=== PATIENT | female | born 1960 | race Caucasian/White ===

== ENCOUNTER 2022-01-15 13:04 | Emergency (ER) | payer MEDICARE, OTHER, SELFPAY ==
[2022-01-15 13:15] VITALS: BP 144/86; PULSE 102; RESP 16; TEMP 36.4; O2SAT 99
--- NOTE | 2022-01-15 16:19 | ED.URI ---
HPI - URI/Sore Throat General Chief Complaint: Upper Respiratory Infection Stated Complaint: poss pnuemonia Time Seen by Provider: 01/15/22 16:15 Source: patient, RN notes reviewed and old records reviewed Mode of arrival: ambulatory Limitations: no limitations History of Present Illness HPI Narrative: 61 year old female who presents to [facility] care with complaints of cough with yellow expectorated phlegm for 3 days, ribs hurt from so much coughing, fevers, body aches, chills and sweats.Patient reports that she has had flu shot. Patient reports that she has taken day and night cold and flu medication and has used Robitussin cough syrup. Patient rates her body aches at 6/10 pain level, Denies offer for chest x-ray. MD elicited complaint: fever, cough and other (bodyaches) Onset (ago): day(s) (3) Treatments prior to arrival: aspirin and other (day/night cold and flu medication and Robitussin cou) Related Data Home Medications Medication Instructions Recorded Confirmed alprazolam 0.5 mg tablet (Xanax) 0.5 mg PO TID PRN Anxiety 06/04/20 01/15/22 ranolazine 1,000 mg 1,000 mg PO Q12H 06/04/20 01/15/22 tablet,extended release,12 hr (Ranexa) arpqfdhhri-kizmdrp-hbjionsn 50 1 cap PO BID PRN Pain 01/15/22 01/15/22 mg-325 mg-40 mg capsule celecoxib 200 mg capsule 200 mg PO BID 01/15/22 01/15/22 ezetimibe 10 mg tablet 10 mg PO DAILY 01/15/22 01/15/22 famotidine 40 mg tablet 40 mg PO DAILY 01/15/22 01/15/22 hydrochlorothiazide 25 mg tablet 25 mg PO DAILY 01/15/22 01/15/22 icosapent ethyl 1 gram capsule 1 g PO DAILY 01/15/22 01/15/22 (Vascepa) metoprolol succinate 50 mg 50 mg PO DAILY 01/15/22 01/15/22 tablet,extended release 24 hr nitroglycerin 0.4 mg sublingual 0.4 mg sublingual DAILY PRN Chest 01/15/22 01/15/22 tablet Pain trazodone 150 mg tablet 300 mg PO QHS PRN Sleep 01/15/22 01/15/22 Allergies Allergy/AdvReac Type Severity Reaction Status Date / Time bee venom protein (honey bee) Allergy Severe Anaphylaxis Verified 01/15/22 15:09 erythromycin base Allergy Unknown Rash Verified 01/15/22 15:09 Review of Systems Review of Systems: CONSTITUTIONAL: Reports malaise, chills, sweats, or fever. EYES: Denies visual changes, redness, or discharge. ENT: Reports rhinorrhea, congestion, sinus pain,no otalgia or sore throat. CARDIOVASCULAR: Denies chest pain, palpitations, or edema. RESPIRATORY: Reports cough.? Denies dyspnea.states rib pain from coughing GASTROINTESTINAL: Denies abdominal pain, nausea, vomiting, diarrhea SKIN: Denies rash or itching. MUSCULOSKELETALReports myalgia. NEUROLOGIC: Denies headache. All systems reviewed & are unremarkable except as noted in HPI and below PMFSH Past Medical History Medical History (Updated 01/20/22 @ 16:28 by Esha Santamaria NP) Depression Diastolic dysfunction Hypertension Low back pain Syrinx of spinal cord Surgical History Surgical History (Updated 01/20/22 @ 16:25 by Esha Santamaria NP) H/O total knee replacement (~12/25/19) H/O: hysterectomy History of right knee joint replacement Hx of appendectomy S/P tonsillectomy Social History Social History Social History: never smoker Smoking status: Never smoker Alcohol intake: current Substance use: never Comments At time of signature, agree with nursing past medical, surgical, social and family history. There is no relevant family history pertinent to the presenting complaint Exam Narrative: GENERAL: Well-appearing, well-nourished, and in no acute distress. HEAD: Normocephalic EYES: PERRLA, conjunctivae clear ENT: Nares clear, turbinates edematous and erythematous, clear discharge. Mucous membranes moist. TM pearly ramos with dull light reflex bilaterally; no tragal tenderness. Oropharynx erythematous without lesions. Tonsils not present and without exudate note to throat,, no drooling, no hoarseness, no trismus, uvula midline.some po
== END 2022-01-15 16:35 | disposition home or self-care (01) ==
PROVIDERS: Emergency Provider Registered Nurse; PCP Family Medicine
DX: J06.9 Acute upper respiratory infection, unspecified (principal); I10 Essential (primary) hypertension
CPT/HCPCS: 87804; 99213; G0463

== ENCOUNTER 2022-06-07 08:52 | Emergency (ER) | payer MEDICARE, OTHER, SELFPAY ==
[2022-06-07 09:00] VITALS: BP 136/85; PULSE 125; RESP 20; TEMP 37.1; O2SAT 99
--- NOTE | 2022-06-07 09:45 | ED.URI ---
HPI - URI/Sore Throat General Chief Complaint: Upper Respiratory Infection Stated Complaint: terrible cough Time Seen by Provider: 06/07/22 09:45 Source: patient, RN notes reviewed and old records reviewed Mode of arrival: ambulatory Limitations: no limitations History of Present Illness HPI Narrative: 52-year-old female who presents to [facility] Care with complaints of 4 day duration severe cough and congestion, sore throat and also nasal congestion and drainage. Patient states she has been taking DayQuil and NyQuil med and also Robitussin cough syrup with no improvement in her symptoms. Patient reports that she is not able to sleep due to cough and has some rib discomfort from all the coughing. Patient denies any fevers, chills, states body aches, denies acute dyspnea. Patient denies any known ill contacts. MD elicited complaint: cough, sore throat, rhinorrhea and nasal congestion Onset (ago): day(s) (4) Pain scale (0-10): 5 Description of mucous: yellow Exacerbating factors: swallowing, exertion and supine positioning Treatments prior to arrival: other (Robittussin, DayQuil or NyQuil) Related Data Home Medications Medication Instructions Recorded Confirmed alprazolam 0.5 mg tablet (Xanax) 0.5 mg PO TID PRN Anxiety 06/04/20 01/15/22 ranolazine 1,000 mg 1,000 mg PO Q12H 06/04/20 01/15/22 tablet,extended release,12 hr (Ranexa) ujrsqniyjo-mktqkan-jyfzmtxe 50 1 cap PO BID PRN Pain 01/15/22 01/15/22 mg-325 mg-40 mg capsule celecoxib 200 mg capsule 200 mg PO BID 01/15/22 01/15/22 ezetimibe 10 mg tablet 10 mg PO DAILY 01/15/22 01/15/22 famotidine 40 mg tablet 40 mg PO DAILY 01/15/22 01/15/22 hydrochlorothiazide 25 mg tablet 25 mg PO DAILY 01/15/22 01/15/22 icosapent ethyl 1 gram capsule 1 g PO DAILY 01/15/22 01/15/22 (Vascepa) metoprolol succinate 50 mg 50 mg PO DAILY 01/15/22 01/15/22 tablet,extended release 24 hr nitroglycerin 0.4 mg sublingual 0.4 mg sublingual DAILY PRN Chest 01/15/22 01/15/22 tablet Pain trazodone 150 mg tablet 300 mg PO QHS PRN Sleep 01/15/22 01/15/22 Allergies Allergy/AdvReac Type Severity Reaction Status Date / Time bee venom protein (honey bee) Allergy Severe Anaphylaxis Verified 06/07/22 09:22 erythromycin base Allergy Unknown Rash Verified 06/07/22 09:22 Review of Systems Review of Systems: CONSTITUTIONAL: Reports malaise, chills, sweats, or fever. EYES: Denies visual changes, redness, or discharge. ENT: Reports rhinorrhea, congestion, sinus pain, bilateral otalgia and sore throat. CARDIOVASCULAR: Denies chest pain, palpitations, or edema. RESPIRATORY: Reports productive cough.? Denies any acute dyspnea. GASTROINTESTINAL: Denies abdominal pain, nausea, vomiting, diarrhea SKIN: Denies rash or itching. MUSCULOSKELETAL: Reports myalgia. NEUROLOGIC: Denies headache. All systems reviewed & are unremarkable except as noted in HPI and below PMFSH Past Medical History Medical History Depression Diastolic dysfunction Hypertension Low back pain Syrinx of spinal cord Surgical History Surgical History H/O total knee replacement (~12/25/19) H/O: hysterectomy History of right knee joint replacement Hx of appendectomy S/P tonsillectomy Social History Social History Social History: never smoker Smoking status: Never smoker Alcohol intake: current Substance use: never Living arrangements: with family Comments At time of signature, agree with nursing past medical, surgical, social and family history. There is no relevant family history pertinent to the presenting complaint Exam Narrative: GENERAL: Well-appearing, well-nourished, and in no acute distress. HEAD: Normocephalic EYES: PERRLA, conjunctivae clear ENT: Nares clear, turbinates edematous and erythematous, clear to light yellow di
== END 2022-06-07 10:09 | disposition home or self-care (01) ==
PROVIDERS: Emergency Provider Registered Nurse
DX: J06.9 Acute upper respiratory infection, unspecified (principal); J02.9 Acute pharyngitis, unspecified; I10 Essential (primary) hypertension; Z96.651 Presence of right artificial knee joint
CPT/HCPCS: 87081; 87880; 99213; G0463

== ENCOUNTER 2022-08-05 18:03 | Emergency (ER) | payer MEDICARE, OTHER, SELFPAY ==
--- NOTE | 2022-08-05 18:08 | ED.FEMALEGU ---
HPI - Female Genitourinary General Chief complaint: Urogenital-Female Stated complaint: poss uti Time Seen by Provider: 08/05/22 18:08 Source: patient Mode of arrival: ambulatory Limitations: no limitations History of Present Illness HPI Narrative: Roma is a 62-year-old female patient presenting to clinic today with complaints of possible urinary tract infection. She reports she developed difficulty urinating and urgency this morning. Denies any vaginal discharge. Does have chronic back pain. No fever or chills Related Data Home Medications Medication Instructions Recorded Confirmed alprazolam 0.5 mg tablet (Xanax) 0.5 mg PO TID PRN Anxiety 06/04/20 08/05/22 ranolazine 1,000 mg 1,000 mg PO Q12H 06/04/20 01/15/22 tablet,extended release,12 hr (Ranexa) qgumgukpul-tjqyadq-finbfspt 50 1 cap PO BID PRN Pain 01/15/22 08/05/22 mg-325 mg-40 mg capsule celecoxib 200 mg capsule 200 mg PO BID 01/15/22 08/05/22 ezetimibe 10 mg tablet 10 mg PO DAILY 01/15/22 08/05/22 famotidine 40 mg tablet 40 mg PO DAILY 01/15/22 01/15/22 hydrochlorothiazide 25 mg tablet 25 mg PO DAILY 01/15/22 08/05/22 icosapent ethyl 1 gram capsule 1 g PO DAILY 01/15/22 01/15/22 (Vascepa) metoprolol succinate 50 mg 50 mg PO DAILY 01/15/22 08/05/22 tablet,extended release 24 hr nitroglycerin 0.4 mg sublingual 0.4 mg sublingual DAILY PRN Chest 01/15/22 08/05/22 tablet Pain trazodone 150 mg tablet 300 mg PO QHS PRN Sleep 01/15/22 01/15/22 alendronate 70 mg tablet mg PO 08/05/22 amlodipine 5 mg tablet 5 mg PO DAILY 08/05/22 08/05/22 cyclobenzaprine 10 mg tablet 10 mg PO TID PRN Muscle Spasm 08/05/22 08/05/22 Allergies Allergy/AdvReac Type Severity Reaction Status Date / Time bee venom protein (honey bee) Allergy Severe Anaphylaxis Verified 08/05/22 18:16 erythromycin base Allergy Unknown Rash Verified 08/05/22 18:16 Review of Systems Review of Systems: Pertinent positives per HPI. Patient denies any fever, chills, rash, headache, visual changes, dizziness, cough, runny nose, sore throat, shortness of breath, chest pain, palpitations, nausea, vomiting, diarrhea, constipation, abdominal pain. PMF Past Medical History Medical History Depression Diastolic dysfunction Hypertension Low back pain Syrinx of spinal cord Surgical History Surgical History H/O total knee replacement (~12/25/19) H/O: hysterectomy History of right knee joint replacement Hx of appendectomy S/P tonsillectomy Social History Social History Social History: never smoker Smoking status: Never smoker Alcohol intake: current Substance use: never Living arrangements: with family Comments At the time of my signature, I reviewed and agree with the nursing past medical, surgical, social, and family history. There is no relevant family history pertinent to the patient complaint. Exam Narrative: General: Well-developed, obese, in no apparent distress. Head: Normocephalic, atraumatic. Cardio: Regular rate and rhythm, s1 and s2 normal, no murmur appreciated. Resp: Clear to auscultation bilaterally, no rhonchi, rales, wheezing or rubs. Abdomen: Soft, pliable, bowel sounds present in all quadrants, mild tender to palpation over the suprapubic area, no organomegly, no CVAT tenderness. Course Course Emergency Course: Portions of this record may have been created with voice recognition software. Level of Care: Express Care Visit Vital Signs Vital signs: Vital signs reviewed MDM - Female Genitourinary MDM Narrative Medical decision making narrative: At the time of visit patient is resting comfortably on exam table. UA was obtained and was skewed due to azo. Will send in prescription for Macrobid. We will send urine for culture. Supportive measures were discussed
[2022-08-05 18:15] VITALS: BP 159/101; PULSE 98; RESP 16; TEMP 36.5; O2SAT 100
[2022-08-05 18:25] VITALS: BP 159/101; PULSE 98; RESP 16; TEMP 36.5; O2SAT 100
== END 2022-08-05 18:29 | disposition home or self-care (01) ==
PROVIDERS: Emergency Provider Nurse Practitioner Family; PCP Family Medicine
DX: N30.01 Acute cystitis with hematuria (principal); I10 Essential (primary) hypertension
CPT/HCPCS: 81003; 87077; 87086; 87186; 99213; G0463

== ENCOUNTER 2023-04-22 08:19 | Emergency (ER) | payer MEDICARE, OTHER, SELFPAY ==
[2023-04-22 08:27] VITALS: BP 141/94; PULSE 107; RESP 16; TEMP 36.8; O2SAT 100
--- NOTE | 2023-04-22 09:04 | ED.GENADULT ---
HPI - General Adult General Chief complaint: Upper Respiratory Infection Stated complaint: Cough/Body Aches/Diarrhea Source: patient Mode of arrival: ambulatory Limitations: no limitations History of Present Illness HPI narrative: Patient presents for evaluation of sick symptoms for the last two days. Symptoms include fever, nonproductive cough, pleuritic chest discomfort, nausea, diarrhea, sore throat secondary to coughing and sinus congestion. No vomiting or shortness of breath. No recent sick contacts to her knowledge. She does not smoke. She tried taking Robitussin and Tylenol for symptoms. Related Data Home Medications Medication Instructions Recorded Confirmed alprazolam 0.5 mg tablet (Xanax) 0.5 mg PO TID PRN Anxiety 06/04/20 04/22/23 xicgnomzle-esrwfan-aqpnnnke 50 1 cap PO BID PRN Pain 01/15/22 04/22/23 mg-325 mg-40 mg capsule celecoxib 200 mg capsule 200 mg PO BID 01/15/22 04/22/23 ezetimibe 10 mg tablet 10 mg PO DAILY 01/15/22 04/22/23 famotidine 40 mg tablet 40 mg PO DAILY 01/15/22 04/22/23 hydrochlorothiazide 25 mg tablet 25 mg PO DAILY 01/15/22 04/22/23 icosapent ethyl 1 gram capsule 1 g PO DAILY 01/15/22 04/22/23 (Vascepa) metoprolol succinate 50 mg 50 mg PO DAILY 01/15/22 04/22/23 tablet,extended release 24 hr nitroglycerin 0.4 mg sublingual 0.4 mg sublingual DAILY PRN Chest 01/15/22 04/22/23 tablet Pain trazodone 150 mg tablet 300 mg PO QHS PRN Sleep 01/15/22 04/22/23 alendronate 70 mg tablet 70 mg PO DAILY 08/05/22 04/22/23 amlodipine 5 mg tablet 5 mg PO DAILY 08/05/22 04/22/23 cyclobenzaprine 10 mg tablet 10 mg PO TID PRN Muscle Spasm 08/05/22 04/22/23 Allergies Allergy/AdvReac Type Severity Reaction Status Date / Time bee venom protein (honey bee) Allergy Severe Anaphylaxis Verified 04/22/23 08:46 erythromycin base Allergy Unknown Rash Verified 04/22/23 08:46 Review of Systems Review of Systems: CONSTITUTIONAL: Reports fever. Denies chills, or sweats. EYES: Denies visual changes, redness, or discharge. ENT: Reports sinus congestion and sore throat. Denies otalgia. CARDIOVASCULAR:Reports pleuritic chest discomfort. Denies chest pain otherwise. Denies palpitations, or edema. RESPIRATORY: Reports cough. Denies SOB. GASTROINTESTINAL: Reports nausea and diarrhea. Denies abdominal pain and vomiting GENITOURINARY: Denies dysuria or hematuria. SKIN: Denies rash or itching. MUSCULOSKELETAL: Denies back pain, joint pain, or myalgia. NEUROLOGIC: Denies headache, numbness, dizziness, or weakness. PSYCHIATRIC: Denies anxiety or depression. [facility] Past Medical History Medical History Depression Diarrhea Diastolic dysfunction Hypertension Low back pain Syrinx of spinal cord Surgical History Surgical History H/O total knee replacement (~12/25/19) H/O: hysterectomy History of right knee joint replacement Hx of appendectomy S/P tonsillectomy Family History Family History Mother Family history non-contributory Social History Social History Social History: never smoker Smoking status: Never smoker Alcohol intake: current Substance use: never Living arrangements: with family Gender identity (if verbalized by the patient): Female Sexual Orientation (if Verbalized by the Patient): Straight or Heterosexual Spiritual care concerns: No Exam Narrative: GENERAL: Well-appearing, well-nourished, and in no acute distress. HEAD: Normocephalic, atraumatic. EYES: PERRLA and EOMI. ENT: Nares clear, no rhinorrhea or epistaxis. Mucous membranes moist. Mild posterior pharyngeal erythema. Oropharynx without tonsillar hypertrophy exudate or other lesions. Bilateral TMs pearly ramos nonbulging NECK: Supple. No adenopathy or masses. No carotid
== END 2023-04-22 09:03 | disposition home or self-care (01) ==
PROVIDERS: Emergency Provider Nurse Practitioner; PCP Family Medicine
DX: B34.9 Viral infection, unspecified (principal); Z20.822 Contact with and (suspected) exposure to COVID-19; I10 Essential (primary) hypertension; F32.A Depression, unspecified; Z96.651 Presence of right artificial knee joint
CPT/HCPCS: 87426; 87804; 99213; G0463

== ENCOUNTER 2023-06-27 08:36 | Emergency (ER) | payer MEDICARE, OTHER, SELFPAY ==
[2023-06-27 08:46] VITALS: BP 151/94; PULSE 85; RESP 16; TEMP 36.6; O2SAT 98
--- NOTE | 2023-06-27 09:25 | ED.GENADULT ---
HPI - General Adult General Chief complaint: Eye Problems Stated complaint: Left Eye Pain and Irritation Source: patient Mode of arrival: ambulatory Limitations: no limitations History of Present Illness HPI narrative: Patient presents for evaluation of left eyelid irritation. Symptom onset 3 days ago. She has associated redness, tearing, and blurred vision on left eye. She wears glasses but not contacts. Denies any thick mucopurulent discharge from the eye and any other visual disturbance. She has not tried any therapies to assist with her symptoms. No recent sick contacts to her knowledge. Denies any other infectious symptoms. Related Data Home Medications Medication Instructions Recorded Confirmed alprazolam 0.5 mg tablet (Xanax) 0.5 mg PO TID PRN Anxiety 06/04/20 06/27/23 bqzdhwrqmb-izaqtps-fgfakggu 50 1 cap PO BID PRN Pain 01/15/22 06/27/23 mg-325 mg-40 mg capsule celecoxib 200 mg capsule 200 mg PO BID 01/15/22 06/27/23 ezetimibe 10 mg tablet 10 mg PO DAILY 01/15/22 06/27/23 famotidine 40 mg tablet 40 mg PO DAILY 01/15/22 06/27/23 hydrochlorothiazide 25 mg tablet 25 mg PO DAILY 01/15/22 06/27/23 icosapent ethyl 1 gram capsule 1 g PO DAILY 01/15/22 06/27/23 (Vascepa) metoprolol succinate 50 mg 50 mg PO DAILY 01/15/22 06/27/23 tablet,extended release 24 hr nitroglycerin 0.4 mg sublingual 0.4 mg sublingual DAILY PRN Chest 01/15/22 06/27/23 tablet Pain trazodone 150 mg tablet 300 mg PO QHS PRN Sleep 01/15/22 06/27/23 alendronate 70 mg tablet 70 mg PO DAILY 08/05/22 06/27/23 amlodipine 5 mg tablet 5 mg PO DAILY 08/05/22 06/27/23 cyclobenzaprine 10 mg tablet 10 mg PO TID PRN Muscle Spasm 08/05/22 06/27/23 Allergies Allergy/AdvReac Type Severity Reaction Status Date / Time bee venom protein (honey bee) Allergy Severe Anaphylaxis Verified 06/27/23 08:55 erythromycin base Allergy Unknown Rash Verified 06/27/23 08:55 Review of Systems Review of Systems: CONSTITUTIONAL: Denies fever, chills, or sweats. EYES: Reports tearing and blurred vision both to left eye. Denies any other visual disturbance. Denies thick drainage from the eyes. Denies pruritis ENT: Denies rhinorrhea, congestion, sore throat, or otalgia. CARDIOVASCULAR: Denies chest pain, palpitations, or edema. RESPIRATORY: Denies cough or dyspnea. GASTROINTESTINAL: Denies abdominal pain, nausea, vomiting, or diarrhea. GENITOURINARY: Denies dysuria or hematuria. SKIN: Denies rash or itching. MUSCULOSKELETAL: Denies back pain, joint pain, or myalgia. NEUROLOGIC: Denies headache, numbness, dizziness, or weakness. PSYCHIATRIC: Denies anxiety or depression. [facility] Past Medical History Medical History Depression Diarrhea Diastolic dysfunction Hypertension Low back pain Syrinx of spinal cord Surgical History Surgical History H/O total knee replacement (~12/25/19) H/O: hysterectomy History of right knee joint replacement Hx of appendectomy S/P tonsillectomy Family History Family History Mother Family history non-contributory Social History Social History Social History: never smoker Smoking status: Never smoker Alcohol intake: current Substance use: never Living arrangements: with family Gender identity (if verbalized by the patient): Female Sexual Orientation (if Verbalized by the Patient): Straight or Heterosexual Spiritual care concerns: No Exam Narrative: GENERAL: Well-appearing, well-nourished, and in no acute distress. HEAD: Normocephalic, atraumatic. EYES: PERRLA and EOMI. Tearing to left eye noted. No conjunctival injection ENT: Nares clear, no rhinorrhea or epistaxis. Mucous membranes moist. Oropharynx without tonsillar hypertrophy exudate or other lesions. Bilateral TMs p
== END 2023-06-27 09:10 | disposition home or self-care (01) ==
PROVIDERS: Emergency Provider Nurse Practitioner; PCP Family Medicine
DX: H00.014 Hordeolum externum left upper eyelid (principal); F32.A Depression, unspecified; I11.9 Hypertensive heart disease without heart failure
CPT/HCPCS: 99213; G0463

== ENCOUNTER 2023-08-06 08:01 | Emergency (ER) | payer MEDICARE, OTHER, SELFPAY ==
[2023-08-06 08:04] VITALS: BP 141/87; PULSE 100; RESP 18; TEMP 36.7; O2SAT 98
--- NOTE | 2023-08-06 08:14 | ED.URI ---
HPI - URI/Sore Throat General Chief Complaint: Upper Respiratory Infection Stated Complaint: throat / cough Time Seen by Provider: 08/06/23 08:21 Source: patient, RN notes reviewed and old records reviewed Mode of arrival: ambulatory Limitations: no limitations History of Present Illness HPI Narrative: 63 year old female presents to [facility] care with complaints of 3 day history of head congestion, dry cough, sore throat with fevers up to 101F. Patient reports that she has painful swallowing and it hurts really bad to try to talk. Patient reports that she has dry cough and some dyspnea noted with cough, no tachypnea noted SAO2 98% on room air. Patient reports that she has been taking Tylenol and Ibuprofen for her symptoms and also Coricidin HBP. MD elicited complaint: fever, cough, sore throat, rhinorrhea and nasal congestion Onset (ago): day(s) (3) Pain scale (0-10): 8 Able to tolerate fluids by mouth: Yes Exacerbating factors: swallowing and other (talking) Treatments prior to arrival: acetaminophen, ibuprofen and other (coricidin HBP) Related Data Home Medications Medication Instructions Recorded Confirmed alprazolam 0.5 mg tablet (Xanax) 0.5 mg PO TID PRN Anxiety 06/04/20 08/06/23 xozosdkkga-fqfeqkn-honvhkes 50 1 cap PO BID PRN Pain 01/15/22 08/06/23 mg-325 mg-40 mg capsule celecoxib 200 mg capsule 200 mg PO BID 01/15/22 08/06/23 ezetimibe 10 mg tablet 10 mg PO DAILY 01/15/22 08/06/23 famotidine 40 mg tablet 40 mg PO DAILY 01/15/22 08/06/23 hydrochlorothiazide 25 mg tablet 25 mg PO DAILY 01/15/22 08/06/23 icosapent ethyl 1 gram capsule 1 g PO DAILY 01/15/22 08/06/23 (Vascepa) metoprolol succinate 50 mg 50 mg PO DAILY 01/15/22 08/06/23 tablet,extended release 24 hr nitroglycerin 0.4 mg sublingual 0.4 mg sublingual DAILY PRN Chest 01/15/22 08/06/23 tablet Pain trazodone 150 mg tablet 300 mg PO QHS PRN Sleep 01/15/22 08/06/23 alendronate 70 mg tablet 70 mg PO DAILY 08/05/22 08/06/23 amlodipine 5 mg tablet 5 mg PO DAILY 08/05/22 08/06/23 cyclobenzaprine 10 mg tablet 10 mg PO TID PRN Muscle Spasm 08/05/22 08/06/23 ergocalciferol (vitamin D2) 1,250 50,000 unit PO WEEKLY 08/06/23 08/06/23 mcg (50,000 unit) capsule gabapentin 600 mg tablet 600 mg PO TID 08/06/23 08/06/23 metformin 500 mg tablet,extended 500 mg PO TID 08/06/23 08/06/23 release 24 hr paroxetine HCl 20 mg tablet 20 mg PO DAILY 08/06/23 08/06/23 Allergies Allergy/AdvReac Type Severity Reaction Status Date / Time bee venom protein (honey bee) Allergy Severe Anaphylaxis Verified 06/27/23 08:55 erythromycin base Allergy Unknown Rash Verified 06/27/23 08:55 Review of Systems Review of Systems: CONSTITUTIONAL: Reports malaise, chills, sweats, or fever. EYES: Denies visual changes, redness, or discharge. ENT: Reports rhinorrhea, congestion, sinus pain,no otalgia and positive for sore throat. CARDIOVASCULAR: Denies chest pain, palpitations, or edema. RESPIRATORY: Reports cough.? Reports that she feel some dyspnea with cough. GASTROINTESTINAL: Denies abdominal pain, nausea, vomiting, diarrhea SKIN: Denies rash or itching. MUSCULOSKELETAL: Denies myalgia. NEUROLOGIC: Denies headache. All systems reviewed & are unremarkable except as noted in HPI and below PMFSH Past Medical History Medical History Depression Diarrhea Diastolic dysfunction Hypertension Low back pain Syrinx of spinal cord Surgical History Surgical History H/O total knee replacement (~12/25/19) H/O: hysterectomy History of right knee joint replacement Hx of appendectomy S/P tonsillectomy Family History Family History Mother Family history non-contributory Social History Social History Social History: never smoker Smoking status: Never smoker
== END 2023-08-06 08:40 | disposition home or self-care (01) ==
PROVIDERS: Emergency Provider Registered Nurse; PCP Family Medicine
DX: J02.0 Streptococcal pharyngitis (principal); F32.A Depression, unspecified; I10 Essential (primary) hypertension; Z96.651 Presence of right artificial knee joint
CPT/HCPCS: 87880; 99212; G0463

== ENCOUNTER 2023-10-01 08:30 | Emergency (ER) | payer MEDICARE, OTHER, SELFPAY ==
[2023-10-01 08:37] VITALS: BP 139/94; PULSE 83; RESP 20; TEMP 37.1; O2SAT 97
[2023-10-01 08:54] LABS: EDINFLUASCREEN Negative; EDINFLUBSCREEN Negative
[2023-10-01 08:58] VITALS: BP 139/94; PULSE 83; RESP 20; TEMP 37.1; O2SAT 97
--- NOTE | 2023-10-01 09:02 | ED.URI ---
HPI - URI/Sore Throat General Chief Complaint: Upper Respiratory Infection Stated Complaint: throat/flu like symptoms History of Present Illness HPI Narrative: 63-year-old female history of diabetes presented for complaint of sore throat,headache, body aches, sinus pressure/congestion, cough, fever/chills. onset 4 days. Took Tylenol, ibuprofen and Severe Cold/Flu med. Denies sob, wheezing, n/v/d. Related Data Home Medications Medication Instructions Recorded Confirmed alprazolam 0.5 mg tablet (Xanax) 0.5 mg PO TID PRN Anxiety 06/04/20 10/01/23 wyklypovte-yibwmly-dtwwcfmk 50 1 cap PO BID PRN Pain 01/15/22 10/01/23 mg-325 mg-40 mg capsule celecoxib 200 mg capsule 200 mg PO BID 01/15/22 10/01/23 ezetimibe 10 mg tablet 10 mg PO DAILY 01/15/22 10/01/23 famotidine 40 mg tablet 40 mg PO DAILY 01/15/22 10/01/23 hydrochlorothiazide 25 mg tablet 25 mg PO DAILY 01/15/22 10/01/23 icosapent ethyl 1 gram capsule 1 g PO DAILY 01/15/22 10/01/23 (Vascepa) metoprolol succinate 50 mg 50 mg PO DAILY 01/15/22 10/01/23 tablet,extended release 24 hr nitroglycerin 0.4 mg sublingual 0.4 mg sublingual DAILY PRN Chest 01/15/22 10/01/23 tablet Pain trazodone 150 mg tablet 300 mg PO QHS PRN Sleep 01/15/22 10/01/23 alendronate 70 mg tablet 70 mg PO DAILY 08/05/22 10/01/23 amlodipine 5 mg tablet 5 mg PO DAILY 08/05/22 10/01/23 cyclobenzaprine 10 mg tablet 10 mg PO TID PRN Muscle Spasm 08/05/22 10/01/23 ergocalciferol (vitamin D2) 1,250 50,000 unit PO WEEKLY 08/06/23 10/01/23 mcg (50,000 unit) capsule gabapentin 600 mg tablet 600 mg PO TID 08/06/23 10/01/23 metformin 500 mg tablet,extended 500 mg PO TID 08/06/23 10/01/23 release 24 hr paroxetine HCl 20 mg tablet 20 mg PO DAILY 08/06/23 10/01/23 Allergies Allergy/AdvReac Type Severity Reaction Status Date / Time bee venom protein (honey bee) Allergy Severe Anaphylaxis Verified 10/01/23 08:52 erythromycin base Allergy Unknown Rash Verified 10/01/23 08:52 Review of Systems Review of Systems: CONSTITUTIONAL: reports body aches, fever EYES: Denies visual changes, redness, or discharge. ENT: reports rhinorrhea, congestion, sore throat denies otalgia. CARDIOVASCULAR: Denies chest pain, palpitations, or edema. RESPIRATORY: reports cough Denies dyspnea. GASTROINTESTINAL: Denies abdominal pain, nausea, vomiting, or diarrhea. SKIN: Denies rash MUSCULOSKELETAL: Denies back pain, joint pain PMFSH Past Medical History Medical History Depression Diarrhea Diastolic dysfunction Hypertension Low back pain Syrinx of spinal cord Surgical History Surgical History H/O total knee replacement (~12/25/19) H/O: hysterectomy History of right knee joint replacement Hx of appendectomy S/P tonsillectomy Family History Family History Mother Family history non-contributory Social History Social History Social History: never smoker Smoking status: Never smoker Alcohol intake: current Substance use: never Living arrangements: with family Gender identity (if verbalized by the patient): Female Sexual Orientation (if Verbalized by the Patient): Straight or Heterosexual Spiritual care concerns: No Exam Narrative: GENERAL: mildly Ill-appearing, no acute distress. EYES: conjunctivae clear ENT: Mucous membranes moist. TMs pearly ramos with normal light reflex bilaterally; no tragal tenderness. Oropharynx erythematous without lesions and without exudate. No drooling, no hoarseness, no trismus, uvula midline. No tripod positioning, hot potato voice, or soft palate swelling. NECK: Supple. No lymphadenopathy CHEST: Clear to auscultation, breath sounds equal. No respiratory distress, speaks in full sentences. HEART: Regular rate and rhythm. No murmur heard. SKI
== END 2023-10-01 09:10 | disposition home or self-care (01) ==
PROVIDERS: Emergency Provider Nurse Practitioner Family; PCP Family Medicine
DX: U07.1 COVID-19 (principal); J02.0 Streptococcal pharyngitis; Z20.822 Contact with and (suspected) exposure to COVID-19; I10 Essential (primary) hypertension; F32.A Depression, unspecified; Z96.651 Presence of right artificial knee joint
CPT/HCPCS: 87426; 87804; 87880; 99213; G0463

== ENCOUNTER 2024-03-29 09:03 | Emergency (ER) | payer MEDICARE, OTHER, SELFPAY ==
[2024-03-29 09:13] VITALS: BP 147/95; PULSE 100; RESP 16; TEMP 36.2; O2SAT 99
--- OUTSIDE RECORDS SUMMARY | 2024-03-29 09:26 | XMS_ITS | Clinical Summary ---
Author Organization [facility] Address [address] [address] Phone Care Team Providers Care Guest Request Runner Name Role Phone Damir Rinaldi DO Primary Care Provider [phone] Micah Rand MD Unavailable [phone] Allergies Active Allergy Reactions Criticality Noted Date Comments Erythromycin Hives 08/19/2021 Medications losartan-hydroch lorothiazide (HYZAAR) 50-12.5 MG Tablet take 1 tablet by oral route every day 07/21/2014 Active acyclovir (ZOVIRAX) 400 MG Tablet Take 400 mg by mouth daily. Active pravastatin (PRAVACHOL) 80 MG Tablet Take 80 mg by mouth daily. Active pantoprazole (PROTONIX) 40 MG Tablet Delayed Response Take 40 mg by mouth daily. Active Aripiprazole 10 MG TABLET DISPERSIBLE Take 10 mg by mouth daily. Active butalbital-aspir ua-yurzsqsj-wnqv ine (FIORINAL WITH CODEINE) 14-085-62-30 MG Capsule Take 1 Capsule by mouth every 6 hours as needed. Active traMADol (ULTRAM) 50 MG Tablet Take 50 mg by mouth every 6 hours as needed. Active traZODone (DESYREL) 150 MG Tablet Take 150 mg by mouth nightly. 2 tablets at bedtime as needed Active Ranolazine (Ranexa) 1000 MG TABLET SR 12 HR Take 1,000 mg by mouth 2 times daily. Active ALPRAZolam (Xanax) 0.5 MG Tablet Take 0.5 mg by mouth 3 times daily as needed. Active PARoxetine (PAXIL) 20 MG Tablet Take 20 mg by mouth daily. Active HYDROcodone-acet aminophen (NORCO) 10-325 MG Tablet Take 1 Tablet by mouth every 6 hours as needed. Active celecoxib (CeleBREX) 200 MG Capsule Take 200 mg by mouth 2 times daily. Active gabapentin (NEURONTIN) 600 MG Tablet Take 1 Tablet by mouth 3 times daily. 270 Tablet 1 10/11/2021 Active Immunizations Immunization Administration Dates Next Due Influenza Vaccine, Quadrivalent, PF 12/07/2021 Family History Medical History Relation Name Comments Cancer Father Lung Cancer Mother Relation Name Status Comments Father Mother Social History Tobacco Use Types Packs/Day Years Used Date Smoking Tobacco: Never Smokeless Tobacco: Never Alcohol Use Standard Drinks/Week Comments Yes 0 (1 standard drink = 0.6 oz pur e alcohol) occasional Comments Unknown Sex and Gender Information Value Date Recorded Sex Assigned at Not on file Legal Sex Female 7:43 PM CDT Gender Identity Not on file Sexual Orientation Not on file Last Filed Vital Signs Vital Sign Reading Time Taken Comments Blood Pressure 120/80 10/11/2021 11:26 AM CDT Pulse 88 10/11/2021 11:26 AM CDT Temperature - - Respiratory Rate 18 10/11/2021 11:18 AM CDT Oxygen Saturation 97% 10/11/2021 11:18 AM CDT Inhaled Oxygen Concentration - - Weight 107 kg (236 lb) 10/11/2021 11:18 AM CDT Height 157.5 cm (5' 2 ) 10/11/2021 11:18 AM CDT Body Mass Index 43.16 10/11/2021 11:18 AM CDT Plan of Treatment Health Maintenance Due Date Last Done Comments Hepatitis C Virus (HCV) Screening 1960 TdaP Immunization 1960 Colonoscopy 04/19/2004 Colorectal Cancer Screening 04/19/2004 Cologuard 04/19/2009 Immunochemical Fecal Occult Blood 04/19/2009 Mammogram 04/19/2009 Pneumococcal Immunization (50+ years) (1 of 1 - PCV) 04/19/2009 Influenza Immunization (#1) 10/22/202311/20, 11/16/2020, 11/20/2019, Additional history exists SARS-COV-2 Immunization ( season) 2023 01/22/2021, 06/12/2020, 05/15/2020 Respiratory Syncytial Virus (RSV) Immunization (Adult) (1 - 1-dose 75+ series) 04/19/2034 DTaP/Tdap/Td Immunization Discontinued 02/20/2009 Zoster Immunization Completed 10/29/2020, Hepatitis B Immunization Aged Out No longer eligible based on patient's age to complete this topic Meningococcal Immunization (ACWY) Aged Out No longer eligible based on patient's age to complete this topic Pneumococcal Immunization Combined Aged Out No longer eligible based on patient's age to complete this topic Rotavirus Immunization Aged Out No lo nger eligible based on patient's age to complete this topic Insurance [employer] Care Teams Guest Request Runner Relationship Specialty Start Date End Date Damir Rinaldi DO PCP - General Family Medicine 02/10/15 Micah Rand MD [address] [place] [address] Consulting Physician Neurology 10/11/21
--- OUTSIDE RECORDS SUMMARY | 2024-03-29 09:26 | XMS_ITS | Encounter Summary ---
Author Organization [facility] Healthcare Address [facility] [place] [address] Care Team Providers Care Professional Architect Name Role Phone Damir Rinaldi DO Primary Care Provider [phone] Bryan Simeon MD Unavailable [phone] Jerry Leos NP Unavailable [phone] Beryl Mendoza PT Unavailable Unavailable Reason for Referral * Diagnostic Imaging (Routine) - Closed Specialty Diagnoses / Procedures Referred By Contac t Referred To Contact Diagnoses Age-related osteoporosis without current pathological fracture Procedures Dexa Axial Skeleton Bone Density 1 or 2 Site Damir Rinaldi DO Phone: tel: fax: [address] [address] Referral ID Status Reason Start Date Expiration Date Visits Re quested Visits Authorized [id number] Closed 02/16/2024 03/17/2025 1 1 RVISOR INSPECTING Reason for Visit * Diagnostic Imaging (Routine) - Closed Specialty Diagnoses / Procedures Referred By Contac t Referred To Contact Diagnoses Age-related osteoporosis without current pathological fracture Procedures Dexa Axial Skeleton Bone Density 1 or 2 Site Damir Rinaldi DO Phone: tel: fax: [address] [address] Referral ID Status Reason Start Date Expiration Date Visits Re quested Visits Authorized [id number] Closed 02/16/2024 03/17/2025 1 1 Encounter Details Date Type Department Care Team (Latest Contact Info) Description 03/27/2024 8:00 AM SUPERVISOR INSPECTING - 03/27/2024 11:59 PM SUPERVISOR INSPECTING Hospital Encounter [facility] [address] [place] [address] Age-related osteoporosis without current pathological fracture Discharge Disposition: Discharge to home or self care Social History Tobacco Use Types Packs/Day Years Used Date Smoking Tobacco: Never Smokeless Tobacco: Never Alcohol Use Standard Drinks/Week Comments Yes 0 (1 standard drink = 0.6 oz pur e alcohol) [facility] Utilities Answer Date Recorded In the past 12 months has Register My [employer] e electric, gas, oil, or water company threatened to shut off services in your home? No 10/09/2023 Social Connection and Isolation Panel [NHANES] A nswer Date Recorded In a typical week, how many times do you talk on the phone with family, friends, or neighbors? Three times a week 10/09/2023 How often do you get togethe r with friends or relatives? Once a week 10/09/2023 How often do you attend chur ch or baptism services? Never 10/09/2023 Do you belong to any clubs o r organizations such as rastafarian groups, unions, fraternal or athletic groups, or school groups? No 10/09/2023 How often do you attend meet ings of the clubs or organizations you belong to? Never 10/09/2023 Are you , , di vorced, , never , or living with a partner? Patient declined 10/09/2023 AUDIT-C Answer Date Recorded Q1: How often do you have a drink containing alcohol? Never 02/29/2024 Q2: How many drinks containi ng alcohol do you have on a typical day when you are drinking? Patient does not drink Q3: How often do you have si x or more drinks on one occasion? Never 02/29/2024 Overall Financial Resource Strain (CARDIA) Answe r Date Recorded How hard is it for you to pa y for the very basics like food, housing, medical care, and heating? Not very hard 10/09/2023 Hunger Vital Sign Answer Date Recorded Within the past 12 months, y ou worried that your food would run out before you got the money to buy more. Never true 10/09/19 24 Within the past 12 months, t he food you bought just didn't last and you didn't have money to get more. Never true 10/09/2023 PRAPARE - Transportation Answer Date Re corded In the past 12 months, has l ack of transportation kept you from medical appointments or from getting medications? No 09/20 In the past 12 months, has l ack of transportation kept you from meetings, work, or from getting things needed for daily living? No 10/09/2023 Housing Stability Vital Sign Answer Navneet e Recorded In the last 12 months, was t here a time when you were not able to pay the mortgage or rent on time? No 10/09/2023 In the past 12 months, how m any times have you moved where you were living? 0 10/09/2023 At any time in the past [address] [facility], were you homeless or living in a snf (including now)? No 10/09/2023 Personal Safety Answer Date Recorded Have you ever been in or are you currently in a harmful physical or emotional relationship or is someone making you feel afraid or unsafe? Denies 10/07/2023 Comments No Sex and Gender Information Value Date Recorded Sex Assigned at Not on file Legal Sex Female 1:44 AM SUPERVISOR INSPECTING Gender Identity Not on file Sexual Orientation Not on file documented as of this encounter Medications at Time of Discharge ALPRAZolam (XANAX) 0.5 mg tablet TAKE 1 TABLET BY MOUTH THREE TIMES A DAY NEEDED FOR ANXIETY 12/07/2022 benzocaine-menth oL (CHLORASEPTIC) 6-10 mg lozenge Take 1 lozenge by mouth every 4 (four) hours as needed for sore throat 36 tablet 10/10/2023 cyclobenzaprine (FLEXERIL) 10 mg tablet 1 TABLET 3 TIMES A DAY NEEDED 12/06/2022 ezetimibe (ZETIA) 10 mg tablet Take 1 tablet (10 mg total) by mouth daily gabapentin (NEURONTIN) 600 mg tablet Take 1 tablet (600 mg total) by mouth 4 (four) times a day HYDROcodone-acet aminophen (NORCO) 10-325 mg per tablet Take 1 tablet by mouth 3 (three) times a day as needed 09/29/2023 losartan (COZAAR) 25 mg tablet Take 1 tablet (25 mg total) by mouth daily metoprolol XL (TOPROL-XL) 50 mg extended release tablet Take 1 tablet (50 mg total) by mouth 02/20/[address] (PROTONIX) 40 mg EC tablet Take 1 tablet (40 mg total) by mouth daily 02/19/2024 senna-docusate (PERICOLACE) 8.6-50 mg 1-2 times daily as needed for constipation 60 tablet 1 01/17/2023 traMADoL (ULTRAM) 50 mg tablet TAKE 2 TABLETS BY MOUTH 3 TIMES A DAY NEEDED 01/19/2023 traZODone (DESYREL) 150 mg tablet Take 1 tablet (150 mg total) by mouth nightly documented as of this encounter Discharge Disposition Disposition Code Departure Means Destination Discharge to home or self care documented in this encounter Plan of Treatment Not on file documented as of this encounter Procedures Procedure Name Priority Date/Time Associated Diagnosis Comments DEXA AXIAL SKELETON BONE DENSITY 1 OR MORE SITES Schedule Routine, Read Routine (OP Routine) 03/27/2024 8:27 AM SUPERVISOR INSPECTING Age-related osteoporosis without current pathological fracture documented in this encounter Results * Dexa Axial Skeleton Bone Density 1 or 2 Site (03/27/2024 8:27 AM SUPERVISOR INSPECTING) Anatomical Region Laterality Modality Body N/A Other 03/27/2024 4:56 PM SUPERVISOR INSPECTING Narrative 03/27/2024 4:57 PM SUPERVISOR INSPECTING EXAM DESCRIPTION: DEXA AXIAL SKELETON BONE DENSITY 1 OR MORE SITES REASON FOR STUDY: 63 y/o year old F with given history of: age-related osteoporosis Postmenopausal. 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 CLINICAL INFORMATION: Current height: 62 inches Maximum height: 62 inches Weight: 190 pounds Risk factors: Postmenopausal COMPARISON: 01/21/2022 Dissimilar scan types or analysis methods precludes assessment for calculating a significant change. FINDINGS: AP LUMBAR SPINE L1-L4: Total BMD is 0.882 g/cm2 T-score is -1.5 LEFT HIP: Total BMD is 0.809 g/cm2 T-score is -1.1 Femoral neck BMD is 0.615 g/cm2 T-score is -2.1 FRAX: 10 year risk for a major osteoporotic fracture is 9.9 %, 10 year risk for a hip fracture is 1.4 % IMPRESSION: Low Bone Mass. REFERENCE: Bone mineral density: T-Score: Normal (T-score above or = -1.0) Low bone mass (T-score between -1.0 and -2.5) replaces the previously used term osteopenia Osteoporosis (T-score = or below -2.5) Z-Score: Within the expected range for age (Z-score above -2.0) Below the expected range for age (Z-score is -2.0 or below) Please see below follow up recommendations. Medical evaluation for secondary causes of low bone mineral density may be appropriate. FRAX is a World Health Organization validated fracture risk assessment tool that calculates a person's 10 year probability of a major osteoporosis related fracture and hip fracture. According to the National Osteoporosis Foundation guidelines, postmenopausal women and men age 50 or older with low bone mass and a 10 year probability of a major osteoporosis related fracture = or greater than 20% or a 10 year probability of a hip fracture = or greater than 3% should be considered for pharmacological treatment for the prevention of osteoporosis. For further information, including treatment recommendations, please refer to the 2019 ISCD Official Positions (http://www.iscd.org) and the NOF's Clinician's Guide to Prevention and Treatment of Osteoporosis (http://www.nof.org/professionals/clinical-guidelines) THIS IS AN ELECTRONICALLY VERIFIED FINAL REPORT 03/27/2024 4:57 PM - Electronically signed by Arcadio Goel M.D. MF: TAM Report ID: [id number] Reading Location: [id number] Procedure Note Arcadio Goel MD - 03/27/2024 EXAM DESCRIPTION: DEXA AXIAL SKELETON BONE DENSITY 1 OR MORE SITES REASON FOR STUDY: 63 y/o year old F with given history of:age-related osteoporosis Postmenopausal. 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 CLINICAL INFORMATION: Current height: 62 inches Maximum height: 62 inches Weight: 190 pounds Risk factors: Postmenopausal COMPARISON: 01/21/2022 Dissimilar scan types or analysis methods precludes assessment for calculating a significant change. FINDINGS: AP LUMBAR SPINE L1-L4: Total BMD is 0.882 g/cm2 T-score is -1.5 LEFT HIP: Total BMD is 0.809 g/cm2 T-score is -1.1 Femoral neck BMD is 0.615 g/cm2 T-score is -2.1 FRAX: 10 year risk for a major osteoporotic fracture is 9.9 %, 10 year risk fora hip fracture is 1.4 % IMPRESSION: Low Bone Mass. REFERENCE: Bone mineral density: T-Score: Normal (T-score above or = -1.0) Low bone mass (T-score between -1.0 and -2.5) replaces thepreviously used term osteopenia Osteoporosis (T-score = or below -2.5) Z-Score: Within the expected range for age (Z-score above -2.0) Below the expected range for age (Z-score is -2.0 or below) Please see below follow up recommendations. Medical evaluation forsecondary causes of low bone mineral density may be appropriate. FRAX is a World Health Organization validated fracture risk assessmenttool that calculates a person's 10 year probability of a major osteoporosisrelated fracture and hip fracture. According to the National OsteoporosisFoundation guidelines, postmenopausal women and men age 50 or older with low bonemass and a 10 year probability of a major osteoporosis related fracture = or greater than 20% or a 10 year probability of a hip fracture = or greaterthan 3% should be considered for pharmacological treatment for the preventionof osteoporosis. For further information, including treatment recommendations, please referto the 2019 ISCD Official Positions (http://www.iscd.org) and the NOF's Clinician's Guide to Prevention and Treatment of Osteoporosis (http://www.nof.org/professionals/clinical-guidelines) THIS IS AN ELECTRONICALLY VERIFIED FINAL REPORT 03/27/2024 4:57 PM - Electronically signed by Arcadio Goel M.D. MF: TAM Report ID: [id number] Reading Location: [id number] Damir Rinaldi DO IMG DXA PROCEDURES Final R esult documented in this encounter Visit Diagnoses Diagnosis Age-related osteoporosis without current pathological fracture documented in this encounter Care Teams Professional Architect Relationship Specialty Start Date End Date Damir Rinaldi DO PCP - General Family Medicine 05/08/19 Bryan Simeon MD Consulting Physician Cardiology 01/10/23 Jerry Leos NP [address] [place] [address] DR [facility] [address] [place] [id number] Nurse Practitioner Orthopedic Surgery 01/17/23 Beryl Mendoza, PT Physical Therapist Physical Therapy 06/16/23 documented as of this encounter
--- OUTSIDE RECORDS SUMMARY | 2024-03-29 09:26 | XMS_ITS | Referral Summary ---
Author Organization [facility] Address [address] [place] [address] Care Team Providers Care Imaging Account Manager Name Role Phone AlisiaKeysha silvern Jose Daniel Primary Care Provider [phone] Bryan Simeon MD Unavailable [phone] Jerry Leos NP Unavailable [phone] Beryl Mendoza PT Unavailable Unavailable Encounters Date Type Department Care Team Description 03/27/2024 8:00 AM SYSTEMS TESTER - 03/27/2024 11:59 PM SYSTEMS TESTER Hospital Encounter [address] [address] Age-related osteoporosis without current pathological fracture Discharge Disposition: Discharge to home or self care 02/29/2024 8:15 AM SYSTEMS TESTER Office Visit [facility] [address] [place] [address] Wil De Dios PA Primary osteoarthritis of left knee (Primary Dx); History of meniscectomy of left knee; Pes anserinus bursitis of right knee; History of total knee arthroplasty, right 01/31/2024 8:20 AM SYSTEMS TESTER - 01/31/2024 11:59 PM SYSTEMS TESTER Hospital Encounter [address] [address] 1Saniya Rad Rn Rad, Amh Breast Other abnormal and inconclusive findings on diagnostic imaging of breast Discharge Disposition: Discharge to home or self care 01/17/[address] [address] Maisha Huerta RN 01/17/2024 Telephone [facility] [address] [place] [address] Maisha Huerta RN 01/16/2024 Telephone [facility] [address] [place] [address] Maisha Huerta RN 01/05/2024 9:50 AM SYSTEMS TESTER - 01/05/2024 11:59 PM SYSTEMS TESTER Hospital Encounter [facility] [address] [place] [address] Other abnormal and inconclusive findings on diagnostic imaging of breast Discharge Disposition: Discharge to home or self care 01/05/2024 9:49 AM SYSTEMS TESTER - 01/05/2024 11:59 PM SYSTEMS TESTER Hospital Encounter [facility] [address] [place] [address] Other abnormal and inconclusive findings on diagnostic imaging of breast Discharge Disposition: Discharge to home or self care from Last 3 Months Allergies Active Allergy Reactions Criticality Noted Date Comments Atorvastatin Muscle pain Medium 08/20/2018 Bee Pollen Swelling Medium Erythromycin Other (See comments),Vomiting Low 12/02/2013 Reaction: vomiting, , , Reaction: nausea sick , Pravastatin Other (See comments),Muscle pain Medium 01/05/2022 Reaction: leg pain, Venlafaxine Rash Medium Reaction: rash, Medications gabapentin (NEURONTIN) 600 mg tablet Take 1 tablet (600 mg total) by mouth 4 (four) times a day Active ezetimibe (ZETIA) 10 mg tablet Take 1 tablet (10 mg total) by mouth daily Active metoprolol XL (TOPROL-XL) 50 mg extended release tablet Take 1 tablet (50 mg total) by mouth 02/20/18 70 Active cyclobenzaprine (FLEXERIL) 10 mg tablet 1 TABLET 3 TIMES A DAY NEEDED 12/07/19 23 Active ALPRAZolam (XANAX) 0.5 mg tablet TAKE 1 TABLET BY MOUTH THREE TIMES A DAY NEEDED FOR ANXIETY 12/08/19 23 Active aspirin 81 mg enteric coated tabletIndications: prevention of thrombosis Take 1 tablet (81 mg total) by mouth 2 (two) times a day for 14 days 28 tablet 01/18/20 23 Active senna-docusate (PERICOLACE) 8.6-50 mg 1-2 times daily as needed for constipation 60 tablet 1 01/18/20 23 Active traMADoL (ULTRAM) 50 mg tablet TAKE 2 TABLETS BY MOUTH 3 TIMES A DAY NEEDED 01/20/20 23 Active HYDROcodone-acetam inophen (NORCO) 10-325 mg per tablet Take 1 tablet by mouth 3 (three) times a day as needed 09/29/19 24 Active traZODone (DESYREL) 150 mg tablet Take 1 tablet (150 mg total) by mouth nightly Active benzocaine-menthoL (CHLORASEPTIC) 6-10 mg lozenge Take 1 lozenge by mouth every 4 (four) hours as needed for sore throat 36 tablet 10/10/19 24 Active losartan (COZAAR) 25 mg tablet Take 1 tablet (25 mg total) by mouth daily Active pantoprazole DR (PROTONIX) 40 mg EC tablet Take 1 tablet (40 mg total) by mouth daily 02/19/20 24 Active amLODIPine (NORVASC) 5 mg tablet Take 1 tablet (5 mg total) by mouth 03/28/19 23 025 Discontin ued(Thera py completed ) famotidine (PEPCID) 40 mg tablet Take 1 tablet (40 mg total) by mouth daily 09/20/19 23 025 Discontin ued(Alter hebert therapy) PARoxetine (PAXIL) 20 mg tablet Take 1 tablet (20 mg total) by mouth daily 11/10/19 23 025 Discontin ued(Thera py completed ) ascorbic acid (VITAMIN C) 500 mg tablet,chewable Take 1 tablet/chew tab (500 mg total) by mouth 2 (two) times a day 60 tablet/chew tab 01/18/20 23 025 Discontin ued(Thera py completed ) cholecalciferol (VITAMIN D-3) 2000 unit capsule Take 1 capsule (2,000 Units total) by mouth daily 30 capsule 01/18/20 23 025 Discontin ued(Thera py completed ) ondansetron ODT (ZOFRAN-ODT) 8 mg disintegrating tablet Take 1 tablet (8 mg total) by mouth every 8 (eight) hours as needed for nausea or vomiting 30 tablet 08/07/19 24 025 Discontin ued(Thera py completed ) metFORMIN XR (GLUCOPHAGE XR) 500 mg 24 hr tablet Take 1 tablet (500 mg total) by mouth 3 (three) times a day 08/07/19 24 025 Discontin ued(Alter hebert therapy) guaiFENesin ER (MUCINEX) 600 mg 12 hr tablet Take 2 tablets (1,200 mg total) by mouth 2 (two) times a day for 14 days 56 tablet 10/10/19 025 Discontin ued(Thera py completed ) Hospital, Clinic, or Other Facility Administered Medication Ordered Dose Route Frequency Start Date End Date Status lidocaine (XYLOCAINE) 20 mg/mL (2 %) injection 1 mLIndications:Admini stration of Local Anesthesia 1 mL OTHER One-Time Injection 02/29/2024 5 Ended lidocaine (XYLOCAINE) 20 mg/mL (2 %) injection 3 mLIndications:Admini stration of Local Anesthesia 3 mL One-Time Injection 02/29/2024 5 Ended methylPREDNISolone acetate (DEPO-medrol) injection 80 mgIndications:Primar y osteoarthritis of left knee 80 mg intra-artic One-Time Injection 02/29/2024 5 Ended methylPREDNISolone acetate (DEPO-medrol) injection 80 mgIndications:Pes anserinus bursitis of right knee 80 mg intra-artic One-Time Injection 02/29/2024 5 Ended Active Problems Problem Noted Date Diagnosed Date Pneumonia of both lungs due to infectious organism, unspecified part of lung 10/07/2023 Complex tear of medial meniscus of left knee 07/2022 Special screening for malignant neoplasms, colon 09/21/2022 Morbid obesity with BMI of 40.0-44.9, adult 10/22 Generalized anxiety disorder 11/13/2021 Recurrent major depression 11/13/2021 Primary hypertension 11/13/2021 Chronic diastolic heart failure 11/13/2021 Gastroesophageal reflux disease without esophagi tis 11/13/2021 Syringomyelia and syringobulbia 11/13/2021 Pre-diabetes 11/13/2021 Dizziness 11/13/2021 Assessment & Plan (11/13/2021 10:16 AM CDT): Patient reports associated with left anterior neck pain. Will get imaging of carotids in light of patient's h/o hyperlipidemia. Chest pain, unspecified type 11/12/2021 Assessment & Plan (11/13/2021 10:19 AM CDT): Resolved after morphine dose overnight. Unlikely to be secondary to ACS. Patient is overdue for follow up with her spinning bath person, Dr. Lala, in [place]. She will follow up soon. Patient has pain medication at home from her resin painter should pain return. Other possibilities for pain are MSK, anxiety, GI. Insomnia 07/06/2013 Overview (05/26/2016): Insomnia Herpes simplex type 1 infection 07/06/2013 Overview (05/27/2016): HSV-1 (herpes simplex virus 1) infection Migraine 07/06/2013 Overview (05/27/2016): Migraine Hyperlipidemia 11/26/2012 Overview (05/27/2016): Hyperlipidemia Osteopenia 08/07/2012 Overview (05/26/2016): Osteopenia Magnetic resonance imaging of brain abnormal Overview (05/26/2016): MRI of brain abnormal Falls infrequently 03/14/2011 Overview (05/26/2016): Falls infrequently Atypical migraine 03/14/2011 Overview (05/27/2016): Migraine headache without aura Disorder of peripheral nervous system 03/14/2011 Overview (05/27/2016): Peripheral neuropathy Resolved Problems Problem Noted Date Diagnosed Date Resolved Date Musculoskeletal finding 04/25/201110/22 Overview (05/27/2016): Proximal leg weakness Immunizations Name Administration Dates Next Due Td, adsorbed 02/20/2009 Social History Tobacco Use Types Packs/Day Years Used Date Smoking Tobacco: Never Smokeless Tobacco: Never Tobacco Cessation:Counseling Given: Not Answered Alcohol Use Standard Drinks/Week Comments Yes 0 (1 standard drink = 0.6 oz pur e alcohol) [facility] Utilities Answer Date Recorded In the past 12 months has th e electric, gas, oil, or water company [...] often do you attend chur ch or worship services? Never 10/09/2023 Do you belong to any clubs o r organizations such as mu-ism groups, unions, fraternal or athletic groups, or [...] any time in the past 12 m [facility], were you homeless or living in a senior living (including now)? No 10/09/2023 Personal Safety Answer Date Recorded Have you ever been in or are you currently in a harmful physical or emotional relationship or is someone making you feel afraid or unsafe? Denies 10/07/2023 Comments No Sex and Gender Information Value Date Recorded Sex Assigned at Not on file Legal Sex Female 1:44 AM SYSTEMS TESTER Gender Identity Not on file Sexual Orientation Not on file Last Filed Vital Signs Vital Sign Reading Time Taken Comments Blood Pressure 137/92 02/29/2024 8:10 AM SYSTEMS TESTER Pulse 103 02/29/2024 8:10 AM SYSTEMS TESTER Temperature 35.8 C (96.4 F) 01/31/2024 8:45 AM SYSTEMS TESTER Respiratory Rate 16 01/31/2024 8:45 AM SYSTEMS TESTER Oxygen Saturation 95% 10/10/2023 8:08 AM CDT Inhaled Oxygen Concentration - - Weight 86.3 kg (190 lb 3.2 oz) 02/29/2024 8:10 A M SYSTEMS TESTER Height 157.5 cm (5' 2 ) 02/29/2024 8:10 AM SYSTEMS TESTER Body Mass Index 34.79 02/29/2024 8:10 AM SYSTEMS TESTER Plan of Treatment Not on file Medical Devices Implanted Type Area Air Bag Buffer Device Identifier Shelf Expiration Date Model / Serial / Lot [employer] Marker Tissue Bowtie Shape Titanium Collagen Mammomark 10ga [id number] - [id number] - [id number] Implanted:Qty : 1 on 01/31/2024 by Kerry Bhat MD at [facility] Breast Left: Breast [employer] [id number] 05/01/2025 [id number] / [id number] / [id number] D Description:Stereotactic lef t breast biopsy 11-12 o'clock area. Cores x6 Microcalcs in cassettes 1 and 6. Procedures Procedure Name Priority Date/Time Associated Diagnosis Comments DEXA AXIAL SKELETON BONE DENSITY 1 OR MORE SITES Schedule Routine, Read Routine (OP Routine) 03/27/2024 8:27 AM SYSTEMS TESTER Age-related osteoporosis without current pathological fracture KS ARTHROCENTESIS ASPIR&/INJ MAJOR JT/BURSA W/O US Routine 02/29/2024 8:15 AM SYSTEMS TESTER Pes anserinus bursitis of right knee KS ARTHROCENTESIS ASPIR&/INJ MAJOR JT/BURSA W/O US Routine 02/29/2024 8:15 AM SYSTEMS TESTER Primary osteoarthritis of left knee SURGICAL PATHOLOGY Routine 01/31/2024 10:47 AM SYSTEMS TESTER Other abnormal and inconclusive findings on diagnostic imaging of breast STEREOTACTIC BREAST BIOPSY LEFT Schedule Routine, Read Routine (OP Routine) 01/31/2024 10:19 AM SYSTEMS TESTER Other abnormal and inconclusive findings on diagnostic imaging of breast US BREAST LEFT LIMITED Schedule Routine, Read Routine (OP Routine) 01/05/2024 10:56 AM SYSTEMS TESTER Other abnormal and inconclusive findings on diagnostic imaging of breast DIAGNOSTIC MAMMOGRAM BILATERAL W PETER Schedule Routine, Read Routine (OP Routine) 01/05/2024 10:23 AM SYSTEMS TESTER Other abnormal and inconclusive findings on diagnostic imaging of breast COLONOSCOPY 10/27/2022 8:16 AM CDT from Last 3 Months or Most Recently Relevant to Health Maintenance Results * Dexa Axial Skeleton Bone Density 1 or 2 Site (03/27/2024 8:27 AM SYSTEMS TESTER) Anatomical Region Laterality Modality Body N/A Other 03/27/2024 4:56 PM SYSTEMS TESTER Narrative 03/27/2024 4:57 PM SYSTEMS TESTER EXAM DESCRIPTION: DEXA AXIAL SKELETON BONE DENSITY 1 OR MORE SITES REASON FOR STUDY: 63 y/o year old F with given history of: age-related osteoporosis Postmenopausal. Air Bag Buffer/Model: [employer] SL (S/N [id number]) Facility LSC value of 0.022 for the [...] Arcadio Goel M.D. MF: TAM Report ID: [id number] Reading Location: [id number] Procedure Note Arcadio Goel MD - 03/27/2024 EXAM DESCRIPTION: DEXA AXIAL SKELETON BONE DENSITY 1 OR MORE SITES REASON FOR STUDY: 63 y/o year old F with given history of:age-related osteoporosis Postmenopausal. Air Bag Buffer/Model: [employer] SL (S/N [id number]) Facility LSC value of 0.022 for the [...] Arcadio Goel M.D. MF: TAM Report ID: [id number] Reading Location: [place] [address] us Damir Rinaldi DO IMG DXA PROCEDURES Final R esult * KS ARTHROCENTESIS ASPIR&/INJ MAJOR JT/BURSA W/O US (02/29/2024 8:15 AM SYSTEMS TESTER) Narrative Wil De Dios PA - 02/29/2024 8:15 AM SYSTEMS TESTER Wil De Dios PA 02/29/2024 9:02 AM Large Joint (Hip, Knee, Shoulder) Injection: R pes anserine bursa Performed by: Wil De Dios PA Authorized by: Wil De Dios PA Large Joint Injection/Aspiration: Consent Given by: Patient Site marked: the procedure site was marked Timeout: prior to procedure the correct patient, procedure, and site was verified Verbal consent obtained: Yes Supporting Documentation: Indications: Pain Procedure Details: Location: Knee Site: R pes anserine bursa Prep: patient was prepped and draped in usual sterile fashion Needle Size: 22 G Approach: Lateral Ultrasound guided: No Fluroscopic guidance: No Medications Right Large Joint Injection: 1 mL lidocaine 20 mg/mL (2 %); 80 mg methylPREDNISolone acetate 80 mg/mL Patient tolerance: Patient tolerated the procedure well with no immediate complications us Wil GRADY IN CL[facility]/BEDSIDE [facility]DA [facility]IVA Final Result * KS ARTHROCENTESIS ASPIR&/INJ MAJOR JT/BURSA W/O US (02/29/2024 8:15 AM SYSTEMS TESTER) Narrative Wil De Dios PA - 02/29/2024 8:15 AM SYSTEMS TESTER Wil De Dios PA 02/29/2024 9:02 AM Large Joint (Hip, Knee, Shoulder) Injection: L knee Performed by: Wil De Dios PA Authorized by: Wil De Dios PA Large Joint Injection/Aspiration: Consent Given by: Patient Timeout: prior to procedure the correct patient, procedure, and site was verified Verbal consent obtained: Yes Supporting Documentation: Indications: Pain Procedure Details: Location: Knee Site: L knee Prep: patient was prepped using a clean technique Needle Size: 22 G Approach: Anterolateral Ultrasound guided: No Fluroscopic guidance: No Medications: 3 mL lidocaine 20 mg/mL (2 %); 80 mg methylPREDNISolone acetate 80 mg/mL Patient tolerance: Patient tolerated the procedure well with no immediate complications Wil GRADY IN CLINIC/BEDSIDE [facility]DA OLIVA Final Result * Surgical pathology (01/31/2024 10:47 AM SYSTEMS TESTER) Tissue (Breast biopsy, needle core) 01/31/2024 9:52 AM SYSTEMS TESTER Comment:Stereotactic left br east biopsy 11-12 o'clock area. Cores x6 Microcalcs in cassettes 1 and 6. Narrative PATHOLOGY [facility] - 02/01/2024 4:14 PM SYSTEMS TESTER EPIC results best viewed via link to PDF [facility] Department of Pathology [address] [place] [id number] Note to Patients: This report may contain a detailed description of human tissue sent by a health care provider to the laboratory for pathologic evaluation. The content of this report is essential for diagnosis and may provide important critical findings. This information may be unfamiliar to patients to review without a medical professional present. It is advised that the patient review this report in the presence of a health care provider who can answer questions and explain the details. Final Report Patient Name: ROMA PAGE Address: [address] [place] [address] Gender: F : 1960 (Age: 63) Service: Location: Hospital #: [id number] Patient Type: [facility] EP ANCILLARY Taken: 01/31/2024 Received: 01/31/2024 Accessioned: 01/31/2024 Reported: 02/01/2024 Physician(s):Kerry Bhat MD Diagnosis: Breast, left, 11-12 o'clock area (slots 1, 4, and 6), stereotactic core biopsies: - Fibrocystic changes. - Associated microcalcifications identified in slots 1 and 6, measuring up to 20 m. Breast, left, 11-12 o'clock area (slots 2, 3, and 5), stereotactic core biopsies: - Benign breast parenchyma. Rory Obrien MD Report Electronically Reviewed and Signed Out By Rory Obrien MD 02/01/2024 16:14:19 Specimen(s) Received: A: Stereotactic left breast biopsy 11-12 o'clock area, cores x 6, microcalcs in slots 1 and 6 Microscopic Description: Microscopic examination of all slots shows benign breast parenchyma. The core biopsies from slots 1, 4, and 6 additionally show fibrocystic changes characterized by cystic dilation, columnar cell change, and usual ductal hyperplasia (UDH). Microcalcifications (measuring up to 20 m) are identified in slots 1 and 6. AE1/AE3, p63, SMMHC, ER and CK 5/6 stains are performed with appropriately reactive controls on block A6 to further evaluate the UDH. AE1/AE3 highlights epithelial elements without evidence of infiltrative cells while p63 and SMMHC demonstrate intact myoepithelium. ER shows patchy weak to moderate reactivity in the UDH while CK 5/6 shows no significant loss of expression. There is no evidence of malignancy. Intradepartmental consultation: This case was also reviewed by Dr. Cummins, who concurs with the above findings. Clinical History: Abnormal and inconclusive findings on diagnostic imaging of breast. Stereotactic left breast biopsy 11-12 o'clock area, cores x 6. Microcalcs in slots 1 and 6. Gross Description: Received in a single formalin filled container labeled with ROMA BROWN and left breast biopsy 11-12 o'clock area . It is a rectangular plastic container divided into six slots labeled 1-6. Slots 1-6 contain cores of fibrofatty soft tissue. Entirely submitted: Core #1, 2.5 cm A1 Core #2, 2.5 cm A2 Core #3, 2.0 cm A3 Core #4, 2.5 cm A4 Core #5, 2.8 cm A5 Core #6, 3.0 cm A6 Removed from patient on 01/31/2024 at 9:52, placed in formalin at 10:07, and removed from formalin 20:50. Formalin fixation times are in compliance with ASCO/CAP guidelines. Luis Fernando Otoole R.N., P.A./Dee Epps M.D. REPORT IMAGES AND SCANNED DOCUMENTS, IF INCLUDED, ONLY VIEWABLE IN PDF VERSION OF REPORT The performance characteristics of some immunohistochemical stains, fluorescence in-situ hybridization tests and immunophenotyping by flow cytometry cited in this report (if any) were determined by the Surgical Pathology Department at [facility] as part of an ongoing quality engineer medical device program and in compliance with federally mandated regulations drawn from the Clinical Laboratory Improvement Act of 1988 (CLIA '88). Some of these tests rely on the use of analyte specific reagents and are subject to specific labeling requirements by the US Food and Drug Administration. Such diagnostic tests may only be performed in a facility that is certified by the Department of Health and Human Services as a high complexity laboratory under CLIA '88. The FDA has determined that such clearance or approval is not necessary. This test is used for clinical purposes. It should not be regarded as investigational or for research. Nevertheless, federal rules concerning the medical use of analyte specific reagents require that the following disclaimer be attached to the report: This test was developed and its performance characteristics determined by the Surgical Pathology Department [facility]. It has not been cleared or approved by the U. S. Food and Drug Administration. Note for decalcified specimens: This assay has not been validated on decalcified tissues. Results should be interpreted with caution given the possibility of false negativity on decalcified specimens Damir Rinaldi DO LAB PATHOLOGY ORDERABLES F inal Result PATHOLOGY [facility] [address] [place] [address] 341 * Stereotactic Breast Biopsy Left (01/31/2024 10:19 AM SYSTEMS TESTER) Anatomical Region Laterality Modality Breast Left Mammography 01/31/2024 2:31 PM SYSTEMS TESTER Addenda Addendum by Kerry Bhat MD on 02/09/2024 6:49 PM SYSTEMS TESTER The pathology shows fibrocystic change with calcifications present. This is concordant with the imaging findings. The patient may return to screening mammography as per ACR guidelines. BI-RADS 2-benign findings Electronically signed by: Kerry Bhat M.D. Impressions 01/31/2024 2:31 PM SYSTEMS TESTER Successful vacuum-assisted core needle biopsy of the LEFT breast. Pathology is pending. ASSESSMENT: Post Procedure Mammograms for Marker Placement Electronically signed by: Kerry Bhat M.D. Narrative 01/31/2024 2:31 PM SYSTEMS TESTER EXAMINATION: LEFT STEREOTACTIC BREAST VACUUM-ASSISTED CORE BIOPSY UTILIZING TOMOSYNTHESIS AND STEREOTACTIC GUIDANCE, PLACEMENT OF A BIOPSY SITE TISSUE MARKER CLIP, AND LEFT FULL FIELD DIGITAL MAMMOGRAM WITH DIGITAL BREAST TOMOSYNTHESIS HISTORY: Calcifications. Image guided core needle biopsy is requested to evaluate for malignancy. COMPARISON: 01/05/2024 BREAST PARENCHYMAL COMPOSITION: There are scattered areas of fibroglandular density. PROCEDURE AND FINDINGS: The risks and potential benefits of the procedures were discussed with the patient and written informed consent was obtained. After a time-out procedure, the patient was placed in the prone position on the biopsy unit. The area of interest was localized and targeted utilizing digital imaging with tomosynthesis and stereotaxis. After sterile preparation of the skin, 1% lidocaine was utilized for local anesthesia. A small skin incision was made, and a 10 gauge vacuum-assisted biopsy needle was advanced to the area of interest utilizing stereotactic guidance. Cores were then obtained. Specimen radiography demonstrates calcifications to lie in the specimen. These were submitted to surgical pathology in formalin for histologic analysis. A bowtie biopsy marker was placed at the biopsy site. The needle was removed, hemostasis was achieved, and Dermabond was applied. There was no evidence of significant immediate complication. The patient was given verbal as well as written post procedural instructions prior to release from the department. A two-view LEFT digital mammogram, including digital breast tomosynthesis, post procedure demonstrates that the tissue marker clip is in the expected position. Damir Rinaldi DO IMG MAMMO PROCEDURES Edite d Result - Final * US Breast Left Limited (01/05/2024 10:56 AM SYSTEMS TESTER) Anatomical Region Laterality Modality Breast Left Ultrasound 01/05/2024 5:13 PM SYSTEMS TESTER Impressions 01/05/2024 5:13 PM SYSTEMS TESTER 1. Multiple bilateral tiny circumscribed nodules are stable and considered a benign finding. 2. Stereotactic/tomographic guided biopsy is now recommended for the calcifications in the left breast. OVERALL FINAL ASSESSMENT: BI-RADS 4b-moderate suspicion for malignancy Electronically signed by: Kerry Bhat M.D. Narrative 01/05/2024 5:13 PM SYSTEMS TESTER EXAMINATION: BILATERAL DIGITAL DIAGNOSTIC MAMMOGRAM AND DIGITAL BREAST TOMOSYNTHESIS HISTORY: Follow-up nodules COMPARISON: Studies dating back to 01/21/2022 TECHNIQUE: Full field digital mammographic views of bilateral breasts were performed, including computer aided detection (CAD) and digital breast tomosynthesis (DBT). Directed ultrasound evaluation of the left breast(s) was performed. BREAST PARENCHYMAL COMPOSITION: There are scattered areas of fibroglandular density. MAMMOGRAM FINDINGS: There are multiple, bilateral, tiny, nodules seen on both sides, not just on the left. These appear benign. No suspicious masses are seen. There is no architectural distortion or skin thickening. The calcifications in question in the left breast appear fine and minimally heterogeneous. These span a distance of approximately 7 mm. SONOGRAM FINDINGS: Grayscale and color Doppler imaging was performed. There are tiny benign-appearing cysts seen in the 9:00 left breast. The larger has a maximum injection of 3 mm and a partial septation. These are considered benign. Damirchristine VargasJose Daniel Gentry [facility] MAMMO PROCEDURES Final Result * (ABNORMAL) Diagnostic Mammogram Bilateral W Peter (01/05/2024 10:23 AM SYSTEMS TESTER) Anatomical Region Laterality Modality Breast Bilateral Mammography 01/05/2024 5:13 PM SYSTEMS TESTER Impressions 01/05/2024 5:13 PM SYSTEMS TESTER 1. Multiple bilateral tiny circumscribed nodules are stable and considered a benign finding. 2. Stereotactic/tomographic guided biopsy is now recommended for the calcifications in the left breast. OVERALL FINAL ASSESSMENT: BI-RADS 4b-moderate suspicion for malignancy Electronically signed by: Kerry Bhat M.D. Narrative 01/05/2024 5:13 PM SYSTEMS TESTER EXAMINATION: BILATERAL DIGITAL DIAGNOSTIC MAMMOGRAM AND DIGITAL BREAST TOMOSYNTHESIS HISTORY: Follow-up nodules COMPARISON: Studies dating back to 01/21/2022 TECHNIQUE: Full field digital mammographic views of bilateral breasts were performed, including computer aided detection (CAD) and digital breast tomosynthesis (DBT). Directed ultrasound evaluation of the left breast(s) was performed. BREAST PARENCHYMAL COMPOSITION: There are scattered areas of fibroglandular density. MAMMOGRAM FINDINGS: There are multiple, bilateral, tiny, nodules seen on both sides, not just on the left. These appear benign. No suspicious masses are seen. There is no architectural distortion or skin thickening. The calcifications in question in the left breast appear fine and minimally heterogeneous. These span a distance of approximately 7 mm. SONOGRAM FINDINGS: Grayscale and color Doppler imaging was performed. There are tiny benign-appearing cysts seen in the 9:00 left breast. The larger has a maximum injection of 3 mm and a partial septation. These are considered benign. Damir Rinaldi [facility] MAMMO PROCEDURES Final Result * COLONOSCOPY (10/27/2022 8:16 AM CDT) Anatomical Region Laterality Modality Other Narrative Procedure Note Karen Ronquillo MD - 10/27/2022 8:16 AM CDT [facility] Patient Name: Roma Page Procedure Date: 10/27/2022 8:16 AM Date of : 1960 Admit Type: Outpatient Age: 62 Gender: Female Attending MD: Karen Ronquillo M.D. Room: [facility] ENDOSCOPY ROOM 2 Note Status: Finalized Patient Profile: This is a 62 year old female history of HTN, HLD, migraine, obesity, osteoarthritis here for colon cancer screening. Uncle with colon cancer. Noprevious colonoscopy Procedure: Colonoscopy Indications: Screening for colorectal malignant neoplasm, Last colonoscopy: date unknown Referring MD: Damir Rinaldi D.O. Providers: Karen Ronquillo M.D. Impression: - Diverticulosis in the sigmoid colon. - The examination was otherwise normal on directand retroflexion views. - No specimens collected. Recommendation: - Patient has a contact number available for emergencies. The signs and symptoms of potential delayed complications were discussed with thepatient. Return to normal activities tomorrow. Written discharge instructions were provided to thepatient. - Discharge patient to home (with escort). - Resume previous diet. - Continue present medications. - Repeat colonoscopy in 10 years for screening purposes. - Return to primary care physician as previously scheduled. Medicines: Propofol per Anesthesia Complications: No immediate complications. Estimated Blood Loss: Estimated blood loss: none. Procedure: Pre-Anesthesia Assessment: - Prior to the procedure, a History and Physicalwas performed, and patient medications and allergieswere reviewed. The patient is competent. The risks and benefits of the procedure and the sedation optionsand risks were discussed with the patient. Allquestions were answered and informed consent was obtained. Patient identification and proposed procedure were verified by the physician, the anesthesiologist and the nuclear fuel enrichment technician in the endoscopy suite. MentalStatus Examination: normal. Prophylactic Antibiotics: The patient does not require prophylactic antibiotics. Prior Anticoagulants: The patient has taken no anticoagulant or antiplatelet agents. Afterreviewing the risks and benefits, the patient was deemed in satisfactory condition to undergo the procedure.The anesthesia plan was to use monitored anesthesiacare (MAC). Immediately prior to administration of medications, the patient was re-assessed foradequacy to receive sedatives. The heart rate, respiratory rate, oxygen saturations, blood pressure, adequacyof pulmonary ventilation, and response to care were monitored throughout the procedure. The physical status of the patient was re-assessed after the procedure. The benefits, risks and alternatives of theprocedure and sedation were discussed and informed consentwas obtained. All questions were answered. Please referto the signed informed consent document in the medical record. The bowel preparation used was Miralax via split dose instruction. The bowel preparation usedwas bisacodyl tablets via split dose instruction. The scope was passed under direct vision. TheColonoscope [id number] was introduced through the anus and advanced to the the cecum, identified by appendiceal orifice and ileocecal valve. The colonoscopy was performed without difficulty. The patient tolerated the procedure well. The qualityof the bowel preparation was excellent. Bowel prep was administered using a split dose. Findings: The perianal and digital rectal examinations were normal. A few small-mouthed diverticula were found in the sigmoid colon. The exam was otherwise without abnormality on direct and retroflexion views. Karen Ronquillo M.D. 10/27/2022 9:11:06 AM Number of Addenda: 0 Note Initiated On: 10/27/2022 8:16 AM Procedure Code(s): --- Professional --- G0121, Colorectal cancer screening; colonoscopy on individual not meeting criteria for high risk --- Technical --- G0121, Colorectal cancer screening; colonoscopy on individual not meeting criteria for high risk Diagnosis Code(s): --- Professional --- Z12.11, Encounter for screening for malignant neoplasm of colon K57.30, Diverticulosis of large intestine without perforation orabscess without bleeding --- Technical --- Z12.11, Encounter for screening for malignant neoplasm of colon K57.30, Diverticulosis of large intestine without perforation orabscess without bleeding CPT copyright 2020 [employer]. All rights reserved. The codes documented in this report are preliminary and upon taxonomist reviewmay be revised to meet current compliance requirements. Recognized by the [employer] for promoting quality in endoscopy Karen Ronquillo MD ENDOSCOPY PROCEDURES Final Resul t from Last 3 Months or Most Recently Relevant to Health Maintenance Insurance MEDICARE [facility] MEDICARE COMMERCIAL GENERIC [facility] [employer]PLOYEE HEALTH PLANS Address: [address] [place] [address] [employer] [facility] [employer] [place] MEDICARE [employer] Advance Directives For more information, please contact: [phone] * Full Code (Latest Code Status on File) Date Activated Date Inactivated Comments 10/07/2023 6:59 PM 10/10/2023 4:24 PM * Full Code Date Activated Date Inactivated Comments 10/27/2022 8:21 AM 10/27/2022 2:06 PM * Full Code Date Activated Date Inactivated Comments 10/27/2022 8:21 AM 10/27/2022 8:21 AM * Full Code Date Activated Date Inactivated Comments 11/12/2021 9:34 PM 11/14/2021 1:22 PM Healthcare Agents on File Name Relationship Healthcare Agent Relationshi p Communication Ava Mcswyne Daughter [employer] Car e Agent Care Teams Imaging Account Manager Relationship Specialty Start Date End Date Damir Rinaldi DO PCP - General Family Medicine 05/08/19 Bryan Simeon MD Consulting Physician Cardiology 01/10/23 Jerry Leos NP [address] [place] [address] [address] [place] [id number] Nurse Practitioner Orthopedic Surgery 01/17/23 Beryl Mendoza, PT Physical Therapist Physical Therapy 06/16/23
--- OUTSIDE RECORDS SUMMARY | 2024-03-29 09:26 | XMS_ITS | CONTINUITY OF CARE DOCUMENT ---
Author Name jose angel walter Address Unknown Organization [facility] Address [id number] [place] [address] [address] [place] [address] Phone [phone] Care Team Providers Care Speech Communication Professor Name Role Phone Bryan Simeon MD Unavailable HALLIE TAVARES MD Unavailable [phone] HALLIE TAVARES MD Unavailable [phone] PROBLEMS Condition Status Date Provider Notes Family History of CVA or Stroke: active ? Jeffy nhi Simeon MD HTN essential active Bryan Simeon MD Diastolic CHF active Bryan Simeon MD Diastolic Dysfunction completed - Bryan Simeon MD Syncope and collapse active Bryan Simeon MD Obesity active Bryan Simeon MD Bradycardia sinus completed - Bryan Simeon MD Chest pain-type to be determined completed - Bryan Simeon MD Dyspnea on exertion active Bryan Harrell D Dizziness active Bryan Simeon MD Edema - localized active Bryan Simeon MD Fatigue active Bryan Simeon MD Sleep apnea active Bryan Simeon MD Chest pain - nml cors on cat h 04/25/22 active Bryan Simeon MD Statin Intolerant,myalgias w ith daily atorvastatin active Bryan Simeon MD Hypercholesterolemia active Bryan Simeon MD Sinus bradycardia active Bryan Simeon MD Family Hx heart disease active Bryan Montenegro ra, MD Prediabetes active Bryan Simeon MD Elevated c-reactive protein active Bryan ramires MD Carotid artery disease - 50- 69% [place], <50% LICA 03/2023 active Bryan Simeon MD ENCOUNTERS Date Type Provider Location Encounter Diag nosis 0 - 0 In-person encounter Office Visit Bryan Simeon MD [facility] Diastolic DysfunctionChest pain-type to be determined 7 - 1 In-person encounter Office Visit Bryan Simeon MD [facility] 1 - 2 In-person encounter Office Visit Bryan Simeon MD [facility] Carotid artery disease - 50-69% [place], <50% LICA 03/2023 2 - 4 In-person encounter Office Visit Bryan Simeon MD [facility] Elevated c-reactive protein 0 - 1 In-person encounter Office Visit Bryan Simeon MD [facility] Chest pain - nml cors on cath 04/25/22 6 - 6 In-person encounter Office Visit Bryan Simeon MD [facility] 6 - 8 In-person encounter Office Visit Bryan Simeon MD [facility] 4 - 6 In-person encounter Office Visit Bryan Simeon MD [facility] 1 - 1 In-person encounter Office Visit Bryan Simeon MD [facility] Bradycardia sinusSinus bradycardiaFamily Hx heart diseasePrediabetes 1 - 1 In-person encounter Office Visit Bryan Simeon MD [facility] Statin Intolerant,myalgias with daily atorvastatinHypercholesterolemia 1 - 1 In-person encounter Office Visit Bryan Simeon MD [facility] 3 - 3 In-person encounter Office Visit Bryan Simeon MD [facility] 4 - 4 In-person encounter Office Visit Bryan Simeon MD [facility] Chest pain - nml cors on cath 04/25/22 6 - 6 In-person encounter Office Visit Bryan Simeon MD [facility] Sleep apnea 2 - 2 In-person encounter Office Visit Bryan Simeon MD [facility] 1 - 1 In-person encounter Office Visit Bryan Simeon MD [facility] Edema - localizedFatigue 0 - 0 In-person encounter Office Visit Bryan Simeon MD [facility] Dizziness 3 - 4 In-person encounter Office Visit Bryan Simeon MD [facility] Family History of CVA or Stroke:HTN essentialDiastolic CHFSyncope and collapseObesityDyspnea on exertion VITAL SIGNS Date Observation Value Provider Body Mass Index (Ratio) 34.38 kg/m2 Bryce Simeon MD blood pressure, diastolic 80 mm[Hg] Montana Farnsworth blood pressure, systolic 130 mm[Hg] Kelly Farnsworth oxygen saturation, oximetry 98 % Randa Farnsworth pulse rate 74 /min Randa Weiss [facility] weight E&M 188 [lb_av] Randa Weiss [facility] height E&M 62 [in_i] Randa Weiss [facility] Body Mass Index (Ratio) 38.22 kg/m2 Bryce Simeon MD pulse rate 83 /min Nailalalitha Pisano blood pressure, cuff size regular Galindo Pisano blood pressure, diastolic 103 mm[Hg] Ta nidhi Pisano blood pressure, systolic 161 mm[Hg] Tab ithlalitha Pisano oxygen saturation, oximetry 98 % [facility] respiratory rate E&M 20 /min [facility] weight E&M 209 [lb_av] [facility] height E&M 62 [in_i] [facility] Body Mass Index (Ratio) 42.06 kg/m2 Jesus Gutierrez blood pressure, cuff size large [facility] blood pressure, diastolic 84 mm[Hg] [facility] blood pressure, systolic 128 mm[Hg] [facility] 87 /min [facility] oxygen saturation, oximetry 100 % [facility] respiratory rate E&M 14 /min Sarah Harrell [facility]arp[facility] weight E&M 230 [lb_av] [facility] height E&M 62 [in_i] [facility] Body Mass Index (Ratio) 43.53 kg/m2 Bryce Simeon MD oxygen saturation, oximetry 96 % Dede Madden blood pressure, diastolic 76 mm[Hg] benji Madden blood pressure, systolic 140 mm[Hg] She rylie Madden respiratory rate E&M 18 /min Dedezackary Madden weight E&M 238 [lb_av] Dedezackary Madden pulse rate 89 /min Dedezackary Madden blood pressure, cuff size large benji Madden height E&M 62 [in_i] Dede Madden Body Mass Index (Ratio) 42.98 kg/m2 Bryce Simeon MD pulse rate 100 /min Dedezackary Madden blood pressure, diastolic 91 mm[Hg] benji Maryanne blood pressure, systolic 163 mm[Hg] She rrmajo Maryanne oxygen saturation, oximetry 98 % Dedezackary Madden blood pressure, cuff size large benji Madden weight E&M 235 [lb_av] Dede Madden height E&M 62 [in_i] Dede Madden Body Mass Index (Ratio) 42.25 kg/m2 Bryce Simeon MD blood pressure, diastolic 104 mm[Hg] [facility] blood pressure, systolic 154 mm[Hg] Harsh abiodun [place] oxygen saturation, oximetry 100 % Lisa [place] pulse rate 70 /min Lisa Lohma n respiratory rate E&M 16 /min Horacio ie [place] blood pressure, cuff size large [facility] [place] weight E&M 231 [lb_av] Lisa Lohma n height E&M 62 [in_i] Lisaaide Stevens n Body Mass Index (Ratio) 42.28 kg/m2 Bryce Simeon MD blood pressure, cuff size regular benji Madden blood pressure, diastolic 98 mm[Hg] benji Madden blood pressure, systolic 120 mm[Hg] [facility] rylie Madden oxygen saturation, oximetry 98 % Dede Madden respiratory rate E&M 18 /min Dede Madden pulse rate 95 /min Dede Madden weight E&M 231.2 [lb_av] Dede Madden height E&M 62 [in_i] Dede Madden Body Mass Index (Ratio) 43.64 kg/m2 Bryce Simeon MD blood pressure, diastolic -1 mm[Hg] Li nkLogtana blood pressure, systolic 157 mm[Hg] Sherice kLogtana blood pressure, diastolic 99 mm[Hg] St cirilo [place] blood pressure, systolic 157 mm[Hg] Virgil [place] oxygen saturation, oximetry 99 % Michaelle [place] respiratory rate E&M 16 /min Michaelle Esteban yaquelin pulse rate 115 /min Michaelle Blayne weight E&M 238.6 [lb_av] Michaelle Blayne height E&M 62 [in_i] Michaelle Blayne Body Mass Index (Ratio) 39.69 kg/m2 Bryce Simeon MD blood pressure, cuff size large Cr moo Pierre blood pressure, diastolic 80 mm[Hg] Cr moo Pierre blood pressure, systolic 110 mm[Hg] Cry virgilellie Pierre oxygen saturation, oximetry 97 % Yasmine Pierre respiratory rate E&M 17 /min Yasmine Pierre pulse rate 82 /min Yasmine andrade weight E&M 217 [lb_av] Yasmine andrade height E&M 62 [in_i] Yasmine andrade Body Mass Index (Ratio) 40.42 kg/m2 Bryce Simeon MD blood pressure, diastolic 80 mm[Hg] Ruel Hernadez blood pressure, systolic 132 mm[Hg] Tra mikal [facility] respiratory rate E&M 16 /min Kira Ellie najera oxygen saturation, oximetry 91 % Kira Lively weight E&M 221 [lb_av] Kira Lively height E&M 62 [in_i] Kira Lively Body Mass Index (Ratio) 40.42 kg/m2 Bryce Simeon MD blood pressure, diastolic 80 mm[Hg] Da carly Lashawn blood pressure, systolic 132 mm[Hg] Dac ia Lashawn oxygen saturation, oximetry 91 % Maddy Lashawn respiratory rate E&M 16 /min Maddy V oss pulse rate 76 /min Maddy Lashawn weight E&M 221 [lb_av] Maddy Lashawn height E&M 62 [in_i] Maddy Lashawn Body Mass Index (Ratio) 40.60 kg/m2 Bryce Simeon MD blood pressure, diastolic 80 mm[Hg] Da carly [place] blood pressure, systolic 132 mm[Hg] Dac ia Lashawn oxygen saturation, oximetry 94 % Maddy Lashawn respiratory rate E&M 16 /min Maddy V oss pulse rate 75 /min Maddy Lashawn weight E&M 222 [lb_av] Maddy Lashawn height E&M 62 [in_i] [facility] Body Mass Index (Ratio) 40.60 kg/m2 Bryce Simeon MD pulse rate 70 /min [facility] oxygen saturation, oximetry 97 % [facility] blood pressure, diastolic 90 mm[Hg] Raymundo gerardo [facility] blood pressure, systolic 124 mm[Hg] [facility] jennifer [facility] respiratory rate E&M 16 /min [facility] weight E&M 222 [lb_av] [facility] blood pressure, resting Yes [facility] height E&M 62 [in_i] [facility] Body Mass Index (Ratio) 40.60 kg/m2 Bryce Simeon MD blood pressure, diastolic 73 mm[Hg] Carissa Barrera blood pressure, systolic 135 mm[Hg] Toya Barrera oxygen saturation, oximetry 99 % Chandni Barrera respiratory rate E&M 18 /min Mauro Barrera pulse rate 72 /min Chandni maradiaga weight E&M 222 [lb_av] Chandni maradiaga height E&M 62 [in_i] Chandni maradiaga blood pressure, diastolic 60 mm[Hg] Montana Farnsworth blood pressure, systolic 120 mm[Hg] Kelly ri Shanekaneyousuf pulse rate 68 /min Randa Harrise lder oxygen saturation, oximetry 95 % Randa Daja respiratory rate E&M 16 /min Randa Ariel hernandezdellngoc Body Mass Index (Ratio) 38.04 kg/m2 Lyle i Daja weight E&M 208 [lb_av] Randa Iglesiase er blood pressure, diastolic 80 mm[Hg] Ok donavan Tilley blood pressure, systolic 118 mm[Hg] Ni Tilley pulse rate 80 /min Kenzie Tilley oxygen saturation, oximetry 94 % Kenzie Tilley respiratory rate E&M 16 /min Kenzie Tilley Body Mass Index (Ratio) 39.76 kg/m2 Cira Tilley weight E&M 217.4 [lb_av] Kenzie Tilley Body Mass Index (Ratio) 34.02 kg/m2 Lyle rajat Jarquin blood pressure, diastolic 90 mm[Hg] [facility] blood [facility], systolic 140 mm[Hg] Kelly Iglesiasdell pulse rate 65 /min Randa Weiss [facility] oxygen saturation, oximetry 97 % Randa Iglesiasdell respiratory rate E&M 16 /min Randa [facility] weight E&M 186 [lb_av] Randa Harrise er Body Mass Index (Ratio) 35.11 kg/m2 Anea magnolia Camilo blood pressure, diastolic 91 mm[Hg] An eatris Camilo blood pressure, systolic 155 mm[Hg] Ane atris Brown pulse rate 59 /min Aneatris Camilo oxygen saturation, oximetry 99 % Aneatris Brown respiratory rate E&M 18 /min Joan Page weight E&M 192 [lb_av] Marielena Page height E&M 62 [in_i] Marielena Page ALLERGIES Allergy Name Onset Date Reaction Criticality Status MORPHINE Low Criticality aborted PHENTANYL Low Criticality aborted METFORMIN explosive diarrhea High Criticality active CRESTOR myalgias myalgias High Criticality a ctive LIPITOR myalgias myalgias Low Criticality ac tive ERYTHROMYCIN Low Criticality active RESULTS Date Observation Value Provider Reference Range Interpretation Location 0 C-reactive protein, by highly sensitive test 9.0 mg/L [facility] <1.0 High 0 LDL Size 225.5 Angstrom [facility] >222.9 0 LDL particle concentration (lipoprotein panel), risk categories correspond to NCEP categories for LDL cholesterol (on a percentile equivalent basis) 1721 nmol/L [facility] <1138 High 0 cholesterol, non-HDL, total 130 MG/DL (CALC) [facility] <130 High 0 cholesterol/HDL ratio, serum, percent 3.1 calc [facility] <5.0 0 LDL cholesterol, serum 108 MG/DL (CALC) [facility] <100 High 0 triglyceride, serum, fasting 108 mg/dL [facility] <150 0 HDL cholesterol, serum 62 mg/dL [facility] >49 0 cholesterol, serum 192 mg/dL [facility] <200 5 lipoprotein, beta, serum, point, quantitative, calculated 164 mg/dL [facility] 0-99 High 5 very low density lipoproteins 16 mg/dL [facility] 5-40 5 HDL cholesterol, serum 56 mg/dL [facility] >39 5 triglyceride, serum, random 79 mg/dL [facility] 0-149 5 cholesterol, serum 236 mg/dL [facility] 100-199 High 4 lipoprotein, beta, serum, point, quantitative, calculated 186 mg/dL [facility] 0-99 High 4 very low density lipoproteins 14 mg/dL [facility] 5-40 4 HDL cholesterol, serum 66 mg/dL [facility] >39 4 triglyceride, serum, random 69 mg/dL [facility] 0-149 4 cholesterol, serum 266 mg/dL [facility] 100-199 High 4 hemoglobin A1C, blood, as % of total hemoglobin 5.8 % [facility] 4.8-5.6 High 7 thyroid stimulating hormone, serum 2.990 ??IU/ML [facility] 0.270 - 4.200 HISTORY OF MEDICATION USE Medication Status Instructions Dates Provider Indications Com ments Nexlizet 180-10 mg tablet active Take 1 tablet by mouth once a day 03/11 Bryan Simeon MD metformin (Glucophage XR) 500 mg tablet extended release 24 hr active Bryan Simeon MD metoprolol succinate 50 mg tablet extended release 24 hr active TAKE 1 TABLET BY MOUTH EVERY DAY 06/14 Bryan Simeon MD amlodipine 5 mg tablet active Take 1 tablet by mouth once a day 03/28 Bryan Simeon MD metoprolol succinate 50 mg tablet extended release 24 hr completed Take 1 tablet by mouth once a day - 06/14 Porfirio Carmichael nitroglycerin 0.4 mg tablet, sublingual active 1 tablet under tongue as directed as needed 1 tablet under tongue for chest pain. May repeat every 5 minutes if still having chest pain- to max of 3 tablets per episode.If no relief after 3rd dose, go to ER 03/07 Bryan Simeon MD ezetimibe 10 mg tablet completed TAKE 1 TABLET BY MOUTH EVERY DAY 03/05 - 03/11 Bryan Simeon MD hydrochlorothiazide 25 mg tablet active Take 1 tablet by mouth once a day 03/05 Bryan Simeon MD hydrochlorothiazide 25 mg tablet completed Take 1 tablet once a day 04/01 - 03/05 Bryan Simeon MD losartan 100 mg tablet active Take 1 tablet by mouth once daily 04/01 Bryan Simeon MD ezetimibe 10 mg tablet completed Take 1 tablet by mouth once a day 05/21 - 03/05 Bryan Simeon MD ROSUVASTATIN CALCIUM 5 MG ORAL TABLET completed one po every 7 days on Mondays - 09/06 Yasmine Pierre ATORVASTATIN CALCIUM 80 MG ORAL TABLET completed one tab daily at bedtime, repeat blood work 1 wk prior to f/u appt in Apr 201703/26 - 09/06 Maddy Hardin METFORMIN HCL 500 MG ORAL TABLET completed one tab twice a day 03/26 - 09/06 Maddy Hardin Benadryl Allergy 25 mg tablet active Take 2 tablet as needed 07/03 Bryan Simeon MD Effexor XR 75 mg capsule,extended release 24hr active Take 1 tablet once a day 07/03 Bryan Simeon MD Xanax 0.5 mg tablet active 1 tablet three times a day as needed Chandni Barrera ZOLOFT 100 MG ORAL TABLET completed ONE TAB. DAILY - 07/03 Brian Acharya ranolazine 1,000 mg tablet extended release 12 hr completed Take 1 tablet by mouth twice a day 07/10 - 05/30 Bryan Simeon MD DURAGESIC-50 50 MCG/HR TRANSDERMAL PATCH 72 HOUR active every 72 hours Bryan Simeon MD Abilify 2 mg tablet active 1 every night Derek Simeon MD trazodone 150 mg tablet active 2 every night Bryan Simeon MD RANEXA 500 MG ORAL TABLET EXTENDED RELEASE 12 HOUR completed one tablet twice daily - 11/01 Bryan Simeon MD gabapentin 600 mg tablet active 1 tablet four times a day Bryan Simeon MD HYZAAR 100-25 MG ORAL TABLET completed ONE TAB. DAILY - 04/01 Susan Fernandez RN LOPERAMIDE HCL 2 MG ORAL TABLET completed take as directed - 09/06 Kenzie Tilley BISACODYL EC 5 MG ORAL TABLET DELAYED RELEASE completed taker as directed - 07/03 Brian Acharya PANTOPRAZOLE SODIUM 20 MG ORAL TABLET DELAYED RELEASE completed 1 tab everyday - 07/03 Brian Acharya ZOLPIDEM TARTRATE 10 MG ORAL TABLET completed 1 tab at bedtime - 09/06 Kenzie Tilley ASPIRIN 81 MG ORAL TABLET completed ONE TAB. DAILY - 08/20 Bryan Simeon MD [facility] STOOL SOFTENER 8.6-50 MG ORAL TABLET active Take as directed Bryan Simeon MD DIPHENHYDRAMINE HCL 50 MG ORAL CAPSULE completed take as directed - 09/06 Randa Farnsworth NICHELLE SALINE SOLUTION completed use as directed - 09/06 Kenzie MELATONIN 5 MG ORAL TABLET completed take as directed - 09/06 Yasmine Pierre ALPRAZOLAM 0.5 MG ORAL TABLET completed 1 tab twice daily - 09/06 Kenzie Jarek ACYCLOVIR 400 MG ORAL TABLET completed 1 tab daily - 09/06 Randa Farnsworth CITALOPRAM HYDROBROMIDE 40 MG ORAL TABLET completed 1 tab daily - 07/03 Brian Acharya Nitrostat 0.3 mg tablet, sublingual completed Take as directed - 03/07 Bryan Simeon MD DRAMAMINE 50 MG ORAL TABLET CHEWABLE completed take as directed - 09/06 Kenzie Tilley SOCIAL HISTORY Date Observation Value Provider alcohol use, average drinks per day social Bryan Simeon MD alcohol use yes Bryan Simeon MD smoking status Never smoker Bryan doty MD alcohol use, average drinks per day social Bryan Simeon MD alcohol use yes Bryan Simeon MD smoking status Never smoker Bryan doty MD alcohol use, average drinks per day social Sarah Pisano alcohol use yes Sarah Pisano smoking status Never smoker Sarah Pisano social history E&M S moking History: Christal sky has never smoked. Bryan Simeon MD social history reviewed E&M revi ewed - no changes required Bryan Simeon MD smoking status Never smoker Dede Madden social history E&M S moking History: P atient has never smoked. Bryan Simeon MD social history reviewed E&M revi ewed - no changes required Bryan Simeon MD smoking status Never smoker Dede Madden social history E&M S moking History: P asya has never smoked. Bryan Simeon MD social history reviewed E&M revi ewed - no changes required Bryan Simeon MD smoking status Never smoker Lisa bella social history E&M S moking History: P asya has never smoked. Bryan Simeon MD social history reviewed E&M revi ewed - no changes required Bryan Simeon MD smoking status Never smoker Dede Madden smoking status Never smoker Bryan doty MD social history reviewed E&M revi ewed - no changes required Bryan Simeon MD social history E&M S moking History: Christal sky has never smoked. Bryan Simeon MD social history E&M S moking History: Christal sky has never smoked. Bryan Simeon MD social history reviewed E&M revi ewed - no changes required Bryan Simeon MD smoking status Never smoker Yasmine Castillo ams social history reviewed E&M revi ewed - no changes required Bryan Simeon MD alcohol use, average drinks per day social Maddy Lashawn alcohol use yes Maddy Lashawn smoking status Never smoker Maddy Lashawn number of grandchildren Bryan Simeon MD social history reviewed E&M revi ewed - no changes required Bryan Simeon MD social history E&M S moking History: Christal sky has never smoked. Bryan Simeon MD alcohol use, average drinks per day social Maddy Lashawn alcohol use yes Maddy Lashawn smoking status Never smoker Maddy Lashawn social history reviewed E&M revi ewed - no changes required Bryan Simeon MD social history reviewed E&M revi ewed - no changes required Bryan Simeon MD alcohol use, average drinks per day social Chandni Barrera alcohol use yes Chandni maradiaga smoking status Never smoker Chandni Sanders social history reviewed E&M revi ewed - no changes required Bryan Simeon MD alcohol use, average drinks per day social Randa Daja alcohol use yes Randa Vargascatherine lder smoking status Never smoker Randa Crowellchristine arenas social history reviewed E&M revi ewed - no changes required Bryan Simeon MD alcohol use, average drinks per day social Kenzie Tilley alcohol use yes Kenzie Tilley smoking status Never smoker Kenzie Tilley social history reviewed E&M revi ewed - no changes required Bryan Simeon MD alcohol use, average drinks per day social Randa Vargastomasa alcohol use yes Randa Weiss lder smoking status Never smoker Randa Crowellchristine arenas social history reviewed E&M revi ewed - no changes required Bryan Simeon MD appendectomy, history of yes Jeffy Simeon MD smoking status Never smoker Aneatris Brow n FAMILY HISTORY Family Member Condition Full Brother Family History of Re nal Disease: Full Brother Family History of CV A or Stroke: Father Family History of Co ronary Artery Disease: Father Family History of Dunia ng Cancer: Father Family History of CV A or Stroke: Mother Family History of Dunia ng Cancer: Mother Family History of CV A or Stroke: INSURANCE PROVIDERS Payer name Policy type / Coverage type [employer]iz [employer] party [employer] Other H [id number] [place] Medicare [id number] ADVANCE DIRECTIVES Name Date DISCUSSED - NO DECISION MADE TREATMENT PLAN Date Name Performer [id number],W, Bryan Montenegro ra, [place] [id number],S, Bryan Montenegro ra, [place] [id number],S, Bryan Montenegro ra, [place] [id number],S, Bryan Montenegro ra, [place] [id number],S, Carol P today: 140/76 P rior BP: 163/91 (05/30/2022) Her updated medication list for this problem includes: Amlodipine 5 Mg Tablet (Amlodipine) ..... Take 1 tablet by mouth once a day Metoprolol Succinate 50 Mg Tablet Extended Release 24 Hr (Metoprolol succinate) ..... Take 1 tablet by mouth once a day Losartan 100 Mg Tablet (Losartan) ..... Take 1 tablet once a day Hydrochlorothiazide 25 Mg Tablet (Hydrochlorothiazide) ..... Take 1 tablet by mouth once a day Bryan Simeon MD [id number],S, H er updated medication list for this problem includes: Amlodipine 5 Mg Tablet (Amlodipine) ..... Take 1 tablet by mouth once a day Metoprolol Succinate 50 Mg Tablet Extended Release 24 Hr (Metoprolol succinate) ..... Take 1 tablet by mouth once a day Nitroglycerin 0.4 Mg Tablet, Sublingual (Nitroglycerin) ..... 1 tablet under tongue as directed as needed 1 tablet under tongue for chest pain. may repeat every 5 minutes if still having chest pain- to max of 3 tablets per episode.if no relief after 3rd dose, go to er Losartan 100 Mg Tablet (Losartan) ..... Take 1 tablet once a day Hydrochlorothiazide 25 Mg Tablet (Hydrochlorothiazide) ..... Take 1 tablet by mouth once a day Bryan Simeon MD [id number],SBryan ra, [place] [id number],W, H er updated medication list for this problem includes: Ezetimibe 10 Mg Tablet (Ezetimibe) ..... Take 1 tablet by mouth every day Bryan Simeon MD [id number],SBryan ra, MD [id number],BBryan ra, MD [id number],SBryan ra, MD [id number],B, Bryan Montenegro ra, [place] [id number],W, B P today: 163/91 P rior BP: 154/104 (04/25/2022) Her updated medication list for this problem includes: Amlodipine 5 Mg Tablet (Amlodipine) ..... Take 1 tablet by mouth once a day Metoprolol Succinate 50 Mg Tablet Extended Release 24 Hr (Metoprolol succinate) ..... Take 1 tablet by mouth once a day Losartan 100 Mg Tablet (Losartan) ..... Take 1 tablet once a day Hydrochlorothiazide 25 Mg Tablet (Hydrochlorothiazide) ..... Take 1 tablet by mouth once a day Bryan Simeon MD [id number],SBryan ra, [place] [id number],S, H er updated medication list for this problem includes: Ezetimibe 10 Mg Tablet (Ezetimibe) ..... Take 1 tablet by mouth every day Bryan Simeon MD [id number],SBryan ra, [place] [id number],SBryan ra, MD [id number],SBryan ra, MD [id number],W, H er updated medication list for this problem includes: Ezetimibe 10 Mg Tablet (Ezetimibe) ..... Take 1 tablet by mouth every day Bryan Simeon MD [id number],SBryan ra, [place] [id number],W, B P today: 154/104 P rior BP: 120/98 (03/28/2022) Her updated medication list for this problem includes: Amlodipine 5 Mg Tablet (Amlodipine) ..... Take 1 tablet by mouth once a day Metoprolol Succinate 50 Mg Tablet Extended Release 24 Hr (Metoprolol succinate) ..... Take 1 tablet by mouth once a day Losartan 100 Mg Tablet (Losartan) ..... Take 1 tablet once a day Hydrochlorothiazide 25 Mg Tablet (Hydrochlorothiazide) ..... Take 1 tablet by mouth once a day Bryan Simeon MD [id number],S, H er updated medication list for this problem includes: Amlodipine 5 Mg Tablet (Amlodipine) ..... Take 1 tablet by mouth once a day Metoprolol Succinate 50 Mg Tablet Extended Release 24 Hr (Metoprolol succinate) ..... Take 1 tablet by mouth once a day Ranolazine 1,000 Mg Tablet Extended Release 12 Hr (Ranolazine) ..... Take 1 tablet by mouth twice a day Nitroglycerin 0.4 Mg Tablet, Sublingual (Nitroglycerin) ..... 1 tablet under tongue as directed as needed 1 tablet under tongue for chest pain. may repeat every 5 minutes if still having chest pain- to max of 3 tablets per episode.if no relief after 3rd dose, go to er Losartan 100 Mg Tablet (Losartan) ..... Take 1 tablet once a day Hydrochlorothiazide 25 Mg Tablet (Hydrochlorothiazide) ..... Take 1 tablet by mouth once a day Bryan Simeon MD [id number],WBryan ra, [place] [id number],S, Bryan Montenegro ra, MD [id number],SBryan ra, MD [id number],WBryan ra, MD [id number],S, H er updated medication list for this problem includes: Ezetimibe 10 Mg Tablet (Ezetimibe) ..... Take 1 tablet by mouth every day Bryan Simeon MD [id number],S, H er updated medication list for this problem includes: Amlodipine 2.5 Mg Tablet (Amlodipine) ..... Take 1 tablet by mouth once a day Metoprolol Succinate 50 Mg Tablet Extended Release 24 Hr (Metoprolol succinate) ..... Take 1 tablet by mouth once a day Ranolazine 1,000 Mg Tablet Extended Release 12 Hr (Ranolazine) ..... Take 1 tablet by mouth twice a day Nitroglycerin 0.4 Mg Tablet, Sublingual (Nitroglycerin) ..... 1 tablet under tongue as directed as needed 1 tablet under tongue for chest pain. may repeat every 5 minutes if still having chest pain- to max of 3 tablets per episode.if no relief after 3rd dose, go to er Losartan 100 Mg Tablet (Losartan) ..... Take 1 tablet once a day Hydrochlorothiazide 25 Mg Tablet (Hydrochlorothiazide) ..... Take 1 tablet by mouth once a day Bryan Simeon MD [id number],S, B P today: 120/98 P rior BP: 157/-1 (01/03/2022) Her updated medication list for this problem includes: Amlodipine 2.5 Mg Tablet (Amlodipine) ..... Take 1 tablet by mouth once a day Metoprolol Succinate 50 Mg Tablet Extended Release 24 Hr (Metoprolol succinate) ..... Take 1 tablet by mouth once a day Losartan 100 Mg Tablet (Losartan) ..... Take 1 tablet once a day Hydrochlorothiazide 25 Mg Tablet (Hydrochlorothiazide) ..... Take 1 tablet by mouth once a day Bryan Simeon MD [id number],S, The following medications were removed from the medication list: Hydrochlorothiazide 25 Mg Tablet (Hydrochlorothiazide) ..... Take 1 tablet once a day Her updated medication list for this problem includes: Ranolazine 1,000 Mg Tablet Extended Release 12 Hr (Ranolazine) ..... 1 tablet twice a day Nitrostat 0.3 Mg Tablet, Sublingual (Nitroglycerin) ..... Take as directed Losartan 100 Mg Tablet (Losartan) ..... Take 1 tablet once a day Hydrochlorothiazide 25 Mg Tablet (Hydrochlorothiazide) ..... Take 1 tablet by mouth once a day Bryan Simeon MD [id number],S,B P is slightly elevated. B P today: 157/99 P rior BP: 110/80 (08/20/2018) Labs Reviewed: C hol: 236 (08/14/2018) HDL: 56 (08/14/2018) The following medications were removed from the medication list: Hydrochlorothiazide 25 Mg Tablet (Hydrochlorothiazide) ..... Take 1 tablet once a day Her updated medication list for this problem includes: Losartan 100 Mg Tablet (Losartan) ..... Take 1 tablet once a day Hydrochlorothiazide 25 Mg Tablet (Hydrochlorothiazide) ..... Take 1 tablet by mouth once a day Bryan Simeon MD [id number],S,wears cpap 3x a week. Bryan Simeon MD [id number],W,r eoccurence of chest pain. will start on Toprolol XL and get some labs and echho results. O rders: 9 9214 MOD 30-39min (CPT-55930) C omplete Echo (CPT-34634) P ROBNP, N TERMINAL (76540) D -DIMER, QUANTITATIVE (3251) C BC (H/H, RBC, INDICES, WBC, PLT) (9505) T SH, 3RD GENERATION W/REFLEX TO FT4 (93623) Her updated medication list for this problem includes: Ranolazine Er 1000 Mg Oral Tablet Extended Release 12 Hour (Ranolazine) ..... One tab twice a day Nitrostat Tablet Sublingual (Nitroglycerin subl) ..... Take as directed Bryan Simeon MD Cardiology: T he following medications were removed from the medication list: Ezetimibe 10 Mg Tablet (Ezetimibe) ..... Take 1 tablet by mouth every day Her updated medication list for this problem includes: Nexlizet 180-10 Mg Tablet (Bempedoic acid-ezetimibe) ..... Take 1 tablet by mouth once a day Bryan Simeon MD Cardiology Bryan Orellana Cardiology: H er updated medication list for this problem includes: Amlodipine 5 Mg Tablet (Amlodipine) ..... Take 1 tablet by mouth once a day Losartan 100 Mg Tablet (Losartan) ..... Take 1 tablet by mouth once daily Metoprolol Succinate 50 Mg Tablet Extended Release 24 Hr (Metoprolol succinate) ..... Take 1 tablet by mouth every day Nitroglycerin 0.4 Mg Tablet, Sublingual (Nitroglycerin) ..... 1 tablet under tongue as directed as needed 1 tablet under tongue for chest pain. may repeat every 5 minutes if still having chest pain- to max of 3 tablets per episode.if no relief after 3rd dose, go to er Hydrochlorothiazide 25 Mg Tablet (Hydrochlorothiazide) ..... Take 1 tablet by mouth once a day Bryan Simeon MD Cardiology Bryan Orellana Cardiology Bryan Orellana Cardiology:This visi t has been a part of the consistent, comprehensive, and ongoing management of the chronic medical condition(s) listed above for the patient. Her updated medication list for this problem includes: Amlodipine 5 Mg Tablet (Amlodipine) ..... Take 1 tablet by mouth once a day Losartan 100 Mg Tablet (Losartan) ..... Take 1 tablet by mouth once daily Metoprolol Succinate 50 Mg Tablet Extended Release 24 Hr (Metoprolol succinate) ..... Take 1 tablet by mouth every day Hydrochlorothiazide 25 Mg Tablet (Hydrochlorothiazide) ..... Take 1 tablet by mouth once a day BP today: 130/80 P rior BP: 161/103 (11/27/2023) Labs Reviewed: C hol: 192 (12/10/2023) HDL: 62 (12/10/2023) LDL: 108 MG/DL (CALC) (12/10/2023) T (12/10/2023) Bryan Simeon MD Cardiology Bryan Orellana Cardiology:This visi t has been a part of the consistent, comprehensive, and ongoing management of the chronic medical condition(s) listed above for the patient. B P today: 161/103 P rior BP: 128/84 (05/22/2023) Labs Reviewed: C hol: 236 (08/14/2018) HDL: 56 (08/14/2018) LDL: 164 (08/14/2018) T (08/14/2018) Her updated medication list for this problem includes: Amlodipine 5 Mg Tablet (Amlodipine) ..... Take 1 tablet by mouth once a day Losartan 100 Mg Tablet (Losartan) ..... Take 1 tablet by mouth once daily Metoprolol Succinate 50 Mg Tablet Extended Release 24 Hr (Metoprolol succinate) ..... Take 1 tablet by mouth every day Hydrochlorothiazide 25 Mg Tablet (Hydrochlorothiazide) ..... Take 1 tablet by mouth once a day Bryan Simeon MD Cardiology Bryan Orellana Cardiology Bryan Orellana Cardiology:This visi t has been a part of the consistent, comprehensive, and ongoing management of the chronic medical condition(s) listed above for the patient. Bryan Simeon MD Cardiology:This visi t has been a part of the consistent, comprehensive, and ongoing management of the chronic medical condition(s) listed above for the patient. H er updated medication list for this problem includes: Ezetimibe 10 Mg Tablet (Ezetimibe) ..... Take 1 tablet by mouth every day Bryan Simeon MD Cardiology:This visi t has been a part of the consistent, comprehensive, and ongoing management of the chronic medical condition(s) listed above for the patient. H er updated medication list for this problem includes: Amlodipine 5 Mg Tablet (Amlodipine) ..... Take 1 tablet by mouth once a day Losartan 100 Mg Tablet (Losartan) ..... Take 1 tablet by mouth once daily Metoprolol Succinate 50 Mg Tablet Extended Release 24 Hr (Metoprolol succinate) ..... Take 1 tablet by mouth every day Nitroglycerin 0.4 Mg Tablet, Sublingual (Nitroglycerin) ..... 1 tablet under tongue as directed as needed 1 tablet under tongue for chest pain. may repeat every 5 minutes if still having chest pain- to max of 3 tablets per episode.if no relief after 3rd dose, go to er Hydrochlorothiazide 25 Mg Tablet (Hydrochlorothiazide) ..... Take 1 tablet by mouth once a day Bryan Simeon MD Cardiology:This visi t has been a part of the consistent, comprehensive, and ongoing management of the chronic medical condition(s) listed above for the patient. Bryan Simeon MD Cardiology Gray Gutierrez Cardiology Gray Gutierrez Cardiology Gray Gutierrez Cardiology: H er updated medication list for this problem includes: Ezetimibe 10 Mg Tablet (Ezetimibe) ..... Take 1 tablet by mouth every day Gray Gutierrez Cardiology Bryan Orellana Cardiology: B P today: 128/84 P rior BP: 140/76 (11/21/2022) Labs Reviewed: C hol: 236 (08/14/2018) HDL: 56 (08/14/2018) LDL: 164 (08/14/2018) T (08/14/2018) Her updated medication list for this problem includes: Amlodipine 5 Mg Tablet (Amlodipine) ..... Take 1 tablet by mouth once a day Metoprolol Succinate 50 Mg Tablet Extended Release 24 Hr (Metoprolol succinate) ..... Take 1 tablet by mouth once a day Losartan 100 Mg Tablet (Losartan) ..... Take 1 tablet once a day Hydrochlorothiazide 25 Mg Tablet (Hydrochlorothiazide) ..... Take 1 tablet by mouth once a day Bryan Simeon MD Cardiology Bryan Orellana Cardiology Bryan [facility]rellaan Cardiology Bryan Orellana Cardiology Bryan Orellana Cardiology: B P today: 140/76 P rior BP: 163/91 (05/30/2022) Her updated medication list for this problem includes: Amlodipine 5 Mg Tablet (Amlodipine) ..... Take 1 tablet by mouth once a day Metoprolol Succinate 50 Mg Tablet Extended Release 24 Hr (Metoprolol succinate) ..... Take 1 tablet by mouth once a day Losartan 100 Mg Tablet (Losartan) ..... Take 1 tablet once a day Hydrochlorothiazide 25 Mg Tablet (Hydrochlorothiazide) ..... Take 1 tablet by mouth once a day Bryan Simeon MD Cardiology: H er updated medication list for this problem includes: Amlodipine 5 Mg Tablet (Amlodipine) ..... Take 1 tablet by mouth once a day Metoprolol Succinate 50 Mg Tablet Extended Release 24 Hr (Metoprolol succinate) ..... Take 1 tablet by mouth once a day Nitroglycerin 0.4 Mg Tablet, Sublingual (Nitroglycerin) ..... 1 tablet under tongue as directed as needed 1 tablet under tongue for chest pain. may repeat every 5 minutes if still having chest pain- to max of 3 tablets per episode.if no relief after 3rd dose, go to er Losartan 100 Mg Tablet (Losartan) ..... Take 1 tablet once a day Hydrochlorothiazide 25 Mg Tablet (Hydrochlorothiazide) ..... Take 1 tablet by mouth once a day Bryan Simeon MD Cardiology Bryan Orellana Cardiology: H er updated medication list for this problem includes: Ezetimibe 10 Mg Tablet (Ezetimibe) ..... Take 1 tablet by mouth every day Bryan Simeon MD Cardiology Bryan Orellana Cardiology Bryan Orellana Cardiology Bryan Orellana Cardiology Bryan Orellana Cardiology: B P today: 163/91 P rior BP: 154/104 (04/25/2022) Her updated medication list for this problem includes: Amlodipine 5 Mg Tablet (Amlodipine) ..... Take 1 tablet by mouth once a day Metoprolol Succinate 50 Mg Tablet Extended Release 24 Hr (Metoprolol succinate) ..... Take 1 tablet by mouth once a day Losartan 100 Mg Tablet (Losartan) ..... Take 1 tablet once a day Hydrochlorothiazide 25 Mg Tablet (Hydrochlorothiazide) ..... Take 1 tablet by mouth once a day Bryan Simeon MD Cardiology Bryan Orellana Cardiology: H er updated medication list for this problem includes: Ezetimibe 10 Mg Tablet (Ezetimibe) ..... Take 1 tablet by mouth every day Bryan Simeon MD Cardiology Bryan Orellana Cardiology Bryan Orellana Cardiology Bryan Orellana Cardiology: H er updated medication list for this problem includes: Ezetimibe 10 Mg Tablet (Ezetimibe) ..... Take 1 tablet by mouth every day Bryan Simeon MD Cardiology Bryan Orellana Cardiology: B P today: 154/104 P rior BP: 120/98 (03/28/2022) Her updated medication list for this problem includes: Amlodipine 5 Mg Tablet (Amlodipine) ..... Take 1 tablet by mouth once a day Metoprolol Succinate 50 Mg Tablet Extended Release 24 Hr (Metoprolol succinate) ..... Take 1 tablet by mouth once a day Losartan 100 Mg Tablet (Losartan) ..... Take 1 tablet once a day Hydrochlorothiazide 25 Mg Tablet (Hydrochlorothiazide) ..... Take 1 tablet by mouth once a day Bryan Simeon MD Cardiology: H er updated medication list for this problem includes: Amlodipine 5 Mg Tablet (Amlodipine) ..... Take 1 tablet by mouth once a day Metoprolol Succinate 50 Mg Tablet Extended Release 24 Hr (Metoprolol succinate) ..... Take 1 tablet by mouth once a day Ranolazine 1,000 Mg Tablet Extended Release 12 Hr (Ranolazine) ..... Take 1 tablet by mouth twice a day Nitroglycerin 0.4 Mg Tablet, Sublingual (Nitroglycerin) ..... 1 tablet under tongue as directed as needed 1 tablet under tongue for chest pain. may repeat every 5 minutes if still having chest pain- to max of 3 tablets per episode.if no relief after 3rd dose, go to er Losartan 100 Mg Tablet (Losartan) ..... Take 1 tablet once a day Hydrochlorothiazide 25 Mg Tablet (Hydrochlorothiazide) ..... Take 1 tablet by mouth once a day Bryan Simeon MD Cardiology Bryan Orellana Cardiology Bryan Orellana Cardiology Bryan Orellana Cardiology Bryan Orellana Cardiology: H er updated medication list for this problem includes: Ezetimibe 10 Mg Tablet (Ezetimibe) ..... Take 1 tablet by mouth every day Bryan Simeon MD Cardiology: H er updated medication list for this problem includes: Amlodipine 2.5 Mg Tablet (Amlodipine) ..... Take 1 tablet by mouth once a day Metoprolol Succinate 50 Mg Tablet Extended Release 24 Hr (Metoprolol succinate) ..... Take 1 tablet by mouth once a day Ranolazine 1,000 Mg Tablet Extended Release 12 Hr (Ranolazine) ..... Take 1 tablet by mouth twice a day Nitroglycerin 0.4 Mg Tablet, Sublingual (Nitroglycerin) ..... 1 tablet under tongue as directed as needed 1 tablet under tongue for chest pain. may repeat every 5 minutes if still having chest pain- to max of 3 tablets per episode.if no relief after 3rd dose, go to er Losartan 100 Mg Tablet (Losartan) ..... Take 1 tablet once a day Hydrochlorothiazide 25 Mg Tablet (Hydrochlorothiazide) ..... Take 1 tablet by mouth once a day Bryan Simeon MD Cardiology: B P today: 120/98 P rior BP: 157/-1 (01/03/2022) Her updated medication list for this problem includes: Amlodipine 2.5 Mg Tablet (Amlodipine) ..... Take 1 tablet by mouth once a day Metoprolol Succinate 50 Mg Tablet Extended Release 24 Hr (Metoprolol succinate) ..... Take 1 tablet by mouth once a day Losartan 100 Mg Tablet (Losartan) ..... Take 1 tablet once a day Hydrochlorothiazide 25 Mg Tablet (Hydrochlorothiazide) ..... Take 1 tablet by mouth once a day Bryan Simeon MD Cardiology: The following medications were removed from the medication list: Hydrochlorothiazide 25 Mg Tablet (Hydrochlorothiazide) ..... Take 1 tablet once a day Her updated medication list for this problem includes: Ranolazine 1,000 Mg Tablet Extended Release 12 Hr (Ranolazine) ..... 1 tablet twice a day Nitrostat 0.3 Mg Tablet, Sublingual (Nitroglycerin) ..... Take as directed Losartan 100 Mg Tablet (Losartan) ..... Take 1 tablet once a day Hydrochlorothiazide 25 Mg Tablet (Hydrochlorothiazide) ..... Take 1 tablet by mouth once a day Bryan Simeon MD Cardiology:BP is sli ghtly elevated. B P today: 157/99 P rior BP: 110/80 (08/20/2018) Labs Reviewed: C hol: 236 (08/14/2018) HDL: 56 (08/14/2018) The following medications were removed from the medication list: Hydrochlorothiazide 25 Mg Tablet (Hydrochlorothiazide) ..... Take 1 tablet once a day Her updated medication list for this problem includes: Losartan 100 Mg Tablet (Losartan) ..... Take 1 tablet once a day Hydrochlorothiazide 25 Mg Tablet (Hydrochlorothiazide) ..... Take 1 tablet by mouth once a day Bryan Simeon MD Cardiology:wears cpap 3x a week. Bryan Simeon MD Cardiology:reoccuren ce of chest pain. will start on Toprolol XL and get some labs and echho results. O rders: 9 9214 MOD 30-39min (CPT-56163) C omplete Echo (CPT-95797) P ROBNP, N TERMINAL (19522) D -DIMER, QUANTITATIVE (3279) C BC (H/H, RBC, INDICES, WBC, PLT) (6237) T SH, 3RD GENERATION W/REFLEX TO FT4 (59286) Her updated medication list for this problem includes: Ranolazine Er 1000 Mg Oral Tablet Extended Release 12 Hour (Ranolazine) ..... One tab twice a day Nitrostat Tablet Sublingual (Nitroglycerin subl) ..... Take as directed Bryan Simeon MD Cardiology Bryan Orellana Cardiology: T he patient is using CPAP on a regular basis. The patient has been benefiting from therapy and should continue use. Bryan Simeon MD Cardiology: n o recurrence Byran Simeon MD Cardiology: w marin compensated. denies SOB Her updated medication list for this problem includes: Ranexa 1000 Mg Oral Tablet Extended Release 12 Hour (Ranolazine) ..... One tablet twice a day Hyzaar 100-25 Mg Oral Tablet (Losartan potassium-hctz) ..... One tab. daily Aspirin 81 Mg Oral Tablet (Aspirin) ..... One tab. daily Nitrostat Tablet Sublingual (Nitroglycerin subl) ..... Take as directed Bryan Simeon MD Cardiology: L DL 164 in 07/2018 o n no lipid lowering therapy at this time. s tatin intolerant c heck CAC score for risk stratification Bryan Simeon MD Cardiology: n o recurrence Bryan Simeon MD Cardiology: B P today: 110/80 P rior BP: 132/80 (05/21/2018) Her updated medication list for this problem includes: Hyzaar 100-25 Mg Oral Tablet (Losartan potassium-hctz) ..... One tab. daily Aspirin 81 Mg Oral Tablet (Aspirin) ..... One tab. daily Bryan Simeon MD Cardiology Bryan Orellana Cardiology Bryan Orellana Cardiology Bryan Orellana Cardiology: H er updated medication list for this problem includes: Ezetimibe 10 Mg Oral Tablet (Ezetimibe) ..... One po daily Rosuvastatin Calcium 5 Mg Oral Tablet (Rosuvastatin calcium) ..... One po every 7 days on mondays Bryan Simeon MD Cardiology Bryan Orellana Cardiology follow up:Encourage C PAP compliance. Bryan Simeon MD Cardiology follow up :10/18/17 nuclear stress test: 1 . Myocardial scintigraphy is normal without evidence for previous myocardial infarction or reversible ischemia. 2 . Normal left ventricular size and function with a calculated ejection fraction of 60%. 3 . Jamal protocol exercise tolerance test. Severely impaired functional capacity. CP unlikely to be cardiogenic. Will continue to monitor. Bryan Simeon MD Cardiology follow up Bryan macias MD Cardiology follow up Bryan macias MD Cardiology follow up : H er updated medication list for this problem includes: Ranexa 1000 Mg Oral Tablet Extended Release 12 Hour (Ranolazine) ..... One tablet twice a day Aspirin 81 Mg Oral Tablet (Aspirin) ..... One tab. daily Nitrostat Tablet Sublingual (Nitroglycerin subl) ..... Take as directed Bryan Simeon MD Cardiology follow up Bryan macias MD Cardiology follow up :10/18/18 TTE: 1 . Normal left ventricular systolic function. Normal left ventricular size. Normal left ventricular wall t hickness. Normal left ventricular diastolic function. Left ventricular ejection fraction is estimated at 6 0 %. 2 . The left atrium is normal in size. LA volume is 48 mL. 3 . No significant valvular abnormalities. Bryan Simeon MD Cardiology follow up Bryan macias MD Cardiology follow up : B P today: 132/80 P rior BP: 124/90 (07/03/2017) Her updated medication list for this problem includes: Hyzaar 100-25 Mg Oral Tablet (Losartan potassium-hctz) ..... One tab. daily Aspirin 81 Mg Oral Tablet (Aspirin) ..... One tab. daily Bryan Simeon MD Cardiology: H er updated medication list for this problem includes: Hyzaar 50-12.5 Mg Oral Tablet (Losartan potassium-hctz) ..... One po daily Aspirin 81 Mg Oral Tablet (Aspirin) ..... One tab. daily BP today: 124/90 P rior BP: 135/73 (03/28/2016) Bryan Simeon MD Cardiology Bryan Orellana Cardiology Bryan Orellana Cardiology Bryan Orellana Cardiology Bryan Orellana Cardiology Bryan Orellana Cardiology Bryan Orellana Cardiology: H er updated medication list for this problem includes: Hyzaar 50-12.5 Mg Tabs (Losartan potassium-hctz) ..... One po daily Aspirin 81 Mg Tabs (Aspirin) ..... One tab. daily BP today: 135/73 P rior BP: 120/60 (11/02/2015) Bryan Simeon MD Cardiology: H er updated medication list for this problem includes: Ranexa 1000 Mg Oral [id number] (Ranolazine) ..... One po bid Hyzaar 50-12.5 Mg Tabs (Losartan potassium-hctz) ..... One po daily Aspirin 81 Mg Tabs (Aspirin) ..... One tab. daily Nitrostat Subl (Nitroglycerin subl) ..... Take as directed Bryan Simeon MD Cardiology: H er updated medication list for this problem includes: Ranexa 1000 Mg Oral [id number] (Ranolazine) ..... One po bid Aspirin 81 Mg Tabs (Aspirin) ..... One tab. daily Nitrostat Subl (Nitroglycerin subl) ..... Take as directed Bryan Simeon MD Cardiology Bryan Orellana Cardiology: H er updated medication list for this problem includes: Ranexa 1000 Mg Oral [id number] (Ranolazine) ..... One po bid Aspirin 81 Mg Tabs (Aspirin) ..... One tab. daily Nitrostat Subl (Nitroglycerin subl) ..... Take as directed Bryan Simeon MD Cardiology Bryan Orellana Cardiology:A 10 cm w ater pressure with CPAP utilizing a medium Tolliver FX nasal interface mask. Bryan Simeon MD Cardiology Follow up : H er updated medication list for this problem includes: Hyzaar 50-12.5 Mg Tabs (Losartan potassium-hctz) ..... One po daily Aspirin 81 Mg Tabs (Aspirin) ..... One tab. daily BP today: 120/60 P rior BP: 118/80 (08/31/2015) Bryan Simeon MD Cardiology Follow up Bryan macias MD Cardiology Follow up : H er updated medication list for this problem includes: Ranexa 500 Mg Oral [id number] (Ranolazine) ..... One tablet twice daily Aspirin 81 Mg Tabs (Aspirin) ..... One tab. daily Nitrostat Subl (Nitroglycerin subl) ..... Take as directed Bryan Simeon MD Cardiology Follow up Bryan macias MD Cardiology Follow up : H er updated medication list for this problem includes: Ranexa 500 Mg Oral [id number] (Ranolazine) ..... One tablet twice daily Aspirin 81 Mg Tabs (Aspirin) ..... One tab. daily Nitrostat Subl (Nitroglycerin subl) ..... Take as directed Bryan Simeon MD Cardiology Follow up Bryan macias MD Cardiology Follow up Bryan macias MD Cardiology Follow up Bryan macias MD Cardiology: H er updated medication list for this problem includes: Hyzaar 50-12.5 Mg Tabs (Losartan potassium-hctz) ..... One po daily Aspirin 81 Mg Tabs (Aspirin) ..... One tab. daily BP today: 118/80 P rior BP: 140/90 (12/30/2013) Bryan Simeon MD Cardiology Bryan Orellana Cardiology:recurrent cp, no acute ischemic changes on EKG. C heck echo and stress nuclear study Bryan Simeon MD Cardiology:venous doppler to r/o dvt Bryan Simeon MD Cardiology:Home sleep study to e valuate for possible MONICA Bryan Simeon MD Follow up Bryan Orellana Follow up : H er updated medication list for this problem includes: Hyzaar 50-12.5 Mg Tabs (Losartan potassium-hctz) ..... One po daily Aspirin 81 Mg Tabs (Aspirin) ..... One tab. daily BP today: 140/90 P rior BP: 155/91 (12/02/2013) Bryan Simeon MD Follow up Bryan Orellana Follow up Bryan Orellana Follow up : H er updated medication list for this problem includes: Aspirin 81 Mg Tabs (Aspirin) ..... One tab. daily Alprazolam 0.5 Mg Tabs (Alprazolam) ..... 1 tab twice daily Nitrostat Subl (Nitroglycerin subl) ..... Take as directed Orders: Jaylyn KG (CPT-57804) Bryan Simeon MD Follow up : H er updated medication list for this problem includes: Aspirin 81 Mg Tabs (Aspirin) ..... One tab. daily Alprazolam 0.5 Mg Tabs (Alprazolam) ..... 1 tab twice daily Nitrostat Subl (Nitroglycerin subl) ..... Take as directed Bryan Simeon MD hos follow up: H er updated medication list for this problem includes: Hyzaar 50-12.5 Mg Tabs (Losartan potassium-hctz) ..... One po daily Aspirin 81 Mg Tabs (Aspirin) ..... One tab. daily Orders: Shannan omplete Echo (CPT-96922) M obile Cardiac Tele (CPT-17142) Bryan Simeon MD hos follow up: H er updated medication list for this problem includes: Aspirin 81 Mg Tabs (Aspirin) ..... One tab. daily Nitrostat Subl (Nitroglycerin subl) ..... Take as directed & #13;Orders: Shannan omplete Echo (CPT-87108) M obile Cardiac Tele (CPT-08263) Bryan Simeon MD hos follow up: H er updated medication list for this problem includes: Aspirin 81 Mg Tabs (Aspirin) ..... One tab. daily Alprazolam 0.5 Mg Tabs (Alprazolam) ..... 1 tab twice daily Nitrostat Subl (Nitroglycerin subl) ..... Take as directed Orders: Shannan omplete Echo (CPT-95593) M obile Cardiac Tele (CPT-07859) Bryan Simeon MD hos follow up: O rders: Shannan omplete Echo (CPT-87812) M obile Cardiac Tele (CPT-42923) d iet and exercise for weight loss and cardiovascualr risk reduction Bryan Simeon MD hos follow up: H er updated medication list for this problem includes: Hyzaar 50-12.5 Mg Tabs (Losartan potassium-hctz) ..... One po daily Aspirin 81 Mg Tabs (Aspirin) ..... One tab. daily Nitrostat Subl (Nitroglycerin subl) ..... Take as directed n o recurrence O rders: C omplete Echo (CPT-27951) M obile Cardiac Tele (CPT-39835) Bryan Simeon MD hos follow up: O rders: Shannan omplete Echo (CPT-76224) M obile Cardiac Tele (CPT-98692) Bryan Simeon MD hos follow up: O rders: C omplete Echo (CPT-62843) M obile Cardiac Tele (CPT-26266) Bryan Simeon MD hos follow up: H er updated medication list for this problem includes: Hyzaar 50-12.5 Mg Tabs (Losartan potassium-hctz) ..... One po daily Aspirin 81 Mg Tabs (Aspirin) ..... One tab. daily Nitrostat Subl (Nitroglycerin subl) ..... Take as directed Orders: Shannan omplete Echo (CPT-42610) M obile Cardiac Tele (CPT-33518) Bryan Simeon MD hos follow up: H er updated medication list for this problem includes: Hyzaar 50-12.5 Mg Tabs (Losartan potassium-hctz) ..... One po daily Aspirin 81 Mg Tabs (Aspirin) ..... One tab. daily Orders: Shannan omplete Echo (CPT-96490) M obile Cardiac Tele (CPT-43187) BP today: 155/91 Bryan Simeon MD Date Name Carotid Duplex Bilat eral APOLIPOPROTEIN B LIPID PANEL CardioIQ Advanced Li pid Panel with Inflammation ([facility]) LIPID PANEL PROTHROMBIN TIME WIT H INR LIPID PANEL CBC (INCLUDES DIFF/P LT) BASIC METABOLIC PANE L W/EGFR Stress Regadenoson TSH, 3RD GENERATION W/REFLEX TO FT4 CBC (H/H, RBC, INDIC ES, WBC, PLT) D-DIMER, QUANTITATIV E PROBNP, N TERMINAL Complete Echo CT, Coronary Calcium Score LIPID PANEL LIPID PANEL HEMOGLOBIN A1c LIPID PANEL STR - Nuclear Complete Echo TSH, 3RD GENERATION W/REFLEX TO FT4 Sleep Study Home Venous Doppler Bilat eral LE Sleep Study Home STR - Nuclear Complete Echo Mobile Cardiac Tele Complete Echo HISTORY OF PROCEDURES Procedure Date Procedure Name Provider Procedure Notes S tatus Complex e/m visit add on Bryan Simeon MD completed Complex e/m visit add on Bryan Simeon MD completed EKG Bryan Simeon MD complet ed EKG Bryan Simeon MD complet ed Cardiolite, 2 units Bryan Simeon MD completed SPECT Images Cathleen Shukla MD compl eted Stress EKG Cathleen Shukla MD complet ed SNOMED-CT: 303583482 [id number] Current Medications Documented Bryan Simeon MD completed SNOMED-CT: 362658257 093747 Current Medications Documented Bryan Simeon MD completed EKG Bryan Simeon MD complet ed SNOMED-CT: 204309444 789607 Current Medications Documented Bryan Simeon MD completed EKG Bryan Simeon MD complet ed EKG Bryan Simeon MD complet ed
--- OUTSIDE RECORDS SUMMARY | 2024-03-29 09:26 | XMS_ITS | Clinical Summary ---
Author Organization [facility] Address [address] [place] [address] Care Team Providers Care Tank Tender Name Role Phone Keysha Rinaldin Jose Daniel Primary Care Provider [phone] Bryan Simeon MD Unavailable [phone] Jerry Leos NP Unavailable [phone] Beryl Mendoza PT Unavailable Unavailable Allergies Active Allergy Reactions Criticality Noted Date [...] is overdue for follow up with her smasher hand, Dr. Lala, in [place]. She will follow up soon. Patient has pain medication at home from her paint prepper should pain return. Other possibilities for pain [...] finding 04/25/201110/22 Overview (05/27/2016): Proximal leg weakness Encounters Date Type Department Care Team Description 03/27/2024 8:00 AM DESIGN VERIFICATION ENGINEER - 03/27/2024 11:59 PM DESIGN VERIFICATION ENGINEER Hospital Encounter [address] [address] Age-related osteoporosis without current pathological fracture Discharge Disposition: Discharge to home or self care 02/29/2024 8:15 AM DESIGN VERIFICATION ENGINEER Office Visit [facility] [address] [facility] [address] [place] [address] Wil De Dios PA Primary osteoarthritis of left knee (Primary Dx); History of meniscectomy of left knee; Pes anserinus bursitis of right knee; History of total knee arthroplasty, right 01/31/2024 8:20 AM DESIGN VERIFICATION ENGINEER - 01/31/2024 11:59 PM DESIGN VERIFICATION ENGINEER Hospital Encounter [address] [address] 1, Amh Rad Rn Rad, Amh Breast Other abnormal and inconclusive findings on diagnostic imaging of breast Discharge Disposition: Discharge to home or self care 01/17/2024 Telephone [facility] [address] [place] [address] Maisha Huerta, JUDAH 01/17/[address] [address] Maisha Huerta, JUDAH 01/16/[address] [address] Maisha Huerta, JUDAH 01/05/2024 9:50 AM DESIGN VERIFICATION ENGINEER - 01/05/2024 11:59 PM DESIGN VERIFICATION ENGINEER Hospital Encounter [address] [address] Other abnormal and inconclusive findings on diagnostic imaging of breast Discharge Disposition: Discharge to home or self care 01/05/2024 9:49 AM DESIGN VERIFICATION ENGINEER - 01/05/2024 11:59 PM DESIGN VERIFICATION ENGINEER Hospital Encounter [address] [address] Other abnormal and inconclusive findings on diagnostic imaging of breast Discharge Disposition: Discharge to home or self care from Last 3 Months Immunizations Name Administration Dates Next Due Td, adsorbed 02/20/2009 Surgical History Surgery Date Site/Laterality Comments VAGINAL HYSTERECTOMY Hysterectomy, vaginal APPENDECTOMY Appendectomy CHOLECYSTECTOMY 2000 Cholecystectomy OTHER SURGICAL HISTORY 1986 Endometriosis: Hysterectomy, total abdominal, BSO LUMBAR PUNCTURE WO INJECTION , DIAGNOSTIC 08/25/2014 N/A WRIST FRACTURE SURGERY COLONOSCOPY 30 years ago JOINT REPLACEMENT Right knee BREAST BIOPSY 01/31/2024 Left Medical History Medical History Date Comments Hx Other Medical [address] Endometritis Endometriosis Hx Other Medical hyperlipidemia Syringomyelia (HCC) Anxiety Depression Hypertension Hypercholesteremia Peripheral neuropathy Gastric reflux Osteoporosis Osteoarthritis Migraines Kidney stone Sleep apnea Family History Medical History Relation Name Comments Cancer Brother 4 Cancer; Hypertension Brother 5 Hypertension; Stroke Brother 6 Stroke; Colon cancer Brother 7 Cancer -colon; Alcohol abuse Brother 8 Alcoholism; Hypertension Brother 9 Hypertension; Other Brother 10 Renal disease(H TNsive); Coronary artery disease Brother 11 Ricky nary artery disease, premature; Alcohol abuse Father Alcoholism; Coronary artery disease Father Ricky nary artery disease, premature; Hypertension Father Hypertension; Lung cancer Father Cancer, lung; Colon cancer Father's Brother 1 x3 Cancer -c olon; Lung cancer Father's Brother 2 Cancer -l richard; Ovarian cancer Maternal Grandmother Cance r -ovarian; Headache Mother Headaches; Hypertension Mother Hypertension; Lung cancer Mother Cancer, lung; / Cancer -lung; Cause of : Cancer -lung Migraines Mother Migraines; Ovarian cancer Mother Cancer -ovari an; Stroke Mother Stroke; Coronary artery disease Paternal Grandfather Coronary artery disease; Breast cancer Neg Hx Relation Name Status Comments Brother 1 Alive Brother 2 Alive Brother 3 Alive Brother 4 Brother 5 Brother 6 Brother 7 Brother 8 Brother 9 Brother 10 Brother 11 Father Alive Father's Brother 1 x3 Father's Brother 2 Maternal Grandmother Mother (Age 62) Paternal Grandfather Alive Social History Tobacco Use Types Packs/Day Years Used Date Smoking Tobacco: Never Smokeless Tobacco: Never Tobacco Cessation:Counseling Given: Not Answered Alcohol Use Standard Drinks/Week Comments Yes 0 (1 standard drink = 0.6 oz pur e alcohol) [facility] Utilities Answer Date Recorded In the past 12 months has e [employer], gas, oil, or water [employer] threatened to shut off services in your [...] often do you attend chur ch or mandaeism services? Never 10/09/2023 Do you belong to any clubs o r organizations such as tenriism groups, unions, fraternal or athletic groups, or [...] any time in the past 12 m cox [place], were you homeless or living in a custodial (including now)? No 10/09/2023 Personal Safety Answer Date Recorded Have you ever been in or are you currently in a harmful physical or emotional relationship or is someone making you feel afraid or unsafe? Denies 10/07/2023 Comments No Sex and Gender Information Value Date Recorded Sex Assigned at Not on file Legal Sex Female 1:44 AM DESIGN VERIFICATION ENGINEER Gender Identity Not on file Sexual Orientation Not on file Obstetrics History Para Term AB IAB SAB Ectopic Multiple Livin g Live Births 1 1 1 Date Outcome GA Total Labor Labor/2nd/3rd Weight Sex Type Anes PTL Niharika A1 A5 Name Clin Term Last Filed Vital Signs Vital Sign Reading Time Taken Comments Blood Pressure 137/92 02/29/2024 8:10 AM DESIGN VERIFICATION ENGINEER Pulse 103 02/29/2024 8:10 AM DESIGN VERIFICATION ENGINEER Temperature 35.8 C (96.4 F) 01/31/2024 8:45 AM DESIGN VERIFICATION ENGINEER Respiratory Rate 16 01/31/2024 8:45 AM DESIGN VERIFICATION ENGINEER Oxygen Saturation 95% 10/10/2023 8:08 AM CDT Inhaled Oxygen Concentration - - Weight 86.3 kg (190 lb 3.2 oz) 02/29/2024 8:10 A M DESIGN VERIFICATION ENGINEER Height 157.5 cm (5' 2 ) 02/29/2024 8:10 AM DESIGN VERIFICATION ENGINEER Body Mass Index 34.79 02/29/2024 8:10 AM DESIGN VERIFICATION ENGINEER Plan of Treatment Health Maintenance Due Date Last Done Comments Depression Screening 1960 Hepatitis C Screening 1960 Pneumococcal vaccine <65 (1 of 2 - PCV) 04/19/1965 Hepatitis B Screening 04/19/1977 Regular Well Visit/Exam 18-64 04/19/1977 DTaP/Tdap/Td Vaccine (1 - Tdap) 02/21/2009 0 Zoster Vaccine (1 of 2) 04/19/2009 Influenza Vaccine (#1) 2023 2, 12/26/2018, 12/05/2017, Additional history exists Breast Cancer Screening-Mammogram 01/04/2025 01/05/2024, 04/18/2023, 01/21/2022 Colon Cancer Screening-Colonoscopy 10/27/2032 10/27/2022 Colon Cancer Screening-CT Colonography Discontinued 10/27/2022 Colon Cancer Screening-DNA Stool Discontinued 09/07/20 23 Colon Cancer Screening-FIT Discontinued 10/27/2022 Colon Cancer Screening-Sigmoidoscopy Discontinued 10/27/2022 Medical Devices Implanted Type Area Road Cleaner Device Identifier Shelf Expiration Date Model / Serial / Lot [employer] Marker Tissue Bowtie Shape Titanium Collagen Mammomark 10ga [id number] - [id number] - [id number] Implanted:Qty : 1 on 01/31/2024 by Kerry Bhat MD at [facility] Breast Left: Breast RF nanor [employer] [id number] 05/01/2025 [id number] / [id number] / [id number] D Description:Stereotactic lef t breast biopsy 11-12 o'clock area. Cores x6 Microcalcs in cassettes 1 and 6. Procedures Procedure Name Priority Date/Time Associated Diagnosis Comments DEXA AXIAL SKELETON BONE DENSITY 1 OR MORE SITES Schedule Routine, Read Routine (OP Routine) 03/27/2024 8:27 AM DESIGN VERIFICATION ENGINEER Age-related osteoporosis without current pathological fracture MT ARTHROCENTESIS ASPIR&/INJ MAJOR JT/BURSA W/O US Routine 02/29/2024 8:15 AM DESIGN VERIFICATION ENGINEER Pes anserinus bursitis of right knee MT ARTHROCENTESIS ASPIR&/INJ MAJOR JT/BURSA W/O US Routine 02/29/2024 8:15 AM DESIGN VERIFICATION ENGINEER Primary osteoarthritis of left knee SURGICAL PATHOLOGY Routine 01/31/2024 10:47 AM DESIGN VERIFICATION ENGINEER Other abnormal and inconclusive findings on diagnostic imaging of breast STEREOTACTIC BREAST BIOPSY LEFT Schedule Routine, Read Routine (OP Routine) 01/31/2024 10:19 AM DESIGN VERIFICATION ENGINEER Other abnormal and inconclusive findings on diagnostic imaging of breast US BREAST LEFT LIMITED Schedule Routine, Read Routine (OP Routine) 01/05/2024 10:56 AM DESIGN VERIFICATION ENGINEER Other abnormal and inconclusive findings on diagnostic imaging of breast DIAGNOSTIC MAMMOGRAM BILATERAL W PETER Schedule Routine, Read Routine (OP Routine) 01/05/2024 10:23 AM DESIGN VERIFICATION ENGINEER Other abnormal and inconclusive findings on diagnostic imaging of breast COLONOSCOPY 10/27/2022 8:16 AM CDT from Last 3 Months or Most Recently Relevant to Health Maintenance Results * Dexa Axial Skeleton Bone Density 1 or 2 Site (03/27/2024 8:27 AM DESIGN VERIFICATION ENGINEER) Anatomical Region Laterality Modality Body N/A Other 03/27/2024 4:56 PM DESIGN VERIFICATION ENGINEER Narrative 03/27/2024 4:57 PM DESIGN VERIFICATION ENGINEER EXAM DESCRIPTION: DEXA AXIAL SKELETON BONE DENSITY 1 OR MORE SITES REASON FOR STUDY: 63 y/o year old F with given history of: age-related osteoporosis Postmenopausal. Road Cleaner/Model: Graspr SL (S/N [id number]) Facility LSC value of 0.022 for the [...] Arcadio Goel M.D. MF: TAM Report ID: [id number] Reading Location: [place] [address] Procedure Note Arcadio Goel MD - 03/27/2024 EXAM DESCRIPTION: DEXA AXIAL SKELETON BONE DENSITY 1 OR MORE SITES REASON FOR STUDY: 63 y/o year old F with given history of:age-related osteoporosis Postmenopausal. Road Cleaner/Model: Graspr SL (S/N [id number]) Facility LSC value of 0.022 for the [...] 4:57 PM - Electronically signed by Arcadio Gole M.D. MF: TAM Report ID: [id number] Reading Location: [place] [address] us Damir Rinaldi DO IMG DXA PROCEDURES Final R esult * MT ARTHROCENTESIS ASPIR&/INJ MAJOR JT/BURSA W/O US (02/29/2024 8:15 AM DESIGN VERIFICATION ENGINEER) Narrative Wil De Dios PA - 02/29/2024 8:15 AM DESIGN VERIFICATION ENGINEER Wil De Dios PA 02/29/2024 9:02 AM [...] well with no immediate complications us Wil GRAYD IN CLINIC/BEDSIDE LINDA OLIVA Final Result * MT ARTHROCENTESIS ASPIR&/INJ MAJOR JT/BURSA W/O US (02/29/2024 8:15 AM DESIGN VERIFICATION ENGINEER) Narrative Wil De Dios PA - 02/29/2024 8:15 AM DESIGN VERIFICATION ENGINEER Wil De Dios PA 02/29/2024 9:02 AM [...] Result * Surgical pathology (01/31/2024 10:47 AM DESIGN VERIFICATION ENGINEER) Tissue (Breast biopsy, needle core) 01/31/2024 9:52 AM DESIGN VERIFICATION ENGINEER Comment:Stereotactic left br east biopsy 11-12 o'clock area. Cores x6 Microcalcs in cassettes 1 and 6. Narrative PATHOLOGY [facility] ([place]) - 02/01/2024 4:14 PM DESIGN VERIFICATION ENGINEER EPIC results best viewed via link to PDF [facility] Department of Pathology [address] [place] [address] Note to Patients: This report may contain [...] Final Report Patient Name: ROMA PAGE Address: [address] [place] [address] Gender: F : 1960 (Age: 63) Service: Location: N : [id number] Hospital #: [id number] Patient Type: [facility] EP ANCILLARY Taken: 01/31/2024 Received: 01/31/2024 Accessioned: [...] determined by the Surgical Pathology Department at [facility] as part of an ongoing quality internship program and in compliance with federally mandated [...] characteristics determined by the Surgical Pathology Department [facility]. It has not been cleared or approved by the U. S. Food and Drug Administration. Note for decalcified specimens: This assay has not been validated on decalcified tissues. Results should be interpreted with caution given the possibility of false negativity on decalcified specimens us Damir Rinaldi DO LAB PATHOLOGY ORDERABLES F inal Result PATHOLOGY [facility] ([place]) [address] [place], [place] [id number] * Stereotactic Breast Biopsy Left (01/31/2024 10:19 AM DESIGN VERIFICATION ENGINEER) Anatomical Region Laterality Modality Breast Left Mammography 01/31/2024 2:31 PM DESIGN VERIFICATION ENGINEER Addenda Addendum by Kerry Bhat MD on 02/09/2024 6:49 PM DESIGN VERIFICATION ENGINEER The pathology shows fibrocystic change with calcifications present. This is concordant with the imaging findings. The patient may return to screening mammography as per ACR guidelines. BI-RADS 2-benign findings Electronically signed by: Kerry Bhat M.D. Impressions 01/31/2024 2:31 PM DESIGN VERIFICATION ENGINEER Successful vacuum-assisted core needle biopsy of the LEFT breast. Pathology is pending. ASSESSMENT: Post Procedure Mammograms for Marker Placement Electronically signed by: Kerry Bhat M.D. Narrative 01/31/2024 2:31 PM DESIGN VERIFICATION ENGINEER EXAMINATION: LEFT STEREOTACTIC BREAST VACUUM-ASSISTED CORE BIOPSY [...] in the expected position. Damir Rinaldi DO [facility] MAMMO PROCEDURES Edite d Result - Final * US Breast Left Limited (01/05/2024 10:56 AM DESIGN VERIFICATION ENGINEER) Anatomical Region Laterality Modality Breast Left Ultrasound 01/05/2024 5:13 PM DESIGN VERIFICATION ENGINEER Impressions 01/05/2024 5:13 PM DESIGN VERIFICATION ENGINEER 1. Multiple bilateral tiny circumscribed nodules are stable and considered a benign finding. 2. Stereotactic/tomographic guided biopsy is now recommended for the calcifications in the left breast. OVERALL FINAL ASSESSMENT: BI-RADS 4b-moderate suspicion for malignancy Electronically signed by: Kerry Bhat M.D. Narrative 01/05/2024 5:13 PM DESIGN VERIFICATION ENGINEER EXAMINATION: BILATERAL DIGITAL DIAGNOSTIC MAMMOGRAM AND DIGITAL [...] septation. These are considered benign. Damir Rinaldi DO IMG MAMMO PROCEDURES Final Result * (ABNORMAL) Diagnostic Mammogram Bilateral W Peter (01/05/2024 10:23 AM DESIGN VERIFICATION ENGINEER) Anatomical Region Laterality Modality Breast Bilateral Mammography 01/05/2024 5:13 PM DESIGN VERIFICATION ENGINEER Impressions 01/05/2024 5:13 PM DESIGN VERIFICATION ENGINEER 1. Multiple bilateral tiny circumscribed nodules are stable and considered a benign finding. 2. Stereotactic/tomographic guided biopsy is now recommended for the calcifications in the left breast. OVERALL FINAL ASSESSMENT: BI-RADS 4b-moderate suspicion for malignancy Electronically signed by: Kerry Bhat M.D. Narrative 01/05/2024 5:13 PM DESIGN VERIFICATION ENGINEER EXAMINATION: BILATERAL DIGITAL DIAGNOSTIC MAMMOGRAM AND DIGITAL [...] septation. These are considered benign. Damir Rinaldi DO IM MAMMO PROCEDURES Final Result * COLONOSCOPY (10/27/2022 8:16 AM CDT) Anatomical Region Laterality Modality Other Narrative Procedure Note Karen Ronquillo MD - 10/27/2022 8:[address] [facility] Patient Name: Roma Page Procedure Date: 10/27/2022 8:16 AM Date of : 1960 Admit Type: Outpatient Age: 62 Gender: Female Attending MD: Karen Ronquillo M.D. Room: [facility] ENDOSCOPY ROOM 2 Note Status: Finalized Patient [...] by the physician, the anesthesiologist and the railway signal technician in the endoscopy suite. MentalStatus Examination: [...] scope was passed under direct vision. TheColonoscope [id number] was introduced through the anus and advanced [...] perforation orabscess without bleeding CPT copyright 2020 [employer]. All rights reserved. The codes documented in this report are preliminary and upon die casting machine maintainer reviewmay be revised to meet current compliance requirements. Recognized by the [place] [employer] for promoting quality in endoscopy Karen Ronquillo MD ENDOSCOPY PROCEDURES Final Resul t from Last 3 Months or Most Recently Relevant to Health Maintenance Insurance MEDICARE [facility] INS CO MEDICARE COMMERCIAL GENERIC [facility] EM[employer] HEALTH PLANS Address: [facility] [address] [address] [employer] Member Subscriber Plan / Payer (Ef fective 2021-Present) Name:Camilo Roma Dilip Relation to Subscriber:Self Name:Sarah Pagethia Dilip Payer ID:[id number] Group ID:Not on file Type:COMMERCIAL Address: [facility] [address] [place] MEDICARE [employer] Member Subscriber Plan / Payer (Ef fective 2021-Present) Name:Roma Page Relation to Subscriber:Self Name:Roma Page Payer ID:[id number] Group ID:Not on file Type:[employer] Address: [address] [place] Advance Directives For more information, please contact: [phone] * Full Code (Latest Code Status on [...] Agents on File Name Relationship Healthcare Agent [place] p Stefanie Dumont Daughter First Alternate Health Car e Agent Care Teams Tank Tender Relationship Specialty Start Date End Date Damir Rinaldi DO PCP - General Family Medicine 05/08/19 Bryan Simeon MD Consulting Physician Cardiology 01/10/23 Jerry Leos, TIERRA [address] [place] [address] [address] Z[facility] [address] [place] [address] Nurse Practitioner Orthopedic Surgery 01/17/23 Beryl Mendoza, PT Physical Therapist Physical Therapy 06/16/23
--- OUTSIDE RECORDS SUMMARY | 2024-03-29 09:27 | XMS_ITS ---
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 30 tablet 2014 Historic [id number] Xanax 0.5 mg tablet SIG: Xanax 0.5 mg tablet, 30 days, Dispense #15 Tablet, 0 RefillsDirections: Take one tablet by mouth as needed. 15 tablet 2014 Historic [id number] pravastatin 80 mg tablet SIG: pravastatin 80 mg tablet, 30 days, Dispense #30 Tablet, 2 RefillsDirections: Take one tablet by mouth daily. 30 tablet 2014 Historic [id number] Xanax 0.5 mg tablet SIG: Xanax 0.5 mg tablet, 30 days, Dispense #15 Tablet, 0 RefillsDirections: Take one tablet by mouth up to three times daily as needed 15 tablet 2014 Historic [id number] Ambien 5 mg tablet SIG: Ambien 5 mg tablet, 30 days, Dispense #30 Tablet, 0 RefillsDirections: Take 1 oral tablet at bedtime 30 tablet 2014 Historic [id number] Protonix 20 mg tablet,delayed release (DR/EC) SIG: Protonix 20 mg tablet,delayed release (DR/EC), 30 days, Dispense #30 Tablet, 0 RefillsDirections: Take 1 oral tablet once a day 30 tablet,chalo yed release (DR/EC) 2014 Historic [id number] Celexa 40 mg tablet SIG: Celexa 40 mg tablet, 30 days, Dispense #30 Tablet, 0 RefillsDirections: Take 1 oral tablet once a day 30 tablet 2014 Historic [id number] acyclovir 400 mg tablet SIG: acyclovir 400 mg tablet, 30 days, Dispense #30 Tablet, 0 RefillsDirections: Take 1 oral tablet once a day 30 tablet 2014 Historic [id number] losartan-hydroch lorothiazide 50-12.5 mg tablet SIG: losartan-hydrochloro thiazide 50-12.5 mg tablet, 30 days, Dispense #30 Tablet, 0 RefillsDirections: Take 1 oral tablet once a day 30 tablet 2014 Historic [id number] hydrocodone-acet aminophen 7.5-325 mg tablet SIG: hydrocodone-acetamin ophen 7.5-325 mg tablet, 30 days, Dispense #60 Tablet, 0 RefillsDirections: Take 1 oral tablet by mouth every 8hrs as needed 60 tablet 2014 Historic [id number] tramadol 50 mg tablet SIG: tramadol 50 mg tablet, 30 days, Dispense #60 Tablet, 0 RefillsDirections: Take 1 oral tablet twice a day 60 tablet 2014 Historic [id number] acyclovir 400 mg tablet SIG: acyclovir 400 mg tablet, 30 days, Dispense #30 Tablet, 2 RefillsDirections: Take 1 oral tablet once a day 30 tablet 2014 Historic [id number] Celexa 40 mg tablet SIG: Celexa 40 mg tablet, 30 days, Dispense #30 Tablet, 2 RefillsDirections: Take 1 oral tablet once a day 30 tablet 2014 Historic [id number] Protonix 20 mg tablet,delayed release (DR/EC) SIG: Protonix 20 mg tablet,delayed release (DR/EC), 30 days, Dispense #30 Tablet, 2 RefillsDirections: Take 1 oral tablet once a day 30 tablet,chalo yed release (DR/EC) 2014 Historic [id number] Ambien 5 mg tablet SIG: Ambien 5 mg tablet, 30 days, Dispense #30 Tablet, 2 RefillsDirections: Take 1 oral tablet at bedtime 30 tablet 2014 Historic [id number] Ambien 5 mg tablet SIG: Ambien 5 mg tablet, 30 days, Dispense #30 Tablet, 2 RefillsDirections: Take 1 oral tablet at bedtime 30 tablet 2014 Historic [id number] Xanax 0.5 mg tablet SIG: Xanax 0.5 mg tablet, 30 days, Dispense #15 Tablet, 0 RefillsDirections: Take one tablet by mouth up to three times daily as needed 15 tablet 2014 Historic [id number] Ambien 10 mg tablet SIG: Ambien 10 mg tablet, 30 days, Dispense #30 Tablet, 2 RefillsDirections: Take 1 oral tablet at bedtime 30 tablet 2014 Historic [id number] Ambien 10 mg tablet SIG: Ambien 10 mg tablet, 30 days, Dispense #30 Tablet, 2 RefillsDirections: Take 1 oral tablet at bedtime 30 tablet 2015 Historic [id number] Ultram 50 mg tablet SIG: Ultram 50 mg oral tablet, 30 days, Dispense #120 Tablet, 0 RefillsDirections: take 1 tablet by oral route every 6 hours as needed 120 tablet 2021 Current [id number] trazodone 150 mg tablet SIG: trazodone 150 mg oral tablet, 30 days, Dispense #90 Tablet, 0 RefillsDirections: Take 150 mg by mouth nightly. 2 tablets at bedtime as needed 90 tablet 2021 Historic [id number] Ranexa 1,000 mg tablet extended release 12 hr SIG: Ranexa 1,000 mg oral tablet extended release 12 hr, 30 days, Dispense #60 Tablet, 0 RefillsDirections: Take 1,000 mg by mouth 2 times daily 60 tablet extended release 12 hr 2021 Historic [id number] paroxetine HCl 20 mg tablet SIG: paroxetine HCl 20 mg oral tablet, 30 days, Dispense #60 Tablet, 0 RefillsDirections: Take 20 mg by mouth daily 60 tablet 2021 Historic [id number] losartan 100 mg tablet SIG: losartan 100 mg oral tablet, 30 days, Dispense #30 Tablet, 0 RefillsDirections: Take 1 oral tablet once a day 30 tablet 2021 Historic [id number] hydrocodone-acet aminophen 10-325 mg tablet SIG: hydrocodone-acetamin ophen 10-325 mg oral tablet, 30 days, Dispense #120 Tablet, 0 RefillsDirections: Take 1 Tablet by mouth every 6 hours as needed. 120 tablet 2021 Current [id number] gabapentin 600 mg tablet SIG: gabapentin 600 mg oral tablet, 30 days, Dispense #90 Tablet, 0 RefillsDirections: Take 1 Tablet by mouth 3 times daily. 90 tablet 2021 Historic [id number] epinephrine 0.3 mg/0.3 mL auto-injector SIG: epinephrine 0.3 mg/0.3 mL injection auto-injector, 1 days, Dispense #1 Each, 0 RefillsDirections: inject 0.3 milliliter by intramuscular route once as needed for anaphylaxis 1 auto-inject or 2021 Historic [id number] ezetimibe 10 mg tablet SIG: ezetimibe 10 mg oral tablet, 30 days, Dispense #30 Tablet, 0 RefillsDirections: Take 1 oral tablet once a day 30 tablet 2021 Current [id number] butalbital-aspir in-caffeine 50-325-40 mg capsule SIG: ojnkbkpzww-bzzsinj-d affeine 50-325-40 mg oral capsule, 30 days, Dispense #90 Capsule, 0 RefillsDirections: Take 1 capsule by mouth every 4 (four) hours as needed for headaches 90 capsule 2021 Historic [id number] aripiprazole 10 mg tablet SIG: aripiprazole 10 mg oral tablet, 30 days, Dispense #30 Tablet, 0 RefillsDirections: Take 1 oral tablet once a day 30 tablet 2021 Historic [id number] alprazolam 0.5 mg tablet SIG: alprazolam 0.5 mg oral tablet, 30 days, Dispense #90 Tablet, 0 RefillsDirections: Take one tablet by mouth up to three times daily as needed 90 tablet 2021 Historic [id number] Celebrex 200 mg capsule SIG: Celebrex 200 mg oral capsule, 30 days, Dispense #60 Capsule, 0 RefillsDirections: Take 1 oral capsule twice a day 60 capsule 2021 Current [id number] famotidine 40 mg tablet SIG: famotidine 40 mg oral tablet, 30 days, Dispense #30 Tablet, 5 RefillsDirections: Take 1 oral tablet once a day 30 tablet 2021 Historic [id number] Vascepa 1 gram capsule SIG: Vascepa 1 gram oral capsule, 90 days, Dispense #360 Capsule, 2 RefillsDirections: Take 2 capsules by mouth twice daily with food 360 capsule 2021 Historic [id number] Repatha SureClick 140 mg/mL pen injector SIG: Repatha SureClick 140 mg/mL subcutaneous pen injector, 14 days, Dispense #1 Milliliter, 0 RefillsDirections: Take 1 subcutaneous milliliter ever 2 weeks 1 pen injector 2021 Historic [id number] hydrochlorothiaz patrica 25 mg tablet SIG: hydrochlorothiazide 25 mg oral tablet, 90 days, Dispense #90 Tablet, 0 RefillsDirections: Take 1 oral tablet once a day 90 tablet 2021 Historic [id number] Toprol XL 50 mg tablet extended release 24 hr SIG: Toprol XL 50 mg oral tablet extended release 24 hr, 90 days, Dispense #90 Tablet, 0 RefillsDirections: Take 1 oral tablet once a day 90 tablet extended release 24 hr 2021 Historic [id number] nitroglycerin 0.4 mg tablet, sublingual SIG: nitroglycerin 0.4 mg sublingual tablet, sublingual, 0 days, Dispense #30 Tablet, 0 RefillsDirections: Put 1 tablet under tongue as needed for chest pain. may repeat every 5 minutes if still having chest pain (max dose 3 tablets) 30 tablet, sublingual 2021 Historic [id number] aripiprazole 10 mg tablet SIG: aripiprazole 10 mg oral tablet, 30 days, Dispense #60 Tablet, 0 RefillsDirections: Take 1 tablet in the morning and 1 tablet in the evening 60 tablet 2021 Historic [id number] paroxetine HCl 20 mg tablet SIG: paroxetine HCl 20 mg oral tablet, 30 days, Dispense #75 Tablet, 0 RefillsDirections: Take 1 tablet in the morning. Take 1.5 tablets in the evening 75 tablet 2021 Historic [id number] benzonatate 200 mg capsule SIG: benzonatate 200 mg oral capsule, 30 days, Dispense #30 Capsule, 0 RefillsDirections: Take 1 oral capsule at bedtime as needed for cough 30 capsule 2021 Historic [id number] Repatha SureClick 140 mg/mL pen injector SIG: Repatha SureClick 140 mg/mL subcutaneous pen injector, 28 days, Dispense #2 Milliliter, 0 RefillsDirections: Take 1 subcutaneous milliliter every 2 weeks 2 pen injector 2021 Historic [id number] risedronate 150 mg tablet SIG: risedronate 150 mg oral tablet, 90 days, Dispense #3 Tablet, 0 RefillsDirections: Take one oral tablet once per month 3 tablet 2021 Historic [id number] alendronate 70 mg tablet SIG: alendronate, Dispense #12, 1 Refills, Directions: Take one oral tablet weekly 12 tablet 2021 Historic [id number] Repatha SureClick 140 mg/mL pen injector SIG: Repatha SureClick, Dispense #2, 1 Refills, Directions: INJECT 1 ML SUBCUTANEOUSLY EVERY 2 WEEKS 2 pen injector 2022 Historic [id number] famotidine 40 mg tablet SIG: famotidine, Dispense #90, 0 Refills, Directions: TAKE 1 TABLET BY MOUTH EVERY DAY 90 tablet 2022 Historic [id number] ALENDRONATE SODIUM 70 MG TAB 70 mg tablet SIG: ALENDRONATE SODIUM 70 MG TAB, Dispense #12, 1 Refills, Directions: TAKE ONE TABLET BY MOUTH ONCE WEEKLY 12 tablet 2022 Historic [id number] amlodipine 5 mg tablet SIG: amlodipine 5 mg oral tablet, 90 days, Dispense #90 Tablet, 0 RefillsDirections: Take 1 oral tablet once a day 90 tablet 2022 Current [id number] cyclobenzaprine 10 mg tablet SIG: cyclobenzaprine 10 mg oral tablet, 90 days, Dispense #180 Tablet, 0 RefillsDirections: Take 1 oral tablet twice a day 180 tablet 2022 Current [id number] Praluent Pen 75 mg/mL pen injector SIG: Praluent Pen 75 mg/mL subcutaneous pen injector, 28 days, Dispense #2 Milliliter, 0 RefillsDirections: Inject 75mg once every 2 weeks 2 pen injector 2022 Historic [id number] FAMOTIDINE 40 MG TABLET 40 mg tablet SIG: FAMOTIDINE 40 MG TABLET, Dispense #90, 0 Refills, Directions: TAKE 1 TABLET BY MOUTH EVERY DAY 90 tablet 2022 Historic [id number] FAMOTIDINE 40 MG TABLET 40 mg tablet SIG: FAMOTIDINE 40 MG TABLET, Dispense #90, 0 Refills, Directions: TAKE 1 TABLET BY MOUTH EVERY DAY 90 tablet 2022 Historic [id number] gabapentin 600 mg tablet SIG: gabapentin 600 mg oral tablet, 30 days, Dispense #90 Tablet, 0 RefillsDirections: Take 1 Tablet by mouth 3 times daily. 90 tablet 2022 Historic [id number] fluocinolone acetonide oil 0.01 % drops SIG: fluocinolone acetonide oil 0.01 % otic (ear) drops, 10 days, Dispense #20 Milliliter, 0 RefillsDirections: 5 gtts in affected ear twice daily as needed for external auditory canal discomfort 20 drops 2022 Historic [id number] PAROXETINE HCL 20 MG TABLET 20 mg tablet SIG: PAROXETINE HCL 20 MG TABLET, Dispense #90, 1 Refills, Directions: TAKE 1 TABLET BY MOUTH EVERY DAY 90 tablet 2022 Historic [id number] FAMOTIDINE 40 MG TABLET 40 mg tablet SIG: FAMOTIDINE 40 MG TABLET, Dispense #90, 0 Refills, Directions: TAKE 1 TABLET BY MOUTH EVERY DAY 90 tablet 2023 Historic [id number] Nexlizet 180-10 mg tablet SIG: Nexlizet 180-10 mg oral tablet, 30 days, Dispense #30 Tablet, 0 Refills, Directions: Take 1 oral tablet once a day 30 tablet 2023 Historic [id number] Nexlizet 180-10 mg tablet SIG: Nexlizet 180-10 mg oral tablet, 30 days, Dispense #30 Tablet, 2 Refills, Directions: Take 1 oral tablet once a day 30 tablet 2023 Historic [id number] Nexlizet 180-10 mg tablet SIG: Nexlizet 180-10 mg oral tablet, 30 days, Dispense #30 Tablet, 2 Refills, Directions: Take 1 oral tablet once a day 30 tablet 2023 Historic [id number] alprazolam 0.5 mg tablet SIG: alprazolam 0.5 mg oral tablet, 30 days, Dispense #90 Tablet, 0 Refills, Directions: Take one tablet by mouth up to three times daily as needed 90 tablet 2023 Historic [id number] paroxetine HCl 20 mg tablet SIG: paroxetine HCl 20 mg oral tablet, 30 days, Dispense #75 Tablet, 0 Refills, Directions: Take 1 tablet in the morning. Take 1.5 tablets in the evening 75 tablet 2023 Historic [id number] gabapentin 600 mg tablet SIG: gabapentin 600 mg oral tablet, 30 days, Dispense #90 Tablet, 0 Refills, Directions: Take 1 Tablet by mouth 3 times daily. 90 tablet 2023 [facility] [id number] GABAPENTIN 600 MG TABLET 600 mg tablet SIG: GABAPENTIN 600 MG TABLET, Dispense #90, 0 Refills, Directions: take 1 tablet by mouth three times a day 90 tablet 2023 Historic [id number] FAMOTIDINE 40 MG TABLET 40 mg tablet SIG: FAMOTIDINE 40 MG TABLET, Dispense #90, 0 Refills, Directions: TAKE 1 TABLET BY MOUTH EVERY DAY 90 tablet 2023 Historic [id number] FAMOTIDINE 40 MG TABLET 40 mg tablet SIG: FAMOTIDINE 40 MG TABLET, Dispense #90, 0 Refills, Directions: take 1 tablet by mouth every day 90 tablet 2023 Historic [id number] trazodone 150 mg tablet SIG: trazodone 150 mg oral tablet, 30 days, Dispense #30 Tablet, 0 Refills, Directions: Take 150 mg by mouth nightly. 2 tablets at bedtime as needed 30 tablet 2023 Historic [id number] metformin 500 mg tablet extended release 24 hr SIG: metformin 500 mg oral tablet extended release 24 hr, 90 days, Dispense #90 Tablet, 0 Refills, Directions: TAKE 1 ORAL TABLET 3 TIMES A DAY 90 tablet extended release 24 hr 2023 Historic [id number] Vitamin D2 1,250 mcg (50,000 unit) capsule SIG: Vitamin D2 1,250 mcg (50,000 unit) oral capsule, 90 days, Dispense #4 Capsule, 12 Refills, Directions: Take 1 tablet weekly 4 capsule 2023 Current [id number] trazodone 150 mg tablet SIG: trazodone 150 mg oral tablet, 30 days, Dispense #30 Tablet, 1 Refills, Directions: Take 150 mg by mouth nightly. 30 tablet 2023 Historic [id number] trazodone 150 mg tablet SIG: trazodone 150 mg oral tablet, 30 days, Dispense #30 Tablet, 1 Refills, Directions: Take 150 mg by mouth nightly. 30 tablet 2023 Current [id number] alprazolam 0.5 mg tablet SIG: alprazolam 0.5 mg oral tablet, 30 days, Dispense #90 Tablet, 0 Refills, Directions: Take one tablet by mouth up to three times daily as needed 90 tablet 2023 Historic [id number] alprazolam 0.5 mg tablet SIG: alprazolam 0.5 mg oral tablet, 30 days, Dispense #85 Tablet, 0 Refills, Directions: Take one tablet by mouth up to three times daily as needed for severe anxiety or panic attack 85 tablet 2023 Historic [id number] metformin 500 mg tablet extended release 24 hr SIG: metformin 500 mg oral tablet extended release 24 hr, 90 days, Dispense #270 Tablet, 0 Refills, Directions: TAKE 1 ORAL TABLET 3 TIMES A DAY 270 tablet extended release 24 hr 2023 Historic [id number] albuterol sulfate 90 mcg/actuation HFA aerosol inhaler SIG: albuterol sulfate 90 mcg/actuation inhalation HFA aerosol inhaler, 3 days, Dispense #6.7 Gram, 0 Refills, Directions: two puffs every 4 hours as needed for cough, wheezing, or shortness of breath 6.7 HFA aerosol inhaler 2023 Historic [id number] alprazolam 0.5 mg tablet SIG: alprazolam 0.5 mg oral tablet, 30 days, Dispense #80 Tablet, 0 Refills, Directions: Take one tablet by mouth up to three times daily as needed for severe anxiety or panic attack 80 tablet 2023 Historic [id number] promethazine-DM 6.25-15 mg/5 mL syrup SIG: promethazine-DM 6.25-15 mg/5 mL oral syrup, 29 days, Dispense #116 Milliliter, 0 Refills, Directions: Take 5 oral milliliter every 6 hours as needed for cough. 116 syrup 2023 Historic [id number] alprazolam 0.5 mg tablet SIG: alprazolam 0.5 mg oral tablet, 30 days, Dispense #80 Tablet, 0 Refills, Directions: Take one tablet by mouth up to three times daily as needed for severe anxiety or panic attack 80 tablet 2023 Historic [id number] famotidine 40 mg tablet SIG: famotidine 40 mg oral tablet, 90 days, Dispense #90 Tablet, 0 Refills, Directions: TAKE 1 TABLET BY MOUTH EVERY DAY 90 tablet 2023 Historic [id number] FAMOTIDINE 40 MG TABLET 40 mg tablet SIG: FAMOTIDINE 40 MG TABLET, Dispense #90, 0 Refills, Directions: take 1 tablet by mouth every day 90 tablet 2023 Historic [id number] ondansetron 4 mg tablet,disintegr ating SIG: ondansetron 4 mg oral tablet,disintegratin g, 7 days, Dispense #20 Tablet, 0 Refills, Directions: Take 1 tablet by mouth every 8 hours as needed for nausea 20 tablet,disi ntegrating 2023 Historic [id number] ondansetron 4 mg tablet,disintegr ating SIG: ondansetron 4 mg oral tablet,disintegratin g, 7 days, Dispense #20 Tablet, 0 Refills, Directions: Take 1 tablet by mouth every 8 hours as needed for nausea 20 tablet,disi ntegrating 2023 [facility] [id number] alprazolam 0.5 mg tablet SIG: alprazolam 0.5 mg oral tablet, 30 days, Dispense #75 Tablet, 0 Refills, Directions: Take one tablet by mouth up to three times daily as needed for severe anxiety or panic attack 75 tablet 2023 Historic [id number] metformin 500 mg tablet extended release 24 hr SIG: metformin 500 mg oral tablet extended release 24 hr, 90 days, Dispense #270 Tablet, 0 Refills, Directions: TAKE 1 ORAL TABLET 3 TIMES A DAY 270 tablet extended release 24 hr 2023 Historic [id number] METFORMIN HCL ER 500 MG TABLET 500 mg tablet extended release 24 hr SIG: METFORMIN HCL ER 500 MG TABLET, Dispense #270, 0 Refills, Directions: take 1 tablet by mouth three times a day 270 tablet extended release 24 hr 2023 Historic [id number] alprazolam 0.5 mg tablet SIG: alprazolam 0.5 mg oral tablet, 30 days, Dispense #70 Tablet, 0 Refills, Directions: Take one tablet by mouth up to three times daily as needed for severe anxiety or panic attack 70 tablet 2023 Historic [id number] famotidine 40 mg tablet SIG: famotidine 40 mg oral tablet, 90 days, Dispense #90 Tablet, 0 Refills, Directions: TAKE 1 TABLET BY MOUTH EVERY DAY 90 tablet 2023 Historic [id number] FAMOTIDINE 40 MG TABLET 40 mg tablet SIG: FAMOTIDINE 40 MG TABLET, Dispense #90, 0 Refills, Directions: take 1 tablet by mouth every day 90 tablet 2023 Historic [id number] alprazolam 0.5 mg tablet SIG: alprazolam 0.5 mg oral tablet, 30 days, Dispense #65 Tablet, 0 Refills, Directions: Take one tablet by mouth up to three times daily as needed for severe anxiety or panic attack 65 tablet 2023 Historic [id number] pantoprazole 40 mg tablet,delayed release (DR/EC) SIG: pantoprazole 40 mg oral tablet,delayed release (DR/EC), 30 days, Dispense #30 Tablet, 1 Refills, Directions: Take 1 oral tablet once a day 30 tablet,chalo yed release (DR/EC) 2023 Historic [id number] metformin 500 mg tablet extended release 24 hr SIG: metformin 500 mg oral tablet extended release 24 hr, 90 days, Dispense #270 Tablet, 0 Refills, Directions: TAKE 1 ORAL TABLET 3 TIMES A DAY 270 tablet extended release 24 hr 2023 Historic [id number] metformin 500 mg tablet extended release 24 hr SIG: metformin 500 mg oral tablet extended release 24 hr, 90 days, Dispense #270 Tablet, 0 Refills, Directions: TAKE 1 ORAL TABLET 3 TIMES A DAY 270 tablet extended release 24 hr 2023 Current [id number] pantoprazole 40 mg tablet,delayed release (DR/EC) SIG: pantoprazole 40 mg oral tablet,delayed release (DR/EC), 30 days, Dispense #30 Tablet, 1 Refills, Directions: Take 1 oral tablet once a day 30 tablet,chalo yed release (DR/EC) 2023 Current [id number] Pantoprazole Sodium 40 MG Oral Tablet Delayed Release 40 mg tablet,delayed release (DR/EC) SIG: Pantoprazole Sodium 40 MG Oral Tablet Delayed Release, Dispense #30, 0 Refills, Directions: Take 1 tablet by mouth once daily 30 tablet,chalo yed release (DR/EC) 2023 Historic [id number] alprazolam 0.5 mg tablet SIG: alprazolam 0.5 mg oral tablet, 30 days, Dispense #60 Tablet, 0 Refills, Directions: Take one tablet by mouth up to three times daily as needed for severe anxiety or panic attack 60 tablet 2024 Current PROBLEMS Problem Code Problem Description Problem Status Proble m Date E78.49-OTHER HYPERLIPIDEMIA OTHER HYPERLIPIDEMIA Chron ic 03/15/2018 E66.01-MORBID (SEVERE) OBESITY DUE TO EXCESS CALORIES MORBID (SEVERE) OBESITY DUE TO EXCESS CALORIES Chronic 03/15/2018 F41.1-GENERALIZED ANXIETY DISORDER GENERALIZED ANXIETY DISORDER Chronic 03/15/2018 F33.9-MAJOR DEPRESSIVE DISORDER, RECURRENT, UNSPECIFIED MAJOR DEPRESSIVE DISORDER, RECURRENT, UNSPECIFIED Chronic 03/15/2018 F51.05-INSOMNIA DUE TO OTHER MENTAL DISORDER INSOMNIA DUE TO OTHER MENTAL DISORDER Chronic 03/15/2018 M17-ITYZFTPEU (PRIMARY) HYPERTENSION ESSENTIAL (PRIMARY) HYPERTENSION Chronic 03/15/2018 I50.32-CHRONIC DIASTOLIC (CONGESTIVE) HEART FAILURE CHRONIC DIASTOLIC (CONGESTIVE) HEART FAILURE Chronic 03/15/2018 K21.2-OZFUBV-[id number] REFLUX DISEASE WITHOUT ESOPHAGITIS GASTRO-ESOPHAGEAL REFLUX DISEASE WITHOUT ESOPHAGITIS Chronic 03/15/2018 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 03/15/2018 R73.03-Prediabetes Prediabetes Historic 9 M54.6-PAIN IN THORACIC SPINE PAIN IN THORACIC SPINE Ch ronic 03/15/2018 M17.0-Bilateral primary osteoarthritis of knee Bilateral primary osteoarthritis of knee Chronic 03/15/2018 I65.23-Occlusion and stenosi s of bilateral carotid arteries Occlusion and stenosis of bilateral carotid arteries Chronic 01/05/2022 M81.9-OPP-KMMVHRP OSTEOPOROSIS WITHOUT CURRENT PATHOLOGICAL FRACTURE AGE-RELATED OSTEOPOROSIS WITHOUT CURRENT PATHOLOGICAL FRACTURE Chronic 01/27/2022 M54.12-Radiculopathy, cervical region Radiculopathy, cervical region Chronic 01/27/2022 M54.16-RADICULOPATHY, LUMBAR REGION RADICULOPATHY, LUMBAR REGION Chronic 01/27/2022 G47.33-OBSTRUCTIVE SLEEP APNEA (ADULT) (PEDIATRIC) OBSTRUCTIVE SLEEP APNEA (ADULT) (PEDIATRIC) Chronic 01/27/2022 N63.24-UNSP LUMP LT BREAST, LOWER INNER QUAD UNSP LUMP LT BREAST, LOWER INNER QUAD Chronic 04/26/2023 M17.11-UNILATERAL PRIMARY OSTEOARTHRITIS, RIGHT KNEE UNILATERAL PRIMARY OSTEOARTHRITIS, RIGHT KNEE Chronic 05/09/2023 M41.85-OTHER FORMS OF SCOLIOSIS, THORACOLUMBAR REGION OTHER FORMS OF SCOLIOSIS, THORACOLUMBAR REGION Chronic 05/09/2023 E11.9-TYPE 2 DIABETES MELLITUS WITHOUT COMPLICATIONS TYPE 2 DIABETES MELLITUS WITHOUT COMPLICATIONS Chronic 06/26/2023 PROCEDURES Procedure Description Date Notes NO PROCEDURES PERFORMED ASSESSMENTS Assessment None PLAN OF TREATMENT Assessment Planned Activity LOINC Planned Navneet e None CONSULTATION NOTE Note Author Date None HISTORY AND PHYSICAL NOTE Note Author Date None PROGRESS NOTE Note Author Date None DISCHARGE SUMMARY Note Author Date None IMAGING NARRATIVE Note Author Date None PATHOLOGY NARRATIVE Note Author Date None CHIEF COMPLAINT AND REASON FOR VISIT FUNCTIONAL STATUS Functional or Cognitive Find ing None MENTAL STATUS Cognitive Finding None ENCOUNTERS Encounter Type Provider Diagnoses Start Date Location None SOCIAL HISTORY Social Status Observation Never Smoker Sex:Female 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
--- OUTSIDE RECORDS SUMMARY | 2024-03-29 09:31 | XMS_ITS ---
Author Name HALLIE TAVARES Address [address] [place] [address] Phone [facility] Address [address] [place] [address] Phone Care Team Providers Care Marketing Manager Health Communications Name Role Phone THERESAYOANDY DO STERLING Unavailable ALLERGIES, ADVERSE REACTIONS AND ALERTS Allergy Name Allergy Date Allergy Status Allergy Severity Allergy Reaction Erythromycin Base, [RxNorm: 4053] 01/05/2022 Current Moderate Hives, Nausea Pravastatin, [RxNorm: 01873] 01/05/2022 Current Moderate Myalgia MEDICATIONS RxNorm Brand Name Prescription Ordered Value Order Unit Start Date Date Status [id number] Ambien 5 mg tablet SIG: Ambien 5 mg tablet, 30 days, Dispense #30 Tablet, 0 RefillsDirections: Take one tablet my mouth daily. 30 tablet 2014 Historic [id number] Xanax 0.5 mg tablet SIG: Xanax 0.5 mg tablet, 30 days, Dispense #15 Tablet, 0 RefillsDirections: Take one tablet by mouth as needed. 15 tablet 2014 Historic [id number] pravastatin 80 mg tablet SIG: pravastatin 80 mg tablet, 30 days, Dispense #30 Tablet, 2 RefillsDirections: Take one tablet by mouth daily. 30 tablet 2014 Historic [id number] Xanax 0.5 mg tablet SIG: Xanax 0.5 mg tablet, 30 days, Dispense #15 Tablet, 0 RefillsDirections: Take one tablet by mouth up to three times daily as needed 15 tablet 2014 Historic [id number] Ambien 5 mg tablet SIG: Ambien 5 mg tablet, 30 days, Dispense #30 Tablet, 0 RefillsDirections: Take 1 oral tablet at bedtime 30 tablet 2014 Historic [id number] Protonix 20 mg tablet,delayed release (DR/EC) SIG: Protonix 20 mg tablet,delayed release (DR/EC), 30 days, Dispense #30 Tablet, 0 RefillsDirections: Take 1 oral tablet once a day 30 tablet,chalo yed release (DR/EC) 2014 Historic [id number] Celexa 40 mg tablet SIG: Celexa 40 mg tablet, 30 days, Dispense #30 Tablet, 0 RefillsDirections: Take 1 oral tablet once a day 30 tablet 2014 Historic [id number] acyclovir 400 mg tablet SIG: acyclovir 400 mg tablet, 30 days, Dispense #30 Tablet, 0 RefillsDirections: Take 1 oral tablet once a day 30 tablet 2014 Historic [id number] losartan-hydroch lorothiazide 50-12.5 mg tablet SIG: losartan-hydrochloro thiazide 50-12.5 mg tablet, 30 days, Dispense #30 Tablet, 0 RefillsDirections: Take 1 oral tablet once a day 30 tablet 2014 Historic [id number] hydrocodone-acet aminophen 7.5-325 mg tablet SIG: hydrocodone-acetamin ophen 7.5-325 mg tablet, 30 days, Dispense #60 Tablet, 0 RefillsDirections: Take 1 oral tablet by mouth every 8hrs as needed 60 tablet 2014 Historic [id number] tramadol 50 mg tablet SIG: tramadol 50 mg tablet, 30 days, Dispense #60 Tablet, 0 RefillsDirections: Take 1 oral tablet twice a day 60 tablet 2014 Historic [id number] acyclovir 400 mg tablet SIG: acyclovir 400 mg tablet, 30 days, Dispense #30 Tablet, 2 RefillsDirections: Take 1 oral tablet once a day 30 tablet 2014 Historic [id number] Celexa 40 mg tablet SIG: Celexa 40 mg tablet, 30 days, Dispense #30 Tablet, 2 RefillsDirections: Take 1 oral tablet once a day 30 tablet 2014 Historic [id number] Protonix 20 mg tablet,delayed release (DR/EC) SIG: Protonix 20 mg tablet,delayed release (DR/EC), 30 days, Dispense #30 Tablet, 2 RefillsDirections: Take 1 oral tablet once a day 30 tablet,chalo yed release (DR/EC) 2014 Historic [id number] Ambien 5 mg tablet SIG: Ambien 5 mg tablet, 30 days, Dispense #30 Tablet, 2 RefillsDirections: Take 1 oral tablet at bedtime 30 tablet 2014 Historic [id number] Ambien 5 mg tablet SIG: Ambien 5 mg tablet, 30 days, Dispense #30 Tablet, 2 RefillsDirections: Take 1 oral tablet at bedtime 30 tablet 2014 Historic [id number] Xanax 0.5 mg tablet SIG: Xanax 0.5 mg tablet, 30 days, Dispense #15 Tablet, 0 RefillsDirections: Take one tablet by mouth up to three times daily as needed 15 tablet 2014 Historic [id number] Ambien 10 mg tablet SIG: Ambien 10 mg tablet, 30 days, Dispense #30 Tablet, 2 RefillsDirections: Take 1 oral tablet at bedtime 30 tablet 2014 Historic [id number] Ambien 10 mg tablet SIG: Ambien 10 mg tablet, 30 days, Dispense #30 Tablet, 2 RefillsDirections: Take 1 oral tablet at bedtime 30 tablet 2015 Historic [id number] Ultram 50 mg tablet SIG: Ultram 50 mg oral tablet, 30 days, Dispense #120 Tablet, 0 RefillsDirections: take 1 tablet by oral route every 6 hours as needed 120 tablet 2021 Current [id number] trazodone 150 mg tablet SIG: trazodone 150 mg oral tablet, 30 days, Dispense #90 Tablet, 0 RefillsDirections: Take 150 mg by mouth nightly. 2 tablets at bedtime as needed 90 tablet 2021 Historic [id number] Ranexa 1,000 mg tablet extended release 12 hr SIG: Ranexa 1,000 mg oral tablet extended release 12 hr, 30 days, Dispense #60 Tablet, 0 RefillsDirections: Take 1,000 mg by mouth 2 times daily 60 tablet extended release 12 hr 2021 Historic [id number] paroxetine HCl 20 mg tablet SIG: paroxetine HCl 20 mg oral tablet, 30 days, Dispense #60 Tablet, 0 RefillsDirections: Take 20 mg by mouth daily 60 tablet 2021 Historic [id number] losartan 100 mg tablet SIG: losartan 100 mg oral tablet, 30 days, Dispense #30 Tablet, 0 RefillsDirections: Take 1 oral tablet once a day 30 tablet 2021 Historic [id number] hydrocodone-acet aminophen 10-325 mg tablet SIG: hydrocodone-acetamin ophen 10-325 mg oral tablet, 30 days, Dispense #120 Tablet, 0 RefillsDirections: Take 1 Tablet by mouth every 6 hours as needed. 120 tablet 2021 Current [id number] gabapentin 600 mg tablet SIG: gabapentin 600 mg oral tablet, 30 days, Dispense #90 Tablet, 0 RefillsDirections: Take 1 Tablet by mouth 3 times daily. 90 tablet 2021 Historic [id number] epinephrine 0.3 mg/0.3 mL auto-injector SIG: epinephrine 0.3 mg/0.3 mL injection auto-injector, 1 days, Dispense #1 Each, 0 RefillsDirections: inject 0.3 milliliter by intramuscular route once as needed for anaphylaxis 1 auto-inject or 2021 Historic [id number] ezetimibe 10 mg tablet SIG: ezetimibe 10 mg oral tablet, 30 days, Dispense #30 Tablet, 0 RefillsDirections: Take 1 oral tablet once a day 30 tablet 2021 Current [id number] butalbital-aspir in-caffeine 50-325-40 mg capsule SIG: ymehozltyz-sotrtvm-o affeine 50-325-40 mg oral capsule, 30 days, Dispense #90 Capsule, 0 RefillsDirections: Take 1 capsule by mouth every 4 (four) hours as needed for headaches 90 capsule 2021 Historic [id number] aripiprazole 10 mg tablet SIG: aripiprazole 10 mg oral tablet, 30 days, Dispense #30 Tablet, 0 RefillsDirections: Take 1 oral tablet once a day 30 tablet 2021 Historic [id number] alprazolam 0.5 mg tablet SIG: alprazolam 0.5 mg oral tablet, 30 days, Dispense #90 Tablet, 0 RefillsDirections: Take one tablet by mouth up to three times daily as needed 90 tablet 2021 Historic [id number] Celebrex 200 mg capsule SIG: Celebrex 200 mg oral capsule, 30 days, Dispense #60 Capsule, 0 RefillsDirections: Take 1 oral capsule twice a day 60 capsule 2021 Current [id number] famotidine 40 mg tablet SIG: famotidine 40 mg oral tablet, 30 days, Dispense #30 Tablet, 5 RefillsDirections: Take 1 oral tablet once a day 30 tablet 2021 Historic [id number] Vascepa 1 gram capsule SIG: Vascepa 1 gram oral capsule, 90 days, Dispense #360 Capsule, 2 RefillsDirections: Take 2 capsules by mouth twice daily with food 360 capsule 2021 Historic [id number] Repatha SureClick 140 mg/mL pen injector SIG: Repatha SureClick 140 mg/mL subcutaneous pen injector, 14 days, Dispense #1 Milliliter, 0 RefillsDirections: Take 1 subcutaneous milliliter ever 2 weeks 1 pen injector 2021 Historic [id number] hydrochlorothiaz patrica 25 mg tablet SIG: hydrochlorothiazide 25 mg oral tablet, 90 days, Dispense #90 Tablet, 0 RefillsDirections: Take 1 oral tablet once a day 90 tablet 2021 Historic [id number] Toprol XL 50 mg tablet extended release 24 hr SIG: Toprol XL 50 mg oral tablet extended release 24 hr, 90 days, Dispense #90 Tablet, 0 RefillsDirections: Take 1 oral tablet once a day 90 tablet extended release 24 hr 2021 Historic [id number] nitroglycerin 0.4 mg tablet, sublingual SIG: nitroglycerin 0.4 mg sublingual tablet, sublingual, 0 days, Dispense #30 Tablet, 0 RefillsDirections: Put 1 tablet under tongue as needed for chest pain. may repeat every 5 minutes if still having chest pain (max dose 3 tablets) 30 tablet, sublingual 2021 Historic [id number] aripiprazole 10 mg tablet SIG: aripiprazole 10 mg oral tablet, 30 days, Dispense #60 Tablet, 0 RefillsDirections: Take 1 tablet in the morning and 1 tablet in the evening 60 tablet 2021 Historic [id number] paroxetine HCl 20 mg tablet SIG: paroxetine HCl 20 mg oral tablet, 30 days, Dispense #75 Tablet, 0 RefillsDirections: Take 1 tablet in the morning. Take 1.5 tablets in the evening 75 tablet 2021 Historic [id number] benzonatate 200 mg capsule SIG: benzonatate 200 mg oral capsule, 30 days, Dispense #30 Capsule, 0 RefillsDirections: Take 1 oral capsule at bedtime as needed for cough 30 capsule 2021 Historic [id number] Repatha SureClick 140 mg/mL pen injector SIG: Repatha SureClick 140 mg/mL subcutaneous pen injector, 28 days, Dispense #2 Milliliter, 0 RefillsDirections: Take 1 subcutaneous milliliter every 2 weeks 2 pen injector 2021 Historic [id number] risedronate 150 mg tablet SIG: risedronate 150 mg oral tablet, 90 days, Dispense #3 Tablet, 0 RefillsDirections: Take one oral tablet once per month 3 tablet 2021 Historic [id number] alendronate 70 mg tablet SIG: alendronate, Dispense #12, 1 Refills, Directions: Take one oral tablet weekly 12 tablet 2021 Historic [id number] Repatha SureClick 140 mg/mL pen injector SIG: Repatha SureClick, Dispense #2, 1 Refills, Directions: INJECT 1 ML SUBCUTANEOUSLY EVERY 2 WEEKS 2 pen injector 2022 Historic [id number] famotidine 40 mg tablet SIG: famotidine, Dispense #90, 0 Refills, Directions: TAKE 1 TABLET BY MOUTH EVERY DAY 90 tablet 2022 Historic [id number] ALENDRONATE SODIUM 70 MG TAB 70 mg tablet SIG: ALENDRONATE SODIUM 70 MG TAB, Dispense #12, 1 Refills, Directions: TAKE ONE TABLET BY MOUTH ONCE WEEKLY 12 tablet 2022 Historic [id number] amlodipine 5 mg tablet SIG: amlodipine 5 mg oral tablet, 90 days, Dispense #90 Tablet, 0 RefillsDirections: Take 1 oral tablet once a day 90 tablet 2022 Current [id number] cyclobenzaprine 10 mg tablet SIG: cyclobenzaprine 10 mg oral tablet, 90 days, Dispense #180 Tablet, 0 RefillsDirections: Take 1 oral tablet twice a day 180 tablet 2022 Current [id number] Praluent Pen 75 mg/mL pen injector SIG: Praluent Pen 75 mg/mL subcutaneous pen injector, 28 days, Dispense #2 Milliliter, 0 RefillsDirections: Inject 75mg once every 2 weeks 2 pen injector 2022 Historic [id number] FAMOTIDINE 40 MG TABLET 40 mg tablet SIG: FAMOTIDINE 40 MG TABLET, Dispense #90, 0 Refills, Directions: TAKE 1 TABLET BY MOUTH EVERY DAY 90 tablet 2022 Historic [id number] FAMOTIDINE 40 MG TABLET 40 mg tablet SIG: FAMOTIDINE 40 MG TABLET, Dispense #90, 0 Refills, Directions: TAKE 1 TABLET BY MOUTH EVERY DAY 90 tablet 2022 Historic [id number] gabapentin 600 mg tablet SIG: gabapentin 600 mg oral tablet, 30 days, Dispense #90 Tablet, 0 RefillsDirections: Take 1 Tablet by mouth 3 times daily. 90 tablet 2022 Historic [id number] fluocinolone acetonide oil 0.01 % drops SIG: fluocinolone acetonide oil 0.01 % otic (ear) drops, 10 days, Dispense #20 Milliliter, 0 RefillsDirections: 5 gtts in affected ear twice daily as needed for external auditory canal discomfort 20 drops 2022 Historic [id number] PAROXETINE HCL 20 MG TABLET 20 mg tablet SIG: PAROXETINE HCL 20 MG TABLET, Dispense #90, 1 Refills, Directions: TAKE 1 TABLET BY MOUTH EVERY DAY 90 tablet 2022 Historic [id number] FAMOTIDINE 40 MG TABLET 40 mg tablet SIG: FAMOTIDINE 40 MG TABLET, Dispense #90, 0 Refills, Directions: TAKE 1 TABLET BY MOUTH EVERY DAY 90 tablet 2023 Historic [id number] Nexlizet 180-10 mg tablet SIG: Nexlizet 180-10 mg oral tablet, 30 days, Dispense #30 Tablet, 0 Refills, Directions: Take 1 oral tablet once a day 30 tablet 2023 Historic [id number] Nexlizet 180-10 mg tablet SIG: Nexlizet 180-10 mg oral tablet, 30 days, Dispense #30 Tablet, 2 Refills, Directions: Take 1 oral tablet once a day 30 tablet 2023 Historic [id number] Nexlizet 180-10 mg tablet SIG: Nexlizet 180-10 mg oral tablet, 30 days, Dispense #30 Tablet, 2 Refills, Directions: Take 1 oral tablet once a day 30 tablet 2023 Historic [id number] alprazolam 0.5 mg tablet SIG: alprazolam 0.5 mg oral tablet, 30 days, Dispense #90 Tablet, 0 Refills, Directions: Take one tablet by mouth up to three times daily as needed 90 tablet 2023 Historic [id number] paroxetine HCl 20 mg tablet SIG: paroxetine HCl 20 mg oral tablet, 30 days, Dispense #75 Tablet, 0 Refills, Directions: Take 1 tablet in the morning. Take 1.5 tablets in the evening 75 tablet 2023 Historic [id number] gabapentin 600 mg tablet SIG: gabapentin 600 mg oral tablet, 30 days, Dispense #90 Tablet, 0 Refills, Directions: Take 1 Tablet by mouth 3 times daily. 90 tablet 2023 [facility] [id number] GABAPENTIN 600 MG TABLET 600 mg tablet SIG: GABAPENTIN 600 MG TABLET, Dispense #90, 0 Refills, Directions: take 1 tablet by mouth three times a day 90 tablet 2023 Historic [id number] FAMOTIDINE 40 MG TABLET 40 mg tablet SIG: FAMOTIDINE 40 MG TABLET, Dispense #90, 0 Refills, Directions: TAKE 1 TABLET BY MOUTH EVERY DAY 90 tablet 2023 Historic [id number] FAMOTIDINE 40 MG TABLET 40 mg tablet SIG: FAMOTIDINE 40 MG TABLET, Dispense #90, 0 Refills, Directions: take 1 tablet by mouth every day 90 tablet 2023 Historic [id number] trazodone 150 mg tablet SIG: trazodone 150 mg oral tablet, 30 days, Dispense #30 Tablet, 0 Refills, Directions: Take 150 mg by mouth nightly. 2 tablets at bedtime as needed 30 tablet 2023 Historic [id number] metformin 500 mg tablet extended release 24 hr SIG: metformin 500 mg oral tablet extended release 24 hr, 90 days, Dispense #90 Tablet, 0 Refills, Directions: TAKE 1 ORAL TABLET 3 TIMES A DAY 90 tablet extended release 24 hr 2023 Historic [id number] Vitamin D2 1,250 mcg (50,000 unit) capsule SIG: Vitamin D2 1,250 mcg (50,000 unit) oral capsule, 90 days, Dispense #4 Capsule, 12 Refills, Directions: Take 1 tablet weekly 4 capsule 2023 Current [id number] trazodone 150 mg tablet SIG: trazodone 150 mg oral tablet, 30 days, Dispense #30 Tablet, 1 Refills, Directions: Take 150 mg by mouth nightly. 30 tablet 2023 Historic [id number] trazodone 150 mg tablet SIG: trazodone 150 mg oral tablet, 30 days, Dispense #30 Tablet, 1 Refills, Directions: Take 150 mg by mouth nightly. 30 tablet 2023 Current [id number] alprazolam 0.5 mg tablet SIG: alprazolam 0.5 mg oral tablet, 30 days, Dispense #90 Tablet, 0 Refills, Directions: Take one tablet by mouth up to three times daily as needed 90 tablet 2023 Historic [id number] alprazolam 0.5 mg tablet SIG: alprazolam 0.5 mg oral tablet, 30 days, Dispense #85 Tablet, 0 Refills, Directions: Take one tablet by mouth up to three times daily as needed for severe anxiety or panic attack 85 tablet 2023 Historic [id number] metformin 500 mg tablet extended release 24 hr SIG: metformin 500 mg oral tablet extended release 24 hr, 90 days, Dispense #270 Tablet, 0 Refills, Directions: TAKE 1 ORAL TABLET 3 TIMES A DAY 270 tablet extended release 24 hr 2023 Historic [id number] albuterol sulfate 90 mcg/actuation HFA aerosol inhaler SIG: albuterol sulfate 90 mcg/actuation inhalation HFA aerosol inhaler, 3 days, Dispense #6.7 Gram, 0 Refills, Directions: two puffs every 4 hours as needed for cough, wheezing, or shortness of breath 6.7 HFA aerosol inhaler 2023 Historic [id number] alprazolam 0.5 mg tablet SIG: alprazolam 0.5 mg oral tablet, 30 days, Dispense #80 Tablet, 0 Refills, Directions: Take one tablet by mouth up to three times daily as needed for severe anxiety or panic attack 80 tablet 2023 Historic [id number] promethazine-DM 6.25-15 mg/5 mL syrup SIG: promethazine-DM 6.25-15 mg/5 mL oral syrup, 29 days, Dispense #116 Milliliter, 0 Refills, Directions: Take 5 oral milliliter every 6 hours as needed for cough. 116 syrup 2023 Historic [id number] alprazolam 0.5 mg tablet SIG: alprazolam 0.5 mg oral tablet, 30 days, Dispense #80 Tablet, 0 Refills, Directions: Take one tablet by mouth up to three times daily as needed for severe anxiety or panic attack 80 tablet 2023 Historic [id number] famotidine 40 mg tablet SIG: famotidine 40 mg oral tablet, 90 days, Dispense #90 Tablet, 0 Refills, Directions: TAKE 1 TABLET BY MOUTH EVERY DAY 90 tablet 2023 Historic [id number] FAMOTIDINE 40 MG TABLET 40 mg tablet SIG: FAMOTIDINE 40 MG TABLET, Dispense #90, 0 Refills, Directions: take 1 tablet by mouth every day 90 tablet 2023 Historic [id number] ondansetron 4 mg tablet,disintegr ating SIG: ondansetron 4 mg oral tablet,disintegratin g, 7 days, Dispense #20 Tablet, 0 Refills, Directions: Take 1 tablet by mouth every 8 hours as needed for nausea 20 tablet,disi ntegrating 2023 Historic [id number] ondansetron 4 mg tablet,disintegr ating SIG: ondansetron 4 mg oral tablet,disintegratin g, 7 days, Dispense #20 Tablet, 0 Refills, Directions: Take 1 tablet by mouth every 8 hours as needed for nausea 20 tablet,disi ntegrating 2023 [facility] [id number] alprazolam 0.5 mg tablet SIG: alprazolam 0.5 mg oral tablet, 30 days, Dispense #75 Tablet, 0 Refills, Directions: Take one tablet by mouth up to three times daily as needed for severe anxiety or panic attack 75 tablet 2023 Historic [id number] metformin 500 mg tablet extended release 24 hr SIG: metformin 500 mg oral tablet extended release 24 hr, 90 days, Dispense #270 Tablet, 0 Refills, Directions: TAKE 1 ORAL TABLET 3 TIMES A DAY 270 tablet extended release 24 hr 2023 Historic [id number] METFORMIN HCL ER 500 MG TABLET 500 mg tablet extended release 24 hr SIG: METFORMIN HCL ER 500 MG TABLET, Dispense #270, 0 Refills, Directions: take 1 tablet by mouth three times a day 270 tablet extended release 24 hr 2023 Historic [id number] alprazolam 0.5 mg tablet SIG: alprazolam 0.5 mg oral tablet, 30 days, Dispense #70 Tablet, 0 Refills, Directions: Take one tablet by mouth up to three times daily as needed for severe anxiety or panic attack 70 tablet 2023 Historic [id number] famotidine 40 mg tablet SIG: famotidine 40 mg oral tablet, 90 days, Dispense #90 Tablet, 0 Refills, Directions: TAKE 1 TABLET BY MOUTH EVERY DAY 90 tablet 2023 Historic [id number] FAMOTIDINE 40 MG TABLET 40 mg tablet SIG: FAMOTIDINE 40 MG TABLET, Dispense #90, 0 Refills, Directions: take 1 tablet by mouth every day 90 tablet 2023 Historic [id number] alprazolam 0.5 mg tablet SIG: alprazolam 0.5 mg oral tablet, 30 days, Dispense #65 Tablet, 0 Refills, Directions: Take one tablet by mouth up to three times daily as needed for severe anxiety or panic attack 65 tablet 2023 Historic [id number] pantoprazole 40 mg tablet,delayed release (DR/EC) SIG: pantoprazole 40 mg oral tablet,delayed release (DR/EC), 30 days, Dispense #30 Tablet, 1 Refills, Directions: Take 1 oral tablet once a day 30 tablet,chalo yed release (DR/EC) 2023 Historic [id number] metformin 500 mg tablet extended release 24 hr SIG: metformin 500 mg oral tablet extended release 24 hr, 90 days, Dispense #270 Tablet, 0 Refills, Directions: TAKE 1 ORAL TABLET 3 TIMES A DAY 270 tablet extended release 24 hr 2023 Historic [id number] metformin 500 mg tablet extended release 24 hr SIG: metformin 500 mg oral tablet extended release 24 hr, 90 days, Dispense #270 Tablet, 0 Refills, Directions: TAKE 1 ORAL TABLET 3 TIMES A DAY 270 tablet extended release 24 hr 2023 Current [id number] pantoprazole 40 mg tablet,delayed release (DR/EC) SIG: pantoprazole 40 mg oral tablet,delayed release (DR/EC), 30 days, Dispense #30 Tablet, 1 Refills, Directions: Take 1 oral tablet once a day 30 tablet,chalo yed release (DR/EC) 2023 Current [id number] Pantoprazole Sodium 40 MG Oral Tablet Delayed Release 40 mg tablet,delayed release (DR/EC) SIG: Pantoprazole Sodium 40 MG Oral Tablet Delayed Release, Dispense #30, 0 Refills, Directions: Take 1 tablet by mouth once daily 30 tablet,chalo yed release (DR/EC) 2023 Historic [id number] alprazolam 0.5 mg tablet SIG: alprazolam 0.5 [...] DUE TO OTHER MENTAL DISORDER Chronic 03/15/2018 [id number] (PRIMARY) HYPERTENSION ESSENTIAL (PRIMARY) HYPERTENSION Chronic 03/15/2018 I50.32-CHRONIC DIASTOLIC (CONGESTIVE) HEART FAILURE CHRONIC DIASTOLIC (CONGESTIVE) HEART FAILURE Chronic 03/15/2018 K21.1-[id number] REFLUX DISEASE WITHOUT ESOPHAGITIS GASTRO-ESOPHAGEAL REFLUX DISEASE WITHOUT ESOPHAGITIS Chronic 03/15/2018 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 03/15/2018 R73.03-Prediabetes Prediabetes Historic 9 M54.6-PAIN IN THORACIC SPINE PAIN IN THORACIC SPINE Ch ronic 03/15/2018 M17.0-Bilateral primary osteoarthritis of knee Bilateral primary osteoarthritis of knee Chronic 03/15/2018 I65.23-Occlusion and stenosi s of bilateral carotid arteries Occlusion and stenosis of bilateral carotid arteries Chronic 01/05/2022 M81.8-[id number] OSTEOPOROSIS WITHOUT CURRENT PATHOLOGICAL FRACTURE AGE-RELATED OSTEOPOROSIS [...] Observation Never Smoker Sex:Female CARE TEAM INFORMATION Marketing Manager Health Communications Role Location Phone (CHAITANYA) HALLIE TAVARES PHYSICIAN [address] [place] [address]
--- OUTSIDE RECORDS SUMMARY | 2024-03-29 09:31 | XMS_ITS | CONTINUITY OF CARE DOCUMENT ---
Author Name jose angel walter Address Unknown Organization [facility] Address [address] [place] [address] [address] [place] [address] Phone [phone] Care Team Providers Care Solar Technician Name Role Phone Bryan Simeon MD Unavailable [phone] HALLIE TAVARES MD Unavailable [phone] HALLIE TAVARES MD Unavailable [phone] PROBLEMS Condition Status Date Provider Notes Family History of CVA or Stroke: active ? Jeffy nhi Simeon MD HTN essential active Bryan Simeon MD Diastolic CHF active Bryan Simeon MD Diastolic Dysfunction completed - Bryan Simeon MD Syncope and collapse active Bryan Simeon MD Obesity active Bryan Simeon MD Bradycardia sinus completed - Bryan Smieon MD Chest pain-type to be determined completed [...] In-person encounter Office Visit Bryan Simeon MD [facility] Diastolic DysfunctionChest pain-type to be determined 7 - 1 In-person encounter Office Visit Bryan Simeon MD [facility] 1 - 2 In-person encounter Office Visit Bryan Simeon MD [facility] Carotid artery disease - 50-69% JERICHO, <50% LICA 03/2023 2 - 4 In-person encounter Office Visit Bryan Simeon MD [facility] Elevated c-reactive protein 0 - 1 In-person encounter Office Visit Brayn Simeon MD [facility] Chest pain - nml cors on cath 04/25/22 6 - 6 In-person encounter Office Visit Bryan Simeon MD [facility] 6 - 8 In-person encounter Office Visit Bryan Simeon MD [facility] 4 - 6 In-person encounter Office Visit Bryan Simeon MD [facility] 1 - 1 In-person encounter Office Visit Bryan Simeon MD [facility] Bradycardia sinusSinus bradycardiaFamily Hx heart diseasePrediabetes 1 - 1 In-person encounter Office Visit Bryan Simeon MD [facility] Statin Intolerant,myalgias with daily atorvastatinHypercholesterolemia 1 - 1 In-person encounter Office Visit Bryan Simeon MD [facility] 3 - 3 In-person encounter Office Visit Bryan Simeon MD [facility] 4 - 4 In-person encounter Office Visit Bryan Simeon MD [facility] Chest pain - nml cors on cath 04/25/22 6 - 6 In-person encounter Office Visit Bryan Simeon MD [facility] Sleep apnea 2 - 2 In-person encounter Office Visit Bryan Simeon MD [facility] 1 - 1 In-person encounter Office Visit Bryan Simeon MD [facility] Edema - localizedFatigue 0 - 0 In-person encounter Office Visit Bryan Simeon MD [facility] Dizziness 3 - 4 In-person encounter Office Visit Bryan Simeon MD [facility] Family History of CVA or Stroke:HTN essentialDiastolic CHFSyncope and collapseObesityDyspnea on exertion VITAL SIGNS Date Observation Value Provider Body Mass Index (Ratio) 34.38 kg/m2 Bryce Simeon MD blood pressure, diastolic 80 mm[Hg] Montana Farnsworth blood pressure, systolic 130 mm[Hg] Kelly Farnsworth oxygen saturation, oximetry 98 % Randa Farnsworth pulse rate 74 /min Randa Weiss [facility] weight E&M 188 [lb_av] Randa Weiss [facility] height E&M 62 [in_i] Randa Weiss [facility] Body Mass Index (Ratio) 38.22 kg/m2 Bryce Simeon MD pulse rate 83 /min Nailalalitha Pisano blood pressure, cuff size regular Galindo Pisano blood pressure, diastolic 103 mm[Hg] Ta nidhi Pisano blood pressure, systolic 161 mm[Hg] Tab ithlalitha Pisano oxygen saturation, oximetry 98 % [facility] respiratory rate E&M 20 /min [facility] weight E&M 209 [lb_av] [facility] height E&M 62 [in_i] [facility] Body Mass Index (Ratio) 42.06 kg/m2 Jesus Gutierrez blood pressure, cuff size large [facility] blood pressure, diastolic 84 mm[Hg] [facility] blood pressure, systolic 128 mm[Hg] [facility] 87 /min [facility] oxygen saturation, oximetry 100 % [facility] respiratory rate E&M 14 /min Sarah Harrell illeharpal weight E&M 230 [lb_av] [facility] height E&M 62 [in_i] [facility] Body Mass Index (Ratio) 43.53 kg/m2 Bryce [...] blood pressure, systolic 154 mm[Hg] Harsh abiodun [place] oxygen saturation, oximetry 100 % Lisa [place] pulse rate 70 /min Lisa Lohma n respiratory rate E&M 16 /min Horacio ie [place] blood pressure, cuff size large [facility] [place] weight E&M 231 [lb_av] Lisa Lohma n height E&M 62 [in_i] Lisaaide Stevens n Body Mass Index (Ratio) 42.28 kg/m2 Bryce Simeon MD blood pressure, cuff size regular benji Madden blood pressure, diastolic 98 mm[Hg] benji Madden blood pressure, systolic 120 mm[Hg] [facility] rylie Madden oxygen saturation, oximetry 98 % Dede Madden respiratory rate E&M 18 /min Dede Madden pulse rate 95 /min Ddee Madden weight E&M 231.2 [lb_av] Dede Madden [...] blood pressure, systolic 132 mm[Hg] Tra mikal [facility] respiratory rate E&M 16 /min Kira Ellie [...] blood pressure, diastolic 80 mm[Hg] Da carly Flushing blood pressure, systolic 132 mm[Hg] Dac ia Lashawn oxygen saturation, oximetry 94 % Maddy Lashawn respiratory rate E&M 16 /min Maddy V oss pulse rate 75 /min Maddy Lashawn weight E&M 222 [lb_av] Maddy Lashawn height E&M 62 [in_i] [facility] Body Mass Index (Ratio) 40.60 kg/m2 Bryce Simeon MD pulse rate 70 /min [facility] oxygen saturation, oximetry 97 % [facility] blood pressure, diastolic 90 mm[Hg] Raymundo gerardo [facility] blood pressure, systolic 124 mm[Hg] [facility] jennifer [facility] respiratory rate E&M 16 /min [facility] weight E&M 222 [lb_av] [facility] blood pressure, resting Yes [facility] height E&M 62 [in_i] [facility] Body Mass Index (Ratio) 40.60 kg/m2 Bryce [...] Iglesiase er blood pressure, diastolic 80 mm[Hg] Ky donavan Tilley blood pressure, systolic 118 mm[Hg] Ni Tilley pulse rate 80 /min Kenzie Tilley oxygen saturation, oximetry 94 % Kenzie Tilley respiratory rate E&M 16 /min Kenzie Tilley Body Mass Index (Ratio) 39.76 kg/m2 Cira Tilley weight E&M 217.4 [lb_av] Kenzie Tilley Body Mass Index (Ratio) 34.02 kg/m2 Lyle rajat Jarquin blood pressure, diastolic 90 mm[Hg] [facility], systolic 140 mm[Hg] Kelly Iglesiasdell pulse rate 65 /min Randa Weiss [facility] oxygen saturation, oximetry 97 % Randa Iglesiasdell respiratory rate E&M 16 /min Randa George [facility] weight E&M 186 [lb_av] Randa [...] History: Christal sky has never smoked. Bryan Smieon MD social history reviewed E&M revi ewed [...] Policy type / Coverage type Luiz red green party [employer] Other H [id number] [place] Medicare [id number] ADVANCE DIRECTIVES Name Date DISCUSSED - NO DECISION MADE TREATMENT PLAN Date Name Performer [id number],W, Bryan Montenegro ra, [place] [id number],S, Bryan Montenegro ra[place] [id number],S, Bryan [place]en[place]ro ra[place] [id number],S, Bryan Montenegro ra, [place] [id number],S, Carol P today: 140/76 P rior BP: [...] mouth once a day Bryan Simeon MD [id number],S, H er updated medication list for this [...] mouth once a day Bryan Simeon MD [id number],SBryan ra, [place] [id number],W, H er updated medication list for this problem includes: Ezetimibe 10 Mg Tablet (Ezetimibe) ..... Take 1 tablet by mouth every day Bryan Simeon MD [id number],SBryan ra, [place] [id number],BBryan ra, [place] [id number],SBryan ra, [place] [id number],B, Bryan Montenegro ra, [place] [id number],W, B P today: 163/91 P rior BP: [...] mouth once a day Bryan Simeon MD [id number],SBryan ra, MD [id number],S, H er updated medication list for this problem includes: Ezetimibe 10 Mg Tablet (Ezetimibe) ..... Take 1 tablet by mouth every day Bryan Simeon MD [id number],SBryan ra, [place] [id number],SBryan ra, [place] [id number],SBryan ra, [place] [id number],W, H er updated medication list for this problem includes: Ezetimibe 10 Mg Tablet (Ezetimibe) ..... Take 1 tablet by mouth every day Bryan Simeon MD [id number],SBryan ra, [place] [id number],W, B P today: 154/104 P rior BP: [...] mouth once a day Bryan Simeon MD [id number],S, H er updated medication list for this [...] mouth once a day Bryan Simeon MD [id number],WBryan ra, [place] [id number],S, Bryan Montenegro ra, [place] [id number],SBryan ra, [place] [id number],WBryan ra, [place] [id number],S, H er updated medication list for this problem includes: Ezetimibe 10 Mg Tablet (Ezetimibe) ..... Take 1 tablet by mouth every day Bryan Simeon MD [id number],S, H er updated medication list for this [...] mouth once a day Bryan Simeon MD [id number],S, B P today: 120/98 P rior BP: [...] mouth once a day Bryan Simeon MD [id number],S, The following medications were removed from the [...] mouth once a day Bryan Simeon MD [id number],S,B P is slightly elevated. B P today: [...] mouth once a day Bryan Simeon MD [id number],S,wears cpap 3x a week. Bryan Simeon MD [id number],W,r eoccurence of chest pain. will start on Toprolol XL and get some labs and echho results. O rders: 9 9214 MOD 30-39min (CPT-05214) C omplete Echo (CPT-89012) P ROBNP, N TERMINAL (37108) D -DIMER, QUANTITATIVE (9669) C BC (H/H, RBC, INDICES, WBC, PLT) (9976) T SH, 3RD GENERATION W/REFLEX TO FT4 (28575) Her updated medication list for this problem [...] results. O rders: 9 9214 MOD 30-39min (CPT-02614) C omplete Echo (CPT-49607) P ROBNP, N TERMINAL (71939) D -DIMER, QUANTITATIVE (0913) C BC (H/H, RBC, INDICES, WBC, PLT) (5474) T SH, 3RD GENERATION W/REFLEX TO FT4 (62618) Her updated medication list for this problem [...] n o recurrence Bryan Simeon MD Cardiology: w marin compensated. denies [...] this problem includes: Ranexa 1000 Mg Oral [id number] (Ranolazine) ..... One po bid Hyzaar 50-12.5 Mg Tabs (Losartan potassium-hctz) ..... One po daily Aspirin 81 Mg Tabs (Aspirin) ..... One tab. daily Nitrostat Subl (Nitroglycerin subl) ..... Take as directed Bryan Simeon MD Cardiology: H er updated medication list for this problem includes: Ranexa 1000 Mg Oral [id number] (Ranolazine) ..... One po bid Aspirin 81 Mg Tabs (Aspirin) ..... One tab. daily Nitrostat Subl (Nitroglycerin subl) ..... Take as directed Bryan Simeon MD Cardiology Bryan Orellana Cardiology: H er updated medication list for this problem includes: Ranexa 1000 Mg Oral [id number] (Ranolazine) ..... One po bid Aspirin 81 [...] this problem includes: Ranexa 500 Mg Oral [id number]-[id number] (Ranolazine) ..... One tablet twice daily Aspirin 81 Mg Tabs (Aspirin) ..... One tab. daily Nitrostat Subl (Nitroglycerin subl) ..... Take as directed Bryan Simeon MD Cardiology Follow up Bryan macias MD Cardiology Follow up : H er updated medication list for this problem includes: Ranexa 500 Mg Oral [id number] (Ranolazine) ..... One tablet twice daily Aspirin [...] ..... Take as directed Orders: Jaylyn KG (CPT-87421) Bryan Simeon MD Follow up : H [...] One tab. daily Orders: Shannan omplete Echo (CPT-29173) M obile Cardiac Tele (CPT-65765) Bryan Simeon MD hos follow up: H er updated medication list for this problem includes: Aspirin 81 Mg Tabs (Aspirin) ..... One tab. daily Nitrostat Subl (Nitroglycerin subl) ..... Take as directed & #13;Orders: Shannan omplete Echo (CPT-41990) M obile Cardiac Tele (CPT-08888) Bryan Simeon MD hos follow up: H er updated medication list for this problem includes: Aspirin 81 Mg Tabs (Aspirin) ..... One tab. daily Alprazolam 0.5 Mg Tabs (Alprazolam) ..... 1 tab twice daily Nitrostat Subl (Nitroglycerin subl) ..... Take as directed Orders: Shannan omplete Echo (CPT-89193) M obile Cardiac Tele (CPT-26807) Bryan Simeon MD hos follow up: O rders: Shannan omplete Echo (CPT-13114) M obile Cardiac Tele (CPT-93623) d iet and exercise for weight loss and cardiovascualr risk reduction Bryan Simeon MD hos follow up: H er updated medication list for this problem includes: Hyzaar 50-12.5 Mg Tabs (Losartan potassium-hctz) ..... One po daily Aspirin 81 Mg Tabs (Aspirin) ..... One tab. daily Nitrostat Subl (Nitroglycerin subl) ..... Take as directed n o recurrence O rders: C omplete Echo (CPT-84182) M obile Cardiac Tele (CPT-14019) Bryan Simeon MD hos follow up: O rders: Shannan omplete Echo (CPT-13198) M obile Cardiac Tele (CPT-05717) Bryan Simeon MD hos follow up: O rders: C omplete Echo (CPT-53089) M obile Cardiac Tele (CPT-82114) Bryan Simeon MD hos follow up: H er updated medication list for this problem includes: Hyzaar 50-12.5 Mg Tabs (Losartan potassium-hctz) ..... One po daily Aspirin 81 Mg Tabs (Aspirin) ..... One tab. daily Nitrostat Subl (Nitroglycerin subl) ..... Take as directed Orders: Shannan omplete Echo (CPT-11898) M obile Cardiac Tele (CPT-98177) Bryan Simeon MD hos follow up: H er updated medication list for this problem includes: Hyzaar 50-12.5 Mg Tabs (Losartan potassium-hctz) ..... One po daily Aspirin 81 Mg Tabs (Aspirin) ..... One tab. daily Orders: Shannan omplete Echo (CPT-42013) M obile Cardiac Tele (CPT-26935) BP today: 155/91 Bryan Simeon MD Date [...] EKG Cathleen Shukla MD complet ed SNOMED-CT: 872842832 545349 Current Medications Documented Bryan Simeon MD completed SNOMED-CT: 047281342 685002 Current Medications Documented Bryan Simeon MD completed EKG Bryan Simeon MD complet ed SNOMED-CT: 285602996 611383 Current Medications Documented Bryan Simeon MD completed EKG Bryan Simeon MD complet ed EKG Bryan Simeon MD complet ed
[2024-03-29 09:35] LABS: EDUAAPPEAR Clear; EDUABILI Negative (Negative); EDUABLOOD Negative (Negative); EDUACOLOR1 Yellow; EDUAGLUCOSE Negative (Negative); EDUAKETONE Negative (Negative); EDUALEUKO 1+ (Negative); EDUANITRATE Negative (Negative); EDUAPH 6.5; EDUAPROTEIN Negative (Negative); EDUASPGRAVITY 1.025; EDUAUROBILI 0.2
--- NOTE | 2024-03-29 09:40 | ED_ITS ---
HPI - URI/Sore Throat General Chief Complaint: Upper Respiratory Infection Stated Complaint: exposed to covid/strep and poss UTI Time Seen by Provider: 03/29/24 09:40 Source: patient Mode of arrival: ambulatory Limitations: no limitations History of Present Illness HPI Narrative: 63-year-old female presents with complaint of urinary urgency with decreased output. Symptoms for 2 days. Afebrile. Some dysuria with urination. No abdominal or back pain. Patient also wants tested for COVID, influenza and strep because she had exposure 8 days ago. Not experiencing any URI symptoms. All systems reviewed and negative except as noted above. Related Data Home Medications ?Medication ?Instructions ?Recorded ?Confirmed ?Last Taken ?Type alprazolam 0.5 mg tablet (Xanax) 0.5 mg PO TID PRN Anxiety 06/04/20 10/01/23 Unknown History idtydcyfja-wytfblh-tewueyea 50 1 cap PO BID PRN Pain 01/15/22 10/01/23 Unknown History mg-325 mg-40 mg capsule celecoxib 200 mg capsule 200 mg PO BID 01/15/22 10/01/23 Unknown History ezetimibe 10 mg tablet 10 mg PO DAILY 01/15/22 10/01/23 Unknown History famotidine 40 mg tablet 40 mg PO DAILY 01/15/22 10/01/23 Unknown History hydrochlorothiazide 25 mg tablet 25 mg PO DAILY 01/15/22 10/01/23 Unknown History icosapent ethyl 1 gram capsule 1 g PO DAILY 01/15/22 10/01/23 Unknown History (Vascepa) metoprolol succinate 50 mg 50 mg PO DAILY 01/15/22 10/01/23 Unknown History tablet,extended release 24 hr nitroglycerin 0.4 mg sublingual 0.4 mg sublingual DAILY PRN Chest 01/15/22 10/01/23 Unknown History tablet Pain trazodone 150 mg tablet 300 mg PO QHS PRN Sleep 01/15/22 10/01/23 Unknown History alendronate 70 mg tablet 70 mg PO DAILY 08/05/22 10/01/23 Unknown History amlodipine 5 mg tablet 5 mg PO DAILY 08/05/22 10/01/23 Unknown History cyclobenzaprine 10 mg tablet 10 mg PO TID PRN Muscle Spasm 08/05/22 10/01/23 Unknown History ergocalciferol (vitamin D2) 1,250 50,000 unit PO WEEKLY 08/06/23 10/01/23 Unknown History mcg (50,000 unit) capsule gabapentin 600 mg tablet 600 mg PO TID 08/06/23 10/01/23 Unknown History metformin 500 mg tablet,extended 500 mg PO TID 08/06/23 10/01/23 Unknown History release 24 hr paroxetine HCl 20 mg tablet 20 mg PO DAILY 08/06/23 10/01/23 Unknown History Allergies Allergy/AdvReac Type Severity Reaction Status Date / Time bee venom protein (honey bee) Allergy Severe Anaphylaxis Verified 03/29/24 09:28 erythromycin base Allergy Unknown Rash Verified 03/29/24 09:28 Review of Systems Review of Systems: CONSTITUTIONAL: Denies fever, chills, or sweats. EYES: Denies visual changes, redness, or discharge. ENT: Denies rhinorrhea, congestion, sore throat, or otalgia. CARDIOVASCULAR: Denies chest pain, palpitations, or edema. RESPIRATORY: Denies cough or dyspnea. GASTROINTESTINAL: Denies abdominal pain, nausea, vomiting, or diarrhea. GENITOURINARY: Reports dysuria, urgency, decreased output. Denies hematuria. SKIN: Denies rash or itching. MUSCULOSKELETAL: Denies back pain, joint pain, or myalgia. NEUROLOGIC: Denies headache, numbness, or weakness. PSYCHIATRIC: Denies anxiety or depression. All other systems reviewed are negative, except as documented in HPI. [facility] Past Medical History Medical History Depression Diarrhea Diastolic dysfunction Hypertension Low back pain Syrinx of spinal cord Surgical History Surgical History H/O total knee replacement (~12/25/19) H/O: hysterectomy History of right knee joint replacement Hx of appendectomy S/P tonsillectomy Family History Family History Mother Family history non-contributory Social History Social History Social History: never smoker Smoking status: Never smoker Alcohol intake: current Substance use: never Living arrangements: with family Gender identity (if verbalized by the patient): Female Sexual Orientation (if Verbalized by the Patient): Straight or Heterosexual Spiritual care concerns: No Comments At time of signature, agree with nursing past medical, surgical, social and family history. There is no relevant family history pertinent to the presenting complaint. Exam Narrative: GENERAL: This is a well-nourished, well-developed patient, in no apparent distress. HEAD: normocephalic, atraumatic. EYES: PERRL. Sclera clear/white. Vision is grossly intact. EARS: External ears normal, auditory canals clear and without drainage, TMs normal without perforation. Hearing grossly intact. NOSE: External nose normal with no obvious nasal discharge, nares without redness, no rhinorrhea. THROAT: Mucous membranes moist, posterior pharynx clear. NECK: Neck supple, non-tender without lymphadenopathy, masses or thyromegaly. CARDIOVASCULAR: Regular rate and rhythm without murmurs, gallops, or rubs. RESPIRATORY: Clear to auscultation. Breath sounds equal bilaterally. No wheezes, rales, or rhonchi. SKIN: warm, Dry, intact with no suspicious lesions or rash, good texture and turgor. NEURO: awake, alert, and oriented to person, place and time. There were no obvious focal neurologic abnormalities. EXTREMITIES: No joint tenderness, effusion, or edema noted. Course Course Level of Care: Express Care Visit Vital Signs Vital signs: Vital Signs Temperature 36.2 C L 03/29/24 09:13 Pulse Rate 100 03/29/24 09:13 Respiratory Rate 16 03/29/24 09:13 Blood Pressure 147/95 H 03/29/24 09:13 Pulse Oximetry 99 03/29/24 09:13 Oxygen Delivery Room Air 03/29/24 09:13 Temperature 36.2 C L 03/29/24 09:13 Pulse Rate 100 03/29/24 09:13 Respiratory Rate 16 03/29/24 09:13 Blood Pressure 147/95 H 03/29/24 09:13 Pulse Oximetry 99 03/29/24 09:13 Oxygen Delivery Room Air 03/29/24 09:13 reviewed MDM - URI/Sore Throat MDM Narrative Medical decision making narrative: urinalysis 1+ leukocytes. Urine culture ordered. Will treat patient with Augmentin for urinary tract infection. Patient is alert, nontoxic. Afebrile. Recommend follow-up with primary care physician if symptoms are not improving. Please be advised this is a medical document. It is intended for [id number]-mnqy communication. It is written in medical language and may contain unfamiliar abbreviations or verbiage. Medical documents are intended to carry relevant information, facts as evident, and the clinical opinion of the practitioner at the time of the encounter. This report may have been done utilizing a voice recognition system. Attempts have been made to correct errors. However, there may be uncorrected grammatical, spelling, and recognition errors present. The file time of this note does not necessarily represent the time of service. Lab Data Labs: Lab Results 03/29/24 03/29/24 Range/Units 09:33 09:45 POC Urine Color Yellow POC Urine Clarity Clear POC Urine pH 6.5 POC Ur Specif Mobile 1.025 POC Urine Protein Negative (Negative) POC Ur Glucose (UA) Negative (Negative) POC Urine Ketones Negative (Negative) POC Urine Blood Negative (Negative) POC Urine Nitrite Negative (Negative) POC Urine Bilirubin Negative (Negative) POC Urine Urobilinogen 0.2 POC U Leukocyte Esteras 1+ (Negative) POC Influenza A Ag Negative (Negative) POC Influenza B Ag Negative (Negative) POC SARS CoV-2 Ag Negative (Negative) POC Grp A Strep Screen Negative (Negative) Discharge Plan Discharge Clinical Impression: Urinary tract infection Patient Disposition: Home, Self-Care Condition: Stable Instructions: Antibiotic Form, Urinary Tract Infection in Women (ED) Additional Instructions: your COVID, influenza and strep test were negative today. Take antibiotic as prescribed to treat urinary tract infection. Take ibuprofen and Tylenol every 6-8 hours as needed for pain and fever. Drink at least 64 oz of water a day. Follow-up with your primary care physician if symptoms are not improving. Patient Language: Indonesian Prescriptions: New amoxicillin-pot clavulanate [Augmentin] 500-125 mg tablet 1 tablet PO BID 5 Days Qty: 10 0RF No Action amlodipine 5 mg tablet 5 mg PO DAILY alendronate 70 mg tablet 70 mg PO DAILY cyclobenzaprine 10 mg tablet 10 mg PO TID PRN (Reason: Muscle Spasm) diphenoxylate-atropine [Lomotil] 2.5-0.025 mg tablet 1 tablet PO TID PRN (Reason: diarrhea) Qty: 15 0RF paroxetine HCl 20 mg tablet 20 mg PO DAILY metformin 500 mg tablet extended release 24 hr 500 mg PO TID gabapentin 600 mg tablet 600 mg PO TID ergocalciferol (vitamin D2) 1,250 mcg (50,000 unit) capsule 50,000 unit PO WEEKLY celecoxib 200 mg capsule 200 mg PO BID metoprolol succinate 50 mg tablet extended release 24 hr 50 mg PO DAILY nqxhxnwuzk-svwnffq-blrylqwb 50-325-40 mg capsule 1 cap PO BID PRN (Reason: Pain) trazodone 150 mg tablet 300 mg PO QHS PRN (Reason: Sleep) icosapent ethyl [Vascepa] 1 gram capsule 1 g PO DAILY famotidine 40 mg tablet 40 mg PO DAILY nitroglycerin 0.4 mg tablet, sublingual 0.4 mg sublingual DAILY PRN (Reason: Chest Pain) hydrochlorothiazide 25 mg tablet 25 mg PO DAILY ezetimibe 10 mg tablet 10 mg PO DAILY alprazolam [Xanax] 0.5 mg tablet 0.5 mg PO TID PRN (Reason: Anxiety) tramadol 50 mg tablet 50 mg PO Q8H PRN (Reason: pain (scale score 7-10)) Qty: 50 0RF hydrocodone-acetaminophen 10-325 mg tablet 1 tablet PO Q8H PRN (Reason: pain (scale score 7-10)) Qty: 90 0RF Rx Instructions: To last 30 days, due 12/12/2020 Follow-up/Referrals: Gentry,Damir Ching DO [Primary Care Provider] - Time of Disposition: 09:47
[2024-03-29 09:47] LABS: EDCOVIDSCREEN Negative (Negative); EDINFLUASCREEN Negative (Negative); EDINFLUBSCREEN Negative (Negative); EDSTREPNEGPOS1 Negative (Negative)
== END 2024-03-29 10:05 | disposition home or self-care (01) ==
PROVIDERS: Emergency Provider Nurse Practitioner Family; PCP Family Medicine
DX: N39.0 Urinary tract infection, site not specified (principal); Z20.822 Contact with and (suspected) exposure to COVID-19; I10 Essential (primary) hypertension; F32.A Depression, unspecified
CPT/HCPCS: 81003; 87081; 87086; 87426; 87804; 87880; 99213; G0463

== ENCOUNTER 2024-04-03 08:02 | Emergency (ER) | payer MEDICARE, OTHER, SELFPAY ==
[2024-04-03 08:08] VITALS: BP 148/88; PULSE 87; RESP 20; TEMP 36.8; O2SAT 100
--- NOTE | 2024-04-03 08:15 | ED.GENADULT ---
HPI - General Adult General Chief complaint: Upper Respiratory Infection Stated complaint: Sore Throat/Fever/Body Aches Time Seen by Provider: 04/03/24 08:15 Source: patient, RN notes reviewed and old records reviewed Mode of arrival: ambulatory Limitations: no limitations History of Present Illness HPI narrative: 63 year old female who presents to [facility] care with complaints of sore throat and tongue pain which started yesterday. Patient reports that she just completed 5 days of Augmentin for UTI. Patient reports that tongue is so sore she can barely drink water and it feels swollen. Patient has noted redness with white plaque looking patches on tongue MD complaint: sore throat and sore tongue Onset (ago): day(s) (day 2) Severity: moderate Treatments prior to arrival: other (just completed oral antibiotic) Related Data Home Medications ?Medication ?Instructions ?Recorded ?Confirmed ?Last Taken ?Type alprazolam 0.5 mg tablet (Xanax) 0.5 mg PO TID PRN Anxiety 06/04/20 04/03/24 Unknown History dyvcvidpab-ghcukck-zxuxyrif 50 1 cap PO BID PRN Pain 01/15/22 10/01/23 Unknown History mg-325 mg-40 mg capsule celecoxib 200 mg capsule 200 mg PO BID 01/15/22 10/01/23 Unknown History ezetimibe 10 mg tablet 10 mg PO DAILY 01/15/22 10/01/23 Unknown History famotidine 40 mg tablet 40 mg PO DAILY 01/15/22 10/01/23 Unknown History hydrochlorothiazide 25 mg tablet 25 mg PO DAILY 01/15/22 10/01/23 Unknown History icosapent ethyl 1 gram capsule 1 g PO DAILY 01/15/22 10/01/23 Unknown History (Vascepa) metoprolol succinate 50 mg 50 mg PO DAILY 01/15/22 10/01/23 Unknown History tablet,extended release 24 hr nitroglycerin 0.4 mg sublingual 0.4 mg sublingual DAILY PRN Chest 01/15/22 10/01/23 Unknown History tablet Pain trazodone 150 mg tablet 300 mg PO QHS PRN Sleep 01/15/22 10/01/23 Unknown History alendronate 70 mg tablet 70 mg PO DAILY 08/05/22 10/01/23 Unknown History amlodipine 5 mg tablet 5 mg PO DAILY 08/05/22 04/03/24 Unknown History cyclobenzaprine 10 mg tablet 10 mg PO TID PRN Muscle Spasm 08/05/22 10/01/23 Unknown History ergocalciferol (vitamin D2) 1,250 50,000 unit PO WEEKLY 08/06/23 10/01/23 Unknown History mcg (50,000 unit) capsule gabapentin 600 mg tablet 600 mg PO TID 08/06/23 10/01/23 Unknown History metformin 500 mg tablet,extended 500 mg PO TID 08/06/23 10/01/23 Unknown History release 24 hr paroxetine HCl 20 mg tablet 20 mg PO DAILY 08/06/23 10/01/23 Unknown History Allergies Allergy/AdvReac Type Severity Reaction Status Date / Time bee venom protein (honey bee) Allergy Severe Anaphylaxis Verified 03/29/24 09:28 erythromycin base Allergy Unknown Rash Verified 03/29/24 09:28 Review of Systems Review of Systems: CONSTITUTIONAL: Denies fever, chills, or sweats. EYES: Denies visual changes, redness, or discharge. ENT: Denies rhinorrhea, congestion,positive sore throat and tongue soreness, no otalgia. CARDIOVASCULAR: Denies chest pain, palpitations, or edema. RESPIRATORY: Denies cough or dyspnea. GASTROINTESTINAL: Denies abdominal pain, nausea, vomiting, or diarrhea. GENITOURINARY: Denies dysuria or hematuria. SKIN: Denies rash or itching. MUSCULOSKELETAL: Chronic back pain, chronic knee joint pain, or myalgia. NEUROLOGIC: Denies headache, numbness, or weakness. PSYCHIATRIC: Reports anxiety or depression. All systems reviewed & are unremarkable except as noted in HPI and below PMFSH Past Medical History Medical History Diarrhea Syrinx of spinal cord Diastolic dysfunction Hypertension Depression Low back pain Surgical History Surgical History H/O: hysterectomy History of right knee joint replacement Hx of appendectomy S/P tonsillectomy H/O total knee replacement (~12/25/19) Family History Family History Mother Family history non-contributory Social History Social History Social History: never smoker Smoking status: Never smoker Alcohol intake: current Substance use: never Living arrangements: with family Gender identity (if verbalized by the patient): Female Sexual Orientation (if Verbalized by the Patient): Straight or Heterosexual Spiritual care concerns: No Comments At time of signature, agree with nursing past medical, surgical, social and family history. There is no relevant family history pertinent to the presenting complaint Exam Narrative: GENERAL: Well-appearing, well-nourished, and in no acute distress. HEAD: Normocephalic, atraumatic. EYES: PERRLA and EOMI. ENT: Nares clear, no rhinorrhea or epistaxis. Mucous membranes moist.TM's normal with good light reflex, throat red with tongue red with white plaque patches noted NECK: Supple.no lymphadenopathy CHEST: Clear to auscultation. No respiratory distress. no acute cough noted SAO2 100% on room air HEART: Regular rate and rhythm. No murmur heard. Normal peripheral pulses. ABDOMEN: Soft, nontender, nondistended, normal active bowel sounds. EXTREMITIES: Normal range of motion. No edema. SKIN: Warm, dry, no rash. NEURO: No focal deficits. Alert and oriented x3. Course Course Emergency Course: Patient is aware of diagnosis, understands and agrees to treatment plan.? Anticipatory guidance given.? Patient agrees to follow-up as directed and is aware of reasons to seek care at the emergency department. Portions of this record may have been created with voice recognition software Level of Care: Express Care Visit Vital Signs Vital signs: Vital Signs Temperature 36.8 C 04/03/24 08:08 Pulse Rate 87 04/03/24 08:08 Respiratory Rate 20 04/03/24 08:08 Blood Pressure 148/88 H 04/03/24 08:08 Pulse Oximetry 100 04/03/24 08:08 Oxygen Delivery Room Air 04/03/24 08:08 Temperature 36.8 C 04/03/24 08:08 Pulse Rate 87 04/03/24 08:08 Respiratory Rate 20 04/03/24 08:08 Blood Pressure 148/88 H 04/03/24 08:08 Pulse Oximetry 100 04/03/24 08:08 Oxygen Delivery Room Air 04/03/24 08:08 Reviewed Medical Decision Making MDM Narrative Medical decision making narrative: Exam findings and imaging show no acute concerns or changes; patient is non-toxic appearing and is in no distress.? Patient is appropriate for outpatient treatment and follow-up Differential Diagnosis Differential Diagnosis: sore throat and tongue, thrush,oral candidiasis Medical Records Medical records reviewed: Yes I reviewed the external patient's medical records. Vital Signs Vital Signs: Vital Signs Temperature 36.8 C 04/03/24 08:08 Pulse Rate 87 04/03/24 08:08 Respiratory Rate 20 04/03/24 08:08 Blood Pressure 148/88 H 04/03/24 08:08 Pulse Oximetry 100 04/03/24 08:08 Oxygen Delivery Room Air 04/03/24 08:08 Temperature 36.8 C 04/03/24 08:08 Pulse Rate 87 04/03/24 08:08 Respiratory Rate 20 04/03/24 08:08 Blood Pressure 148/88 H 04/03/24 08:08 Pulse Oximetry 100 04/03/24 08:08 Oxygen Delivery Room Air 04/03/24 08:08 reviewed Critical Care Time Critical Care Time Critical Care Time: No Discharge Plan Discharge Clinical Impression: Oral thrush Patient Disposition: Home, Self-Care Condition: Stable Instructions: Antibiotic Form, Oral Candidiasis (ED) Additional Instructions: Avoid temperature extremes May apply heat or ice to the face Gentle brushing and flossing Avoid spicy food, citrus foods, alcohol or caffeine Tylenol for lesser pain Use ibuprofen regularly Use the medication as provided for severe pain--caution each tablet contains 325 mg of Tylenol--the maximum dose of Tylenol is 4000 mg in 24 hours. This medication may cause constipation consider starting a laxative at this time, has pain RX at home Nystatin as prescribed If your symptoms persist, change or worsen significantly before you can contact your personal physician then please, without delay, go to the emergency department for further evaluation. Follow-up with PCP in 7-10 days or sooner if needed Follow up with PCP soon in regards to your blood pressure which is elevated above threshold for referral. Blood pressure above 120/80 may indicate pre-hypertension. Patient Language: Persian Prescriptions: New nystatin 100,000 unit/mL suspension 2 ml PO QID 10 Days Qty: 80 0RF Rx Instructions: administer 1/2 of dose in each side of the mouth swish and swallow No Action amlodipine 5 mg tablet 5 mg PO DAILY alendronate 70 mg tablet 70 mg PO DAILY cyclobenzaprine 10 mg tablet 10 mg PO TID PRN (Reason: Muscle Spasm) diphenoxylate-atropine [Lomotil] 2.5-0.025 mg tablet 1 tablet PO TID PRN (Reason: diarrhea) Qty: 15 0RF paroxetine HCl 20 mg tablet 20 mg PO DAILY metformin 500 mg tablet extended release 24 hr 500 mg PO TID gabapentin 600 mg tablet 600 mg PO TID ergocalciferol (vitamin D2) 1,250 mcg (50,000 unit) capsule 50,000 unit PO WEEKLY amoxicillin-pot clavulanate [Augmentin] 500-125 mg tablet 1 tablet PO BID 5 Days Qty: 10 0RF celecoxib 200 mg capsule 200 mg PO BID metoprolol succinate 50 mg tablet extended release 24 hr 50 mg PO DAILY ayojdwlpds-sfqicrq-ldbaunqq 50-325-40 mg capsule 1 cap PO BID PRN (Reason: Pain) trazodone 150 mg tablet 300 mg PO QHS PRN (Reason: Sleep) icosapent ethyl [Vascepa] 1 gram capsule 1 g PO DAILY famotidine 40 mg tablet 40 mg PO DAILY nitroglycerin 0.4 mg tablet, sublingual 0.4 mg sublingual DAILY PRN (Reason: Chest Pain) hydrochlorothiazide 25 mg tablet 25 mg PO DAILY ezetimibe 10 mg tablet 10 mg PO DAILY alprazolam [Xanax] 0.5 mg tablet 0.5 mg PO TID PRN (Reason: Anxiety) tramadol 50 mg tablet 50 mg PO Q8H PRN (Reason: pain (scale score 7-10)) Qty: 50 0RF hydrocodone-acetaminophen 10-325 mg tablet 1 tablet PO Q8H PRN (Reason: pain (scale score 7-10)) Qty: 90 0RF Rx Instructions: To last 30 days, due 12/12/2020 Follow-up/Referrals: Gentry,Damir Ching DO [Primary Care Provider] - Time of Disposition: 08:31 Quality Kristal Coma Scale Eyes: Open Verbal: Oriented and Alert Motor: Follows Commands Kristal Coma Total Score: 15
--- OUTSIDE RECORDS SUMMARY | 2024-04-03 08:19 | XMS_ITS | Referral Summary ---
Author Organization [facility] [address] Address [address] [place] [address] Care Team Providers Care Promotional Marketing Agent Name Role Phone AlisiaKeysha silvern Jose Daniel Primary Care Provider [phone] Bryan Simeon MD Unavailable [phone] Jerry Leos NP Unavailable [phone] Beryl Mendoza PT Unavailable Unavailable Encounters Date Type Department Care Team Description 03/27/2024 8:00 AM PARISH NURSE - 03/27/2024 11:59 PM PARISH NURSE Hospital Encounter [address] [address] Age-related osteoporosis without current pathological fracture Discharge Disposition: Discharge to home or self care 02/29/2024 8:15 AM PARISH NURSE Office Visit [facility] and Sports Medicine [address] [facility] [address] [place] [address] Wil De Dios PA Primary osteoarthritis of left knee (Primary Dx); History of meniscectomy of left knee; Pes anserinus bursitis of right knee; History of total knee arthroplasty, right 01/31/2024 8:20 AM PARISH NURSE - 01/31/2024 11:59 PM PARISH NURSE Hospital Encounter [address] [address] 1Saniya Rad Rn Rad, Amh Breast Other abnormal and inconclusive findings on diagnostic imaging of breast Discharge Disposition: Discharge to home or self care 01/17/[address] [address] Maisha Huerta RN 01/17/2024 Telephone [facility] [address] [place] [address] Maisha Huerta RN 01/16/2024 Telephone [facility] [address] [place] [address] Maisha Huerta RN 01/05/2024 9:50 AM PARISH NURSE - 01/05/2024 11:59 PM PARISH NURSE Hospital Encounter [facility] [address] [place] [address] Other abnormal and inconclusive findings on diagnostic imaging of breast Discharge Disposition: Discharge to home or self care 01/05/2024 9:49 AM PARISH NURSE - 01/05/2024 11:59 PM PARISH NURSE Hospital Encounter [facility] [address] [place] [id number] Other abnormal and inconclusive findings on diagnostic [...] 1 tablet (50 mg total) by mouth 0 Active cyclobenzaprine (FLEXERIL) 10 mg tablet 1 TABLET 3 TIMES A DAY NEEDED 3 Active ALPRAZolam (XANAX) 0.5 mg tablet TAKE 1 TABLET BY MOUTH THREE TIMES A DAY NEEDED FOR ANXIETY 3 Active aspirin 81 mg enteric coated tabletIndicatio ns:prevention of thrombosis Take 1 tablet (81 mg total) by mouth 2 (two) times a day for 14 days 28 tablet 3 Active senna-docusate (PERICOLACE) 8.6-50 mg 1-2 times daily as needed for constipation 60 tablet 1 3 Active traMADoL (ULTRAM) 50 mg tablet TAKE 2 TABLETS BY MOUTH 3 TIMES A DAY NEEDED 3 Active HYDROcodone-nadya taminophen (NORCO) 10-325 mg per tablet Take 1 tablet by mouth 3 (three) times a day as needed 4 Active traZODone (DESYREL) 150 mg tablet Take 1 tablet (150 mg total) by mouth nightly Active benzocaine-ment hoL (CHLORASEPTIC) 6-10 mg lozenge Take 1 lozenge by mouth every 4 (four) hours as needed for sore throat 36 tablet 4 Active losartan (COZAAR) 25 mg tablet Take 1 tablet (25 mg total) by mouth daily Active pantoprazole DR (PROTONIX) 40 mg EC tablet Take 1 tablet (40 mg total) by mouth daily 4 Active Active Problems Problem Noted Date Diagnosed Date [...] is overdue for follow up with her filler shredder, Dr. Lala, in [place]. She will follow up soon. Patient has pain medication at home from her paint stripper should pain return. Other possibilities for pain [...] drink = 0.6 oz pur e alcohol) [facility] Utilities Answer Date Recorded In the past 12 months has e electric, gas, oil, or water company [...] often do you attend chur ch or restorationism services? Never 10/09/2023 Do you belong to any clubs o r organizations such as episcopal groups, unions, fraternal or athletic groups, or [...] any time in the past 12 m [facility], were you homeless or living in a fpc (including now)? No 10/09/2023 Personal Safety Answer Date Recorded Have you ever been in or are you currently in a harmful physical or emotional relationship or is someone making you feel afraid or unsafe? Denies 10/07/2023 Comments No Sex and Gender Information Value Date Recorded Sex Assigned at Not on file Legal Sex Female 1:44 AM PARISH NURSE Gender Identity Not on file Sexual Orientation Not on file Last Filed Vital Signs Vital Sign Reading Time Taken Comments Blood Pressure 137/92 02/29/2024 8:10 AM PARISH NURSE Pulse 103 02/29/2024 8:10 AM PARISH NURSE Temperature 35.8 C (96.4 F) 01/31/2024 8:45 AM PARISH NURSE Respiratory Rate 16 01/31/2024 8:45 AM PARISH NURSE Oxygen Saturation 95% 10/10/2023 8:08 AM CDT Inhaled Oxygen Concentration - - Weight 86.3 kg (190 lb 3.2 oz) 02/29/2024 8:10 A M PARISH NURSE Height 157.5 cm (5' 2 ) 02/29/2024 8:10 AM PARISH NURSE Body Mass Index 34.79 02/29/2024 8:10 AM PARISH NURSE Plan of Treatment Not on file Medical Devices Implanted Type Area Material Spreader Device Identifier Shelf Expiration Date Model / Serial / Lot AlphaStripe Marker Tissue Bowtie Shape Titanium Collagen Mammomark 10ga [id number] - [id number] - [id number] Implanted:Qty : 1 on 01/31/2024 by Kerry Bhat MD at [facility] Breast Left: Breast Cre[employer] [id number] 05/01/2025 [id number] / [id number] / [id number] D Description:Stereotactic lef t breast biopsy 11-12 o'clock area. Cores x6 Microcalcs in cassettes 1 and 6. Procedures Procedure Name Priority Date/Time Associated Diagnosis Comments DEXA AXIAL SKELETON BONE DENSITY 1 OR MORE SITES Schedule Routine, Read Routine (OP Routine) 03/27/2024 8:27 AM PARISH NURSE Age-related osteoporosis without current pathological fracture CO ARTHROCENTESIS ASPIR&/INJ MAJOR JT/BURSA W/O US Routine 02/29/2024 8:15 AM PARISH NURSE Pes anserinus bursitis of right knee CO ARTHROCENTESIS ASPIR&/INJ MAJOR JT/BURSA W/O US Routine 02/29/2024 8:15 AM PARISH NURSE Primary osteoarthritis of left knee SURGICAL PATHOLOGY Routine 01/31/2024 10:47 AM PARISH NURSE Other abnormal and inconclusive findings on diagnostic imaging of breast STEREOTACTIC BREAST BIOPSY LEFT Schedule Routine, Read Routine (OP Routine) 01/31/2024 10:19 AM PARISH NURSE Other abnormal and inconclusive findings on diagnostic imaging of breast US BREAST LEFT LIMITED Schedule Routine, Read Routine (OP Routine) 01/05/2024 10:56 AM PARISH NURSE Other abnormal and inconclusive findings on diagnostic imaging of breast DIAGNOSTIC MAMMOGRAM BILATERAL W PETER Schedule Routine, Read Routine (OP Routine) 01/05/2024 10:23 AM PARISH NURSE Other abnormal and inconclusive findings on diagnostic imaging of breast COLONOSCOPY 10/27/2022 8:16 AM CDT from Last 3 Months or Most Recently Relevant to Health Maintenance Results * Dexa Axial Skeleton Bone Density 1 or 2 Site (03/27/2024 8:27 AM PARISH NURSE) Anatomical Region Laterality Modality Body N/A Other 03/27/2024 4:56 PM PARISH NURSE Narrative 03/27/2024 4:57 PM PARISH NURSE EXAM DESCRIPTION: DEXA AXIAL SKELETON BONE DENSITY 1 OR MORE SITES REASON FOR STUDY: 63 y/o year old F with given history of: age-related osteoporosis Postmenopausal. Material Spreader/Model: [email or web address] Discovery SL (S/N [id number]) Facility LSC value of 0.022 for the [...] Arcadio Goel M.D. MF: TAM Report ID: [id number] Reading Location: [place] [address] Procedure Note Arcadio Goel MD - 03/27/2024 EXAM DESCRIPTION: DEXA AXIAL SKELETON BONE DENSITY 1 OR MORE SITES REASON FOR STUDY: 63 y/o year old F with given history of:age-related osteoporosis Postmenopausal. Material Spreader/Model: [email or web address] Discovery SL (S/N [id number]) Facility LSC value of 0.022 for the [...] Arcadio Goel M.D. MF: TAM Report ID: [id number] Reading Location: [place] [address] Damir Rinaldi DO IMG DXA PROCEDURES Final R esult * CO ARTHROCENTESIS ASPIR&/INJ MAJOR JT/BURSA W/O US (02/29/2024 8:15 AM PARISH NURSE) Wil Urena PA - 02/29/2024 8:15 AM PARISH NURSE Wil De Dios PA 02/29/2024 9:02 AM [...] IN CLINIC/BEDSIDE LINDA OLIVA Final Result * CO ARTHROCENTESIS ASPIR&/INJ MAJOR JT/BURSA W/O US (02/29/2024 8:15 AM PARISH NURSE) Wil Urena PA - 02/29/2024 8:15 AM PARISH NURSE Wil De Dios PA 02/29/2024 9:02 AM [...] Result * Surgical pathology (01/31/2024 10:47 AM PARISH NURSE) Tissue (Breast biopsy, needle core) 01/31/2024 9:52 AM PARISH NURSE Comment:Stereotactic left br east biopsy 11-12 o'clock area. Cores x6 Microcalcs in cassettes 1 and 6. Narrative PATHOLOGY [facility] - 02/01/2024 4:14 PM PARISH NURSE EPIC results best viewed via link to PDF [facility] Department of Pathology [address] [place] [address] Note to Patients: This report may contain [...] Final Report Patient Name: ROMA PAGE Address: [address] [place] [address] Gender: F : 1960 (Age: 63) Service: Location: [facility] : [id number] [facility] #: [id number] Patient Type: [facility] ANCILLARY Taken: 01/31/2024 Received: 01/31/2024 Accessioned: 01/31/2024 [...] determined by the Surgical Pathology Department at [facility] as part of an ongoing air quality specialist program and in compliance with federally mandated [...] characteristics determined by the Surgical Pathology Department [facility]. It has not been cleared or approved by the U. S. Food and Drug Administration. Note for decalcified specimens: This assay has not been validated on decalcified tissues. Results should be interpreted with caution given the possibility of false negativity on decalcified specimens us Damir Rinaldi DO LAB PATHOLOGY ORDERABLES F inal Result PATHOLOGY [facility] ([place]) [address] [place] [address] * Stereotactic Breast Biopsy Left (01/31/2024 10:19 AM PARISH NURSE) Anatomical Region Laterality Modality Breast Left Mammography 01/31/2024 2:31 PM PARISH NURSE Addenda Addendum by Kerry Bhat MD on 02/09/2024 6:49 PM PARISH NURSE The pathology shows fibrocystic change with calcifications present. This is concordant with the imaging findings. The patient may return to screening mammography as per ACR guidelines. BI-RADS 2-benign findings Electronically signed by: Kerry Bhat M.D. Impressions 01/31/2024 2:31 PM PARISH NURSE Successful vacuum-assisted core needle biopsy of the LEFT breast. Pathology is pending. ASSESSMENT: Post Procedure Mammograms for Marker Placement Electronically signed by: Kerry Bhat M.D. Narrative 01/31/2024 2:31 PM PARISH NURSE EXAMINATION: LEFT STEREOTACTIC BREAST VACUUM-ASSISTED CORE BIOPSY [...] US Breast Left Limited (01/05/2024 10:56 AM PARISH NURSE) Anatomical Region Laterality Modality Breast Left Ultrasound 01/05/2024 5:13 PM PARISH NURSE Impressions 01/05/2024 5:13 PM PARISH NURSE 1. Multiple bilateral tiny circumscribed nodules are stable and considered a benign finding. 2. Stereotactic/tomographic guided biopsy is now recommended for the calcifications in the left breast. OVERALL FINAL ASSESSMENT: BI-RADS 4b-moderate suspicion for malignancy Electronically signed by: Kerry Bhat M.D. Narrative 01/05/2024 5:13 PM PARISH NURSE EXAMINATION: BILATERAL DIGITAL DIAGNOSTIC MAMMOGRAM AND DIGITAL [...] These are considered benign. Damir Rinaldi DO G MAMMO PROCEDURES Final Result * (ABNORMAL) Diagnostic Mammogram Bilateral W Peter (01/05/2024 10:23 AM PARISH NURSE) Anatomical Region Laterality Modality Breast Bilateral Mammography 01/05/2024 5:1 3 PM PARISH NURSE Impressions 01/05/2024 5:13 PM PARISH NURSE 1. Multiple bilateral tiny circumscribed nodules are stable and considered a benign finding. 2. Stereotactic/tomographic guided biopsy is now recommended for the calcifications in the left breast. OVERALL FINAL ASSESSMENT: BI-RADS 4b-moderate suspicion for malignancy Electronically signed by: Kerry Bhat M.D. Narrative 01/05/2024 5:13 PM PARISH NURSE EXAMINATION: BILATERAL DIGITAL DIAGNOSTIC MAMMOGRAM AND DIGITAL [...] DO IMG MAMMO PROCEDURES Final Result * COLONOSCOPY (10/27/2022 8:16 AM CDT) Anatomical Region Laterality Modality Other Narrative Procedure Note Karen Ronquillo MD - 10/27/2022 8:[address] [facility] Patient Name: Roma Page Procedure Date: 10/27/2022 8:16 AM Date of : 1960 Admit Type: Outpatient Age: 62 Gender: Female Attending MD: Karen Ronquillo M.D. Room: [facility] ENDOSCOPY ROOM 2 Note Status: Finalized Patient [...] by the physician, the anesthesiologist and the fire control technician g in the endoscopy suite. MentalStatus Examination: normal. [...] scope was passed under direct vision. TheColonoscope [id number] was introduced through the anus and advanced [...] perforation orabscess without bleeding CPT copyright 2020 [employer]. All rights reserved. The codes documented in this report are preliminary and upon hog sticker reviewmay be revised to meet current compliance requirements. Recognized by the [employer] [employer] for promoting quality in endoscopy Karen Ronquillo MD ENDOSCOPY PROCEDURES Final Resul t from Last 3 Months or Most Recently Relevant to Health Maintenance Insurance MEDICARE [facility] [place] MEDICARE COMMERCIAL GENERIC REPLACED BY [facility] EMPLOYEE HEALTH PLANS Address: [address] [place] [address] [employer]IC[employer] [facility] [place] MEDICARE [employer]ICI[employer] [place] Advance Directives For more information, please contact: [phone] * Full Code (Latest Code Status on [...] Agents on File Name Relationship Healthcare [facility] Ava [place] Daughter [employer] Car e Agent Care Teams Promotional Marketing Agent Relationship Specialty Start Date End Date Damir Rinaldi DO PCP - General Family Medicine 05/08/19 Bryan Simeon MD Consulting Physician Cardiology 01/10/23 Jerry Leos NP [address] [place] [address] [place] [address] Nurse Practitioner Orthopedic Surgery 01/17/23 Beryl Mendoza, PT Physical Therapist Physical Therapy 06/16/23
--- OUTSIDE RECORDS SUMMARY | 2024-04-03 08:19 | XMS_ITS | CONTINUITY OF CARE DOCUMENT ---
Author Name jose angel walter Address Unknown Organization [facility] Address [address] [place] [address] Phone [phone] Care Team Providers Care Smt Technician Name Role Phone Bryan Simeon MD Unavailable [phone] HALLIE TAVARES MD Unavailable [phone] HALLIE TAVARES MD Unavailable [phone] PROBLEMS Condition Status Date Provider Notes Family [...] In-person encounter Office Visit Bryan Simeon MD [facility] Diastolic DysfunctionChest pain-type to be determined 7 - 1 In-person encounter Office Visit Bryan Simeon MD [facility] 1 - 2 In-person encounter Office Visit Bryan Simeon MD [facility] Carotid artery disease - 50-69% JERICHO, <50% LICA 03/2023 2 - 4 In-person encounter Office Visit Bryan Simeon MD [facility] Elevated c-reactive protein 0 - 1 In-person encounter Office Visit Bryan Simeon MD [facility] Chest pain - nml cors on cath 04/25/22 6 - 6 In-person encounter Office Visit Bryan Simeon MD [facility] 6 - 8 In-person encounter Office Visit Bryan Simeon MD [facility] 4 - 6 In-person encounter Office Visit Bryan Simeon MD [facility] 1 - 1 In-person encounter Office Visit Byran Simeon MD [facility] Bradycardia sinusSinus bradycardiaFamily Hx heart diseasePrediabetes 1 - 1 In-person encounter Office Visit Bryan Simeon MD [facility] Statin Intolerant,myalgias with daily atorvastatinHypercholesterolemia 1 - 1 In-person encounter Office Visit Bryan Simeon MD [facility] 3 - 3 In-person encounter Office Visit Bryan Simeon MD [facility] 4 - 4 In-person encounter Office Visit Bryan Simeon MD [facility] Chest pain - nml cors on cath 04/25/22 6 - 6 In-person encounter Office Visit Bryan Simeon MD [facility] Sleep apnea 2 - 2 In-person encounter Office Visit Bryan Simeon MD [facility] 1 - 1 In-person encounter Office Visit Bryan Simeon MD [facility] Edema - localizedFatigue 0 - 0 In-person encounter Office Visit Bryan Simeon MD [facility] Dizziness 3 - 4 In-person encounter Office Visit Bryan Simeon MD [facility] Family History of CVA or Stroke:HTN essentialDiastolic CHFSyncope and collapseObesityDyspnea on exertion VITAL SIGNS Date Observation Value Provider Body Mass Index (Ratio) 34.38 kg/m2 Bryce Simeon MD blood pressure, diastolic 80 mm[Hg] Montana Farnsworth blood pressure, systolic 130 mm[Hg] Kelly Farnsworth oxygen saturation, oximetry 98 % Randa Farnsworth pulse rate 74 /min Randa Weiss [facility] weight E&M 188 [lb_av] Randa Weiss [facility] height E&M 62 [in_i] Randa Weiss [facility] Body Mass Index (Ratio) 38.22 kg/m2 Bryce Simeon MD pulse rate 83 /min Nailalalitha Pisano blood pressure, cuff size regular aGlindo Pisano blood pressure, diastolic 103 mm[Hg] Ta nidhi Pisano blood pressure, systolic 161 mm[Hg] Tab ithlalitha Pisano oxygen saturation, oximetry 98 % [facility] respiratory rate E&M 20 /min [facility] weight E&M 209 [lb_av] [facility] height E&M 62 [in_i] [facility] Body Mass Index (Ratio) 42.06 kg/m2 Jesus Gutierrez blood pressure, cuff size large [facility] blood pressure, diastolic 84 mm[Hg] [facility] blood pressure, systolic 128 mm[Hg] [facility] pulse rate 87 /min [facility] oxygen saturation, oximetry 100 % [facility] respiratory rate E&M 14 /min Sarah Harrell [facility] weight E&M 230 [lb_av] [facility] height E&M 62 [in_i] [facility] Body Mass Index (Ratio) 43.53 kg/m2 Bryce [...] blood pressure, systolic 154 mm[Hg] Harsh abiodun Mario oxygen saturation, oximetry 100 % Lisa Mario pulse rate 70 /min Lisa Lohma n respiratory rate E&M 16 /min Horacio ie [place] blood pressure, cuff size large [facility] [place] weight E&M 231 [lb_av] Lisa Lohma n height E&M 62 [in_i] Lisaaide Stevens n Body Mass Index (Ratio) 42.28 kg/m2 Bryce Simeon MD blood pressure, cuff size regular benji Madden blood pressure, diastolic 98 mm[Hg] benji Madden blood pressure, systolic 120 mm[Hg] [facility] rylie Madden oxygen saturation, oximetry 98 % [...] Michaelle Blayne weight E&M 238.6 [lb_av] Michaelle Balyne height E&M 62 [in_i] Michaelle Blayne Body [...] blood pressure, systolic 132 mm[Hg] Tra mikal [facility] respiratory rate E&M 16 /min Kira Ellie [...] [lb_av] Maddy Lashawn height E&M 62 [in_i] [facility] Body Mass Index (Ratio) 40.60 kg/m2 Bryce Simeon MD pulse rate 70 /min [facility] oxygen saturation, oximetry 97 % [facility] blood pressure, diastolic 90 mm[Hg] Raymundo gerardo [facility] blood pressure, systolic 124 mm[Hg] [facility] jennifer [facility] respiratory rate E&M 16 /min [facility] weight E&M 222 [lb_av] [facility] blood pressure, resting Yes [facility] height E&M 62 [in_i] [facility] Body Mass Index (Ratio) 40.60 kg/m2 [...] Iglesiase er blood pressure, diastolic 80 mm[Hg] Ut donavan Tilley blood pressure, systolic 118 mm[Hg] Ni Tilley pulse rate 80 /min Kenzie Tilley oxygen saturation, oximetry 94 % Kenzie Tilley respiratory rate E&M 16 /min Kenzie Tilley Body Mass Index (Ratio) 39.76 kg/m2 Cira Tilley weight E&M 217.4 [lb_av] Kenzie Tilley Body Mass Index (Ratio) 34.02 kg/m2 Lyle rajat Jarquin blood pressure, diastolic 90 mm[Hg] [facility], systolic 140 mm[Hg] Kelly Iglesiasdell pulse rate 65 /min Randa Weiss [facility] oxygen saturation, oximetry 97 % Randa Iglesiasdell respiratory rate E&M 16 /min Randa [facility] weight E&M 186 [lb_av] Randa [...] [employer] Other H [id number] [place] Medicare [id number] ADVANCE DIRECTIVES Name Date DISCUSSED - NO DECISION MADE TREATMENT PLAN Date Name Performer [id number],W, Bryan Montenegro ra[place] [id number],S, Bryan Montenegro ra[place] [id number],S, Bryan [place] [id number],S, Bryan [place] [id number],S, Carol P today: 140/76 P rior BP: [...] mouth once a day Bryan Simeon MD [id number],S, H er updated medication list for this [...] mouth once a day Bryan Simeon MD [id number],SBryan ra, [place] [id number],W, H er updated medication list for this problem includes: Ezetimibe 10 Mg Tablet (Ezetimibe) ..... Take 1 tablet by mouth every day Bryan Simeon MD [id number],SBryan ra, [place] [id number],BBryan ra, MD [id number],SBryan ra, [place] [id number],B, Bryan [place] [id number],W, B P today: 163/91 P rior BP: [...] mouth once a day Bryan Simeon MD [id number],SBryan ra[place] [id number],S, H er updated medication list for this problem includes: Ezetimibe 10 Mg Tablet (Ezetimibe) ..... Take 1 tablet by mouth every day Bryan Simeon MD [id number],SBryan ra, [place] [id number],SBryan ra, [place] [id number],SBryan ra, [place] [id number],W, H er updated medication list for this problem includes: Ezetimibe 10 Mg Tablet (Ezetimibe) ..... Take 1 tablet by mouth every day Bryan Simeon MD [id number],SBryan ra, [place] [id number],W, B P today: 154/104 P rior BP: [...] mouth once a day Bryan Simeon MD [id number],S, H er updated medication list for this [...] mouth once a day Bryan Simeon MD [id number],WBryan ra, [place] [id number],S, Bryan Montenegro ra, [place] [id number],SBryan ra, [place] [id number],WBryan ra, [place] [id number],S, H er updated medication list for this problem includes: Ezetimibe 10 Mg Tablet (Ezetimibe) ..... Take 1 tablet by mouth every day Bryan Simeon MD [id number],S, H er updated medication list for this [...] mouth once a day Bryan Simeon MD [id number],S, B P today: 120/98 P rior BP: [...] mouth once a day Bryan Simeon MD [id number],S, The following medications were removed from the [...] mouth once a day Bryan Simeon MD [id number],S,B P is slightly elevated. B P today: [...] mouth once a day Bryan Simeon MD [id number],S,wears cpap 3x a week. Bryan Simeon MD [id number],W,r eoccurence of chest pain. will start on Toprolol XL and get some labs and echho results. O rders: 9 9214 MOD 30-39min (CPT-65358) C omplete Echo (CPT-20688) P ROBNP, N TERMINAL (20132) D -DIMER, QUANTITATIVE (3145) C BC (H/H, RBC, INDICES, WBC, PLT) (5656) T SH, 3RD GENERATION W/REFLEX TO FT4 (86596) Her updated medication list for this problem [...] results. O rders: 9 9214 MOD 30-39min (CPT-96692) C omplete Echo (CPT-16107) P ROBNP, N TERMINAL (20012) D -DIMER, QUANTITATIVE (4826) C BC (H/H, RBC, INDICES, WBC, PLT) (6362) T SH, 3RD GENERATION W/REFLEX TO FT4 (91771) Her updated medication list for this problem [...] this problem includes: Ranexa 1000 Mg Oral [id number] (Ranolazine) ..... One po bid Hyzaar 50-12.5 Mg Tabs (Losartan potassium-hctz) ..... One po daily Aspirin 81 Mg Tabs (Aspirin) ..... One tab. daily Nitrostat Subl (Nitroglycerin subl) ..... Take as directed Bryan Simeon MD Cardiology: H er updated medication list for this problem includes: Ranexa 1000 Mg Oral [id number]-fta (Ranolazine) ..... One po bid Aspirin 81 Mg Tabs (Aspirin) ..... One tab. daily Nitrostat Subl (Nitroglycerin subl) ..... Take as directed Bryan Simeon MD Cardiology Bryan Orellana Cardiology: H er updated medication list for this problem includes: Ranexa 1000 Mg Oral [id number]-stl (Ranolazine) ..... One po bid Aspirin 81 [...] this problem includes: Ranexa 500 Mg Oral [id number] (Ranolazine) ..... One tablet twice daily Aspirin 81 Mg Tabs (Aspirin) ..... One tab. daily Nitrostat Subl (Nitroglycerin subl) ..... Take as directed Bryan Simeon MD Cardiology Follow up Bryan macias MD Cardiology Follow up : H er updated medication list for this problem includes: Ranexa 500 Mg Oral [id number] (Ranolazine) ..... One tablet twice daily Aspirin [...] ..... Take as directed Orders: Jaylyn KG (CPT-63795) Bryan Simeon MD Follow up : H [...] One tab. daily Orders: Shannan omplete Echo (CPT-75677) M obile Cardiac Tele (CPT-51406) Bryan Simeon MD hos follow up: H er updated medication list for this problem includes: Aspirin 81 Mg Tabs (Aspirin) ..... One tab. daily Nitrostat Subl (Nitroglycerin subl) ..... Take as directed & #13;Orders: Shannan omplete Echo (CPT-99495) M obile Cardiac Tele (CPT-53431) Bryan Simeon MD hos follow up: H er updated medication list for this problem includes: Aspirin 81 Mg Tabs (Aspirin) ..... One tab. daily Alprazolam 0.5 Mg Tabs (Alprazolam) ..... 1 tab twice daily Nitrostat Subl (Nitroglycerin subl) ..... Take as directed Orders: Shannan omplete Echo (CPT-38313) M obile Cardiac Tele (CPT-66939) Bryan Simeon MD hos follow up: O rders: Shannan omplete Echo (CPT-64413) M obile Cardiac Tele (CPT-27431) d iet and exercise for weight loss and cardiovascualr risk reduction Bryan Simeon MD hos follow up: H er updated medication list for this problem includes: Hyzaar 50-12.5 Mg Tabs (Losartan potassium-hctz) ..... One po daily Aspirin 81 Mg Tabs (Aspirin) ..... One tab. daily Nitrostat Subl (Nitroglycerin subl) ..... Take as directed n o recurrence O rders: C omplete Echo (CPT-28032) M obile Cardiac Tele (CPT-23659) Bryan Simeon MD hos follow up: O rders: Shannan omplete Echo (CPT-34365) M obile Cardiac Tele (CPT-95719) Bryan Simeon MD hos follow up: O rders: C omplete Echo (CPT-91402) M obile Cardiac Tele (CPT-92674) Bryan Simeon MD hos follow up: H er updated medication list for this problem includes: Hyzaar 50-12.5 Mg Tabs (Losartan potassium-hctz) ..... One po daily Aspirin 81 Mg Tabs (Aspirin) ..... One tab. daily Nitrostat Subl (Nitroglycerin subl) ..... Take as directed Orders: Shannan omplete Echo (CPT-06150) M obile Cardiac Tele (CPT-96064) Bryan Smieon MD hos follow up: H er updated medication list for this problem includes: Hyzaar 50-12.5 Mg Tabs (Losartan potassium-hctz) ..... One po daily Aspirin 81 Mg Tabs (Aspirin) ..... One tab. daily Orders: Shannan omplete Echo (CPT-52793) M obile Cardiac Tele (CPT-10161) BP today: 155/91 Bryan Simeon MD Date [...] EKG Cathleen Shukla MD complet ed SNOMED-CT: [id number] Current Medications Documented Bryan Simeon MD completed SNOMED-CT: [id number] Current Medications Documented Bryan Simeon MD completed EKG Bryan Simeon MD complet ed SNOMED-CT: [id number] 016834 Current Medications Documented Bryan Simeon MD completed EKG Bryan Simeon MD complet ed EKG Bryan Simeon MD complet ed
--- OUTSIDE RECORDS SUMMARY | 2024-04-03 08:19 | XMS_ITS | Clinical Summary ---
Author Organization [facility] Medical Office Building [address] Address [address] [place] [address] Care Team Providers Care Academic Specialist Name Role Phone Keysha Rinaldin Jose Daniel Primary Care Provider [phone] Bryan Simeon MD Unavailable [phone] Jerry Leos NP Unavailable Beryl Mendoza PT Unavailable Unavailable Allergies Active [...] is overdue for follow up with her job setter, Dr. Lala, in [place]. She will follow up soon. 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 Other possibilities for pain [...] Department Care Team Description 03/27/2024 8:00 AM CASEWORKER INTAKE - 03/27/2024 11:59 PM CASEWORKER INTAKE Hospital Encounter [facility] Imaging Center [address] [place] [address] Age-related osteoporosis without current pathological fracture Discharge Disposition: Discharge to home or self care 02/29/2024 8:15 AM CASEWORKER INTAKE Office Visit [facility] Orth[facility]ics and Sports Medicine [address] [facility] [address] [place] [id number] Wil De Dios PA Primary osteoarthritis of left knee (Primary Dx); History of meniscectomy of left knee; Pes anserinus bursitis of right knee; History of total knee arthroplasty, right 01/31/2024 8:20 AM CASEWORKER INTAKE - 01/31/2024 11:59 PM CASEWORKER INTAKE Hospital Encounter [facility] [address] [place] [id number] 1, Amh Rad Rn Rad, Amh Breast Other abnormal and inconclusive findings on diagnostic imaging of breast Discharge Disposition: Discharge to home or self care 01/17/2024 Telephone [facility] [address] [place] [address]44 Maisha Huerta RN 01/17/2024 [facility] [address] [place] [address] 13949 Maisha Huerta RN 01/16/2024 [facility] [address] [place] [address] 35574 Maisha Huerta RN 01/05/2024 9:50 AM CASEWORKER INTAKE - 01/05/2024 11:59 PM CASEWORKER INTAKE Hospital Encounter [facility] [address] [place] [address] Other abnormal and inconclusive findings on diagnostic imaging of breast Discharge Disposition: Discharge to home or self care 01/05/2024 9:49 AM CASEWORKER INTAKE - 01/05/2024 11:59 PM CASEWORKER INTAKE Hospital Encounter [facility] [address] [place] [address] Other abnormal and inconclusive findings on diagnostic imaging of breast Discharge Disposition: Discharge to home or self care from Last 3 Months Immunizations Name Administration Dates Next Due Td, adsorbed 02/20/2009 Surgical History Surgery Date Site/Laterality Comments VAGINAL HYSTERECTOMY Hysterectomy, vaginal APPENDECTOMY Appendectomy CHOLECYSTECTOMY 2000 Cholecystectomy OTHER SURGICAL HISTORY 1985 Endometriosis: Hysterectomy, total abdominal, BSO LUMBAR PUNCTURE WO INJECTION , DIAGNOSTIC 08/25/2014 N/A WRIST FRACTURE SURGERY COLONOSCOPY 30 years ago JOINT REPLACEMENT Right knee BREAST BIOPSY 01/31/2024 Left Medical History Medical History Date Comments Hx Other Medical [address] Endometritis Endometriosis Hx Other [...] drink = 0.6 oz pur e alcohol) [facility] Utilities Answer Date Recorded In the past 12 months has [employer], gas, oil, or water vufind threatened to shut off services in your [...] often do you attend chur ch or adventism services? Never 10/09/2023 Do you belong to any clubs o r organizations such as buddhist groups, unions, fraternal or athletic groups, or [...] any time in the past 12 m [facility], were you homeless or living in a residential (including now)? No 10/09/2023 Personal Safety Answer Date Recorded Have you ever been in or are you currently in a harmful physical or emotional relationship or is someone making you feel afraid or unsafe? Denies 10/07/2023 Comments No Sex and Gender Information Value Date Recorded Sex Assigned at Not on file Legal Sex Female 1:44 AM CASEWORKER INTAKE Gender Identity Not on file Sexual Orientation Not on file Obstetrics History Para Term AB IAB SAB Ectopic Multiple Livin g Live Births 1 1 1 Date Outcome GA Total Labor Labor/2nd/3rd Weight Sex Type Anes PTL Niharika A1 A5 Name Clin Term Last Filed Vital Signs Vital Sign Reading Time Taken Comments Blood Pressure 137/92 02/29/2024 8:10 AM CASEWORKER INTAKE Pulse 103 02/29/2024 8:10 AM CASEWORKER INTAKE Temperature 35.8 C (96.4 F) 01/31/2024 8:45 AM CASEWORKER INTAKE Respiratory Rate 16 01/31/2024 8:45 AM CASEWORKER INTAKE Oxygen Saturation 95% 10/10/2023 8:08 AM CDT Inhaled Oxygen Concentration - - Weight 86.3 kg (190 lb 3.2 oz) 02/29/2024 8:10 A M CASEWORKER INTAKE Height 157.5 cm (5' 2 ) 02/29/2024 8:10 AM CASEWORKER INTAKE Body Mass Index 34.79 02/29/2024 8:10 AM CASEWORKER INTAKE Plan of Treatment Health Maintenance Due Date [...] Discontinued 10/27/2022 Colon Cancer Screening-DNA Stool Discontinued 10/28/19 Colon Cancer Screening-FIT Discontinued 10/27/2022 Colon Cancer Screening-Sigmoidoscopy Discontinued 10/27/2022 Medical Devices Implanted Type Area Coffee Sampler Device Identifier Shelf Expiration Date Model / Serial / Lot [employer] Marker Tissue Bowtie Shape Titanium Collagen Mammomark 10ga [id number] - [id number] - [id number] Implanted:Qty : 1 on 01/31/2024 by Kerry Bhat MD at [facility] Breast Left: Breast [email or web address] [id number] 05/01/2025 [id number] / [id number] / [id number] D Description:Stereotactic lef t breast biopsy 11-12 o'clock area. Cores x6 Microcalcs in cassettes 1 and 6. Procedures Procedure Name Priority Date/Time Associated Diagnosis Comments DEXA AXIAL SKELETON BONE DENSITY 1 OR MORE SITES Schedule Routine, Read Routine (OP Routine) 03/27/2024 8:27 AM CASEWORKER INTAKE Age-related osteoporosis without current pathological fracture [place] ARTHROCENTESIS ASPIR&/INJ MAJOR JT/BURSA W/O US Routine 02/29/2024 8:15 AM CASEWORKER INTAKE Pes anserinus bursitis of right knee [place] ARTHROCENTESIS ASPIR&/INJ MAJOR JT/BURSA W/O US Routine 02/29/2024 8:15 AM CASEWORKER INTAKE Primary osteoarthritis of left knee SURGICAL PATHOLOGY Routine 01/31/2024 10:47 AM CASEWORKER INTAKE Other abnormal and inconclusive findings on diagnostic imaging of breast STEREOTACTIC BREAST BIOPSY LEFT Schedule Routine, Read Routine (OP Routine) 01/31/2024 10:19 AM CASEWORKER INTAKE Other abnormal and inconclusive findings on diagnostic imaging of breast US BREAST LEFT LIMITED Schedule Routine, Read Routine (OP Routine) 01/05/2024 10:56 AM CASEWORKER INTAKE Other abnormal and inconclusive findings on diagnostic imaging of breast DIAGNOSTIC MAMMOGRAM BILATERAL W PETER Schedule Routine, Read Routine (OP Routine) 01/05/2024 10:23 AM CASEWORKER INTAKE Other abnormal and inconclusive findings on diagnostic imaging of breast COLONOSCOPY 10/27/2022 8:16 AM CDT from Last 3 Months or Most Recently Relevant to Health Maintenance Results * Dexa Axial Skeleton Bone Density 1 or 2 Site (03/27/2024 8:27 AM CASEWORKER INTAKE) Anatomical Region Laterality Modality Body N/A Other 03/27/2024 4:56 PM CASEWORKER INTAKE Narrative 03/27/2024 4:57 PM CASEWORKER INTAKE EXAM DESCRIPTION: DEXA AXIAL SKELETON BONE DENSITY 1 OR MORE SITES REASON FOR STUDY: 63 y/o year old F with given history of: age-related osteoporosis Postmenopausal. Coffee Sampler/Model: [employer] SL (S/N 61896) Facility LSC value of 0.022 for the [...] Arcadio Goel M.D. MF: TAM Report ID: [id number] Reading Location: [id number] Procedure Note Arcadio Goel MD - 03/27/2024 EXAM DESCRIPTION: DEXA AXIAL SKELETON BONE DENSITY 1 OR MORE SITES REASON FOR STUDY: 63 y/o year old F with given history of:age-related osteoporosis Postmenopausal. Coffee Sampler/Model: [employer] Discovery SL (S/N 07139) Facility LSC value of 0.022 for the [...] see below follow up recommendations. [facility] of low bone mineral density may [...] Arcadio Goel M.D. MF: TAM Report ID: [id number] Reading Location: [id number] us Damir Rinaldi DO IMG DXA PROCEDURES Final R esult * [place] ARTHROCENTESIS ASPIR&/INJ MAJOR JT/BURSA W/O US (02/29/2024 8:15 AM CASEWORKER INTAKE) Narrative Wil De Dios PA - 02/29/2024 8:15 AM CASEWORKER INTAKE Wil De Dios PA 02/29/2024 9:02 AM [...] no immediate complications Wil GRADY IN CLINIC/BEDSIDE ORDJaylyn OLIVA Final Result * [place] ARTHROCENTESIS ASPIR&/INJ MAJOR JT/BURSA W/O US (02/29/2024 8:15 AM CASEWORKER INTAKE) Narrative Wil De Dios PA - 02/29/2024 8:15 AM CASEWORKER INTAKE Wil De Dios PA 02/29/2024 9:02 AM [...] the procedure well with no immediate complications Result [facility] Wil GRADY IN CLINIC/BEDSIDE ORD PJ Final Result * Surgical pathology (01/31/2024 10:47 AM CASEWORKER INTAKE) Tissue (Breast biopsy, needle core) 01/31/2024 9:52 AM CASEWORKER INTAKE Comment:Stereotactic left br east biopsy 11-12 o'clock area. Cores x6 Microcalcs in cassettes 1 and 6. Narrative PATHOLOGY [facility] - 02/01/2024 4:14 PM CASEWORKER INTAKE EPIC results best viewed via link to PDF [facility] Department of Pathology [address] [place] [address] Note to Patients: This report may contain [...] Final Report Patient Name: ROMA PAGE Address: [address] [place] [address] Gender: F : 1960 (Age: 63) Service: Location: Hospital #: [id number] Patient Type: [facility] ANCILLARY Taken: 01/31/2024 Received: 01/31/2024 Accessioned: 01/31/2024 [...] single formalin filled container labeled with ROMA PAGE and left breast biopsy 11-12 o'clock area [...] determined by the Surgical Pathology Department at [facility] as part of an ongoing quality control auditor program and in compliance with federally mandated [...] characteristics determined by the Surgical Pathology Department [facility]. It has not been cleared or approved by the [place]. S. Food and Drug Administration. Note for decalcified specimens: This assay has not been validated on decalcified tissues. Results should be interpreted with caution given the possibility of false negativity on decalcified specimens Damir Rinaldi DO LAB PATHOLOGY ORDERABLES F inal Result PATHOLOGY [facility] [address] [place] [address] * Stereotactic Breast Biopsy Left (01/31/2024 10:19 AM CASEWORKER INTAKE) Anatomical Region Laterality Modality Breast Left Mammography 01/31/2024 2:31 PM CASEWORKER INTAKE Addenda Addendum by Kerry Bhat MD on 02/09/2024 6:49 PM CASEWORKER INTAKE The pathology shows fibrocystic change with calcifications present. This is concordant with the imaging findings. The patient may return to screening mammography as per ACR guidelines. BI-RADS 2-benign findings Electronically signed by: Kerry Bhat M.D. Impressions 01/31/2024 2:31 PM CASEWORKER INTAKE Successful vacuum-assisted core needle biopsy of the LEFT breast. Pathology is pending. ASSESSMENT: Post Procedure Mammograms for Marker Placement Electronically signed by: Kerry Bhat M.D. Narrative 01/31/2024 2:31 PM CASEWORKER INTAKE EXAMINATION: LEFT STEREOTACTIC BREAST VACUUM-ASSISTED CORE BIOPSY [...] in the expected position. Damir Rinaldi DO [facility] MAMMO PROCEDURES Edite d Result - Final * US Breast Left Limited (01/05/2024 10:56 AM CASEWORKER INTAKE) Anatomical Region Laterality Modality Breast Left Ultrasound 01/05/2024 5:13 PM CASEWORKER INTAKE Impressions 01/05/2024 5:13 PM CASEWORKER INTAKE 1. Multiple bilateral tiny circumscribed nodules are stable and considered a benign finding. 2. Stereotactic/tomographic guided biopsy is now recommended for the calcifications in the left breast. OVERALL FINAL ASSESSMENT: BI-RADS 4b-moderate suspicion for malignancy Electronically signed by: Kerry Bhat M.D. Narrative 01/05/2024 5:13 PM CASEWORKER INTAKE EXAMINATION: BILATERAL DIGITAL DIAGNOSTIC MAMMOGRAM AND DIGITAL [...] a partial septation. These are considered benign. us Damir Sky Zulykristi DO IMG MAMMO PROCEDURES Final Result * (ABNORMAL) Diagnostic Mammogram Bilateral W Peter (01/05/2024 10:23 AM CASEWORKER INTAKE) Anatomical Region Laterality Modality Breast Bilateral Mammography 01/05/2024 5:13 PM CASEWORKER INTAKE Impressions 01/05/2024 5:13 PM CASEWORKER INTAKE 1. Multiple bilateral tiny circumscribed nodules are stable and considered a benign finding. 2. Stereotactic/tomographic guided biopsy is now recommended for the calcifications in the left breast. OVERALL FINAL ASSESSMENT: BI-RADS 4b-moderate suspicion for malignancy Electronically signed by: Kerry Bhat M.D. Narrative 01/05/2024 5:13 PM CASEWORKER INTAKE EXAMINATION: BILATERAL DIGITAL DIAGNOSTIC MAMMOGRAM AND DIGITAL [...] Ronquillo MD - 10/27/2022 8:16 AM CDT [facility] Patient Name: Roma Page Procedure Date: 10/27/2022 8:16 AM Date of : 1960 Admit Type: Outpatient Age: 62 Gender: Female Attending MD: Karen Ronquillo M.D. Room: [facility] ENDOSCOPY ROOM 2 Note Status: Finalized Patient [...] by the physician, the anesthesiologist and the medical lab technician in the endoscopy suite. MentalStatus Examination: [...] scope was passed under direct vision. TheColonoscope [id number] was introduced through the anus and advanced [...] perforation orabscess without bleeding CPT copyright 2020 [employer]. All rights reserved. The codes documented in this report are preliminary and upon plating foreman reviewmay be revised to meet current compliance requirements. Recognized by the [place] [employer] for promoting quality in endoscopy Karen Ronquillo MD ENDOSCOPY PROCEDURES Final Resul t from Last 3 Months or Most Recently Relevant to Health Maintenance Insurance MEDICARE [facility] [place] MEDICARE COMMERCIAL GENERIC Member Subscriber Plan / Payer (Ef fective 2021-Present) Name:Roma Page Dilip Relation to Subscriber:Self Name:Roma Page Payer ID:[id number] Group ID:Not on file Type:COMMERCIAL Address: [facility] [address] [place] [facility] [place] [facility] [place] MEDICARE [facility] [employer] [place] Advance Directives For more information, please contact: [phone] * Full Code (Latest Code Status on [...] Agents on File Name Relationship Healthcare Agent [facility] p Communication Ava [place] Daughter [employer] Car e Agent Care Teams Academic Specialist Relationship Specialty Start Date End Date Damir Rinaldi DO PCP - General Family Medicine 05/08/19 Bryan Simeon MD Consulting Physician Cardiology 01/10/23 Jerry Leos NP [address] [place] [address] [address] Nurse Practitioner Orthopedic Surgery 01/17/23 Beryl Mendoza, PT Physical Therapist Physical Therapy 06/16/23
--- OUTSIDE RECORDS SUMMARY | 2024-04-03 08:19 | XMS_ITS | Clinical Summary ---
Author Organization [facility] Address [address] [address] Phone Care Team Providers Care Mailroom Personnel Name Role Phone Damir Rinaldi DO Primary Care Provider [phone] Micah Rand MD Unavailable [phone] Allergies Active Allergy Reactions Criticality Noted Date [...] 10 mg by mouth daily. Active butalbital-aspir lo-raedeqmc-ftqq ine (FIORINAL WITH CODEINE) 51-247-85-30 MG Capsule Take 1 Capsule by mouth [...] topic Insurance MEDICARE [employer] Care Teams Mailroom Personnel Relationship Specialty Start Date End Date Damir Rinaldi DO PCP - General Family Medicine 02/10/15 Micah Rand MD [address] [place] [address] Consulting Physician Neurology 10/11/21
--- OUTSIDE RECORDS SUMMARY | 2024-04-03 08:19 | XMS_ITS ---
Author Name HALLIE TAVARES Address [address] [place] [address] Phone [facility] Address [address] [place] [address] Phone Care Team Providers Care Garden Consultant Name Role Phone THERESAYOANDY DO STERLING Unavailable ALLERGIES, ADVERSE REACTIONS AND ALERTS Allergy Name Allergy Date Allergy Status Allergy Severity Allergy Reaction Erythromycin Base, [RxNorm: 4053] 01/05/2022 Current Moderate Hives, Nausea Pravastatin, [RxNorm: 79435] 01/05/2022 Current Moderate Myalgia MEDICATIONS RxNorm Brand Name Prescription Ordered Value Order Unit Start Date Date Status [id number] Ambien 5 mg tablet SIG: Ambien 5 mg tablet, 30 days, Dispense #30 Tablet, 0 RefillsDirections: Take one tablet my mouth daily. 30 tablet 2014 Historic [id number] Xanax 0.5 mg tablet SIG: Xanax 0.5 mg tablet, 30 days, Dispense #15 Tablet, 0 RefillsDirections: Take one tablet by mouth as needed. 15 tablet 2014 Historic [id number] pravastatin 80 mg tablet SIG: pravastatin 80 mg tablet, 30 days, Dispense #30 Tablet, 2 RefillsDirections: Take one tablet by mouth daily. 30 tablet 2014 Historic [id number] Xanax 0.5 mg tablet SIG: Xanax 0.5 mg tablet, 30 days, Dispense #15 Tablet, 0 RefillsDirections: Take one tablet by mouth up to three times daily as needed 15 tablet 2014 Historic [id number] Ambien 5 mg tablet SIG: Ambien 5 mg tablet, 30 days, Dispense #30 Tablet, 0 RefillsDirections: Take 1 oral tablet at bedtime 30 tablet 2014 Historic [id number] Protonix 20 mg tablet,delayed release (DR/EC) SIG: Protonix 20 mg tablet,delayed release (DR/EC), 30 days, Dispense #30 Tablet, 0 RefillsDirections: Take 1 oral tablet once a day 30 tablet,chalo yed release (DR/EC) 2014 Historic [id number] Celexa 40 mg tablet SIG: Celexa 40 mg tablet, 30 days, Dispense #30 Tablet, 0 RefillsDirections: Take 1 oral tablet once a day 30 tablet 2014 Historic [id number] acyclovir 400 mg tablet SIG: acyclovir 400 mg tablet, 30 days, Dispense #30 Tablet, 0 RefillsDirections: Take 1 oral tablet once a day 30 tablet 2014 Historic [id number] losartan-hydroch lorothiazide 50-12.5 mg tablet SIG: losartan-hydrochloro thiazide 50-12.5 mg tablet, 30 days, Dispense #30 Tablet, 0 RefillsDirections: Take 1 oral tablet once a day 30 tablet 2014 Historic [id number] hydrocodone-acet aminophen 7.5-325 mg tablet SIG: hydrocodone-acetamin ophen 7.5-325 mg tablet, 30 days, Dispense #60 Tablet, 0 RefillsDirections: Take 1 oral tablet by mouth every 8hrs as needed 60 tablet 2014 Historic [id number] tramadol 50 mg tablet SIG: tramadol 50 mg tablet, 30 days, Dispense #60 Tablet, 0 RefillsDirections: Take 1 oral tablet twice a day 60 tablet 2014 Historic [id number] acyclovir 400 mg tablet SIG: acyclovir 400 mg tablet, 30 days, Dispense #30 Tablet, 2 RefillsDirections: Take 1 oral tablet once a day 30 tablet 2014 Historic [id number] Celexa 40 mg tablet SIG: Celexa 40 mg tablet, 30 days, Dispense #30 Tablet, 2 RefillsDirections: Take 1 oral tablet once a day 30 tablet 2014 Historic [id number] Protonix 20 mg tablet,delayed release (DR/EC) SIG: Protonix 20 mg tablet,delayed release (DR/EC), 30 days, Dispense #30 Tablet, 2 RefillsDirections: Take 1 oral tablet once a day 30 tablet,chalo yed release (DR/EC) 2014 Historic [id number] Ambien 5 mg tablet SIG: Ambien 5 mg tablet, 30 days, Dispense #30 Tablet, 2 RefillsDirections: Take 1 oral tablet at bedtime 30 tablet 2014 Historic [id number] Ambien 5 mg tablet SIG: Ambien 5 mg tablet, 30 days, Dispense #30 Tablet, 2 RefillsDirections: Take 1 oral tablet at bedtime 30 tablet 2014 Historic [id number] Xanax 0.5 mg tablet SIG: Xanax 0.5 mg tablet, 30 days, Dispense #15 Tablet, 0 RefillsDirections: Take one tablet by mouth up to three times daily as needed 15 tablet 2014 Historic [id number] Ambien 10 mg tablet SIG: Ambien 10 mg tablet, 30 days, Dispense #30 Tablet, 2 RefillsDirections: Take 1 oral tablet at bedtime 30 tablet 2014 Historic [id number] Ambien 10 mg tablet SIG: Ambien 10 mg tablet, 30 days, Dispense #30 Tablet, 2 RefillsDirections: Take 1 oral tablet at bedtime 30 tablet 2015 Historic [id number] Ultram 50 mg tablet SIG: Ultram 50 mg oral tablet, 30 days, Dispense #120 Tablet, 0 RefillsDirections: take 1 tablet by oral route every 6 hours as needed 120 tablet 2021 Current [id number] trazodone 150 mg tablet SIG: trazodone 150 mg oral tablet, 30 days, Dispense #90 Tablet, 0 RefillsDirections: Take 150 mg by mouth nightly. 2 tablets at bedtime as needed 90 tablet 2021 Historic [id number] Ranexa 1,000 mg tablet extended release 12 hr SIG: Ranexa 1,000 mg oral tablet extended release 12 hr, 30 days, Dispense #60 Tablet, 0 RefillsDirections: Take 1,000 mg by mouth 2 times daily 60 tablet extended release 12 hr 2021 Historic [id number] paroxetine HCl 20 mg tablet SIG: paroxetine HCl 20 mg oral tablet, 30 days, Dispense #60 Tablet, 0 RefillsDirections: Take 20 mg by mouth daily 60 tablet 2021 Historic [id number] losartan 100 mg tablet SIG: losartan 100 mg oral tablet, 30 days, Dispense #30 Tablet, 0 RefillsDirections: Take 1 oral tablet once a day 30 tablet 2021 Historic [id number] hydrocodone-acet aminophen 10-325 mg tablet SIG: hydrocodone-acetamin ophen 10-325 mg oral tablet, 30 days, Dispense #120 Tablet, 0 RefillsDirections: Take 1 Tablet by mouth every 6 hours as needed. 120 tablet 2021 Current [id number] gabapentin 600 mg tablet SIG: gabapentin 600 mg oral tablet, 30 days, Dispense #90 Tablet, 0 RefillsDirections: Take 1 Tablet by mouth 3 times daily. 90 tablet 2021 Historic [id number] epinephrine 0.3 mg/0.3 mL auto-injector SIG: epinephrine 0.3 mg/0.3 mL injection auto-injector, 1 days, Dispense #1 Each, 0 RefillsDirections: inject 0.3 milliliter by intramuscular route once as needed for anaphylaxis 1 auto-inject or 2021 Historic [id number] ezetimibe 10 mg tablet SIG: ezetimibe 10 mg oral tablet, 30 days, Dispense #30 Tablet, 0 RefillsDirections: Take 1 oral tablet once a day 30 tablet 2021 Current [id number] butalbital-aspir in-caffeine 50-325-40 mg capsule SIG: qcekpjhcvl-zqtnfbt-d affeine 50-325-40 mg oral capsule, 30 days, Dispense #90 Capsule, 0 RefillsDirections: Take 1 capsule by mouth every 4 (four) hours as needed for headaches 90 capsule 2021 Historic [id number] aripiprazole 10 mg tablet SIG: aripiprazole 10 mg oral tablet, 30 days, Dispense #30 Tablet, 0 RefillsDirections: Take 1 oral tablet once a day 30 tablet 2021 Historic [id number] alprazolam 0.5 mg tablet SIG: alprazolam 0.5 mg oral tablet, 30 days, Dispense #90 Tablet, 0 RefillsDirections: Take one tablet by mouth up to three times daily as needed 90 tablet 2021 Historic [id number] Celebrex 200 mg capsule SIG: Celebrex 200 mg oral capsule, 30 days, Dispense #60 Capsule, 0 RefillsDirections: Take 1 oral capsule twice a day 60 capsule 2021 Current [id number] famotidine 40 mg tablet SIG: famotidine 40 mg oral tablet, 30 days, Dispense #30 Tablet, 5 RefillsDirections: Take 1 oral tablet once a day 30 tablet 2021 Historic [id number] Vascepa 1 gram capsule SIG: Vascepa 1 gram oral capsule, 90 days, Dispense #360 Capsule, 2 RefillsDirections: Take 2 capsules by mouth twice daily with food 360 capsule 2021 Historic [id number] Repatha SureClick 140 mg/mL pen injector SIG: Repatha SureClick 140 mg/mL subcutaneous pen injector, 14 days, Dispense #1 Milliliter, 0 RefillsDirections: Take 1 subcutaneous milliliter ever 2 weeks 1 pen injector 2021 Historic [id number] hydrochlorothiaz patrica 25 mg tablet SIG: hydrochlorothiazide 25 mg oral tablet, 90 days, Dispense #90 Tablet, 0 RefillsDirections: Take 1 oral tablet once a day 90 tablet 2021 Historic [id number] Toprol XL 50 mg tablet extended release 24 hr SIG: Toprol XL 50 mg oral tablet extended release 24 hr, 90 days, Dispense #90 Tablet, 0 RefillsDirections: Take 1 oral tablet once a day 90 tablet extended release 24 hr 2021 Historic [id number] nitroglycerin 0.4 mg tablet, sublingual SIG: nitroglycerin 0.4 mg sublingual tablet, sublingual, 0 days, Dispense #30 Tablet, 0 RefillsDirections: Put 1 tablet under tongue as needed for chest pain. may repeat every 5 minutes if still having chest pain (max dose 3 tablets) 30 tablet, sublingual 2021 Historic [id number] aripiprazole 10 mg tablet SIG: aripiprazole 10 mg oral tablet, 30 days, Dispense #60 Tablet, 0 RefillsDirections: Take 1 tablet in the morning and 1 tablet in the evening 60 tablet 2021 Historic [id number] paroxetine HCl 20 mg tablet SIG: paroxetine HCl 20 mg oral tablet, 30 days, Dispense #75 Tablet, 0 RefillsDirections: Take 1 tablet in the morning. Take 1.5 tablets in the evening 75 tablet 2021 Historic [id number] benzonatate 200 mg capsule SIG: benzonatate 200 mg oral capsule, 30 days, Dispense #30 Capsule, 0 RefillsDirections: Take 1 oral capsule at bedtime as needed for cough 30 capsule 2021 Historic [id number] Repatha SureClick 140 mg/mL pen injector SIG: Repatha SureClick 140 mg/mL subcutaneous pen injector, 28 days, Dispense #2 Milliliter, 0 RefillsDirections: Take 1 subcutaneous milliliter every 2 weeks 2 pen injector 2021 Historic [id number] risedronate 150 mg tablet SIG: risedronate 150 mg oral tablet, 90 days, Dispense #3 Tablet, 0 RefillsDirections: Take one oral tablet once per month 3 tablet 2021 Historic [id number] alendronate 70 mg tablet SIG: alendronate, Dispense #12, 1 Refills, Directions: Take one oral tablet weekly 12 tablet 2021 Historic [id number] Repatha SureClick 140 mg/mL pen injector SIG: Repatha SureClick, Dispense #2, 1 Refills, Directions: INJECT 1 ML SUBCUTANEOUSLY EVERY 2 WEEKS 2 pen injector 2022 Historic [id number] famotidine 40 mg tablet SIG: famotidine, Dispense #90, 0 Refills, Directions: TAKE 1 TABLET BY MOUTH EVERY DAY 90 tablet 2022 Historic [id number] ALENDRONATE SODIUM 70 MG TAB 70 mg tablet SIG: ALENDRONATE SODIUM 70 MG TAB, Dispense #12, 1 Refills, Directions: TAKE ONE TABLET BY MOUTH ONCE WEEKLY 12 tablet 2022 Historic [id number] amlodipine 5 mg tablet SIG: amlodipine 5 mg oral tablet, 90 days, Dispense #90 Tablet, 0 RefillsDirections: Take 1 oral tablet once a day 90 tablet 2022 Current [id number] cyclobenzaprine 10 mg tablet SIG: cyclobenzaprine 10 mg oral tablet, 90 days, Dispense #180 Tablet, 0 RefillsDirections: Take 1 oral tablet twice a day 180 tablet 2022 Current [id number] Praluent Pen 75 mg/mL pen injector SIG: Praluent Pen 75 mg/mL subcutaneous pen injector, 28 days, Dispense #2 Milliliter, 0 RefillsDirections: Inject 75mg once every 2 weeks 2 pen injector 2022 Historic [id number] FAMOTIDINE 40 MG TABLET 40 mg tablet SIG: FAMOTIDINE 40 MG TABLET, Dispense #90, 0 Refills, Directions: TAKE 1 TABLET BY MOUTH EVERY DAY 90 tablet 2022 Historic [id number] FAMOTIDINE 40 MG TABLET 40 mg tablet SIG: FAMOTIDINE 40 MG TABLET, Dispense #90, 0 Refills, Directions: TAKE 1 TABLET BY MOUTH EVERY DAY 90 tablet 2022 Historic [id number] gabapentin 600 mg tablet SIG: gabapentin 600 mg oral tablet, 30 days, Dispense #90 Tablet, 0 RefillsDirections: Take 1 Tablet by mouth 3 times daily. 90 tablet 2022 Historic [id number] fluocinolone acetonide oil 0.01 % drops SIG: fluocinolone acetonide oil 0.01 % otic (ear) drops, 10 days, Dispense #20 Milliliter, 0 RefillsDirections: 5 gtts in affected ear twice daily as needed for external auditory canal discomfort 20 drops 2022 Historic [id number] PAROXETINE HCL 20 MG TABLET 20 mg tablet SIG: PAROXETINE HCL 20 MG TABLET, Dispense #90, 1 Refills, Directions: TAKE 1 TABLET BY MOUTH EVERY DAY 90 tablet 2022 Historic [id number] FAMOTIDINE 40 MG TABLET 40 mg tablet SIG: FAMOTIDINE 40 MG TABLET, Dispense #90, 0 Refills, Directions: TAKE 1 TABLET BY MOUTH EVERY DAY 90 tablet 2023 Historic [id number] Nexlizet 180-10 mg tablet SIG: Nexlizet 180-10 mg oral tablet, 30 days, Dispense #30 Tablet, 0 Refills, Directions: Take 1 oral tablet once a day 30 tablet 2023 Historic [id number] Nexlizet 180-10 mg tablet SIG: Nexlizet 180-10 mg oral tablet, 30 days, Dispense #30 Tablet, 2 Refills, Directions: Take 1 oral tablet once a day 30 tablet 2023 Historic [id number] Nexlizet 180-10 mg tablet SIG: Nexlizet 180-10 mg oral tablet, 30 days, Dispense #30 Tablet, 2 Refills, Directions: Take 1 oral tablet once a day 30 tablet 2023 Historic [id number] alprazolam 0.5 mg tablet SIG: alprazolam 0.5 mg oral tablet, 30 days, Dispense #90 Tablet, 0 Refills, Directions: Take one tablet by mouth up to three times daily as needed 90 tablet 2023 Historic [id number] paroxetine HCl 20 mg tablet SIG: paroxetine HCl 20 mg oral tablet, 30 days, Dispense #75 Tablet, 0 Refills, Directions: Take 1 tablet in the morning. Take 1.5 tablets in the evening 75 tablet 2023 Historic [id number] gabapentin 600 mg tablet SIG: gabapentin 600 mg oral tablet, 30 days, Dispense #90 Tablet, 0 Refills, Directions: Take 1 Tablet by mouth 3 times daily. 90 tablet 2023 [facility] [id number] GABAPENTIN 600 MG TABLET 600 mg tablet SIG: GABAPENTIN 600 MG TABLET, Dispense #90, 0 Refills, Directions: take 1 tablet by mouth three times a day 90 tablet 2023 Historic [id number] FAMOTIDINE 40 MG TABLET 40 mg tablet SIG: FAMOTIDINE 40 MG TABLET, Dispense #90, 0 Refills, Directions: TAKE 1 TABLET BY MOUTH EVERY DAY 90 tablet 2023 Historic [id number] FAMOTIDINE 40 MG TABLET 40 mg tablet SIG: FAMOTIDINE 40 MG TABLET, Dispense #90, 0 Refills, Directions: take 1 tablet by mouth every day 90 tablet 2023 Historic [id number] trazodone 150 mg tablet SIG: trazodone 150 mg oral tablet, 30 days, Dispense #30 Tablet, 0 Refills, Directions: Take 150 mg by mouth nightly. 2 tablets at bedtime as needed 30 tablet 2023 Historic [id number] metformin 500 mg tablet extended release 24 hr SIG: metformin 500 mg oral tablet extended release 24 hr, 90 days, Dispense #90 Tablet, 0 Refills, Directions: TAKE 1 ORAL TABLET 3 TIMES A DAY 90 tablet extended release 24 hr 2023 Historic [id number] Vitamin D2 1,250 mcg (50,000 unit) capsule SIG: Vitamin D2 1,250 mcg (50,000 unit) oral capsule, 90 days, Dispense #4 Capsule, 12 Refills, Directions: Take 1 tablet weekly 4 capsule 2023 Current [id number] trazodone 150 mg tablet SIG: trazodone 150 mg oral tablet, 30 days, Dispense #30 Tablet, 1 Refills, Directions: Take 150 mg by mouth nightly. 30 tablet 2023 Historic [id number] trazodone 150 mg tablet SIG: trazodone 150 mg oral tablet, 30 days, Dispense #30 Tablet, 1 Refills, Directions: Take 150 mg by mouth nightly. 30 tablet 2023 Current [id number] alprazolam 0.5 mg tablet SIG: alprazolam 0.5 mg oral tablet, 30 days, Dispense #90 Tablet, 0 Refills, Directions: Take one tablet by mouth up to three times daily as needed 90 tablet 2023 Historic [id number] alprazolam 0.5 mg tablet SIG: alprazolam 0.5 mg oral tablet, 30 days, Dispense #85 Tablet, 0 Refills, Directions: Take one tablet by mouth up to three times daily as needed for severe anxiety or panic attack 85 tablet 2023 Historic [id number] metformin 500 mg tablet extended release 24 hr SIG: metformin 500 mg oral tablet extended release 24 hr, 90 days, Dispense #270 Tablet, 0 Refills, Directions: TAKE 1 ORAL TABLET 3 TIMES A DAY 270 tablet extended release 24 hr 2023 Historic [id number] albuterol sulfate 90 mcg/actuation HFA aerosol inhaler SIG: albuterol sulfate 90 mcg/actuation inhalation HFA aerosol inhaler, 3 days, Dispense #6.7 Gram, 0 Refills, Directions: two puffs every 4 hours as needed for cough, wheezing, or shortness of breath 6.7 HFA aerosol inhaler 2023 Historic [id number] alprazolam 0.5 mg tablet SIG: alprazolam 0.5 mg oral tablet, 30 days, Dispense #80 Tablet, 0 Refills, Directions: Take one tablet by mouth up to three times daily as needed for severe anxiety or panic attack 80 tablet 2023 Historic [id number] promethazine-DM 6.25-15 mg/5 mL syrup SIG: promethazine-DM 6.25-15 mg/5 mL oral syrup, 29 days, Dispense #116 Milliliter, 0 Refills, Directions: Take 5 oral milliliter every 6 hours as needed for cough. 116 syrup 2023 Historic [id number] alprazolam 0.5 mg tablet SIG: alprazolam 0.5 mg oral tablet, 30 days, Dispense #80 Tablet, 0 Refills, Directions: Take one tablet by mouth up to three times daily as needed for severe anxiety or panic attack 80 tablet 2023 Historic [id number] famotidine 40 mg tablet SIG: famotidine 40 mg oral tablet, 90 days, Dispense #90 Tablet, 0 Refills, Directions: TAKE 1 TABLET BY MOUTH EVERY DAY 90 tablet 2023 Historic [id number] FAMOTIDINE 40 MG TABLET 40 mg tablet SIG: FAMOTIDINE 40 MG TABLET, Dispense #90, 0 Refills, Directions: take 1 tablet by mouth every day 90 tablet 2023 Historic [id number] ondansetron 4 mg tablet,disintegr ating SIG: ondansetron 4 mg oral tablet,disintegratin g, 7 days, Dispense #20 Tablet, 0 Refills, Directions: Take 1 tablet by mouth every 8 hours as needed for nausea 20 tablet,disi ntegrating 2023 Historic [id number] ondansetron 4 mg tablet,disintegr ating SIG: ondansetron 4 mg oral tablet,disintegratin g, 7 days, Dispense #20 Tablet, 0 Refills, Directions: Take 1 tablet by mouth every 8 hours as needed for nausea 20 tablet,disi ntegrating 2023 [facility] [id number] alprazolam 0.5 mg tablet SIG: alprazolam 0.5 mg oral tablet, 30 days, Dispense #75 Tablet, 0 Refills, Directions: Take one tablet by mouth up to three times daily as needed for severe anxiety or panic attack 75 tablet 2023 Historic [id number] metformin 500 mg tablet extended release 24 hr SIG: metformin 500 mg oral tablet extended release 24 hr, 90 days, Dispense #270 Tablet, 0 Refills, Directions: TAKE 1 ORAL TABLET 3 TIMES A DAY 270 tablet extended release 24 hr 2023 Historic [id number] METFORMIN HCL ER 500 MG TABLET 500 mg tablet extended release 24 hr SIG: METFORMIN HCL ER 500 MG TABLET, Dispense #270, 0 Refills, Directions: take 1 tablet by mouth three times a day 270 tablet extended release 24 hr 2023 Historic [id number] alprazolam 0.5 mg tablet SIG: alprazolam 0.5 mg oral tablet, 30 days, Dispense #70 Tablet, 0 Refills, Directions: Take one tablet by mouth up to three times daily as needed for severe anxiety or panic attack 70 tablet 2023 Historic [id number] famotidine 40 mg tablet SIG: famotidine 40 mg oral tablet, 90 days, Dispense #90 Tablet, 0 Refills, Directions: TAKE 1 TABLET BY MOUTH EVERY DAY 90 tablet 2023 Historic [id number] FAMOTIDINE 40 MG TABLET 40 mg tablet SIG: FAMOTIDINE 40 MG TABLET, Dispense #90, 0 Refills, Directions: take 1 tablet by mouth every day 90 tablet 2023 Historic [id number] alprazolam 0.5 mg tablet SIG: alprazolam 0.5 mg oral tablet, 30 days, Dispense #65 Tablet, 0 Refills, Directions: Take one tablet by mouth up to three times daily as needed for severe anxiety or panic attack 65 tablet 2023 Historic [id number] pantoprazole 40 mg tablet,delayed release (DR/EC) SIG: pantoprazole 40 mg oral tablet,delayed release (DR/EC), 30 days, Dispense #30 Tablet, 1 Refills, Directions: Take 1 oral tablet once a day 30 tablet,chalo yed release (DR/EC) 2023 Historic [id number] metformin 500 mg tablet extended release 24 hr SIG: metformin 500 mg oral tablet extended release 24 hr, 90 days, Dispense #270 Tablet, 0 Refills, Directions: TAKE 1 ORAL TABLET 3 TIMES A DAY 270 tablet extended release 24 hr 2023 Historic [id number] metformin 500 mg tablet extended release 24 hr SIG: metformin 500 mg oral tablet extended release 24 hr, 90 days, Dispense #270 Tablet, 0 Refills, Directions: TAKE 1 ORAL TABLET 3 TIMES A DAY 270 tablet extended release 24 hr 2023 Current [id number] pantoprazole 40 mg tablet,delayed release (DR/EC) SIG: pantoprazole 40 mg oral tablet,delayed release (DR/EC), 30 days, Dispense #30 Tablet, 1 Refills, Directions: Take 1 oral tablet once a day 30 tablet,chalo yed release (DR/EC) 2023 Current [id number] Pantoprazole Sodium 40 MG Oral Tablet Delayed Release 40 mg tablet,delayed release (DR/EC) SIG: Pantoprazole Sodium 40 MG Oral Tablet Delayed Release, Dispense #30, 0 Refills, Directions: Take 1 tablet by mouth once daily 30 tablet,chalo yed release (DR/EC) 2023 Historic [id number] alprazolam 0.5 mg tablet SIG: alprazolam 0.5 [...] DUE TO OTHER MENTAL DISORDER Chronic 03/15/2018 [id number] (PRIMARY) HYPERTENSION ESSENTIAL (PRIMARY) HYPERTENSION Chronic 03/15/2018 I50.32-CHRONIC DIASTOLIC (CONGESTIVE) HEART FAILURE CHRONIC DIASTOLIC (CONGESTIVE) HEART FAILURE Chronic 03/15/2018 K21.0-QVXVRX-[id number] REFLUX DISEASE WITHOUT ESOPHAGITIS GASTRO-ESOPHAGEAL REFLUX DISEASE WITHOUT ESOPHAGITIS Chronic 03/15/2018 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 03/15/2018 R73.03-Prediabetes Prediabetes Historic 9 M54.6-PAIN IN THORACIC SPINE PAIN IN THORACIC SPINE Ch ronic 03/15/2018 M17.0-Bilateral primary osteoarthritis of knee Bilateral primary osteoarthritis of knee Chronic 03/15/2018 I65.23-Occlusion and stenosi s of bilateral carotid arteries Occlusion and stenosis of bilateral carotid arteries Chronic 01/05/2022 M81.0-MAY-YQIWADN OSTEOPOROSIS WITHOUT CURRENT PATHOLOGICAL FRACTURE AGE-RELATED OSTEOPOROSIS [...] Observation Never Smoker Sex:Female CARE TEAM INFORMATION Garden Consultant Role Location Phone (CHAITANYA) HALLIE TAVARES PHYSICIAN [address] [place] [address]
== END 2024-04-03 08:35 | disposition home or self-care (01) ==
PROVIDERS: Emergency Provider Registered Nurse; PCP Family Medicine
DX: B37.0 Candidal stomatitis (principal)
CPT/HCPCS: 99213; G0463

== ENCOUNTER 2024-05-16 08:01 | Emergency (ER) | payer MEDICARE, OTHER, SELFPAY ==
--- NOTE | ~2024-05-16 | XR_ITS ---
EXAMINATION: [id number] DATE: 05/16/2024 08:34 INDICATION: Left rib injury TECHNIQUE: A frontal inspiratory view of the chest and 3 views of the left ribs were obtained. COMPARISON: None FINDINGS: Nondisplaced fracture of the anterior left fifth and sixth ribs. Minimal discoid atelectasis the late ral left lower lung zone. No other airspace opacities, pulmonary edema, pleural effusion or pneumotho rax. Cardiomediastinal silhouette is normal. IMPRESSION: 1. Nondisplaced anterior left fifth and sixth rib fractures. 2. No pneumothorax or other acute cardiopulmonary disease. Reviewed, dictated and finalized at location B.
[2024-05-16 08:06] VITALS: BP 125/75; PULSE 89; RESP 20; TEMP 36.7; O2SAT 97
--- OUTSIDE RECORDS SUMMARY | 2024-05-16 08:08 | XMS_ITS | Encounter Summary ---
Author Organization [facility] Healthcare Address [address] [place] [address] Care Team Providers Care Flight Test Data Acquisition Technician Name Role Phone Damir Rinaldi DO Primary Care Provider [phone] Bryan Simeon MD Unavailable [phone] Jerry Leos NP Unavailable [phone] Beryl Mendoza PT Unavailable Unavailable Encounter Details Date Type Department Care Team (Late st Contact Info) Description 05/15/2024 12:20 PM CDT Lab [facility] [address] [place] [address] Arrived Social History Tobacco Use Types Packs/Day Years Used Date Smoking Tobacco: Never Smokeless Tobacco: Never Alcohol Use Standard Drinks/Week Comments Yes 0 (1 standard drink = 0.6 oz pur e alcohol) [facility] Utilities Answer Date Recorded In the past 12 months has [employer], gas, oil, or water company threatened to [...] often do you attend chur ch or uatsdin services? Never 10/09/2023 Do you belong to any clubs o r organizations such as zoroastrian groups, unions, fraternal or athletic groups, or [...] any time in the past 12 m [facility], were you homeless or living in a nursing home (including now)? No 10/09/2023 Personal Safety Answer Date Recorded Have you ever been in or are you currently in a harmful physical or emotional relationship or is someone making you feel afraid or unsafe? Denies 10/07/2023 Comments No Sex and Gender Information Value Date Recorded Sex Assigned at Not on file Legal Sex Female 1:44 AM [employer]LE[employer]PER[employer] Gender Identity Not on file Sexual Orientation Not on file documented as of this encounter Plan of Treatment Not on file documented as of this encounter Procedures Procedure Name Priority Date/Time Associated Diagnosis Comments HEMOGLOBIN A1C Routine 05/15/2024 12:29 PM CDT documented in this encounter Results * (ABNORMAL) Hemoglobin A1c (05/15/2024 12:29 PM CDT) Hgb A1C 6.1(H) 4.0 - 5.6 % Estimated Average Glucose 128 mg/dL [facility] Comment: The ADA recommends reporting an estimated Average Glucose (eAG) with all Hemoglobin A1c results using the equation derived from a study of 507 normal and diabetic adults. Minority populations were underrepresented and children were not included. (Diabetes Care 31:8755-5134, 2008). The eAG is not equivalent to a fasting glucose. Blood 05/15/2024 12:2 9 PM CDT 05/15/2024 12:33 PM CDT Damir Rinaldi DO LAB BLOOD ORDERABLES Final Result [facility] [address] [facility] Department [place] [address] documented in this encounter Visit Diagnoses Not on filedocumented in this encounter Care Teams Flight Test Data Acquisition Technician Relationship Specialty Start Date End Date Damir Rinaldi DO PCP - General Family Medicine 05/08/19 Bryan Simeon MD Consulting Physician Cardiology 01/10/23 Jerry Leos NP [address] [place] [address] [address] [place] [address] Nurse Practitioner Orthopedic Surgery 01/17/23 Beryl Mendoza PT Physical Therapist Physical Therapy 06/16/23 documented as of this encounter
--- OUTSIDE RECORDS SUMMARY | 2024-05-16 08:08 | XMS_ITS | Clinical Summary ---
Author Organization [facility] Address [address] [address] Phone Care Team Providers Care Consular Officer Name Role Phone Damir Rinaldi DO Primary Care Provider [phone] Micah Rand MD Unavailable [phone] Allergies Active Allergy Reactions Criticality Noted Date [...] 10 mg by mouth daily. Active butalbital-aspir or-brygsgjk-vcaa ine (FIORINAL WITH CODEINE) [id number] MG Capsule Take 1 Capsule by mouth [...] Cologuard 04/19/2009 Immunochemical Fecal Occult Blood 04/19/2009 Pneumococcal Immunization (50+ years) (1 of [...] topic Insurance [employer] Care Teams Consular Officer Relationship Specialty Start Date End Date Damir Rinaldi DO [address] [place] [address] PCP - General Family Medicine 02/10/15 Micah Rand MD [address] [place] [address] Consulting Physician Neurology 10/11/21
--- OUTSIDE RECORDS SUMMARY | 2024-05-16 08:08 | XMS_ITS | Continuity of Care Document ---
Author Organization [employer] [facility] Address [address] [facility] [place] [address] Phone Care Team Providers Care Supervisor [place] Name Role Phone Matt Stephenson MD, FACS Unavailable Unavailab le Allergies, Adverse Reactions, Alerts Substance Reaction Status Criticality No Known Allergies Active No Inform ation Medications Medication Instructions Dosage Effective Dates (start - stop) Status Comments polymyxin B sulfate 10,000 unit-trimethoprim 1 mg/mL eye drops instill 1 drop by ophthalmic route in the operated eye 4 times a day for 1 week; to begin after being seen in the office for first post op visit. - Active ketorolac 0.5 % eye drops instill 1 drop in the operated eye 3 times a day for 1 month; to begin after being seen in the office for first post op visit. - Active prednisolone acetate 1 % eye drops,suspension Instill 1 drop into operated eye 4 times a day for 2 weeks, then 2 times a day for 2 weeks; to begin after being seen in the office for first post op visit. - Active hydrocodone 10 mg-acetaminophen 325 mg tablet take 1 tablet by oral route every 4 - 6 hours as needed for pain 1.00 tablet - Active Lopressor 50 mg tablet take 1 tablet by oral route 2 times every day with meals 50 MG - Active Procedures Procedure Date No Charge Refraction IOLMaster-Technical No Charge GDX Retina Fundus Photography W/ Report Corneal Topography Office/outpatient Visit, [facility] Advance Directives Directive Yes / No Effective Date File Name Other Directive No N/A N/A WARNING:The information contained in this section is historical and is provided for information only and does not constitute a legal document or any assurance that the information is still accurate. Please verify the information with the owens of the legal document before using it for clinical purposes. Encounters Encounter Description Practice Location Reason(s) For Visit Diagnoses Date Provider Providers Copied on Encounter [facility], [address], [place], [place], [address], tel:[phone] SEC Ryan REESE Professional Cataract evaluation (chief complaint) Combined forms of age-related cataract, bilateralPred iabetes Apr- 5 Sachin Gutierrez. [facility] [address], [address], [place], [place], [address], . tel:[phone] Referring Provider: Matt Kinsey, [facility] [address], [place], [address] . tel:[phone] [facility], [address], [place], [place], [address], tel:[phone] SEC Ryan REESE Professional No Information 5 Sachin Gutierrez. [facility] [address], [place], [place], [address], . tel:[phone] Family History Family Member Type Diagnosis Age At Onset Problem Family history of Glaucoma Payers Payer name Insurance type Covered constitution party ID Authoriza tikristi(s) [place] [id number] [facility] [id number] Social History Type Description Quantity Date Captured Comments Alcohol Use Details No Caffeine Use Details No Tobacco Use Status Current non-smoker Smoking Status Never smoker Non-Smoking Tobacco Use Details : No Details Available : No Details Available Sex Female Chief Complaint And Reason For Visit From encounter dated '05/08/2024 08:15'. Cataract evaluation (chief complaint). Description: The 64 year old patient presents for a cataractevaluation ou. Patient is a Type II diabetic x 1 year. Patient doesn't check BS. Patient states she failed her vision test at the [employer] and is restricted to daytime only. Patient like to ride her motorcycle and is unable to. Patient likes to read and has a hard time reading small print. Patien t has a hard time seeing road signs and watching TV. Patient got new glasses about 2 weeks ago. Reason For Referral Reason For Referral No Information Plan Of Treatment Date Type Action Status Appointment Roma Page BOOKED Appointment Roma Page BOOKED Appointment Roma Page BOOKED Appointment Roma Page BOOKED Appointment Roma Page BOOKED Appointment Roma Page BOOKED History Of Present Illness Encounter Date Complaint History Of Prese nt Illness Cataract evaluation The 64 year old patient presents for a cataract evaluation ou. Patient is a Type II diabetic x 1 year. Patient doesn't check BS. Patient states she failed her vision test at the [employer] and is restricted to daytime only. Patient like to ride her motorcycle and is unable to. Patient likes to read and has a hard time reading small print. Patient has a hard time seeing road signs and watching TV. Patient got new glasses about 2 weeks ago. Functional Status Date Functional Assessmen t No Information Instructions Date Instruction Additional Infor mikki Impression/Plan Assessments Type Assessment Date assessment Combined forms of age-related ca taract, bilateral assessment Prediabetes Patient Care Teams Name Effective Dates (start - stop) Status Members No Information
--- OUTSIDE RECORDS SUMMARY | 2024-05-16 08:08 | XMS_ITS | CONTINUITY OF CARE DOCUMENT ---
Author Name jose angel walter Address Unknown Organization [facility] Address [address] [place] [address] [address] [place] [address] Phone [phone] Care Team Providers Care Basket Sorter Name Role Phone Bryan Simeon MD Unavailable HALLIE TAVARES MD Unavailable [phone] HALLIE TAVARES MD Unavailable [phone] PROBLEMS Condition Status Date Provider Notes Family [...] In-person encounter Office Visit Bryan Simeon MD [facility] Diastolic DysfunctionChest pain-type to be determined 7 - 1 In-person encounter Office Visit Bryan Simeon MD [facility] 1 - 2 In-person encounter Office Visit Bryan Simeon MD [facility] Carotid artery disease - 50-69% JERICHO, <50% LICA 03/2023 2 - 4 In-person encounter Office Visit Bryan Simeon MD [facility] Elevated c-reactive protein 0 - 1 In-person encounter Office Visit Bryan Simeon MD [facility] Chest pain - nml cors on cath 04/25/22 6 - 6 In-person encounter Office Visit Bryan Simeon MD [facility] 6 - 8 In-person encounter Office Visit Bryan Simeon MD [facility] 4 - 6 In-person encounter Office Visit Bryan Simeon MD [facility] 1 - 1 In-person encounter Office Visit Bryan Simeon MD [facility] Bradycardia sinusSinus bradycardiaFamily Hx heart diseasePrediabetes 1 - 1 In-person encounter Office Visit Bryan Simeon MD [facility] Statin Intolerant,myalgias with daily atorvastatinHypercholesterolemia 1 - 1 In-person encounter Office Visit Bryan Simeon MD [facility] 3 - 3 In-person encounter Office Visit Bryan Simeon MD [facility] 4 - 4 In-person encounter Office Visit Bryan Simeon MD [facility] Chest pain - nml cors on cath 04/25/22 6 - 6 In-person encounter Office Visit Bryan Simeon MD [facility] Sleep apnea 2 - 2 In-person encounter Office Visit Bryan Simeon MD [facility] 1 - 1 In-person encounter Office Visit Bryan Simeon MD [facility] Edema - localizedFatigue 0 - 0 In-person encounter Office Visit Bryan Simeon MD [facility] Dizziness 3 - 4 In-person encounter Office Visit Bryan Simeon MD [facility] Family History of CVA or Stroke:HTN essentialDiastolic CHFSyncope and collapseObesityDyspnea on exertion VITAL SIGNS Date Observation Value Provider Body Mass Index (Ratio) 34.38 kg/m2 Bryce Simeon MD blood pressure, diastolic 80 mm[Hg] [place] Farnsworth blood pressure, systolic 130 mm[Hg] Kelly Farnsworth oxygen saturation, oximetry 98 % Randa Farnsworth pulse rate 74 /min Randa Weiss [facility] weight E&M 188 [lb_av] Randa Weiss [facility] height E&M 62 [in_i] Randa Weiss [facility] Body Mass Index (Ratio) 38.22 kg/m2 Bryce Simeon MD pulse rate 83 /min Nailalalitha Pisano blood pressure, cuff size regular Galindo Pisano blood pressure, diastolic 103 mm[Hg] Ta nidhi Pisano blood pressure, systolic 161 mm[Hg] Tab ithlalitha Pisano oxygen saturation, oximetry 98 % [facility] respiratory rate E&M 20 /min [facility] weight E&M 209 [lb_av] [facility] height E&M 62 [in_i] [facility] Body Mass Index (Ratio) 42.06 kg/m2 Jesus Gutierrez blood pressure, cuff size large [facility] blood pressure, diastolic 84 mm[Hg] [facility] blood pressure, systolic 128 mm[Hg] [facility] 87 /min [facility] oxygen saturation, oximetry 100 % [facility] respiratory rate E&M 14 /min Sarah Harrell illeharpal weight E&M 230 [lb_av] [facility] height E&M 62 [in_i] [facility] Body Mass Index (Ratio) 43.53 kg/m2 Bryce [...] blood pressure, systolic 154 mm[Hg] Harsh abiodun [place] oxygen saturation, oximetry 100 % Lisa [place] pulse rate 70 /min Lisa Lohma n respiratory rate E&M 16 /min Horacio ie [place] blood pressure, cuff size large [facility] [place] weight E&M 231 [lb_av] Lisa Lohma n height E&M 62 [in_i] Lisaaide Stevens n Body Mass Index (Ratio) 42.28 kg/m2 Bryce Simeon MD blood pressure, cuff size regular benji Madden blood pressure, diastolic 98 mm[Hg] benji Madden blood pressure, systolic 120 mm[Hg] [facility] rylie Madden oxygen saturation, oximetry 98 [...] blood pressure, systolic 132 mm[Hg] Tra mikal [facility] respiratory rate E&M 16 /min Kira Ellie [...] [lb_av] Maddy Lashawn height E&M 62 [in_i] [facility] Body Mass Index (Ratio) 40.60 kg/m2 Bryce Simeon MD pulse rate 70 /min [facility] oxygen saturation, oximetry 97 % [facility] blood pressure, diastolic 90 mm[Hg] Raymundo gerardo [facility] blood pressure, systolic 124 mm[Hg] [facility] jennifer [facility] respiratory rate E&M 16 /min [facility] weight E&M 222 [lb_av] [facility] blood pressure, resting Yes [facility] height E&M 62 [in_i] [facility] Body Mass Index (Ratio) 40.60 kg/m2 Bryce Simeon MD blood pressure, diastolic 73 mm[Hg] Carissa Barrera blood pressure, systolic 135 mm[Hg] Toya Barrera oxygen saturation, oximetry 99 % Chandni Barrera respiratory rate E&M 18 /min Mauro Barrera pulse rate 72 /min Chandni maradiaga weight E&M 222 [lb_av] Chandni maradiaga height E&M 62 [in_i] Chandni maraidaga blood pressure, diastolic 60 mm[Hg] [place] Farnsworth blood pressure, systolic 120 mm[Hg] Kelly ri Shanekaneyousuf pulse rate 68 /min Randa Harrise lder oxygen saturation, oximetry 95 % Randa Daja respiratory rate E&M 16 /min Randa Ariel hernandezdellngoc Body Mass Index (Ratio) 38.04 kg/m2 Lyle i Daja weight E&M 208 [lb_av] Randa Iglesiase er blood pressure, diastolic 80 mm[Hg] Ct donavan Tilley blood pressure, systolic 118 mm[Hg] Ni Tilley pulse rate 80 /min Kenzie Tilley oxygen saturation, oximetry 94 % Kenzie Tilley respiratory rate E&M 16 /min Kenzie Tilley Body Mass Index (Ratio) 39.76 kg/m2 Cira Tilley weight E&M 217.4 [lb_av] Kenzie Tilley Body Mass Index (Ratio) 34.02 kg/m2 Lyle rajat Jarquin blood pressure, diastolic 90 mm[Hg] Ke rri [facility] blood pressure, systolic 140 mm[Hg] Kelly Iglesiasdell pulse rate 65 /min Randa Weiss [facility] oxygen saturation, oximetry 97 % Randa Iglesiasdell respiratory rate E&M 16 /min Randa George [facility] weight E&M 186 [lb_av] Randa Harrise er Body Mass Index (Ratio) 35.11 kg/m2 Anea magnolia Camilo blood pressure, diastolic 91 mm[Hg] An eatris Camilo blood pressure, systolic 155 mm[Hg] Ane atris Brown pulse rate 59 /min Aneatris Camilo oxygen saturation, oximetry 99 % Aneatris Brown respiratory rate E&M 18 /min Joan Page weight E&M 192 [lb_av] Marielena Page height E&M 62 [in_i] Marielena Paeg ALLERGIES Allergy Name Onset Date Reaction Criticality [...] TABLET completed take as directed - 09/06 Kenize Tilley BISACODYL EC 5 MG ORAL TABLET [...] History: Christal sky has never smoked. Bryan iSmeon MD social history E&M S moking History: [...] Policy type / Coverage type Luiz red democrat [employer] Other H [id number] [place] Medicare [id number] ADVANCE DIRECTIVES Name Date DISCUSSED - NO DECISION MADE TREATMENT PLAN Date Name Performer [id number],W, Bryan Montenegro ra, [place] [id number],S, Bryan Montenegro ra, [place] [id number],S, Bryan Montenegro ra, [place] [id number],S, Bryan Montenegro ra, [place] [id number],S, Carol P today: 140/76 P rior BP: [...] mouth once a day Bryan Simeon MD [id number],S, H er updated medication list for this [...] mouth once a day Bryan Simeon MD [id number],SBryan ra, [place] [id number],W, H er updated medication list for this problem includes: Ezetimibe 10 Mg Tablet (Ezetimibe) ..... Take 1 tablet by mouth every day Bryan Simeon MD [id number],SBryan ra, [place] [id number],BBryan ra, [place] [id number],SBryan ra, [place] [id number],B, Bryan [place]en[place]ro ra, [place] [id number],W, B P today: 163/91 P rior BP: [...] mouth once a day Bryan Simeon MD [id number],SBryan ra, [place] [id number],S, H er updated medication list for this problem includes: Ezetimibe 10 Mg Tablet (Ezetimibe) ..... Take 1 tablet by mouth every day Bryan Simeon MD [id number],SBryan ra, [place] [id number],SBryan ra, [place] [id number],SBryan ra, [place] [id number],W, H er updated medication list for this problem includes: Ezetimibe 10 Mg Tablet (Ezetimibe) ..... Take 1 tablet by mouth every day Bryan Simeon MD [id number],SBryan ra, [place] [id number],W, B P today: 154/104 P rior BP: [...] mouth once a day Bryan Simeon MD [id number],S, H er updated medication list for this [...] mouth once a day Bryan Simeon MD [id number],WBryan ra, [place] [id number],S, Bryan Montenegro ra, MD [id number],SBryan ra, [place] [id number],WBryan ra, MD [id number],S, H er updated medication list for this problem includes: Ezetimibe 10 Mg Tablet (Ezetimibe) ..... Take 1 tablet by mouth every day Bryan Simeon MD [id number],S, H er updated medication list for this [...] mouth once a day Bryan Simeon MD [id number],S, B P today: 120/98 P rior BP: [...] mouth once a day Bryan Simeon MD [id number],S, The following medications were removed from the [...] mouth once a day Bryan Simeon MD [id number],S,B P is slightly elevated. B P today: [...] mouth once a day Bryan Simeon MD [id number],S,wears cpap 3x a week. Bryan Simeon MD [id number],W,r eoccurence of chest pain. will start on Toprolol XL and get some labs and echho results. O rders: 9 9214 MOD 30-39min (CPT-13794) C omplete Echo (CPT-97693) P ROBNP, N TERMINAL (51343) D -DIMER, QUANTITATIVE (2674) C BC (H/H, RBC, INDICES, WBC, PLT) (2249) T SH, 3RD GENERATION W/REFLEX TO FT4 (86472) Her updated medication list for this problem [...] results. O rders: 9 9214 MOD 30-39min (CPT-26200) C omplete Echo (CPT-96337) P ROBNP, N TERMINAL (85871) D -DIMER, QUANTITATIVE (5640) C BC (H/H, RBC, INDICES, WBC, PLT) (9121) T SH, 3RD GENERATION W/REFLEX TO FT4 (73061) Her updated medication list for this problem [...] this problem includes: Ranexa 1000 Mg Oral Ob01w-wwc (Ranolazine) ..... One po bid Hyzaar 50-12.5 Mg Tabs (Losartan potassium-hctz) ..... One po daily Aspirin 81 Mg Tabs (Aspirin) ..... One tab. daily Nitrostat Subl (Nitroglycerin subl) ..... Take as directed Bryan Simeon MD Cardiology: H er updated medication list for this problem includes: Ranexa 1000 Mg Oral Dh34t-qow (Ranolazine) ..... One po bid Aspirin 81 Mg Tabs (Aspirin) ..... One tab. daily Nitrostat Subl (Nitroglycerin subl) ..... Take as directed Bryan Simeon MD Cardiology Bryan Orellana Cardiology: H er updated medication list for this problem includes: Ranexa 1000 Mg Oral [id number]-[id number] (Ranolazine) ..... One po bid Aspirin 81 [...] this problem includes: Ranexa 500 Mg Oral Qv63r-vhf (Ranolazine) ..... One tablet twice daily Aspirin 81 Mg Tabs (Aspirin) ..... One tab. daily Nitrostat Subl (Nitroglycerin subl) ..... Take as directed Bryan Simeon MD Cardiology Follow up Bryan macias MD Cardiology Follow up : H er updated medication list for this problem includes: Ranexa 500 Mg Oral Ut31e-kde (Ranolazine) ..... One tablet twice daily Aspirin [...] ..... Take as directed Orders: Jaylyn KG (CPT-18453) Bryan Simeon MD Follow up : H [...] One tab. daily Orders: Shannan omplete Echo (CPT-69959) M obile Cardiac Tele (CPT-41914) Bryan Simeon MD hos follow up: H er updated medication list for this problem includes: Aspirin 81 Mg Tabs (Aspirin) ..... One tab. daily Nitrostat Subl (Nitroglycerin subl) ..... Take as directed & #13;Orders: Shannan omplete Echo (CPT-35369) M obile Cardiac Tele (CPT-09553) Bryan Simeon MD hos follow up: H er updated medication list for this problem includes: Aspirin 81 Mg Tabs (Aspirin) ..... One tab. daily Alprazolam 0.5 Mg Tabs (Alprazolam) ..... 1 tab twice daily Nitrostat Subl (Nitroglycerin subl) ..... Take as directed Orders: Shannan omplete Echo (CPT-27207) M obile Cardiac Tele (CPT-55759) Bryan Simeon MD hos follow up: O rders: Shannan omplete Echo (CPT-07949) M obile Cardiac Tele (CPT-29070) d iet and exercise for weight loss and cardiovascualr risk reduction Bryan Simeon MD hos follow up: H er updated medication list for this problem includes: Hyzaar 50-12.5 Mg Tabs (Losartan potassium-hctz) ..... One po daily Aspirin 81 Mg Tabs (Aspirin) ..... One tab. daily Nitrostat Subl (Nitroglycerin subl) ..... Take as directed n o recurrence O rders: C omplete Echo (CPT-15256) M obile Cardiac Tele (CPT-65543) Bryan Simeon MD hos follow up: O rders: Shannan omplete Echo (CPT-32580) M obile Cardiac Tele (CPT-98036) Bryan Simeon MD hos follow up: O rders: C omplete Echo (CPT-10303) M obile Cardiac Tele (CPT-96198) Bryan Simeon MD hos follow up: H er updated medication list for this problem includes: Hyzaar 50-12.5 Mg Tabs (Losartan potassium-hctz) ..... One po daily Aspirin 81 Mg Tabs (Aspirin) ..... One tab. daily Nitrostat Subl (Nitroglycerin subl) ..... Take as directed Orders: Shannan omplete Echo (CPT-75881) M obile Cardiac Tele (CPT-41452) Bryan Simeon MD hos follow up: H er updated medication list for this problem includes: Hyzaar 50-12.5 Mg Tabs (Losartan potassium-hctz) ..... One po daily Aspirin 81 Mg Tabs (Aspirin) ..... One tab. daily Orders: Shannan omplete Echo (CPT-94979) M obile Cardiac Tele (CPT-67417) BP today: 155/91 Bryan Simeon MD Date [...] EKG Cathleen Shukla MD complet ed SNOMED-CT: [id number] Current Medications Documented Bryan Simeon MD completed SNOMED-CT: [id number] 722046 Current Medications Documented Bryan Simeon MD completed EKG Bryan Simeon MD complet ed SNOMED-CT: 036304746 025188 Current Medications Documented Bryan Simeon MD completed EKG Bryan Simeon MD complet ed EKG Bryan Simeon MD complet ed
--- OUTSIDE RECORDS SUMMARY | 2024-05-16 08:09 | XMS_ITS | Clinical Summary ---
Author Organization [facility] Medical Office Building [address] Address [address] [place] [address] Care Team Providers Care Dryer Feeder Name Role Phone Keysha Rinaldin Jose Daniel Primary Care Provider [phone] Bryan Simeon MD Unavailable [phone] Jerry Leos NP Unavailable [phone] Beryl Mendoza PT Unavailable Unavailable Allergies Active [...] is overdue for follow up with her examiner of currency, Dr. Lala, in [place]. She will follow up soon. Patient has pain medication at home from her aircraft painter apprentice should pain return. Other possibilities for pain [...] Date Diagnosed Date Resolved Date Musculoskeletal finding 04/25/2011 09/2 05/2021 Overview (05/27/2016): Proximal leg weakness Encounters Date Type Department Care Team Description 05/15/2024 12:20 PM CDT Lab [address] [address] Arrived 05/09/2024 8:16 AM CDT - 05/09/2024 11:59 PM CDT Hospital Encounter [facility] [address] [place] [id number] Preop examination Discharge Disposition: Discharge to home or self care 05/09/2024 8:15 AM CDT - 05/09/2024 11:59 PM CDT Hospital Encounter [facility] [address] [place] [address] Preop examination Discharge Disposition: Discharge to home or self care 05/09/2024 8:15 AM CDT Lab [facility] [address] [place] [address] 03/27/2024 8:00 AM PRODUCT EXAMINER - 03/27/2024 11:59 PM PRODUCT EXAMINER Hospital Encounter [facility] [address] [place] [address] Age-related osteoporosis without current pathological fracture Discharge Disposition: Discharge to home or self care 02/29/2024 8:15 AM PRODUCT EXAMINER Office Visit [facility] [address] [facility] [address] [place] [address] Wil De Dios PA Primary osteoarthritis of left knee (Primary Dx); History of meniscectomy of left knee; Pes anserinus bursitis of right knee; History of total knee arthroplasty, right from Last 3 Months Immunizations Immunization Administration Dates Next Due Td, adsorbed 02/20/2009 [...] Cancer -l richard; Ovarian cancer Maternal Grandmother Rodrigo r -ovarian; Headache Mother Headaches; Hypertension Mother [...] drink = 0.6 oz pur e alcohol) [facility] Utilities Answer Date Recorded In the past 12 months has [employer] electric, gas, oil, or water [employer] threatened to shut off services in your [...] often do you attend chur ch or yazdanism services? Never 10/09/2023 Do you belong to any clubs o r organizations such as sabianist groups, unions, fraternal or athletic groups, or [...] any time in the past 12 m [facility], were you homeless or living in a prison (including now)? No 10/09/2023 Personal Safety Answer Date Recorded Have you ever been in or are you currently in a harmful physical or emotional relationship or is someone making you feel afraid or unsafe? Denies 10/07/2023 Comments No Sex and Gender Information Value Date Recorded Sex Assigned at Not on file Legal Sex Female 1:44 AM PRODUCT EXAMINER Gender Identity Not on file Sexual Orientation Not on file Obstetrics History Para Term AB IAB SAB Ectopic Multiple Livin g Live Births 1 1 1 Date Outcome GA Total Labor Labor/2nd/3rd Weight Sex Type Anes PTL Niharika A1 A5 Name Clin Term Last Filed Vital Signs Vital Sign Reading Time Taken Comments Blood Pressure 137/92 02/29/2024 8:10 AM PRODUCT EXAMINER Pulse 103 02/29/2024 8:10 AM PRODUCT EXAMINER Temperature 35.8 C (96.4 F) 01/31/2024 8:45 AM PRODUCT EXAMINER Respiratory Rate 16 01/31/2024 8:45 AM PRODUCT EXAMINER Oxygen Saturation 95% 10/10/2023 8:08 AM CDT Inhaled Oxygen Concentration - - Weight 86.3 kg (190 lb 3.2 oz) 02/29/2024 8:10 A M PRODUCT EXAMINER Height 157.5 cm (5' 2 ) 02/29/2024 8:10 AM PRODUCT EXAMINER Body Mass Index 34.79 02/29/2024 8:10 AM PRODUCT EXAMINER Plan of Treatment Health Maintenance Due Date Last Done Comments Depression Screening 1960 Hepatitis C Screening 1960 Hepatitis B Screening 04/19/1977 Pneumococcal vaccine 65+ (1 of 2 - PCV) 04/19/1978 DTaP/Tdap/Td Vaccine (1 - Tdap) 02/21/2009 0 Zoster Vaccine (1 of 2) 04/19/2009 Influenza Vaccine (#1) 2023 2, 12/26/2018, 12/05/2017, Additional history exists Well Visit 65+ 04/19/2024 Fall Risk Assessment 10/09/2024 10/10/2023, 12/27/19 23 Breast Cancer Screening-Mammogram 01/04/2025 01/05/2024, 04/18/2023, 01/21/2022 Osteoporosis Screening-Bone Density Scan 03/27/2026 03/27/2024, 01/21/2022 Colon Cancer Screening-Colonoscopy 10/27/2032 10/27/2022 Colon Cancer Screening-CT Colonography Discontinued 10/27/2022 Colon Cancer Screening-DNA Stool Discontinued 10/28/19 Colon Cancer Screening-FIT Discontinued 10/27/2022 Colon Cancer Screening-Sigmoidoscopy Discontinued 10/27/2022 Medical Devices Implanted Type Area Dean Of Student Services Device Identifier Shelf Expiration Date Model / Serial / Lot [employer] Marker Tissue Bowtie Shape Titanium Collagen Mammomark 10ga [id number] - [id number] - [id number] Implanted:Qty : 1 on 01/31/2024 by Kerry Bhat MD at [facility] Breast Left: Breast [employer] [id number] 05/01/2025 [id number] / [id number] / [id number] D Description:Stereotactic lef t breast biopsy 11-12 o'clock area. Cores x6 Microcalcs in cassettes 1 and 6. Procedures Procedure Name Priority Date/Time Associated Diagnosis Comments HEMOGLOBIN A1C Routine 05/15/2024 12:29 PM CDT ECG 12-LEAD Routine 05/09/2024 8:58 AM CDT Preop examination XR CHEST PA LATERAL 2 VIEWS Schedule Routine, Read Routine (OP Routine) 05/09/2024 8:35 AM CDT Preop examination EGFR Routine 05/09/2024 8:18 AM CDT DIFFERENTIAL AUTO Routine 05/09/2024 8:1 8 AM CDT COMPREHENSIVE METABOLIC PANEL Routine 05/09/2024 8:18 AM CDT CBC WITH AUTO DIFFERENTIAL Routine 05/09/2024 8:18 AM CDT DEXA AXIAL SKELETON BONE DENSITY 1 OR MORE SITES Schedule Routine, Read Routine (OP Routine) 03/27/2024 8:27 AM PRODUCT EXAMINER Age-related osteoporosis without current pathological fracture SD ARTHROCENTESIS ASPIR&/INJ MAJOR JT/BURSA W/O US Routine 02/29/2024 8:15 AM PRODUCT EXAMINER Pes anserinus bursitis of right knee SD ARTHROCENTESIS ASPIR&/INJ MAJOR JT/BURSA W/O US Routine 02/29/2024 8:15 AM PRODUCT EXAMINER Primary osteoarthritis of left knee DIAGNOSTIC MAMMOGRAM BILATERAL W PETER Schedule Routine, Read Routine (OP Routine) 01/05/2024 10:23 AM PRODUCT EXAMINER Other abnormal and inconclusive findings on diagnostic imaging of breast COLONOSCOPY 10/27/2022 8:16 AM CDT from Last 3 Months or Most Recently Relevant to Health Maintenance Results * (ABNORMAL) Hemoglobin A1c (05/15/2024 12:29 PM CDT) Hgb A1C 6.1(H) 4.0 - 5.6 % Estimated Average Glucose 128 mg/dL [facility]) Comment: The ADA recommends reporting an estimated Average Glucose (eAG) with all Hemoglobin A1c results using the equation derived from a study of 507 normal and diabetic adults. Minority populations were underrepresented and children were not included. (Diabetes Care 31:3810-5280, 2008). The eAG is not equivalent to a fasting glucose. Blood 05/15/2024 12:2 9 PM CDT 05/15/2024 12:33 PM CDT Damir Rinaldi DO LAB BLOOD ORDERABLES Final Result Performing Organization Address [facility]/ZIP Co de Phone Number [id number] [facility]) [address] [facility] [place] [address] * ECG 12 lead (05/09/2024 8:58 AM CDT) 05/09/2024 8:32 AM CDT Narrative [facility] - 05/09/2024 1:36 PM CDT Vent Rate: 74 bpm RR Interval: 804 msec SD Interval: 143 msec QRS Duration: 81 msec QT Interval: 391 msec QTC Interval: 419 msec P-R-T [place]: 48 - 15 - 17 degrees IMPRESSION: SINUS RHYTHM NORMAL ECG Compared to prior EKG, heart rate has decreased ST segment changes are no longer present Electronically Signed By: Dalton Camara MD Damir Rinaldi DO ECG ORDERABLES Final Resu lt Performing Organization Address [facility]/ZIP Co de Phone Number [facility] [employer] [facility] * XR Chest PA Lateral 2 Views (05/09/2024 8:35 AM CDT) Anatomical Region Laterality Modality Body, Chest N/A Computed Radiogr aphy 05/14/2024 5:32 PM CDT Narrative 05/14/2024 5:35 PM CDT EXAM DESCRIPTION: XR CHEST PA LATERAL 2 VIEWS REASON FOR STUDY: Preop for cataract surgery diabetic hypertension TECHNIQUE: Frontal and lateral radiographic view(s) of the chest. COMPARISON: Chest radiograph dated 10/07/2023. FINDINGS: LUNGS: No focal opacity, pleural effusion, or pneumothorax. HEART/MEDIASTINUM: Cardiac silhouette normal in size. Mediastinal and hilar contours appear normal. LINES/TUBES: None. BONES: No acute osseous abnormality. IMPRESSION: No acute cardiopulmonary abnormality. THIS IS AN ELECTRONICALLY VERIFIED FINAL REPORT 05/14/2024 5:35 PM - Electronically signed by Arcadio Arce M.D. MF: TAM Report ID: [id number] Reading Location: [id number] Procedure Note Arcadio Arce, DO - 05/14/2024 EXAM DESCRIPTION: XR CHEST PA LATERAL 2 VIEWS REASON FOR STUDY: Preop for cataract surgery diabetic hypertension TECHNIQUE: Frontal and lateral radiographic view(s) of the chest. COMPARISON: Chest radiograph dated 10/07/2023. FINDINGS: LUNGS: No focal opacity, pleural effusion, or pneumothorax. HEART/MEDIASTINUM: Cardiac silhouette normal in size. Mediastinal andhilar contours appear normal. LINES/TUBES: None. BONES: No acute osseous abnormality. IMPRESSION: No acute cardiopulmonary abnormality. THIS IS AN ELECTRONICALLY VERIFIED FINAL REPORT 05/14/2024 5:35 PM - Electronically signed by Arcadio Arce M.D. MF: TAM Report ID: [id number] Reading Location: [place] [address] Damir Rinaldi DO IMG XR PROCEDURES Final Re sult * eGFR (05/09/2024 8:18 AM CDT) eGFR >90 >=60 mL/min/1. 73 m2 Comment: Interpretive Data Reference Interval Normal >/= 90 mL/min/1.73m2 Mildly decreased* 60 - 89 mL/min/1.73m2 Mildly to moderately decreased 45 - 59 mL/min/1.73m2 Moderately to severely decreased 30 - 44 mL/min/1.73m2 Severely decreased 15 - 29 mL/min/1.73m2 Kidney Failure < 15 mL/min/1.73m2 *Relative to young adult level Estimated glomerular filtration rate is determined by the 2020 CKD-EPI equation recommended by the National Kidney Foundation (A Unifying Approach to GFR Estimation: Recommendations of the NKF-ASK Task Force on Reassessing the Inclusion of Race in Diagnosing Kidney Disease, JASN 2020). The CKD-EPI equation should not be used for patients with unstable renal function and has not been validated in children and those over 70. Current interpretive data was last reviewed 2020. Blood 05/09/2024 8:18 AM CDT 05/09/2024 8:45 AM CDT Damir Rinaldi DO LAB BLOOD ORDERABLES Final Result [facility] [address] [facility] [place] [address] * Differential, auto (05/09/2024 8:18 AM CDT) Neutrophil abs 5.4 1.5 - 6.5 K/cumm Imm gran abs 0.0 0.0 - 0.1 K/cumm [facility] ([place]) Lymphocyte abs 2.0 0.8 - 3.3 K/cumm [facility]) Monocyte abs 0.6 0.2 - 0.8 K/cumm [facility]) Eosinophil abs 0.2 0.0 - 0.5 K/cumm [facility]) Basophil abs 0.0 0.0 - 0.1 K/cumm [facility] ([place]) Neutrophil pct 65.4 % [facility]) Comment: Interpretive Data Percent cell count reference ranges are not reported, since discordance with absolute values may lead to misinterpretation of CBC data. Current Interpretive Data was last revised on 2017. Imm gran pct 0.5 % [facility] ([place]) Comment: Interpretive Data Percent cell count reference ranges are not reported, since discordance with absolute values may lead to misinterpretation of CBC data. Current Interpretive Data was last revised on 2017. Lymphocyte pct 24.1 % [facility]) Comment: Interpretive Data Percent cell count reference ranges are not reported, since discordance with absolute values may lead to misinterpretation of CBC data. Current Interpretive Data was last revised on 2017. Monocyte pct 7.3 % [facility] ([place]) Comment: Interpretive Data Percent cell count reference ranges are not reported, since discordance with absolute values may lead to misinterpretation of CBC data. Current Interpretive Data was last revised on 2017. Eosinophil pct 2.3 % [facility] Comment: Interpretive Data Percent cell count reference ranges are not reported, since discordance with absolute values may lead to misinterpretation of CBC data. Current Interpretive Data was last revised on 2017. Basophil pct 0.4 % [facility]) Comment: Interpretive Data Percent cell count reference ranges are not reported, since discordance with absolute values may lead to misinterpretation of CBC data. Current Interpretive Data was last revised on 2017. Blood 05/09/2024 8:18 AM CDT 05/09/2024 8:45 AM CDT Damir Rinaldi DO LAB BLOOD ORDERABLES Final Result [facility] ([place]) [address] [facility] Department of Laboratories [place], [place] [id number] * (ABNORMAL) CBC with auto differential (05/09/2024 8:18 AM CDT) WBC 8.2 3.8 - 9.9 K/cumm Hgb 12.1 11.9 - 15.5 g/dL [facility] Hct 38.8 35.6 - 45.5 % [facility]) Plt 266 150 - 400 K/cumm [facility] MPV 11.2 9.1 - 12.3 fL [facility] RBC 3.89(L) 3.90 - 5.20 M/cumm [facility] MCV 99.7(H) 81.3 - 96.4 fL [facility] MCH 31.1 27.1 - 33.3 pg [facility] MCHC 31.2(L) 32.3 - 35.7 g/dL [facility] RDW CV 13.6 11.1 - 14.9 % [facility] RDW SD 50.1(H) 35.7 - 48.1 fL [facility] NRBC abs 0.00 0.00 - 0.01 K/cumm [facility] Blood 05/09/2024 8:18 AM CDT 05/09/2024 8:45 AM CDT Damir Rinaldi DO LAB BLOOD ORDERABLES Final Result [facility] ([place] [address] [facility] [place] [address] * (ABNORMAL) Comprehensive metabolic panel (05/09/2024 8:18 AM CDT) Sodium 141 135 - 145 mmol/L Potassium, pl 4.3 3.3 - 4.9 mmol/L [facility] Chloride 104 97 - 110 mmol/L [facility] CO2 28 22 - 32 mmol/L [facility] Anion gap 10 2 - 15 mmol/L [facility] BUN 18 6 - 25 mg/dL [facility] ([place] Creatinine 0.73 0.60 - 1.10 mg/dL [facility] Glucose 110 70 - 199 mg/dL [facility] Comment: Interpretive Data Fasting glucose >/= 126 mg/dl is diagnostic for diabetes. Fasting is defined as no caloric intake for at least 8 hours. Fasting glucose between 100 mg/dl to 125 mg/dl is diagnostic of prediabetes. In a patient with classic symptoms of hyperglycemia or hyperglycemic crisis, a random glucose >/= 200 mg/dl is diagnostic for diabetes. In the absence of unequivocal hyperglycemia, results should be confirmed by repeat testing. The classification and Diagnosis of Diabetes Diabetes Care 202; 46: S19-S40. Current interpretive data was last revised 2022. Calcium 9.1 8.5 - 10.3 mg/dL [facility] Bilirubin, total <0.2 0.1 - 1.2 mg/dL [facility] Protein, pl 6.2(L) 6.5 - 8.5 g/dL [facility]) Albumin 3.6 3.5 - 5.0 g/dL [facility] Alk phos 68 40 - 130 Units/L [facility] ALT 26 7 - 45 Units/L [facility] AST 28 10 - 45 Units/L [facility]) Blood 05/09/2024 8:18 AM CDT 05/09/2024 8:45 AM CDT Narrative [facility] ([place]) - 05/09/2024 9:24 AM CDT [id number] us Damir Rinaldi DO LAB BLOOD ORDERABLES Final Result [facility] ([place]) [address] [facility] [place] [address] * Dexa Axial Skeleton Bone Density 1 or 2 Site (03/27/2024 8:27 AM PRODUCT EXAMINER) Anatomical Region Laterality Modality Body N/A Other 03/27/2024 4:56 PM PRODUCT EXAMINER Narrative 03/27/2024 4:57 PM PRODUCT EXAMINER EXAM DESCRIPTION: DEXA AXIAL SKELETON BONE DENSITY 1 OR MORE SITES REASON FOR STUDY: 63 y/o year old F with given history of: age-related osteoporosis Postmenopausal. Dean Of Student Services/Model: [employer] (S/N [id number]) Facility LSC value of 0.022 for the [...] Arcadio Goel M.D. MF: TAM Report ID: [id number] Reading Location: [address] Note Arcadio Goel MD - 03/27/2024 EXAM DESCRIPTION: DEXA AXIAL SKELETON BONE DENSITY 1 OR MORE SITES REASON FOR STUDY: 63 y/o year old F with given history of:age-related osteoporosis Postmenopausal. Dean Of Student Services/Model: [employer] (S/N [id number]) Facility LSC value of 0.022 for the [...] Arcadio Goel M.D. MF: TAM Report ID: [id number] Reading Location: [place] [address] Damir Rinaldi DO IMG DXA PROCEDURES Final R esult * SD ARTHROCENTESIS ASPIR&/INJ MAJOR JT/BURSA W/O US (02/29/2024 8:15 AM PRODUCT EXAMINER) Wil Urean PA - 02/29/2024 8:15 AM PRODUCT EXAMINER Wil De Dios PA 02/29/2024 9:02 AM [...] IN CLINIC/BEDSIDE LINDA OLIVA Final Result * SD ARTHROCENTESIS ASPIR&/INJ MAJOR JT/BURSA W/O US (02/29/2024 8:15 AM PRODUCT EXAMINER) Wil Urena PA - 02/29/2024 8:15 AM PRODUCT EXAMINER Wil De Dios PA 02/29/2024 9:02 AM [...] IN CLINIC/BEDSIDE LINDA [facility]IVA Final Result * (ABNORMAL) Diagnostic Mammogram Bilateral W Peter (01/05/2024 10:23 AM PRODUCT EXAMINER) Anatomical Region Laterality Modality Breast Bilateral Mammography 01/05/2024 5:13 PM PRODUCT EXAMINER Impressions 01/05/2024 5:13 PM PRODUCT EXAMINER 1. Multiple bilateral tiny circumscribed nodules are stable and considered a benign finding. 2. Stereotactic/tomographic guided biopsy is now recommended for the calcifications in the left breast. OVERALL FINAL ASSESSMENT: BI-RADS 4b-moderate suspicion for malignancy Electronically signed by: Kerry Bhat M.D. Narrative 01/05/2024 5:13 PM PRODUCT EXAMINER EXAMINATION: BILATERAL DIGITAL DIAGNOSTIC MAMMOGRAM AND DIGITAL [...] septation. These are considered benign. us Damir Rinaldi DO IMG MAMMO PROCEDURES Final Result * COLONOSCOPY (10/27/2022 8:16 AM CDT) Anatomical Region Laterality Modality Other Narrative Procedure Note Karen Ronquillo MD - 10/27/2022 8:16 AM CDT [facility] Patient Name: Roma Page Procedure Date: 10/27/2022 8:16 AM Date of : 1960 Admit Type: Outpatient Age: 62 Gender: Female Attending MD: Karen Ronquillo M.D. Room: [facility] ENDOSCOPY ROOM 2 Note Status: Finalized [...] by the physician, the anesthesiologist and the ophthalmic technician in the endoscopy suite. MentalStatus Examination: [...] scope was passed under direct vision. TheColonoscope [id number] was introduced through the anus and advanced [...] perforation orabscess without bleeding CPT copyright 2020 [employer]. All rights reserved. The codes documented in this report are preliminary and upon packer reviewmay be revised to meet current compliance requirements. Recognized by the [employer] for promoting quality in endoscopy Karen Ronquillo MD ENDOSCOPY PROCEDURES Final Resul t from Last 3 Months or Most Recently Relevant to Health Maintenance Insurance MEDICARE [facility] Address: [facility] [id number] [place] [id number] [facility] MEDICARE COMMERCIAL GENERIC Member Subscriber Plan / Payer (Ef fective 2021-Present) Name:Roma Page Dilip Relation to Subscriber:Self Name:Sarah Pagethia Dilip Payer ID:[id number] Group ID:Not on file Type:COMMERCIAL Address: [employer] [place] [address] [place], [place] [facility] [place] MEDICARE [facility] Address: [address] [address] [employer] [place] Advance Directives For more information, please contact: [phone] * Full Code (Latest Code Status on [...] Agents on File Name Relationship Healthcare Agent [facility] p Communication Ava [place] Daughter First Alternate Health Car e Agent Care Teams Dryer Feeder Relationship Specialty Start Date End Date Damir Rinaldi DO PCP - General Family Medicine 05/08/19 Bryan Simeon MD Consulting Physician Cardiology 01/10/23 Jerry Leos NP [address] [place] [address] DR ZHU [address] [place] [id number] Nurse Practitioner Orthopedic Surgery 01/17/23 Beryl Mendoza, PT Physical Therapist Physical Therapy 06/16/23
--- OUTSIDE RECORDS SUMMARY | 2024-05-16 08:09 | XMS_ITS | Referral Summary ---
Author Organization [facility] Building [address] Address [address] [place] [address] Care Team Providers Care Duck Farmer Name Role Phone Alisianadeem Damir Jose Daniel Primary Care Provider [phone] Bryan Simeon MD Unavailable [phone] Jerry Leos NP Unavailable [phone] Beryl Mendoza PT Unavailable Unavailable Encounters Date Type Department Care Team Description 05/15/2024 12:20 PM CDT Lab [address] [address] Arrived 05/09/2024 8:16 AM CDT - 05/09/2024 11:59 PM CDT Hospital Encounter [facility] [address] [place] [id number] Preop examination Discharge Disposition: Discharge to home or self care 05/09/2024 8:15 AM CDT - 05/09/2024 11:59 PM CDT Hospital Encounter [facility] [address] [place] [phone] Preop examination Discharge Disposition: Discharge to home or self care 05/09/2024 8:15 AM CDT [address] [address] 03/27/2024 8:00 AM COMMUNICATION COORDINATOR - 03/27/2024 11:59 PM COMMUNICATION COORDINATOR Hospital Encounter [facility] [address] [place] [id number] Age-related osteoporosis without current pathological fracture Discharge Disposition: Discharge to home or self care 02/29/2024 8:15 AM COMMUNICATION COORDINATOR Office Visit [facility] [address] [facility] [address] [place] [address] Wil De Dios PA Primary osteoarthritis of left knee (Primary Dx); History of meniscectomy of left knee; Pes anserinus bursitis of right knee; History of total knee arthroplasty, right from Last 3 Months Allergies Active Allergy [...] is overdue for follow up with her mail messenger, Dr. Lala, in [place]. She will follow up soon. Patient has pain medication at home from her sign painter should pain return. Other possibilities for [...] 04/25/201110/22 Overview (05/27/2016): Proximal leg weakness Immunizations Immunization Administration Dates Next Due Td, adsorbed 02/20/2009 Social History Tobacco Use Types Packs/Day Years Used Date Smoking Tobacco: Never Smokeless Tobacco: Never Tobacco Cessation:Counseling Given: Not Answered Alcohol Use Standard Drinks/Week Comments Yes 0 (1 standard drink = 0.6 oz pur e alcohol) [facility] Utilities Answer Date Recorded In the past 12 months has e electric, gas, oil, or water eleni threatened to shut off services in your [...] often do you attend chur ch or congregation services? Never 10/09/2023 Do you belong to any clubs o r organizations such as zoroastrianism groups, unions, fraternal or athletic groups, or [...] any time in the past 12 [facility], were you homeless or living in a penitentiary (including now)? No 10/09/2023 Personal Safety Answer Date Recorded Have you ever been in or are you currently in a harmful physical or emotional relationship or is someone making you feel afraid or unsafe? Denies 10/07/2023 Comments No Sex and Gender Information Value Date Recorded Sex Assigned at Not on file Legal Sex Female 1:44 AM COMMUNICATION COORDINATOR Gender Identity Not on file Sexual Orientation Not on file Last Filed Vital Signs Vital Sign Reading Time Taken Comments Blood Pressure 137/92 02/29/2024 8:10 AM COMMUNICATION COORDINATOR Pulse 103 02/29/2024 8:10 AM COMMUNICATION COORDINATOR Temperature 35.8 C (96.4 F) 01/31/2024 8:45 AM COMMUNICATION COORDINATOR Respiratory Rate 16 01/31/2024 8:45 AM COMMUNICATION COORDINATOR Oxygen Saturation 95% 10/10/2023 8:08 AM CDT Inhaled Oxygen Concentration - - Weight 86.3 kg (190 lb 3.2 oz) 02/29/2024 8:10 A M COMMUNICATION COORDINATOR Height 157.5 cm (5' 2 ) 02/29/2024 8:10 AM COMMUNICATION COORDINATOR Body Mass Index 34.79 02/29/2024 8:10 AM COMMUNICATION COORDINATOR Plan of Treatment Not on file Medical Devices Implanted Type 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 Marker Tissue Bowtie Shape Titanium Collagen Mammomark 10ga [id number] - [id number] - [id number] Implanted:Qty : 1 on 01/31/2024 by Kerry Bhat MD at [facility] Breast Left: Breast [employer] [id number] 05/01/2025 [id number] / [id number] / [id number] D Description:Stereotactic lef t breast biopsy 11-12 [...] Read Routine (OP Routine) 03/27/2024 8:27 AM COMMUNICATION COORDINATOR Age-related osteoporosis without current pathological fracture VA ARTHROCENTESIS ASPIR&/INJ MAJOR JT/BURSA W/O US Routine 02/29/2024 8:15 AM COMMUNICATION COORDINATOR Pes anserinus bursitis of right knee VA ARTHROCENTESIS ASPIR&/INJ MAJOR JT/BURSA W/O US Routine 02/29/2024 8:15 AM COMMUNICATION COORDINATOR Primary osteoarthritis of left knee DIAGNOSTIC MAMMOGRAM BILATERAL W PETER Schedule Routine, Read Routine (OP Routine) 01/05/2024 10:23 AM COMMUNICATION COORDINATOR Other abnormal and inconclusive findings on diagnostic [...] and children were not included. (Diabetes Care 31:6786-1001, 2008). The eAG is not equivalent to a fasting glucose. Blood 05/15/2024 12:2 9 PM CDT 05/15/2024 12:33 PM CDT us Damir Rinaldi DO LAB BLOOD ORDERABLES Final Result [facility] ([facility]) [address] [facility] Department of Laboratories [place], [place] [id number] * ECG 12 lead (05/09/2024 8:58 AM CDT) 05/09/2024 8:32 AM CDT Narrative [facility] - 05/09/2024 1:36 PM CDT Vent Rate: 74 bpm RR Interval: 804 msec VA Interval: 143 msec QRS Duration: 81 msec QT Interval: 391 msec QTC Interval: 419 msec P-R-T [place]: 48 - 15 - 17 degrees IMPRESSION: SINUS RHYTHM NORMAL ECG Compared to prior EKG, heart rate has decreased ST segment changes are no longer present Electronically Signed By: Dalton Camara MD us Damir Rinaldi DO ECG ORDERABLES Final Resu lt [facility] * XR Chest PA Lateral 2 Views [...] Arcadio Arce M.D. MF: TAM Report ID: [id number] Reading Location: [place] [address] Procedure Note Arcadio Arce DO - 05/14/2024 EXAM DESCRIPTION: XR CHEST [...] Arcadio Arce M.D. MF: TAM Report ID: [id number] Reading Location: [place] [address] us Damir Rinaldi DO IMG XR PROCEDURES Final [...] of Race in Diagnosing Kidney Disease, JASN 202). The CKD-EPI equation should not be used for patients with unstable renal function and has not been validated in children and those over 70. Current interpretive data was last reviewed 2020. Blood 05/09/2024 8:18 AM CDT 05/09/2024 8:45 AM CDT us Damir Rinaldi DO LAB BLOOD ORDERABLES Final Result [facility] ([place]) [address] [facility] Department [place] [address] * Differential, auto (05/09/2024 8:18 AM CDT) [...] Neutrophil pct 65.4 % [facility] ([place]) Comment: Interpretive Data Percent cell count reference [...] BLOOD ORDERABLES Final Result Performing Organization Address City/[facility]/ZIP Co de Phone Number [facility] ([place]) [address] [facility] Department [place] [address] * (ABNORMAL) CBC with auto differential (05/09/2024 [...] ([facility]) MCV 99.7(H) 81.3 - 96.4 fL [facility] ([place]) MCH 31.1 27.1 - 33.3 pg [facility] ([place]) MCHC 31.2(L) 32.3 - 35.7 g/dL [facility] ([place]) RDW CV 13.6 11.1 - 14.9 % [facility] ([place] RDW SD 50.1(H) 35.7 - 48.1 fL [facility] ([place]) NRBC abs 0.00 0.00 - 0.01 K/cumm [facility] ([place]) Blood 05/09/2024 8:18 AM CDT 05/09/2024 8:45 AM CDT Damir Rinaldi DO LAB BLOOD ORDERABLES Final Result Performing Organization Address City/[facility] Co de Phone Number [facility] ([place] [address] [facility] Department [place] [address] * (ABNORMAL) Comprehensive metabolic panel (05/09/2024 8:18 AM CDT) Sodium 141 135 - 145 mmol/L Potassium, pl 4.3 3.3 - 4.9 mmol/L [facility] Chloride 104 97 - 110 mmol/L [facility] ([place] CO2 28 22 - 32 mmol/L [facility] ([place]) Anion gap 10 2 - 15 mmol/L [facility] ([place]) BUN 18 6 - 25 mg/dL [facility] ([place]) Creatinine 0.73 0.60 - 1.10 mg/dL [facility] ([place] Glucose 110 70 - 199 mg/dL [facility] ([place]) Comment: Interpretive Data Fasting glucose [...] classification and Diagnosis of Diabetes Diabetes Care 2021; 46: S19-S40. Current interpretive data was last [...] [facility] ([facility]) - 05/09/2024 9:24 AM CDT [id number] us Damir Rinaldi DO LAB BLOOD ORDERABLES Final Result [facility]) [address] [facility] Department [place] [address] * Dexa Axial Skeleton Bone Density 1 or 2 Site (03/27/2024 8:27 AM COMMUNICATION COORDINATOR) Anatomical Region Laterality Modality Body N/A Other 03/27/2024 4:56 PM COMMUNICATION COORDINATOR Narrative 03/27/2024 4:57 PM COMMUNICATION COORDINATOR EXAM DESCRIPTION: DEXA AXIAL SKELETON BONE DENSITY 1 OR MORE SITES REASON FOR STUDY: 63 y/o year old F with given history of: age-related osteoporosis Postmenopausal. 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 MF: TAM Report ID: [id number] Reading Location: [id number] Procedure Note Arcadio Goel MD - 03/27/2024 EXAM DESCRIPTION: DEXA AXIAL SKELETON BONE DENSITY 1 OR MORE SITES REASON FOR STUDY: 63 y/o year old F with given history of:age-related osteoporosis Postmenopausal. 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 MF: TAM Report ID: [id number] Reading Location: [place] [address] us Damir Rinaldi DO IMG DXA PROCEDURES Final R esult * VA ARTHROCENTESIS ASPIR&/INJ MAJOR JT/BURSA W/O US (02/29/2024 8:15 AM COMMUNICATION COORDINATOR) Narrative Wil De Dios PA - 02/29/2024 8:15 AM COMMUNICATION COORDINATOR Wil De Dios PA 02/29/2024 9:02 AM [...] no immediate complications Wil GRADY IN CLINIC/BEDSIDE ORDE PJ Final Result * VA ARTHROCENTESIS ASPIR&/INJ MAJOR JT/BURSA W/O US (02/29/2024 8:15 AM COMMUNICATION COORDINATOR) Narrative Wil De Dios PA - 02/29/2024 8:15 AM COMMUNICATION COORDINATOR Wil De Dios PA 02/29/2024 9:02 AM [...] immediate complications us Wil GRADY IN CLINIC/BEDSIDE ORDE PJ Final Result * (ABNORMAL) Diagnostic Mammogram Bilateral W Peter (01/05/2024 10:23 AM COMMUNICATION COORDINATOR) Anatomical Region Laterality Modality Breast Bilateral Mammography 01/05/2024 5:13 PM COMMUNICATION COORDINATOR Impressions 01/05/2024 5:13 PM COMMUNICATION COORDINATOR 1. Multiple bilateral tiny circumscribed nodules are stable and considered a benign finding. 2. Stereotactic/tomographic guided biopsy is now recommended for the calcifications in the left breast. OVERALL FINAL ASSESSMENT: BI-RADS 4b-moderate suspicion for malignancy Electronically signed by: Kerry Bhat M.D. Narrative 01/05/2024 5:13 PM COMMUNICATION COORDINATOR EXAMINATION: BILATERAL DIGITAL DIAGNOSTIC MAMMOGRAM AND DIGITAL [...] Ronquillo MD - 10/27/2022 8:16 AM CDT [facility] Patient Name: Roma Page Procedure Date: 10/27/2022 8:16 AM Date of : 1960 Admit Type: Outpatient Age: 62 Gender: Female Attending MD: Karen Ronquillo M.D. Room: [facility] ENDOSCOPY ROOM 2 Note Status: Finalized [...] by the physician, the anesthesiologist and the utility technician in the endoscopy suite. MentalStatus Examination: [...] scope was passed under direct vision. TheColonoscope [id number] was introduced through the anus and advanced [...] perforation orabscess without bleeding CPT copyright 2020 [employer]. All rights reserved. The codes documented in this report are preliminary and upon sap technical developer reviewmay be revised to meet current compliance requirements. Recognized by the [employer] for promoting quality in endoscopy Karen Ronquillo MD ENDOSCOPY PROCEDURES Final Resul t from Last 3 Months or Most Recently Relevant to Health Maintenance Insurance MEDICARE [facility] MEDICARE COMMERCIAL [employer]IC [facility] [employer] Address: [address] [place] [address] [employer] [place] [employer] [place] Advance Directives For more information, please contact: [phone] * Full Code (Latest Code Status on [...] Agents on File Name Relationship Healthcare Agent [facility] p Communication Ava [place] Daughter [employer] Car e Agent Care Teams Duck Farmer Relationship Specialty Start Date End Date Damir Rinaldi DO PCP - General Family Medicine 05/08/19 Bryan Simeon MD Consulting Physician Cardiology 01/10/23 Jerry Leos NP [address] [place] [address] DR ZHU [address] [place] [id number] Nurse Practitioner Orthopedic Surgery 01/17/23 Beryl Mendoza, PT Physical Therapist Physical Therapy 06/16/23
--- OUTSIDE RECORDS SUMMARY | 2024-05-16 08:09 | XMS_ITS ---
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 30 tablet 2014 Historic [id number] Xanax 0.5 mg tablet SIG: Xanax 0.5 mg tablet, 30 days, Dispense #15 Tablet, 0 RefillsDirecti ons: Take one tablet by mouth as needed. 15 tablet 2014 Historic [id number] pravast atin 80 mg tablet SIG: pravastatin 80 mg tablet, 30 days, Dispense #30 Tablet, 2 RefillsDirecti ons: Take one tablet by mouth daily. 30 tablet 2014 Historic [id number] Xanax 0.5 mg tablet SIG: Xanax 0.5 mg tablet, 30 days, Dispense #15 Tablet, 0 RefillsDirecti ons: Take one tablet by mouth up to three times daily as needed 15 tablet 2014 Historic [id number] Ambien 5 mg tablet SIG: Ambien 5 mg tablet, 30 days, Dispense #30 Tablet, 0 RefillsDirecti ons: Take 1 oral tablet at bedtime 30 tablet 2014 Historic [id number] Protoni x 20 mg tablet, delayed release (DR/EC) SIG: Protonix 20 mg tablet,delayed release (DR/EC), 30 days, Dispense #30 Tablet, 0 RefillsDirecti ons: Take 1 oral tablet once a day 30 tablet, delayed release (DR/EC) 2014 Historic [id number] Celexa 40 mg tablet SIG: Celexa 40 mg tablet, 30 days, Dispense #30 Tablet, 0 RefillsDirecti ons: Take 1 oral tablet once a day 30 tablet 2014 Historic [id number] acyclov ir 400 mg tablet SIG: acyclovir 400 mg tablet, 30 days, Dispense #30 Tablet, 0 RefillsDirecti ons: Take 1 oral tablet once a day 30 tablet 2014 Historic [id number] losarta n-hydro chlorot hiazide 50-12.5 mg tablet SIG: losartan-hydro chlorothiazide 50-12.5 mg tablet, 30 days, Dispense #30 Tablet, 0 RefillsDirecti ons: Take 1 oral tablet once a day 30 tablet 2014 Historic [id number] hydroco done-ac etamino phen 7.5-325 mg tablet SIG: hydrocodone-ac etaminophen 7.5-325 mg tablet, 30 days, Dispense #60 Tablet, 0 RefillsDirecti ons: Take 1 oral tablet by mouth every 8hrs as needed 60 tablet 2014 Historic [id number] tramado l 50 mg tablet SIG: tramadol 50 mg tablet, 30 days, Dispense #60 Tablet, 0 RefillsDirecti ons: Take 1 oral tablet twice a day 60 tablet 2014 Historic [id number] acyclov ir 400 mg tablet SIG: acyclovir 400 mg tablet, 30 days, Dispense #30 Tablet, 2 RefillsDirecti ons: Take 1 oral tablet once a day 30 tablet 2014 Historic [id number] Celexa 40 mg tablet SIG: Celexa 40 mg tablet, 30 days, Dispense #30 Tablet, 2 RefillsDirecti ons: Take 1 oral tablet once a day 30 tablet 2014 Historic [id number] Protoni x 20 mg tablet, delayed release (DR/EC) SIG: Protonix 20 mg tablet,delayed release (DR/EC), 30 days, Dispense #30 Tablet, 2 RefillsDirecti ons: Take 1 oral tablet once a day 30 tablet, delayed release (DR/EC) 2014 Historic [id number] Ambien 5 mg tablet SIG: Ambien 5 mg tablet, 30 days, Dispense #30 Tablet, 2 RefillsDirecti ons: Take 1 oral tablet at bedtime 30 tablet 2014 Historic [id number] Ambien 5 mg tablet SIG: Ambien 5 mg tablet, 30 days, Dispense #30 Tablet, 2 RefillsDirecti ons: Take 1 oral tablet at bedtime 30 tablet 2014 Historic [id number] Xanax 0.5 mg tablet SIG: Xanax 0.5 mg tablet, 30 days, Dispense #15 Tablet, 0 RefillsDirecti ons: Take one tablet by mouth up to three times daily as needed 15 tablet 2014 Historic [id number] Ambien 10 mg tablet SIG: Ambien 10 mg tablet, 30 days, Dispense #30 Tablet, 2 RefillsDirecti ons: Take 1 oral tablet at bedtime 30 tablet 2014 Historic [id number] Ambien 10 mg tablet SIG: Ambien 10 mg tablet, 30 days, Dispense #30 Tablet, 2 RefillsDirecti ons: Take 1 oral tablet at bedtime 30 tablet 2015 Historic [id number] Ultram 50 mg tablet SIG: Ultram 50 mg oral tablet, 30 days, Dispense #120 Tablet, 0 RefillsDirecti ons: take 1 tablet by oral route every 6 hours as needed 120 tablet 2021 Historic [id number] trazodo ne 150 mg tablet SIG: trazodone 150 mg oral tablet, 30 days, Dispense #90 Tablet, 0 RefillsDirecti ons: Take 150 mg by mouth nightly. 2 tablets at bedtime as needed 90 tablet 2021 Historic [id number] Ranexa 1,000 mg tablet extende d release 12 hr SIG: Ranexa 1,000 mg oral tablet extended release 12 hr, 30 days, Dispense #60 Tablet, 0 RefillsDirecti ons: Take 1,000 mg by mouth 2 times daily 60 tablet extende d release 12 hr 2021 Historic [id number] paroxet ine HCl 20 mg tablet SIG: paroxetine HCl 20 mg oral tablet, 30 days, Dispense #60 Tablet, 0 RefillsDirecti ons: Take 20 mg by mouth daily 60 tablet 2021 Historic [id number] losarta n 100 mg tablet SIG: losartan 100 mg oral tablet, 30 days, Dispense #30 Tablet, 0 RefillsDirecti ons: Take 1 oral tablet once a day 30 tablet 2021 Historic [id number] hydroco done-ac etamino phen 10-325 mg tablet SIG: hydrocodone-ac etaminophen 10-325 mg oral tablet, 30 days, Dispense #120 Tablet, 0 RefillsDirecti ons: Take 1 Tablet by mouth every 6 hours as needed. 120 tablet 2021 Current [id number] gabapen tin 600 mg tablet SIG: gabapentin 600 mg oral tablet, 30 days, Dispense #90 Tablet, 0 RefillsDirecti ons: Take 1 Tablet by mouth 3 times daily. 90 tablet 2021 Historic [id number] epineph rine 0.3 mg/0.3 mL auto-in jector SIG: epinephrine 0.3 mg/0.3 mL injection auto-injector, 1 days, Dispense #1 Each, 0 RefillsDirecti ons: inject 0.3 milliliter by intramuscular route once as needed for anaphylaxis 1 auto-in jector 2021 Historic [id number] ezetimi be 10 mg tablet SIG: ezetimibe 10 mg oral tablet, 30 days, Dispense #30 Tablet, 0 RefillsDirecti ons: Take 1 oral tablet once a day 30 tablet 2021 Current [id number] butalbi carisa-asp irin-ca ffeine 50-325- 40 mg capsule SIG: butalbital-asp irin-caffeine 50-325-40 mg oral capsule, 30 days, Dispense #90 Capsule, 0 RefillsDirecti ons: Take 1 capsule by mouth every 4 (four) hours as needed for headaches 90 capsule 2021 Historic [id number] aripipr azole 10 mg tablet SIG: aripiprazole 10 mg oral tablet, 30 days, Dispense #30 Tablet, 0 RefillsDirecti ons: Take 1 oral tablet once a day 30 tablet 2021 Historic [id number] alprazo miles 0.5 mg tablet SIG: alprazolam 0.5 mg oral tablet, 30 days, Dispense #90 Tablet, 0 RefillsDirecti ons: Take one tablet by mouth up to three times daily as needed 90 tablet 2021 Historic [id number] Celebre x 200 mg capsule SIG: Celebrex 200 mg oral capsule, 30 days, Dispense #60 Capsule, 0 RefillsDirecti ons: Take 1 oral capsule twice a day 60 capsule 2021 Current [id number] famotid ine 40 mg tablet SIG: famotidine 40 mg oral tablet, 30 days, Dispense #30 Tablet, 5 RefillsDirecti ons: Take 1 oral tablet once a day 30 tablet 2021 Historic [id number] Vascepa 1 gram capsule SIG: Vascepa 1 gram oral capsule, 90 days, Dispense #360 Capsule, 2 RefillsDirecti ons: Take 2 capsules by mouth twice daily with food 360 capsule 2021 Historic [id number] Repatha SureCli ck 140 mg/mL pen injecto r SIG: Repatha SureClick 140 mg/mL subcutaneous pen injector, 14 days, Dispense #1 Milliliter, 0 RefillsDirecti ons: Take 1 subcutaneous milliliter ever 2 weeks 1 pen injecto r 2021 Historic [id number] hydroch lorothi azide 25 mg tablet SIG: hydrochlorothi azide 25 mg oral tablet, 90 days, Dispense #90 Tablet, 0 RefillsDirecti ons: Take 1 oral tablet once a day 90 tablet 2021 Historic [id number] Toprol XL 50 mg tablet extende d release 24 hr SIG: Toprol XL 50 mg oral tablet extended release 24 hr, 90 days, Dispense #90 Tablet, 0 RefillsDirecti ons: Take 1 oral tablet once a day 90 tablet extende d release 24 hr 2021 Historic [id number] nitrogl ycerin 0.4 mg tablet, subling ual SIG: nitroglycerin 0.4 mg sublingual tablet, sublingual, 0 days, Dispense #30 Tablet, 0 RefillsDirecti ons: Put 1 tablet under tongue as needed for chest pain. may repeat every 5 minutes if still having chest pain (max dose 3 tablets) 30 tablet, subling ual 2021 Historic [id number] aripipr azole 10 mg tablet SIG: aripiprazole 10 mg oral tablet, 30 days, Dispense #60 Tablet, 0 RefillsDirecti ons: Take 1 tablet in the morning and 1 tablet in the evening 60 tablet 2021 Historic [id number] paroxet ine HCl 20 mg tablet SIG: paroxetine HCl 20 mg oral tablet, 30 days, Dispense #75 Tablet, 0 RefillsDirecti ons: Take 1 tablet in the morning. Take 1.5 tablets in the evening 75 tablet 2021 Historic [id number] benzona deleon 200 mg capsule SIG: benzonatate 200 mg oral capsule, 30 days, Dispense #30 Capsule, 0 RefillsDirecti ons: Take 1 oral capsule at bedtime as needed for cough 30 capsule 2021 Historic [id number] Repatha SureCli ck 140 mg/mL pen injecto r SIG: Repatha SureClick 140 mg/mL subcutaneous pen injector, 28 days, Dispense #2 Milliliter, 0 RefillsDirecti ons: Take 1 subcutaneous milliliter every 2 weeks 2 pen injecto r 2021 Historic [id number] risedro hebert 150 mg tablet SIG: risedronate 150 mg oral tablet, 90 days, Dispense #3 Tablet, 0 RefillsDirecti ons: Take one oral tablet once per month 3 tablet 2021 Historic M81.0 - AGE-RELATED OSTEOPOROSIS WITHOUT CURRENT PATHOLOGICAL FRACTURE [id number] alendro hebert 70 mg tablet SIG: alendronate, Dispense #12, 1 Refills, Directions: Take one oral tablet weekly 12 tablet 2021 Historic [id number] Repatha SureCli ck 140 mg/mL pen injecto r SIG: Repatha SureClick, Dispense #2, 1 Refills, Directions: INJECT 1 ML SUBCUTANEOUSLY EVERY 2 WEEKS 2 pen injecto r 2022 Historic [id number] famotid ine 40 mg tablet SIG: famotidine, Dispense #90, 0 Refills, Directions: TAKE 1 TABLET BY MOUTH EVERY DAY 90 tablet 2022 Historic [id number] ALENDRO HEBERT SODIUM 70 MG TAB 70 mg tablet SIG: ALENDRONATE SODIUM 70 MG TAB, Dispense #12, 1 Refills, Directions: TAKE ONE TABLET BY MOUTH ONCE WEEKLY 12 tablet 2022 Historic [id number] amlodip ine 5 mg tablet SIG: amlodipine 5 mg oral tablet, 90 days, Dispense #90 Tablet, 0 RefillsDirecti ons: Take 1 oral tablet once a day 90 tablet 2022 Current [id number] cyclobe nzaprin e 10 mg tablet SIG: cyclobenzaprin e 10 mg oral tablet, 90 days, Dispense #180 Tablet, 0 RefillsDirecti ons: Take 1 oral tablet twice a day 180 tablet 2022 Current [id number] Praluen t Pen 75 mg/mL pen injecto r SIG: Praluent Pen 75 mg/mL subcutaneous pen injector, 28 days, Dispense #2 Milliliter, 0 RefillsDirecti ons: Inject 75mg once every 2 weeks 2 pen injecto r 2022 Historic [id number] FAMOTID INE 40 MG TABLET 40 mg tablet SIG: FAMOTIDINE 40 MG TABLET, Dispense #90, 0 Refills, Directions: TAKE 1 TABLET BY MOUTH EVERY DAY 90 tablet 2022 Historic [id number] FAMOTID INE 40 MG TABLET 40 mg tablet SIG: FAMOTIDINE 40 MG TABLET, Dispense #90, 0 Refills, Directions: TAKE 1 TABLET BY MOUTH EVERY DAY 90 tablet 2022 Historic [id number] gabapen tin 600 mg tablet SIG: gabapentin 600 mg oral tablet, 30 days, Dispense #90 Tablet, 0 RefillsDirecti ons: Take 1 Tablet by mouth 3 times daily. 90 tablet 2022 Historic [id number] fluocin olone acetoni de oil 0.01 % drops SIG: fluocinolone acetonide oil 0.01 % otic (ear) drops, 10 days, Dispense #20 Milliliter, 0 RefillsDirecti ons: 5 gtts in affected ear twice daily as needed for external auditory canal discomfort 20 drops 2022 Historic [id number] PAROXET INE HCL 20 MG TABLET 20 mg tablet SIG: PAROXETINE HCL 20 MG TABLET, Dispense #90, 1 Refills, Directions: TAKE 1 TABLET BY MOUTH EVERY DAY 90 tablet 2022 Historic [id number] FAMOTID INE 40 MG TABLET 40 mg tablet SIG: FAMOTIDINE 40 MG TABLET, Dispense #90, 0 Refills, Directions: TAKE 1 TABLET BY MOUTH EVERY DAY 90 tablet 2023 Historic [id number] Nexlize t 180-10 mg tablet SIG: Nexlizet 180-10 mg oral tablet, 30 days, Dispense #30 Tablet, 0 Refills, Directions: Take 1 oral tablet once a day 30 tablet 2023 Historic [id number] Nexlize t 180-10 mg tablet SIG: Nexlizet 180-10 mg oral tablet, 30 days, Dispense #30 Tablet, 2 Refills, Directions: Take 1 oral tablet once a day 30 tablet 2023 Historic [id number] Nexlize t 180-10 mg tablet SIG: Nexlizet 180-10 mg oral tablet, 30 days, Dispense #30 Tablet, 2 Refills, Directions: Take 1 oral tablet once a day 30 tablet 2023 Historic [id number] alprazo miles 0.5 mg tablet SIG: alprazolam 0.5 mg oral tablet, 30 days, Dispense #90 Tablet, 0 Refills, Directions: Take one tablet by mouth up to three times daily as needed 90 tablet 2023 Historic [id number] paroxet ine HCl 20 mg tablet SIG: paroxetine HCl 20 mg oral tablet, 30 days, Dispense #75 Tablet, 0 Refills, Directions: Take 1 tablet in the morning. Take 1.5 tablets in the evening 75 tablet 2023 Historic [id number] gabapen tin 600 mg tablet SIG: gabapentin 600 mg oral tablet, 30 days, Dispense #90 Tablet, 0 Refills, Directions: Take 1 Tablet by mouth 3 times daily. 90 tablet 2023 Current [id number] GABAPEN TIN 600 MG TABLET 600 mg tablet SIG: GABAPENTIN 600 MG TABLET, Dispense #90, 0 Refills, Directions: take 1 tablet by mouth three times a day 90 tablet 2023 Historic [id number] FAMOTID INE 40 MG TABLET 40 mg tablet SIG: FAMOTIDINE 40 MG TABLET, Dispense #90, 0 Refills, Directions: TAKE 1 TABLET BY MOUTH EVERY DAY 90 tablet 2023 Historic [id number] FAMOTID INE 40 MG TABLET 40 mg tablet SIG: FAMOTIDINE 40 MG TABLET, Dispense #90, 0 Refills, Directions: take 1 tablet by mouth every day 90 tablet 2023 Historic [id number] trazodo ne 150 mg tablet SIG: trazodone 150 mg oral tablet, 30 days, Dispense #30 Tablet, 0 Refills, Directions: Take 150 mg by mouth nightly. 2 tablets at bedtime as needed 30 tablet 2023 Historic [id number] metform in 500 mg tablet extende d release 24 hr SIG: metformin 500 mg oral tablet extended release 24 hr, 90 days, Dispense #90 Tablet, 0 Refills, Directions: TAKE 1 ORAL TABLET 3 TIMES A DAY 90 tablet extende d release 24 hr 2023 Historic [id number] Vitamin D2 1,250 mcg (50,000 unit) capsule SIG: Vitamin D2 1,250 mcg (50,000 unit) oral capsule, 90 days, Dispense #4 Capsule, 12 Refills, Directions: Take 1 tablet weekly 4 capsule 2023 Current [id number] trazodo ne 150 mg tablet SIG: trazodone 150 mg oral tablet, 30 days, Dispense #30 Tablet, 1 Refills, Directions: Take 150 mg by mouth nightly. 30 tablet 2023 Historic [id number] trazodo ne 150 mg tablet SIG: trazodone 150 mg oral tablet, 30 days, Dispense #30 Tablet, 1 Refills, Directions: Take 150 mg by mouth nightly. 30 tablet 2023 Current [id number] alprazo miles 0.5 mg tablet SIG: alprazolam 0.5 mg oral tablet, 30 days, Dispense #90 Tablet, 0 Refills, Directions: Take one tablet by mouth up to three times daily as needed 90 tablet 2023 Historic [id number] alprazo miles 0.5 mg tablet SIG: alprazolam 0.5 mg oral tablet, 30 days, Dispense #85 Tablet, 0 Refills, Directions: Take one tablet by mouth up to three times daily as needed for severe anxiety or panic attack 85 tablet 2023 Historic [id number] metform in 500 mg tablet extende d release 24 hr SIG: metformin 500 mg oral tablet extended release 24 hr, 90 days, Dispense #270 Tablet, 0 Refills, Directions: TAKE 1 ORAL TABLET 3 TIMES A DAY 270 tablet extende d release 24 hr 2023 Historic [id number] albuter ol sulfate 90 mcg/act uation HFA aerosol inhaler SIG: albuterol sulfate 90 mcg/actuation inhalation HFA aerosol inhaler, 3 days, Dispense #6.7 Gram, 0 Refills, Directions: two puffs every 4 hours as needed for cough, wheezing, or shortness of breath 6.7 HFA aerosol inhaler 2023 Historic [id number] alprazo miles 0.5 mg tablet SIG: alprazolam 0.5 mg oral tablet, 30 days, Dispense #80 Tablet, 0 Refills, Directions: Take one tablet by mouth up to three times daily as needed for severe anxiety or panic attack 80 tablet 2023 Historic [id number] prometh azine-D M 6.25-15 mg/5 mL syrup SIG: promethazine-D M 6.25-15 mg/5 mL oral syrup, 29 days, Dispense #116 Milliliter, 0 Refills, Directions: Take 5 oral milliliter every 6 hours as needed for cough. 116 syrup 2023 Historic [id number] alprazo miles 0.5 mg tablet SIG: alprazolam 0.5 mg oral tablet, 30 days, Dispense #80 Tablet, 0 Refills, Directions: Take one tablet by mouth up to three times daily as needed for severe anxiety or panic attack 80 tablet 2023 Historic [id number] famotid ine 40 mg tablet SIG: famotidine 40 mg oral tablet, 90 days, Dispense #90 Tablet, 0 Refills, Directions: TAKE 1 TABLET BY MOUTH EVERY DAY 90 tablet 2023 Historic [id number] FAMOTID INE 40 MG TABLET 40 mg tablet SIG: FAMOTIDINE 40 MG TABLET, Dispense #90, 0 Refills, Directions: take 1 tablet by mouth every day 90 tablet 2023 Historic [id number] ondanse wing 4 mg tablet, disinte grating SIG: ondansetron 4 mg oral tablet,disinte grating, 7 days, Dispense #20 Tablet, 0 Refills, Directions: Take 1 tablet by mouth every 8 hours as needed for nausea 20 tablet, disinte grating 2023 Historic [id number] ondanse wing 4 mg tablet, disinte grating SIG: ondansetron 4 mg oral tablet,disinte grating, 7 days, Dispense #20 Tablet, 0 Refills, Directions: Take 1 tablet by mouth every 8 hours as needed for nausea 20 tablet, disinte grating 2023 [facility] [id number] alprazo miles 0.5 mg tablet SIG: alprazolam 0.5 mg oral tablet, 30 days, Dispense #75 Tablet, 0 Refills, Directions: Take one tablet by mouth up to three times daily as needed for severe anxiety or panic attack 75 tablet 2023 Historic [id number] metform in 500 mg tablet extende d release 24 hr SIG: metformin 500 mg oral tablet extended release 24 hr, 90 days, Dispense #270 Tablet, 0 Refills, Directions: TAKE 1 ORAL TABLET 3 TIMES A DAY 270 tablet extende d release 24 hr 2023 Historic [id number] METFORM IN HCL ER 500 MG TABLET 500 mg tablet extende d release 24 hr SIG: METFORMIN HCL ER 500 MG TABLET, Dispense #270, 0 Refills, Directions: take 1 tablet by mouth three times a day 270 tablet extende d release 24 hr 2023 Historic [id number] alprazo miles 0.5 mg tablet SIG: alprazolam 0.5 mg oral tablet, 30 days, Dispense #70 Tablet, 0 Refills, Directions: Take one tablet by mouth up to three times daily as needed for severe anxiety or panic attack 70 tablet 2023 Historic [id number] famotid ine 40 mg tablet SIG: famotidine 40 mg oral tablet, 90 days, Dispense #90 Tablet, 0 Refills, Directions: TAKE 1 TABLET BY MOUTH EVERY DAY 90 tablet 2023 Historic [id number] FAMOTID INE 40 MG TABLET 40 mg tablet SIG: FAMOTIDINE 40 MG TABLET, Dispense #90, 0 Refills, Directions: take 1 tablet by mouth every day 90 tablet 2023 Historic [id number] alprazo miles 0.5 mg tablet SIG: alprazolam 0.5 mg oral tablet, 30 days, Dispense #65 Tablet, 0 Refills, Directions: Take one tablet by mouth up to three times daily as needed for severe anxiety or panic attack 65 tablet 2023 Historic [id number] pantopr azole 40 mg tablet, delayed release (DR/EC) SIG: pantoprazole 40 mg oral tablet,delayed release (DR/EC), 30 days, Dispense #30 Tablet, 1 Refills, Directions: Take 1 oral tablet once a day 30 tablet, delayed release (DR/EC) 2023 Historic [id number] metform in 500 mg tablet extende d release 24 hr SIG: metformin 500 mg oral tablet extended release 24 hr, 90 days, Dispense #270 Tablet, 0 Refills, Directions: TAKE 1 ORAL TABLET 3 TIMES A DAY 270 tablet extende d release 24 hr 2023 Historic [id number] metform in 500 mg tablet extende d release 24 hr SIG: metformin 500 mg oral tablet extended release 24 hr, 90 days, Dispense #270 Tablet, 0 Refills, Directions: TAKE 1 ORAL TABLET 3 TIMES A DAY 270 tablet extende d release 24 hr 2023 Historic [id number] pantopr azole 40 mg tablet, delayed release (DR/EC) SIG: pantoprazole 40 mg oral tablet,delayed release (DR/EC), 30 days, Dispense #30 Tablet, 1 Refills, Directions: Take 1 oral tablet once a day 30 tablet, delayed release (DR/EC) 2023 Historic [id number] Pantopr azole Sodium 40 MG Oral Tablet Delayed Release 40 mg tablet, delayed release (DR/EC) SIG: Pantoprazole Sodium 40 MG Oral Tablet Delayed Release, Dispense #30, 0 Refills, Directions: Take 1 tablet by mouth once daily 30 tablet, delayed release (DR/EC) 2023 Historic [id number] alprazo miles 0.5 mg tablet SIG: alprazolam 0.5 mg oral tablet, 30 days, Dispense #60 Tablet, 0 Refills, Directions: Take one tablet by mouth up to three times daily as needed for severe anxiety or panic attack 60 tablet 2024 Historic [id number] alprazo miles 0.5 mg tablet SIG: alprazolam 0.5 mg oral tablet, 30 days, Dispense #55 Tablet, 0 Refills, Directions: Take one tablet by mouth up to three times daily as needed for severe anxiety or panic attack 55 tablet 2024 Current [id number] pantopr azole 20 mg tablet, delayed release (DR/EC) SIG: pantoprazole 20 mg oral tablet,delayed release (DR/EC), 90 days, Dispense #90 Tablet, 1 Refills, Directions: Take 1 oral tablet once a day 90 tablet, delayed release (DR/EC) 2024 Current [id number] Nexlize t 180-10 mg tablet SIG: Nexlizet 180-10 mg oral tablet, 30 days, Dispense #30 Tablet, 0 Refills, Directions: Take 1 oral tablet once a day 30 tablet 2024 Historic [id number] metform in 500 mg tablet extende d release 24 hr SIG: metformin 500 mg oral tablet extended release 24 hr, 90 days, Dispense #270 Tablet, 0 Refills, Directions: TAKE 1 ORAL TABLET 3 TIMES A DAY 270 tablet extende d release 24 hr 2024 Current PROBLEMS Problem Code Problem Description Problem Status Problem Da te Problem End Date E78.49-OTHER HYPERLIPIDEMIA OTHER HYPERLIPIDEMIA Chronic 03/15/2018 E66.01-MORBID (SEVERE) OBESITY DUE TO EXCESS CALORIES MORBID (SEVERE) OBESITY DUE TO EXCESS CALORIES Chronic 03/15/2018 F41.1-GENERALIZED ANXIETY DISORDER GENERALIZED ANXIETY DISORDER Chronic 03/15/2018 F33.9-MAJOR DEPRESSIVE DISORDER, RECURRENT, UNSPECIFIED MAJOR DEPRESSIVE DISORDER, RECURRENT, UNSPECIFIED Chronic 03/15/2018 F51.05-INSOMNIA DUE TO OTHER MENTAL DISORDER INSOMNIA DUE TO OTHER MENTAL DISORDER Chronic 03/15/2018 [id number] (PRIMARY) HYPERTENSION ESSENTIAL (PRIMARY) HYPERTENSION Chronic 03/15/2018 I50.32-CHRONIC DIASTOLIC (CONGESTIVE) HEART FAILURE CHRONIC DIASTOLIC (CONGESTIVE) HEART FAILURE Chronic 03/15/2018 K21.2-[id number] L REFLUX DISEASE WITHOUT ESOPHAGITIS GASTRO-ESOPHAGEAL REFLUX DISEASE WITHOUT ESOPHAGITIS Chronic 03/15/2018 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 03/15/2018 R73.03-Prediabetes Prediabetes Historic 03/15/2018 M54.6-PAIN IN THORACIC SPINE PAIN IN THORACIC SPINE Chronic 03/15/2018 M17.0-Bilateral primary osteoarthritis of knee Bilateral primary osteoarthritis of knee Chronic 03/15/2018 I65.23-Occlusion and stenosis of bilateral carotid arteries Occlusion and stenosis of bilateral carotid arteries Chronic 01/05/2022 M81.5-BJK-VUZUKOM OSTEOPOROSIS WITHOUT CURRENT PATHOLOGICAL FRACTURE AGE-RELATED OSTEOPOROSIS WITHOUT CURRENT PATHOLOGICAL FRACTURE Historic 01/27/2022 04/11/2024 M54.12-Radiculopathy, cervical region Radiculopathy, cervical region Chronic [...] 2 DIABETES MELLITUS WITHOUT COMPLICATIONS Chronic 06/26/2023 M85.80-OTR SPECIFIED DISORDERS OF BONE DENSITY & STRUCTURE, UNSP OTR SPECIFIED DISORDERS OF BONE DENSITY & STRUCTURE, UNSP Chronic 03/27/2024 PROCEDURES Procedure Description Date Notes NO PROCEDURES PERFORMED ASSESSMENTS Assessment None PLAN OF TREATMENT Assessment Planned Activity LOINC Planned Navneet e None CONSULTATION NOTE Note Author Date None HISTORY AND PHYSICAL NOTE Note Author Date None PROGRESS NOTE Note Author Date None DISCHARGE SUMMARY Note Author Date None CHIEF COMPLAINT AND REASON FOR VISIT FUNCTIONAL STATUS Functional or Cognitive Find ing None MENTAL STATUS Cognitive Finding None ENCOUNTERS Encounter Type Provider Diagnoses Start Date Location None SOCIAL HISTORY Social Status Observation Never Smoker Sex:Female 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
--- OUTSIDE RECORDS SUMMARY | 2024-05-16 08:10 | XMS_ITS ---
Author Name HALLIE TAVARES Address [address] [place] [address] Phone [facility] Address [address] [place] [address] Phone Care Team Providers Care Council Member Name Role Phone DO HALLIE TAVARES Unavailable ALLERGIES, ADVERSE REACTIONS AND ALERTS Allergy Name Allergy Date Allergy Status Allergy Severity Allergy Reaction Erythromycin Base, [RxNorm: 4053] 01/05/2022 Current Moderate Hives, Nausea Pravastatin, [RxNorm: 03865] 01/05/2022 Current Moderate Myalgia MEDICATIONS RxNorm Brand Name Prescription Ordered Value Order Unit Start Date Date Status Fill Status Indications [id number] Ambien 5 mg tablet SIG: Ambien 5 mg tablet, 30 days, Dispense #30 Tablet, 0 RefillsDirecti ons: Take one tablet my mouth daily. 30 tablet 2014 Historic [id number] Xanax 0.5 mg tablet SIG: Xanax 0.5 mg tablet, 30 days, Dispense #15 Tablet, 0 RefillsDirecti ons: Take one tablet by mouth as needed. 15 tablet 2014 Historic [id number] pravast atin 80 mg tablet SIG: pravastatin 80 mg tablet, 30 days, Dispense #30 Tablet, 2 RefillsDirecti ons: Take one tablet by mouth daily. 30 tablet 2014 Historic [id number] Xanax 0.5 mg tablet SIG: Xanax 0.5 mg tablet, 30 days, Dispense #15 Tablet, 0 RefillsDirecti ons: Take one tablet by mouth up to three times daily as needed 15 tablet 2014 Historic [id number] Ambien 5 mg tablet SIG: Ambien 5 mg tablet, 30 days, Dispense #30 Tablet, 0 RefillsDirecti ons: Take 1 oral tablet at bedtime 30 tablet 2014 Historic [id number] Protoni x 20 mg tablet, delayed release (DR/EC) SIG: Protonix 20 mg tablet,delayed release (DR/EC), 30 days, Dispense #30 Tablet, 0 RefillsDirecti ons: Take 1 oral tablet once a day 30 tablet, delayed release (DR/EC) 2014 Historic [id number] Celexa 40 mg tablet SIG: Celexa 40 mg tablet, 30 days, Dispense #30 Tablet, 0 RefillsDirecti ons: Take 1 oral tablet once a day 30 tablet 2014 Historic [id number] acyclov ir 400 mg tablet SIG: acyclovir 400 mg tablet, 30 days, Dispense #30 Tablet, 0 RefillsDirecti ons: Take 1 oral tablet once a day 30 tablet 2014 Historic [id number] losarta n-hydro chlorot hiazide 50-12.5 mg tablet SIG: losartan-hydro chlorothiazide 50-12.5 mg tablet, 30 days, Dispense #30 Tablet, 0 RefillsDirecti ons: Take 1 oral tablet once a day 30 tablet 2014 Historic [id number] hydroco done-ac etamino phen 7.5-325 mg tablet SIG: hydrocodone-ac etaminophen 7.5-325 mg tablet, 30 days, Dispense #60 Tablet, 0 RefillsDirecti ons: Take 1 oral tablet by mouth every 8hrs as needed 60 tablet 2014 Historic [id number] tramado l 50 mg tablet SIG: tramadol 50 mg tablet, 30 days, Dispense #60 Tablet, 0 RefillsDirecti ons: Take 1 oral tablet twice a day 60 tablet 2014 Historic [id number] acyclov ir 400 mg tablet SIG: acyclovir 400 mg tablet, 30 days, Dispense #30 Tablet, 2 RefillsDirecti ons: Take 1 oral tablet once a day 30 tablet 2014 Historic [id number] Celexa 40 mg tablet SIG: Celexa 40 mg tablet, 30 days, Dispense #30 Tablet, 2 RefillsDirecti ons: Take 1 oral tablet once a day 30 tablet 2014 Historic [id number] Protoni x 20 mg tablet, delayed release (DR/EC) SIG: Protonix 20 mg tablet,delayed release (DR/EC), 30 days, Dispense #30 Tablet, 2 RefillsDirecti ons: Take 1 oral tablet once a day 30 tablet, delayed release (DR/EC) 2014 Historic [id number] Ambien 5 mg tablet SIG: Ambien 5 mg tablet, 30 days, Dispense #30 Tablet, 2 RefillsDirecti ons: Take 1 oral tablet at bedtime 30 tablet 2014 Historic [id number] Ambien 5 mg tablet SIG: Ambien 5 mg tablet, 30 days, Dispense #30 Tablet, 2 RefillsDirecti ons: Take 1 oral tablet at bedtime 30 tablet 2014 Historic [id number] Xanax 0.5 mg tablet SIG: Xanax 0.5 mg tablet, 30 days, Dispense #15 Tablet, 0 RefillsDirecti ons: Take one tablet by mouth up to three times daily as needed 15 tablet 2014 Historic [id number] Ambien 10 mg tablet SIG: Ambien 10 mg tablet, 30 days, Dispense #30 Tablet, 2 RefillsDirecti ons: Take 1 oral tablet at bedtime 30 tablet 2014 Historic [id number] Ambien 10 mg tablet SIG: Ambien 10 mg tablet, 30 days, Dispense #30 Tablet, 2 RefillsDirecti ons: Take 1 oral tablet at bedtime 30 tablet 2015 Historic [id number] Ultram 50 mg tablet SIG: Ultram 50 mg oral tablet, 30 days, Dispense #120 Tablet, 0 RefillsDirecti ons: take 1 tablet by oral route every 6 hours as needed 120 tablet 2021 Historic [id number] trazodo ne 150 mg tablet SIG: trazodone 150 mg oral tablet, 30 days, Dispense #90 Tablet, 0 RefillsDirecti ons: Take 150 mg by mouth nightly. 2 tablets at bedtime as needed 90 tablet 2021 Historic [id number] Ranexa 1,000 mg tablet extende d release 12 hr SIG: Ranexa 1,000 mg oral tablet extended release 12 hr, 30 days, Dispense #60 Tablet, 0 RefillsDirecti ons: Take 1,000 mg by mouth 2 times daily 60 tablet extende d release 12 hr 2021 Historic [id number] paroxet ine HCl 20 mg tablet SIG: paroxetine HCl 20 mg oral tablet, 30 days, Dispense #60 Tablet, 0 RefillsDirecti ons: Take 20 mg by mouth daily 60 tablet 2021 Historic [id number] losarta n 100 mg tablet SIG: losartan 100 mg oral tablet, 30 days, Dispense #30 Tablet, 0 RefillsDirecti ons: Take 1 oral tablet once a day 30 tablet 2021 Historic [id number] hydroco done-ac etamino phen 10-325 mg tablet SIG: hydrocodone-ac etaminophen 10-325 mg oral tablet, 30 days, Dispense #120 Tablet, 0 RefillsDirecti ons: Take 1 Tablet by mouth every 6 hours as needed. 120 tablet 2021 Current [id number] gabapen tin 600 mg tablet SIG: gabapentin 600 mg oral tablet, 30 days, Dispense #90 Tablet, 0 RefillsDirecti ons: Take 1 Tablet by mouth 3 times daily. 90 tablet 2021 Historic [id number] epineph rine 0.3 mg/0.3 mL auto-in jector SIG: epinephrine 0.3 mg/0.3 mL injection auto-injector, 1 days, Dispense #1 Each, 0 RefillsDirecti ons: inject 0.3 milliliter by intramuscular route once as needed for anaphylaxis 1 auto-in jector 2021 Historic [id number] ezetimi be 10 mg tablet SIG: ezetimibe 10 mg oral tablet, 30 days, Dispense #30 Tablet, 0 RefillsDirecti ons: Take 1 oral tablet once a day 30 tablet 2021 Current [id number] butalbi carisa-asp irin-ca ffeine 50-325- 40 mg capsule SIG: butalbital-asp irin-caffeine 50-325-40 mg oral capsule, 30 days, Dispense #90 Capsule, 0 RefillsDirecti ons: Take 1 capsule by mouth every 4 (four) hours as needed for headaches 90 capsule 2021 Historic [id number] aripipr azole 10 mg tablet SIG: aripiprazole 10 mg oral tablet, 30 days, Dispense #30 Tablet, 0 RefillsDirecti ons: Take 1 oral tablet once a day 30 tablet 2021 Historic [id number] alprazo miles 0.5 mg tablet SIG: alprazolam 0.5 mg oral tablet, 30 days, Dispense #90 Tablet, 0 RefillsDirecti ons: Take one tablet by mouth up to three times daily as needed 90 tablet 2021 Historic [id number] Celebre x 200 mg capsule SIG: Celebrex 200 mg oral capsule, 30 days, Dispense #60 Capsule, 0 RefillsDirecti ons: Take 1 oral capsule twice a day 60 capsule 2021 Current [id number] famotid ine 40 mg tablet SIG: famotidine 40 mg oral tablet, 30 days, Dispense #30 Tablet, 5 RefillsDirecti ons: Take 1 oral tablet once a day 30 tablet 2021 Historic [id number] Vascepa 1 gram capsule SIG: Vascepa 1 gram oral capsule, 90 days, Dispense #360 Capsule, 2 RefillsDirecti ons: Take 2 capsules by mouth twice daily with food 360 capsule 2021 Historic [id number] Repatha SureCli ck 140 mg/mL pen injecto r SIG: Repatha SureClick 140 mg/mL subcutaneous pen injector, 14 days, Dispense #1 Milliliter, 0 RefillsDirecti ons: Take 1 subcutaneous milliliter ever 2 weeks 1 pen injecto r 2021 Historic [id number] hydroch lorothi azide 25 mg tablet SIG: hydrochlorothi azide 25 mg oral tablet, 90 days, Dispense #90 Tablet, 0 RefillsDirecti ons: Take 1 oral tablet once a day 90 tablet 2021 Historic [id number] Toprol XL 50 mg tablet extende d release 24 hr SIG: Toprol XL 50 mg oral tablet extended release 24 hr, 90 days, Dispense #90 Tablet, 0 RefillsDirecti ons: Take 1 oral tablet once a day 90 tablet extende d release 24 hr 2021 Historic [id number] nitrogl ycerin 0.4 mg tablet, subling ual SIG: nitroglycerin 0.4 mg sublingual tablet, sublingual, 0 days, Dispense #30 Tablet, 0 RefillsDirecti ons: Put 1 tablet under tongue as needed for chest pain. may repeat every 5 minutes if still having chest pain (max dose 3 tablets) 30 tablet, subling ual 2021 Historic [id number] aripipr azole 10 mg tablet SIG: aripiprazole 10 mg oral tablet, 30 days, Dispense #60 Tablet, 0 RefillsDirecti ons: Take 1 tablet in the morning and 1 tablet in the evening 60 tablet 2021 Historic [id number] paroxet ine HCl 20 mg tablet SIG: paroxetine HCl 20 mg oral tablet, 30 days, Dispense #75 Tablet, 0 RefillsDirecti ons: Take 1 tablet in the morning. Take 1.5 tablets in the evening 75 tablet 2021 Historic [id number] benzona deleon 200 mg capsule SIG: benzonatate 200 mg oral capsule, 30 days, Dispense #30 Capsule, 0 RefillsDirecti ons: Take 1 oral capsule at bedtime as needed for cough 30 capsule 2021 Historic [id number] Repatha SureCli ck 140 mg/mL pen injecto r SIG: Repatha SureClick 140 mg/mL subcutaneous pen injector, 28 days, Dispense #2 Milliliter, 0 RefillsDirecti ons: Take 1 subcutaneous milliliter every 2 weeks 2 pen injecto r 2021 Historic [id number] risedro hebert 150 mg tablet SIG: risedronate 150 mg oral tablet, 90 days, Dispense #3 Tablet, 0 RefillsDirecti ons: Take one oral tablet once per month 3 tablet 2021 Historic M81.0 - AGE-RELATED OSTEOPOROSIS WITHOUT CURRENT PATHOLOGICAL FRACTURE [id number] alendro hebert 70 mg tablet SIG: alendronate, Dispense #12, 1 Refills, Directions: Take one oral tablet weekly 12 tablet 2021 Historic [id number] Repatha SureCli ck 140 mg/mL pen injecto r SIG: Repatha SureClick, Dispense #2, 1 Refills, Directions: INJECT 1 ML SUBCUTANEOUSLY EVERY 2 WEEKS 2 pen injecto r 2022 Historic [id number] famotid ine 40 mg tablet SIG: famotidine, Dispense #90, 0 Refills, Directions: TAKE 1 TABLET BY MOUTH EVERY DAY 90 tablet 2022 Historic [id number] ALENDRO HEBERT SODIUM 70 MG TAB 70 mg tablet SIG: ALENDRONATE SODIUM 70 MG TAB, Dispense #12, 1 Refills, Directions: TAKE ONE TABLET BY MOUTH ONCE WEEKLY 12 tablet 2022 Historic [id number] amlodip ine 5 mg tablet SIG: amlodipine 5 mg oral tablet, 90 days, Dispense #90 Tablet, 0 RefillsDirecti ons: Take 1 oral tablet once a day 90 tablet 2022 Current [id number] cyclobe nzaprin e 10 mg tablet SIG: cyclobenzaprin e 10 mg oral tablet, 90 days, Dispense #180 Tablet, 0 RefillsDirecti ons: Take 1 oral tablet twice a day 180 tablet 2022 Current [id number] Praluen t Pen 75 mg/mL pen injecto r SIG: Praluent Pen 75 mg/mL subcutaneous pen injector, 28 days, Dispense #2 Milliliter, 0 RefillsDirecti ons: Inject 75mg once every 2 weeks 2 pen injecto r 2022 Historic [id number] FAMOTID INE 40 MG TABLET 40 mg tablet SIG: FAMOTIDINE 40 MG TABLET, Dispense #90, 0 Refills, Directions: TAKE 1 TABLET BY MOUTH EVERY DAY 90 tablet 2022 Historic [id number] FAMOTID INE 40 MG TABLET 40 mg tablet SIG: FAMOTIDINE 40 MG TABLET, Dispense #90, 0 Refills, Directions: TAKE 1 TABLET BY MOUTH EVERY DAY 90 tablet 2022 Historic [id number] gabapen tin 600 mg tablet SIG: gabapentin 600 mg oral tablet, 30 days, Dispense #90 Tablet, 0 RefillsDirecti ons: Take 1 Tablet by mouth 3 times daily. 90 tablet 2022 Historic [id number] fluocin olone acetoni de oil 0.01 % drops SIG: fluocinolone acetonide oil 0.01 % otic (ear) drops, 10 days, Dispense #20 Milliliter, 0 RefillsDirecti ons: 5 gtts in affected ear twice daily as needed for external auditory canal discomfort 20 drops 2022 Historic [id number] PAROXET INE HCL 20 MG TABLET 20 mg tablet SIG: PAROXETINE HCL 20 MG TABLET, Dispense #90, 1 Refills, Directions: TAKE 1 TABLET BY MOUTH EVERY DAY 90 tablet 2022 Historic [id number] FAMOTID INE 40 MG TABLET 40 mg tablet SIG: FAMOTIDINE 40 MG TABLET, Dispense #90, 0 Refills, Directions: TAKE 1 TABLET BY MOUTH EVERY DAY 90 tablet 2023 Historic [id number] Nexlize t 180-10 mg tablet SIG: Nexlizet 180-10 mg oral tablet, 30 days, Dispense #30 Tablet, 0 Refills, Directions: Take 1 oral tablet once a day 30 tablet 2023 Historic [id number] Nexlize t 180-10 mg tablet SIG: Nexlizet 180-10 mg oral tablet, 30 days, Dispense #30 Tablet, 2 Refills, Directions: Take 1 oral tablet once a day 30 tablet 2023 Historic [id number] Nexlize t 180-10 mg tablet SIG: Nexlizet 180-10 mg oral tablet, 30 days, Dispense #30 Tablet, 2 Refills, Directions: Take 1 oral tablet once a day 30 tablet 2023 Historic [id number] alprazo miles 0.5 mg tablet SIG: alprazolam 0.5 mg oral tablet, 30 days, Dispense #90 Tablet, 0 Refills, Directions: Take one tablet by mouth up to three times daily as needed 90 tablet 2023 Historic [id number] paroxet ine HCl 20 mg tablet SIG: paroxetine HCl 20 mg oral tablet, 30 days, Dispense #75 Tablet, 0 Refills, Directions: Take 1 tablet in the morning. Take 1.5 tablets in the evening 75 tablet 2023 Historic [id number] gabapen tin 600 mg tablet SIG: gabapentin 600 mg oral tablet, 30 days, Dispense #90 Tablet, 0 Refills, Directions: Take 1 Tablet by mouth 3 times daily. 90 tablet 2023 Current [id number] GABAPEN TIN 600 MG TABLET 600 mg tablet SIG: GABAPENTIN 600 MG TABLET, Dispense #90, 0 Refills, Directions: take 1 tablet by mouth three times a day 90 tablet 2023 Historic [id number] FAMOTID INE 40 MG TABLET 40 mg tablet SIG: FAMOTIDINE 40 MG TABLET, Dispense #90, 0 Refills, Directions: TAKE 1 TABLET BY MOUTH EVERY DAY 90 tablet 2023 Historic [id number] FAMOTID INE 40 MG TABLET 40 mg tablet SIG: FAMOTIDINE 40 MG TABLET, Dispense #90, 0 Refills, Directions: take 1 tablet by mouth every day 90 tablet 2023 Historic [id number] trazodo ne 150 mg tablet SIG: trazodone 150 mg oral tablet, 30 days, Dispense #30 Tablet, 0 Refills, Directions: Take 150 mg by mouth nightly. 2 tablets at bedtime as needed 30 tablet 2023 Historic [id number] metform in 500 mg tablet extende d release 24 hr SIG: metformin 500 mg oral tablet extended release 24 hr, 90 days, Dispense #90 Tablet, 0 Refills, Directions: TAKE 1 ORAL TABLET 3 TIMES A DAY 90 tablet extende d release 24 hr 2023 Historic [id number] Vitamin D2 1,250 mcg (50,000 unit) capsule SIG: Vitamin D2 1,250 mcg (50,000 unit) oral capsule, 90 days, Dispense #4 Capsule, 12 Refills, Directions: Take 1 tablet weekly 4 capsule 2023 Current [id number] trazodo ne 150 mg tablet SIG: trazodone 150 mg oral tablet, 30 days, Dispense #30 Tablet, 1 Refills, Directions: Take 150 mg by mouth nightly. 30 tablet 2023 Historic [id number] trazodo ne 150 mg tablet SIG: trazodone 150 mg oral tablet, 30 days, Dispense #30 Tablet, 1 Refills, Directions: Take 150 mg by mouth nightly. 30 tablet 2023 Current [id number] alprazo miles 0.5 mg tablet SIG: alprazolam 0.5 mg oral tablet, 30 days, Dispense #90 Tablet, 0 Refills, Directions: Take one tablet by mouth up to three times daily as needed 90 tablet 2023 Historic [id number] alprazo miles 0.5 mg tablet SIG: alprazolam 0.5 mg oral tablet, 30 days, Dispense #85 Tablet, 0 Refills, Directions: Take one tablet by mouth up to three times daily as needed for severe anxiety or panic attack 85 tablet 2023 Historic [id number] metform in 500 mg tablet extende d release 24 hr SIG: metformin 500 mg oral tablet extended release 24 hr, 90 days, Dispense #270 Tablet, 0 Refills, Directions: TAKE 1 ORAL TABLET 3 TIMES A DAY 270 tablet extende d release 24 hr 2023 Historic [id number] albuter ol sulfate 90 mcg/act uation HFA aerosol inhaler SIG: albuterol sulfate 90 mcg/actuation inhalation HFA aerosol inhaler, 3 days, Dispense #6.7 Gram, 0 Refills, Directions: two puffs every 4 hours as needed for cough, wheezing, or shortness of breath 6.7 HFA aerosol inhaler 2023 Historic [id number] alprazo miles 0.5 mg tablet SIG: alprazolam 0.5 mg oral tablet, 30 days, Dispense #80 Tablet, 0 Refills, Directions: Take one tablet by mouth up to three times daily as needed for severe anxiety or panic attack 80 tablet 2023 Historic [id number] prometh azine-D M 6.25-15 mg/5 mL syrup SIG: promethazine-D M 6.25-15 mg/5 mL oral syrup, 29 days, Dispense #116 Milliliter, 0 Refills, Directions: Take 5 oral milliliter every 6 hours as needed for cough. 116 syrup 2023 Historic [id number] alprazo miles 0.5 mg tablet SIG: alprazolam 0.5 mg oral tablet, 30 days, Dispense #80 Tablet, 0 Refills, Directions: Take one tablet by mouth up to three times daily as needed for severe anxiety or panic attack 80 tablet 2023 Historic [id number] famotid ine 40 mg tablet SIG: famotidine 40 mg oral tablet, 90 days, Dispense #90 Tablet, 0 Refills, Directions: TAKE 1 TABLET BY MOUTH EVERY DAY 90 tablet 2023 Historic [id number] FAMOTID INE 40 MG TABLET 40 mg tablet SIG: FAMOTIDINE 40 MG TABLET, Dispense #90, 0 Refills, Directions: take 1 tablet by mouth every day 90 tablet 2023 Historic [id number] ondanse wing 4 mg tablet, disinte grating SIG: ondansetron 4 mg oral tablet,disinte grating, 7 days, Dispense #20 Tablet, 0 Refills, Directions: Take 1 tablet by mouth every 8 hours as needed for nausea 20 tablet, disinte grating 2023 Historic [id number] ondanse wing 4 mg tablet, disinte grating SIG: ondansetron 4 mg oral tablet,disinte grating, 7 days, Dispense #20 Tablet, 0 Refills, Directions: Take 1 tablet by mouth every 8 hours as needed for nausea 20 tablet, disinte grating 2023 [facility] [id number] alprazo miles 0.5 mg tablet SIG: alprazolam 0.5 mg oral tablet, 30 days, Dispense #75 Tablet, 0 Refills, Directions: Take one tablet by mouth up to three times daily as needed for severe anxiety or panic attack 75 tablet 2023 Historic [id number] metform in 500 mg tablet extende d release 24 hr SIG: metformin 500 mg oral tablet extended release 24 hr, 90 days, Dispense #270 Tablet, 0 Refills, Directions: TAKE 1 ORAL TABLET 3 TIMES A DAY 270 tablet extende d release 24 hr 2023 Historic [id number] METFORM IN HCL ER 500 MG TABLET 500 mg tablet extende d release 24 hr SIG: METFORMIN HCL ER 500 MG TABLET, Dispense #270, 0 Refills, Directions: take 1 tablet by mouth three times a day 270 tablet extende d release 24 hr 2023 Historic [id number] alprazo miles 0.5 mg tablet SIG: alprazolam 0.5 mg oral tablet, 30 days, Dispense #70 Tablet, 0 Refills, Directions: Take one tablet by mouth up to three times daily as needed for severe anxiety or panic attack 70 tablet 2023 Historic [id number] famotid ine 40 mg tablet SIG: famotidine 40 mg oral tablet, 90 days, Dispense #90 Tablet, 0 Refills, Directions: TAKE 1 TABLET BY MOUTH EVERY DAY 90 tablet 2023 Historic [id number] FAMOTID INE 40 MG TABLET 40 mg tablet SIG: FAMOTIDINE 40 MG TABLET, Dispense #90, 0 Refills, Directions: take 1 tablet by mouth every day 90 tablet 2023 Historic [id number] alprazo miles 0.5 mg tablet SIG: alprazolam 0.5 mg oral tablet, 30 days, Dispense #65 Tablet, 0 Refills, Directions: Take one tablet by mouth up to three times daily as needed for severe anxiety or panic attack 65 tablet 2023 Historic [id number] pantopr azole 40 mg tablet, delayed release (DR/EC) SIG: pantoprazole 40 mg oral tablet,delayed release (DR/EC), 30 days, Dispense #30 Tablet, 1 Refills, Directions: Take 1 oral tablet once a day 30 tablet, delayed release (DR/EC) 2023 Historic [id number] metform in 500 mg tablet extende d release 24 hr SIG: metformin 500 mg oral tablet extended release 24 hr, 90 days, Dispense #270 Tablet, 0 Refills, Directions: TAKE 1 ORAL TABLET 3 TIMES A DAY 270 tablet extende d release 24 hr 2023 Historic [id number] metform in 500 mg tablet extende d release 24 hr SIG: metformin 500 mg oral tablet extended release 24 hr, 90 days, Dispense #270 Tablet, 0 Refills, Directions: TAKE 1 ORAL TABLET 3 TIMES A DAY 270 tablet extende d release 24 hr 2023 Historic [id number] pantopr azole 40 mg tablet, delayed release (DR/EC) SIG: pantoprazole 40 mg oral tablet,delayed release (DR/EC), 30 days, Dispense #30 Tablet, 1 Refills, Directions: Take 1 oral tablet once a day 30 tablet, delayed release (DR/EC) 2023 Historic [id number] Pantopr azole Sodium 40 MG Oral Tablet Delayed Release 40 mg tablet, delayed release (DR/EC) SIG: Pantoprazole Sodium 40 MG Oral Tablet Delayed Release, Dispense #30, 0 Refills, Directions: Take 1 tablet by mouth once daily 30 tablet, delayed release (DR/EC) 2023 Historic [id number] alprazo miles 0.5 mg tablet SIG: alprazolam 0.5 mg oral tablet, 30 days, Dispense #60 Tablet, 0 Refills, Directions: Take one tablet by mouth up to three times daily as needed for severe anxiety or panic attack 60 tablet 2024 Historic [id number] alprazo miles 0.5 mg tablet SIG: alprazolam 0.5 mg oral tablet, 30 days, Dispense #55 Tablet, 0 Refills, Directions: Take one tablet by mouth up to three times daily as needed for severe anxiety or panic attack 55 tablet 2024 Current [id number] pantopr azole 20 mg tablet, delayed release (DR/EC) SIG: pantoprazole 20 mg oral tablet,delayed release (DR/EC), 90 days, Dispense #90 Tablet, 1 Refills, Directions: Take 1 oral tablet once a day 90 tablet, delayed release (DR/EC) 2024 Current [id number] Nexlize t 180-10 mg tablet SIG: Nexlizet 180-10 mg oral tablet, 30 days, Dispense #30 Tablet, 0 Refills, Directions: Take 1 oral tablet once a day 30 tablet 2024 Historic [id number] metform in 500 mg tablet extende d [...] DUE TO OTHER MENTAL DISORDER Chronic 03/15/2018 F46-KNICLHORE (PRIMARY) HYPERTENSION ESSENTIAL (PRIMARY) HYPERTENSION Chronic 03/15/2018 I50.32-CHRONIC DIASTOLIC (CONGESTIVE) HEART FAILURE CHRONIC DIASTOLIC (CONGESTIVE) HEART FAILURE Chronic 03/15/2018 K21.6-[id number]-[id number] L REFLUX DISEASE WITHOUT ESOPHAGITIS GASTRO-ESOPHAGEAL REFLUX DISEASE WITHOUT ESOPHAGITIS Chronic 03/15/2018 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 03/15/2018 R73.03-Prediabetes Prediabetes Historic 03/15/2018 M54.6-PAIN IN THORACIC SPINE PAIN IN THORACIC SPINE Chronic 03/15/2018 M17.0-Bilateral primary osteoarthritis of knee Bilateral primary osteoarthritis of knee Chronic 03/15/2018 I65.23-Occlusion and stenosis of bilateral carotid arteries Occlusion and stenosis of bilateral carotid arteries Chronic 01/05/2022 M81.7-OZR-BLPLHTK OSTEOPOROSIS WITHOUT CURRENT PATHOLOGICAL FRACTURE AGE-RELATED OSTEOPOROSIS [...] Observation Never Smoker Sex:Female CARE TEAM INFORMATION Council Member Provider ID Role Location Phone HALLIE TAVARES [id number] [place] [address]
--- OUTSIDE RECORDS SUMMARY | 2024-05-16 08:10 | XMS_ITS | CONTINUITY OF CARE DOCUMENT ---
Author Name jose angel walter Address Unknown Organization [facility] Address [address] [place] [address] [address] [place] [address] Phone [phone] Care Team Providers Care Visual Journalist Name Role Phone Bryan Simeon MD Unavailable [phone] HALLIE TAVARES MD Unavailable [phone] HALLIE TAVARES MD Unavailable [phone] PROBLEMS Condition Status Date Provider Notes Family [...] pain-type to be determined completed - Bryan Simeno MD Dyspnea on exertion active Bryan Harrell [...] In-person encounter Office Visit Bryan Simeon MD [facility] Diastolic DysfunctionChest pain-type to be determined 7 - 1 In-person encounter Office Visit Bryan Simeon MD [facility] 1 - 2 In-person encounter Office Visit Bryan Simeon MD [facility] Carotid artery disease - 50-69% JERICHO, <50% LICA 03/2023 2 - 4 In-person encounter Office Visit Bryan Simeon MD [facility] Elevated c-reactive protein 0 - 1 In-person encounter Office Visit Bryan Simeon MD [facility] Chest pain - nml cors on cath 04/25/22 6 - 6 In-person encounter Office Visit Bryan Simeon MD [facility] 6 - 8 In-person encounter Office Visit Bryan Simeon MD [facility] 4 - 6 In-person encounter Office Visit Bryan Simeon MD [facility] 1 - 1 In-person encounter Office Visit Bryan Simeon MD [facility] Bradycardia sinusSinus bradycardiaFamily Hx heart diseasePrediabetes 1 - 1 In-person encounter Office Visit Bryan Simeon MD [facility] Statin Intolerant,myalgias with daily atorvastatinHypercholesterolemia 1 - 1 In-person encounter Office Visit Bryan Simeon MD [facility] 3 - 3 In-person encounter Office Visit Bryan Simeon MD [facility] 4 - 4 In-person encounter Office Visit Bryan Simeon MD [facility] Chest pain - nml cors on cath 04/25/22 6 - 6 In-person encounter Office Visit Bryan Simeon MD [facility] Sleep apnea 2 - 2 In-person encounter Office Visit Bryan Simeon MD [facility] 1 - 1 In-person encounter Office Visit Bryan Simeon MD [facility] Edema - localizedFatigue 0 - 0 In-person encounter Office Visit Bryan Simeon MD [facility] Dizziness 3 - 4 In-person encounter Office Visit Bryan Simeon MD [facility] Family History of CVA or Stroke:HTN essentialDiastolic CHFSyncope and collapseObesityDyspnea on exertion VITAL SIGNS Date Observation Value Provider Body Mass Index (Ratio) 34.38 kg/m2 Bryce Simeon MD blood pressure, diastolic 80 mm[Hg] [place] Farnsworth blood pressure, systolic 130 mm[Hg] Kelly Farnsworth oxygen saturation, oximetry 98 % Randa Farnsworth pulse rate 74 /min Randa [facility] weight E&M 188 [lb_av] Randa Weiss [facility] [place] height E&M 62 [in_i] Randa Weiss [facility] Body Mass Index (Ratio) 38.22 kg/m2 Bryce [...] Jesus Gutierrez blood pressure, cuff size large [facility] blood pressure, diastolic 84 mm[Hg] [facility] blood pressure, systolic 128 mm[Hg] [facility] 87 /min [facility] oxygen saturation, oximetry 100 % [facility] respiratory rate E&M 14 /min Sarah Harrell illeharpal weight E&M 230 [lb_av] [facility] height E&M 62 [in_i] [facility] Body Mass Index (Ratio) 43.53 [...] Madden Body Mass Index (Ratio) 42.98 kg/m2 rByce Simeon MD pulse rate 100 /min Dedezackary [...] blood pressure, systolic 154 mm[Hg] Harsh abiodun [place] oxygen saturation, oximetry 100 % Lisa [place] pulse rate 70 /min Lisa Lohma n respiratory rate E&M 16 /min Horacio ie [place] blood pressure, cuff size large [facility] [place] weight E&M 231 [lb_av] Lisa Lohma n height E&M 62 [in_i] Lisaaide Stevens n Body Mass Index (Ratio) 42.28 kg/m2 Bryce Simeon MD blood pressure, cuff size regular benji Madden blood pressure, diastolic 98 mm[Hg] benji Madden blood pressure, systolic 120 mm[Hg] [facility] rylie Madden oxygen saturation, oximetry 98 % [...] blood pressure, systolic 132 mm[Hg] Tra mikal [facility] respiratory rate E&M 16 /min Ikra Ellie najera oxygen saturation, oximetry 91 % [...] [lb_av] Maddy Lashawn height E&M 62 [in_i] [facility] Body Mass Index (Ratio) 40.60 kg/m2 Bryce Simeon MD pulse rate 70 /min [facility] oxygen saturation, oximetry 97 % [facility] blood pressure, diastolic 90 mm[Hg] Raymundo gerardo [facility] blood pressure, systolic 124 mm[Hg] [facility] jennifer [facility] respiratory rate E&M 16 /min [facility] weight E&M 222 [lb_av] [facility] blood pressure, resting Yes [facility] height E&M 62 [in_i] [facility] Body Mass Index (Ratio) 40.60 [...] Iglesiase er blood pressure, diastolic 80 mm[Hg] Sd donavan Tilley blood pressure, systolic 118 mm[Hg] Ni Tilley pulse rate 80 /min Kenzie Tilley oxygen saturation, oximetry 94 % Kenzie Tilley respiratory rate E&M 16 /min Kenzie Tilley Body Mass Index (Ratio) 39.76 kg/m2 Cira Tilley weight E&M 217.4 [lb_av] Kenzie Tilley Body Mass Index (Ratio) 34.02 kg/m2 Lyle rajat Jarquin blood pressure, diastolic 90 mm[Hg] Ke rri Harrismethodist [facility] blood pressure, systolic 140 mm[Hg] Kelly Iglesiasdell pulse rate 65 /min Randa Weiss [facility] [place] [place] oxygen saturation, oximetry 97 % Randa Iglesiasdell respiratory rate E&M 16 /min Randa George [facility] weight E&M 186 [lb_av] Randa [...] Policy type / Coverage type Luiz red republican [employer] Other H [id number] [place] Medicare [id number] ADVANCE DIRECTIVES Name Date DISCUSSED - NO DECISION MADE TREATMENT PLAN Date Name Performer [id number],W, Bryan Montenegro ra[place] [id number],S, Bryan [place]enegro ra[place] [id number],S, Bryan [place] [id number],S, Bryan [place]enegro ra, [place] [id number],S, Carol P today: 140/76 P rior BP: [...] mouth once a day Bryan Simeon MD [id number],S, H er updated medication list for this [...] mouth once a day Bryan Simeon MD [id number],SBryan ra, [place] [id number],W, H er updated medication list for this problem includes: Ezetimibe 10 Mg Tablet (Ezetimibe) ..... Take 1 tablet by mouth every day Bryan Simeon MD [id number],SBryan ra, [place] [id number],BBryan ra, MD [id number],SBryan ra, [place] [id number],B, Bryan [place]enegro ra, [place] [id number],W, B P today: 163/91 P rior BP: [...] mouth once a day Bryan Simeon MD [id number],SBryan ra, [place] [id number],S, H er updated medication list for this problem includes: Ezetimibe 10 Mg Tablet (Ezetimibe) ..... Take 1 tablet by mouth every day Bryan Simeon MD [id number],SBryan ra, MD [id number],SBryan ra, MD [id number],SBryan ra, [place] [id number],W, H er updated medication list for this problem includes: Ezetimibe 10 Mg Tablet (Ezetimibe) ..... Take 1 tablet by mouth every day Bryan iSmeon MD [id number],SBryan ra, [place] [id number],W, B P today: 154/104 P rior BP: [...] mouth once a day Bryan Simeon MD [id number],S, H er updated medication list for this [...] mouth once a day Bryan Simeon MD [id number],WBryan ra, [place] [id number],S, Bryan [place] [id number],SBryan ra, MD [id number],WBryan ra, [place] [id number],S, H er updated medication list for this problem includes: Ezetimibe 10 Mg Tablet (Ezetimibe) ..... Take 1 tablet by mouth every day Bryan Simeon MD [id number],S, H er updated medication list for this [...] mouth once a day Bryan Simeon MD [id number],S, B P today: 120/98 P rior BP: [...] mouth once a day Bryan Simeon MD [id number],S, The following medications were removed from the [...] mouth once a day Bryan Simeon MD [id number],S,B P is slightly elevated. B P today: [...] mouth once a day Bryan Simeon MD [id number],S,wears cpap 3x a week. Bryan Simeon MD [id number],W,r eoccurence of chest pain. will start on Toprolol XL and get some labs and echho results. O rders: 9 9214 MOD 30-39min (CPT-60153) C omplete Echo (CPT-03801) P ROBNP, N TERMINAL (93809) D -DIMER, QUANTITATIVE (5899) C BC (H/H, RBC, INDICES, WBC, PLT) (0496) T SH, 3RD GENERATION W/REFLEX TO FT4 (50691) Her updated medication list for this problem [...] results. O rders: 9 9214 MOD 30-39min (CPT-49385) C omplete Echo (CPT-06551) P ROBNP, N TERMINAL (42565) D -DIMER, QUANTITATIVE (7424) C BC (H/H, RBC, INDICES, WBC, PLT) (6752) T SH, 3RD GENERATION W/REFLEX TO FT4 (30953) Her updated medication list for this problem [...] this problem includes: Ranexa 1000 Mg Oral Oe23a-vwo (Ranolazine) ..... One po bid Hyzaar 50-12.5 Mg Tabs (Losartan potassium-hctz) ..... One po daily Aspirin 81 Mg Tabs (Aspirin) ..... One tab. daily Nitrostat Subl (Nitroglycerin subl) ..... Take as directed Bryan Simeon MD Cardiology: H er updated medication list for this problem includes: Ranexa 1000 Mg Oral Ra88a-zra (Ranolazine) ..... One po bid Aspirin 81 Mg Tabs (Aspirin) ..... One tab. daily Nitrostat Subl (Nitroglycerin subl) ..... Take as directed Bryan Simeon MD Cardiology Bryan Orellana Cardiology: H er updated medication list for this problem includes: Ranexa 1000 Mg Oral Cc41f-wox (Ranolazine) ..... One po bid Aspirin 81 [...] this problem includes: Ranexa 500 Mg Oral Yt90k-nhd (Ranolazine) ..... One tablet twice daily Aspirin 81 Mg Tabs (Aspirin) ..... One tab. daily Nitrostat Subl (Nitroglycerin subl) ..... Take as directed Bryan Simeon MD Cardiology Follow up Bryan macias MD Cardiology Follow up : H er updated medication list for this problem includes: Ranexa 500 Mg Oral Ix23n-pzo (Ranolazine) ..... One tablet twice daily Aspirin 81 Mg Tabs (Aspirin) ..... One tab. daily Nitrostat Subl (Nitroglycerin subl) ..... Take as directed Bryan Simeon MD Cardiology Follow up Bryan maicas MD Cardiology Follow up Bryan macias MD [...] ..... Take as directed Orders: Jaylyn KG (CPT-33760) Bryan Simeon MD Follow up : H [...] One tab. daily Orders: Shannan omplete Echo (CPT-79674) M obile Cardiac Tele (CPT-31029) Bryan Simeon MD hos follow up: H er updated medication list for this problem includes: Aspirin 81 Mg Tabs (Aspirin) ..... One tab. daily Nitrostat Subl (Nitroglycerin subl) ..... Take as directed & #13;Orders: Shannan omplete Echo (CPT-27980) M obile Cardiac Tele (CPT-61045) Bryan Simeon MD hos follow up: H er updated medication list for this problem includes: Aspirin 81 Mg Tabs (Aspirin) ..... One tab. daily Alprazolam 0.5 Mg Tabs (Alprazolam) ..... 1 tab twice daily Nitrostat Subl (Nitroglycerin subl) ..... Take as directed Orders: Shannan omplete Echo (CPT-41084) M obile Cardiac Tele (CPT-74572) Bryan Simeon MD hos follow up: O rders: Shannan omplete Echo (CPT-51959) M obile Cardiac Tele (CPT-35956) d iet and exercise for weight loss and cardiovascualr risk reduction Bryan Simeon MD hos follow up: H er updated medication list for this problem includes: Hyzaar 50-12.5 Mg Tabs (Losartan potassium-hctz) ..... One po daily Aspirin 81 Mg Tabs (Aspirin) ..... One tab. daily Nitrostat Subl (Nitroglycerin subl) ..... Take as directed n o recurrence O rders: C omplete Echo (CPT-78544) M obile Cardiac Tele (CPT-66810) Bryan Simeon MD hos follow up: O rders: Shannan omplete Echo (CPT-55767) M obile Cardiac Tele (CPT-19097) Bryan Simeon MD hos follow up: O rders: C omplete Echo (CPT-40331) M obile Cardiac Tele (CPT-33028) Bryan Simeon MD hos follow up: H er updated medication list for this problem includes: Hyzaar 50-12.5 Mg Tabs (Losartan potassium-hctz) ..... One po daily Aspirin 81 Mg Tabs (Aspirin) ..... One tab. daily Nitrostat Subl (Nitroglycerin subl) ..... Take as directed Orders: Shannan omplete Echo (CPT-18509) M obile Cardiac Tele (CPT-54130) Bryan Simeon MD hos follow up: H er updated medication list for this problem includes: Hyzaar 50-12.5 Mg Tabs (Losartan potassium-hctz) ..... One po daily Aspirin 81 Mg Tabs (Aspirin) ..... One tab. daily Orders: Shannan omplete Echo (CPT-02911) M obile Cardiac Tele (CPT-43473) BP today: 155/91 Bryan Simeon MD Date [...] EKG Cathleen Shukla MD complet ed SNOMED-CT: 107870989 [id number] Current Medications Documented Bryan Simeon MD completed SNOMED-CT: 039919425 824982 Current Medications Documented Bryan Simeon MD completed EKG Bryan Simeon MD complet ed SNOMED-CT: 316458710 183815 Current Medications Documented Bryan Simeon MD completed EKG Bryan Simeon MD complet ed EKG Bryan Simeon MD complet ed
--- OUTSIDE RECORDS SUMMARY | 2024-05-16 08:10 | XMS_ITS | Continuity of Care Document ---
Author Organization [employer] [facility] [employer] [facility] Address [address] [place] [address] Phone Care Team Providers Care Fire Services Plumber Name Role Phone Matt Stephenson MD, FACS [...] Photography W/ Report Corneal Topography Office/outpatient Visit, [facility] Advance Directives Directive Yes / No [...] Copied on Encounter [facility], [address], [place], [place], [address], tel:[phone] SEC Ryan REESE Professional Cataract evaluation (chief complaint) Combined forms of age-related cataract, bilateralPred iabetes Apr- [address] [facility] [address], [address], [place], [place], [address], . tel:[phone] Referring Provider: Matt Kinsey, [facility] [address], [place], [address] . tel:[phone] [facility], [address], [place], [place], [address], tel:[phone] SEC Ryan REESE Professional No Information [address] [facility] [address], [address], [place], [place], [address], . tel:[phone] Family History Family Member Type Diagnosis Age At Onset Problem Family history of Glaucoma Payers Payer name Insurance type Covered constitution party ID Authoriza tikristi(s) [place] [id number] [facility] [id number] Social History Type Description Quantity Date Captured [...]
--- NOTE | 2024-05-16 08:12 | ED_ITS ---
HPI - General Adult General Chief complaint: Fall Stated complaint: left side rib injury Time Seen by Provider: 05/16/24 08:12 Source: patient, RN notes reviewed and old records reviewed Mode of arrival: ambulatory Limitations: no limitations History of Present Illness HPI narrative: 64 year old female who presents with complaints of left rib anterior and lateral chest region pain from injury 2 days ago.. Patient reports that she has to use step stool to get down into the washer to remove socks and stool went out from under her feet and she feel hitting the left anterior lateral aspect of her chest on side of washer. Patient reports increased pain to left side of chest with deep breathing and feels like she can't take a deep breath. Patient reports that she took home pain medication of Vicodin at 0730 this morning for her pain states that she has been using rib belt. MD complaint: left rib pain anterior from injury Onset (ago): day(s) (2) Location: chest (left anterior rib area) Severity: moderate Severity scale (1-10): 4 Quality: sharp Exacerbating factors: other (deep breathing and coughing) Treatments prior to arrival: other (rib belt and took vicodin pain medication last dose 0730) Related Data Home Medications ?Medication ?Instructions ?Recorded ?Confirmed ?Last Taken ?Type alprazolam 0.5 mg tablet (Xanax) 0.5 mg PO TID PRN Anxiety 06/04/20 04/03/24 Unknown History bbaqomwuek-jepvais-cakashnu 50 1 cap PO BID PRN Pain 01/15/22 10/01/23 Unknown History mg-325 mg-40 mg capsule hydrochlorothiazide 25 mg tablet 25 mg PO DAILY 01/15/22 10/01/23 Unknown History icosapent ethyl 1 gram capsule 1 g PO DAILY 01/15/22 10/01/23 Unknown History (Vascepa) metoprolol succinate 50 mg 50 mg PO DAILY 01/15/22 10/01/23 Unknown History tablet,extended release 24 hr nitroglycerin 0.4 mg sublingual 0.4 mg sublingual DAILY PRN Chest 01/15/22 10/01/23 Unknown History tablet Pain alendronate 70 mg tablet 70 mg PO DAILY 08/05/22 10/01/23 Unknown History amlodipine 5 mg tablet 5 mg PO DAILY 08/05/22 04/03/24 Unknown History metformin 500 mg tablet,extended 500 mg PO TID 08/06/23 10/01/23 Unknown History release 24 hr paroxetine HCl 20 mg tablet 20 mg PO DAILY 08/06/23 10/01/23 Unknown History ketorolac 0.5 % eye drops drp 05/16/24 Unknown History pantoprazole 20 mg tablet,delayed mg PO 05/16/24 Unknown History release polymyxin B sulfate 10,000 05/16/24 Unknown History unit-trimethoprim 1 mg/mL eye drops prednisolone acetate 1 % eye drp 05/16/24 Unknown History drops,suspension Allergies Allergy/AdvReac Type Severity Reaction Status Date / Time bee venom protein (honey bee) Allergy Severe Anaphylaxis Verified 05/16/24 08:26 erythromycin base Allergy Unknown Hives Verified 05/16/24 08:26 Review of Systems Review of Systems: CONSTITUTIONAL: Denies fever, chills, or sweats. EYES: Denies visual changes, redness, or discharge. ENT: Denies rhinorrhea, congestion, sore throat, or otalgia. CARDIOVASCULAR: Reports left anterior rib lower chest pain from injury,no palpitations, or edema. RESPIRATORY: Denies cough or acute dyspnea.increase pain to left rib area with deep breathing and cough GASTROINTESTINAL: Denies abdominal pain, nausea, vomiting, or diarrhea. GENITOURINARY: Denies dysuria or hematuria. SKIN: Denies rash or itching. MUSCULOSKELETAL: Reports chronic back pain, joint pain, or myalgia. NEUROLOGIC: Denies headache, numbness, or weakness. PSYCHIATRIC: Reports history of anxiety or depression. All systems reviewed & are unremarkable except as noted in HPI and below PMFSH Past Medical History Medical History Diabetes Diarrhea Syrinx of spinal cord Diastolic dysfunction Hypertension Depression Low back pain Surgical History Surgical History H/O: hysterectomy History of right knee joint replacement Hx of appendectomy S/P tonsillectomy H/O total knee replacement (~12/25/19) Family History Family History Mother Family history non-contributory Social History Social History Social History: never smoker Smoking status: Never smoker Alcohol intake: current Substance use: never Living arrangements: with family Gender identity (if verbalized by the patient): Female Sexual Orientation (if Verbalized by the Patient): Straight or Heterosexual Spiritual care concerns: No Comments At time of signature, agree with nursing past medical, surgical, social and family history. There is no relevant family history pertinent to the presenting complaint Exam Narrative: GENERAL: Well-appearing, well-nourished, and in some acute distress related to recent fall. HEAD: Normocephalic, atraumatic. EYES: PERRLA and EOMI. ENT: Nares clear, no rhinorrhea or epistaxis. Mucous membranes moist. NECK: Supple. no lymphadenopathy CHEST: Clear to auscultation. No respiratory distress.left anterior rib pain from fall increased pain with deep breathing and cough. HEART: Regular rate and rhythm. No murmur heard. Normal peripheral pulses. ABDOMEN: Soft, nontender, nondistended, normal active bowel sounds. EXTREMITIES: Normal range of motion. No edema. SKIN: Warm, dry, no rash. NEURO: No focal deficits. Alert and oriented x3. Course Course Emergency Course: Patient is aware of diagnosis, understands and agrees to treatment plan.? Anticipatory guidance given.? Patient agrees to follow-up as directed and is aware of reasons to seek care at the emergency department. Portions of this record may have been created with voice recognition software Level of Care: Express Care Visit Vital Signs Vital signs: Vital Signs Temperature 36.7 C 05/16/24 08:06 Pulse Rate 89 05/16/24 08:06 Respiratory Rate 20 05/16/24 08:06 Blood Pressure 125/75 05/16/24 08:06 Pulse Oximetry 97 05/16/24 08:06 Oxygen Delivery Room Air 05/16/24 08:06 Temperature 36.7 C 05/16/24 08:06 Pulse Rate 89 05/16/24 08:06 Respiratory Rate 20 05/16/24 08:06 Blood Pressure 125/75 05/16/24 08:06 Pulse Oximetry 97 05/16/24 08:06 Oxygen Delivery Room Air 05/16/24 08:06 Reviewed Medical Decision Making MDM Narrative Medical decision making narrative: Exam findings and imaging show no acute concerns or changes; patient is non- toxic appearing and is in no distress.? Patient is appropriate for outpatient treatment and follow-up Differential Diagnosis Differential Diagnosis: rib contusion left anterior ribs, rib fracture left anterior ribs, increase left anterior chest area with deep breathing and cough Medical Records Medical records reviewed: Yes I reviewed the external patient's medical records. Vital Signs Vital Signs: Vital Signs Temperature 36.7 C 05/16/24 08:06 Pulse Rate 89 05/16/24 08:06 Respiratory Rate 20 05/16/24 08:06 Blood Pressure 125/75 05/16/24 08:06 Pulse Oximetry 97 05/16/24 08:06 Oxygen Delivery Room Air 05/16/24 08:06 Temperature 36.7 C 05/16/24 08:06 Pulse Rate 89 05/16/24 08:06 Respiratory Rate 20 05/16/24 08:06 Blood Pressure 125/75 05/16/24 08:06 Pulse Oximetry 97 05/16/24 08:06 Oxygen Delivery Room Air 05/16/24 08:06 Imaging Data Attestation: I personally reviewed and interpreted this imaging study as follows: My impression: nondisplaced anterior left fifth and sixth rib fracture no pneumothorax or other acute cardiopulmonary disease Radiologist's impression: [place] [address] XRay Report Signed Patient: Roma Page : 1960 MR#: [id number] Age: 64 Acct:[id number] Loc: [facility] ADM Date: 05/16/24Attending Dr: Ordering Physician: Esha Santamaria APRN Date of Service: 05/16/24 Procedure(s): XR ribs LT w PA CXR Accession Number(s): [id number] cc: Esha Santamaria APRN; GENTRYHALLIE M.D.~ EXAMINATION: [id number] DATE: 05/16/2024 08:34 INDICATION: Left rib injury TECHNIQUE: A frontal inspiratory view of the chest and 3 views of the left ribs were obtained. COMPARISON: None FINDINGS: Nondisplaced fracture of the anterior left fifth and sixth ribs. Minimal discoid atelectasis the lateral left lower lung zone. No other airspace opacities, pulmonary edema, pleural effusion or pneumothorax. Cardiomediastinal silhouette is normal. IMPRESSION: 1. Nondisplaced anterior left fifth and sixth rib fractures. 2. No pneumothorax or other acute cardiopulmonary disease. Reviewed, dictated and finalized at location B. Please be advised this is a medical document. It is intended for kbrp-du-kuoy communication. It is written in medical language and may contain unfamiliar abbreviations or verbiage. Medical documents are intended to carry relevant information, facts as evident, and the clinical opinion of the practitioner at the time of the encounter. This report may have been done utilizing a voice recognition system. Attempts have been made to correct errors. However, there may be uncorrected grammatical, spelling, and recognition errors present. The file time of this note does not necessarily represent the time of service. Dictated By: Richard Leiva MD 05/16/24 0841 Signed By: <Electronically signed by Richard Leiva MD in OV> Critical Care Time Critical Care Time Critical Care Time: No Discharge Plan Discharge Clinical Impression: Rib fractures Qualifiers: Encounter type: initial encounter Fracture type: closed Laterality: left Qualified Code(s): S22.42XA - Multiple fractures of ribs, left side, initial encounter for closed fracture Patient Disposition: Home, Self-Care Condition: Stable Instructions: How to Use an Incentive Spirometer (ED), Rib Fracture (ED) Additional Instructions: Tylenol or Ibuprofen for pain or use your pain medication that you have at home for acute pain Avoid bending twisting motion of left side of upper body May use ice or heat to the left side of chest prednisone for the next 5 days for discomfort and inflammation take with food Use incentive spirometry every 2 hours while awake If your symptoms persist, change or worsen significantly before you can contact your personal physician then please, without delay, go to the emergency department for further evaluation. Follow-up with PCP in 7-10 days or sooner if needed Patient Language: Macanese Prescriptions: New prednisone 20 mg tablet 20 mg PO BID Qty: 10 0RF Rx Instructions: take with food No Action amlodipine 5 mg tablet 5 mg PO DAILY alendronate 70 mg tablet 70 mg PO DAILY paroxetine HCl 20 mg tablet 20 mg PO DAILY metformin 500 mg tablet extended release 24 hr 500 mg PO TID metoprolol succinate 50 mg tablet extended release 24 hr 50 mg PO DAILY stnccbtamj-yjmruao-ajfgqlix 50-325-40 mg capsule 1 cap PO BID PRN (Reason: Pain) icosapent ethyl [Vascepa] 1 gram capsule 1 g PO DAILY nitroglycerin 0.4 mg tablet, sublingual 0.4 mg sublingual DAILY PRN (Reason: Chest Pain) hydrochlorothiazide 25 mg tablet 25 mg PO DAILY pantoprazole 20 mg tablet,delayed release (DR/EC) PO ketorolac 0.5 % drops prednisolone acetate 1 % drops,suspension polymyxin B sulf-trimethoprim 10,000 unit- 1 mg/mL drops alprazolam [Xanax] 0.5 mg tablet 0.5 mg PO TID PRN (Reason: Anxiety) tramadol 50 mg tablet 50 mg PO Q8H PRN (Reason: pain (scale score 7-10)) Qty: 50 0RF hydrocodone-acetaminophen 10-325 mg tablet 1 tablet PO Q8H PRN (Reason: pain (scale score 7-10)) Qty: 90 0RF Rx Instructions: To last 30 days, due 12/12/2020 Follow-up/Referrals: Gentry,Hallie Ching DO [Primary Care Provider] - Time of Disposition: 09:05 Quality Driscoll Coma Scale Eyes: Open Verbal: Oriented and Alert Motor: Follows Commands Driscoll Coma Total Score: 15
== END 2024-05-16 09:07 | disposition home or self-care (01) ==
PROVIDERS: Emergency Provider Registered Nurse; PCP Family Medicine
DX: S22.32XA Fracture of one rib, left side, initial encounter for closed fracture (principal); W22.8XXA Striking against or struck by other objects, initial encounter; E11.9 Type 2 diabetes mellitus without complications; Z79.84 Long term (current) use of oral hypoglycemic drugs; I10 Essential (primary) hypertension; Z96.651 Presence of right artificial knee joint; F32.A Depression, unspecified
CPT/HCPCS: 71101; 99213; G0463

== ENCOUNTER 2024-09-05 11:47 | Emergency (ER) | payer MEDICARE, OTHER, SELFPAY ==
--- NOTE | ~2024-09-05 | XR_ITS ---
XR ribs RT 2V Ordering provider: CHANTELLE Gupta BC History: . fall 3 wks ago. pain under R breast . Comparison: None. FINDINGS: BONES: Highly suggestive fracture in the right 10th and 11th ribs. LUNGS: No effusions or infiltrates. No pneumothorax. SOFT TISSUES: Normal. IMPRESSION: Highly suggestive fracture of the right 10th and 11th ribs. Clinical correlation and follow-up advise d Reviewed, dictated and finalized at location A. IMPRESSION: Highly suggestive fracture of the right 10th and 11th ribs. Clinical correlatio n and follow-up advised
--- OUTSIDE RECORDS SUMMARY | 2024-09-05 11:50 | XMS_ITS | Clinical Summary ---
Author Organization [facility] Address [address] [address] Phone Care Team Providers Care Rn X Ray Name Role Phone Damir Rinaldi DO Primary Care Provider [phone] Micah Rand MD Unavailable [phone] Allergies Active Allergy Reactions Criticality Noted Date [...] 10 mg by mouth daily. Active butalbital-aspir we-isjpkabk-wnfc ine (FIORINAL WITH CODEINE) 98-191-23-30 MG Capsule Take 1 Capsule by mouth [...] 11:18 AM CDT Height 157.5 cm (5' 2) 10/11/2021 11:18 AM CDT Body Mass Index 43.16 10/11/2021 11:18 AM CDT Plan of Treatment Health Maintenance Due Date Last Done Comments Hepatitis C Virus (HCV) Screening 1960 TdaP Immunization 1960 Cologuard 04/19/2004 Colonoscopy 04/19/2004 Colorectal Cancer Screening 04/19/2004 Immunochemical Fecal Occult Blood 04/19/2004 Pneumococcal Immunization (50+ years) (1 of 1 - PCV) 04/19/2009 SARS-COV-2 Immunization ( season) 2023 01/22/2021, 06/12/2020, 05/15/2020 Influenza Immunization (#1) 10/21/202411/20, 11/16/2020, 11/20/2019, Additional history exists Respiratory Syncytial Virus (RSV) Immunization (Adult) (1 - 1-dose 75+ series) 04/19/2034 DTaP/Tdap/Td Immunization Discontinued 02/20/2009 Zoster Immunization Completed 10/29/2020, Hepatitis B Immunization Aged Out No longer eligible based on patient's age to complete this topic Human Papillomavirus (HPV) Immunization Aged Out No longer eligible based on patient's age to complete this topic Meningococcal Immunization (ACWY) Aged Out No longer eligible based on patient's age to complete this topic Rotavirus Immunization Aged Out No lo nger eligible based on patient's age to complete this topic Insurance [employer] Care Teams Rn X Ray Relationship Specialty Start Date End Date Damir Rinaldi DO [address] [place] [address] PCP - General Family Medicine 02/10/15 Micah Rand MD [address] [place] [id number] Consulting Physician Neurology 10/11/21
--- OUTSIDE RECORDS SUMMARY | 2024-09-05 11:50 | XMS_ITS | Continuity of Care Document ---
Author Organization [facility] Address [address] [place] [phone] Phone Care Team Providers Care Facility Manager Name Role Phone Ankur SETH Kim Unavailable Unavailable Allergies, Adverse Reactions, Alerts Substance Reaction Status Criticality No Known Allergies Active No Inform ation Medications Medication Instructions Dosage Effective Dates (start - stop) Status Comments prednisolone acetate 1 % eye drops,suspension Instill [...] for first post op visit. - Active polymyxin B sulfate 10,000 unit-trimethoprim 1 mg/mL eye drops instill 1 drop by ophthalmic route in the operated eye 4 times a day for 1 week; to begin after being seen in the office for first post op visit. - Active Lopressor 50 mg tablet take 1 tablet by oral route 2 times every day with meals 50 MG - Active hydrocodone 10 mg-acetaminophen 325 mg tablet take 1 tablet by oral route every 4 - 6 hours as needed for pain 1.00 tablet - Active Procedures Procedure Date No Charge Refraction Post-op Follow-up Visit Remove Cataract, Post Op Care Remove Cataract, Insert Lens,Comanaged M IOLMaster-Professional No Charge Refraction Post-op Follow-up Visit Remove Cataract, Post Op Care Remove Cataract, Insert Lens,Comanaged A IOLMaster-Professional No Charge Refraction IOLMaster-Technical No Charge GDX Retina Fundus Photography W/ Report Corneal Topography Office/outpatient Visit, [facility] Advance Directives Directive Yes / No Effective Date File Name No Information Encounters Encounter Description Practice Location Reason(s) For Visit Diagnoses Date Provider Providers [facility] [address], [place], [place], [address], tel:[phone] SEC Ryan LEIGH Professional 2 Week CE/IOL PO (chief complaint) Post op visit 5 Ankur OD Kim. [facility] [address], [address], [place], [place], [address], [place]. tel:[phone] Referring Provider: Matt Kinsey, [facility] [address], [place], [address] . tel:[phone] [facility], [facility] [address], [place], [place], [address], [place] tel:[phone] SEC [place] Professional 1 Day CE/IOL PO (chief complaint) Post op visit 5 Ankur OD Kim. [facility] [address], [address], [place], [place], [address], [place]. tel:[phone] Referring Provider: Matt Kinsey, [facility] [address], [place], [address] . tel:[phone] [facility], [facility] [address], [place], [place], [address], tel:[phone] [facility] No Information 5 Sachin Gutierrez. [facility] [address], [address], [place], [place], [address], . tel:[phone] Referring Provider: Matt Kinsey, [facility] [address], [place], [address] . tel:[phone] [facility], [facility] [address], [place], [place], [address], tel:[phone] [place] No Information May-3 0 5 Sachin Matt. [facility] [address], [address], [place], [place], [address], [place]. tel:[phone] Referring Provider: Matt Kinsey, [facility] [address], [place], [address] . tel:[phone] [facility], [facility] [address], [place], [place], [address], tel:[phone] SEC Ryan LEIGH Professional 2 Week CE/IOL PO (chief complaint) Post op visit 5 Ankur OD Kim. [facility] [address], [address], [place], [place], [address], [place]. tel:[phone] Referring Provider: Matt Kinsey, [facility] [address], [place], [address] . tel:[phone] [facility], [facility] [address], [place], [place], [address], [place] tel:[phone] SEC Ryan LEIGH Professional Post-Op (chief complaint) Postoperative visit May-0 5 Elvis OD Olivia. [facility] [address], [address], [place], [place], [address], [place]. tel:[phone] Referring Provider: Matt Kinsey, [facility] [address], [place], [address] . tel:[phone] [facility], [facility] [address], [place], [place], [address], [place] tel:[phone] [facility] No Information Apr-0 - 5 Sachin Gutierrez. [facility] [employer], [address], [place], [place], [address], [place]. tel:[phone] Referring Provider: Matt Kinsey, [facility] [employer] [facility] [address], [place], [address] . tel:[phone] [facility], [address] [place] [address] [address], [place], [place], [address], [place] tel:[phone] [place] No Information Apr0 2 5 Sachin Gutierrez. [facility] [employer], [address], [place], [place], [address], [place]. tel:[phone] Referring Provider: Matt Kinsey, [facility] [employer] [address], [place], [address] . tel:[phone] Office/outpa tient Visit, [facility], [address] [place] [address] [address], [place], [place], [address], [place] tel:[phone] SEC [place] Professional Cataract evaluation (chief complaint) Combined forms of age-related cataract, bilateralPred iabetes Apr-1 5 Sachin Gutierrez. [facility] [employer], [address], [place], [place], [address], [place]. tel:[phone] Referring Provider: Matt Kinsey, [facility] [address], [place], [address] . tel:[phone] [facility], [facility] [address], [place], [place], [address], [place] tel:[phone] SEC [place] Professional No Information Mar-0 3- 5 Sachin Gutierrez. [facility] [employer], [address], [place], [place], [address], [place]. tel:[phone] Family History Family Member Type Diagnosis Age At Onset Problem Family history of Glaucoma Payers Payer name Insurance type Covered libertarian ID Authorannie tikristi(s) No Information Social History Type Description Quantity Date Captured Comments Alcohol Use Details No Caffeine Use Details No Tobacco Use Status Current non-smoker Smoking Status Never smoker Non-Smoking Tobacco Use Details : No Details Available : No Details Available Sex Female Chief Complaint And Reason For Visit From encounter dated '07/03/2024 08:30'. 2 Week CE/IOL PO (chief complaint). Description: The 64 year old patient presents for evaluation of2 Week CE/IOL PO in the left eye. Pt state no pain or discomfort in OS and pt states that vision seems better and brighter than before. P t has all gtts and understands how to take the mas instructed. Reason For Referral Reason For Referral No Information Plan Of Treatment Date Type Action Status Appointment Roma Page BOOKED History Of Present Illness Encounter Date Complaint History Of Prese nt Illness 2 Week CE/IOL PO The 64 year old patient presents for evaluation of 2 Week CE/IOL PO in the left eye. Pt state no pain or discomfort in OS and pt states that vision seems better and brighter than before. P t has all gtts and understands how to take the mas instructed. 1 Day CE/IOL PO The 64 year old patient presents for evaluation of 1 Day CE/IOL PO in the left eye. Pt states there was a little bit of discomfort yesterday in OS but is better today. Pt states that vision does seem better and brighter than before. Pt has all gtts and understands how to take them as instructed. 2 Week CE/IOL PO The 64 year old patient presents for evaluation of 2 Week CE/IOL PO in the right eye. Pt states no pain or discomfort in OD and pt states that vision seems better and brighter than before. Pt has all gtts and understands how to take them as instructed. Pt would like to proceed with surgery in OS. Pt complains of not being able to read small print, pt complains of bright lights during the day and oncoming headlights at night bothering them as well, pt also avoids driving at night due to vision. Post-Op The 64 year old patient presents for a 1 day post op CE OD. Patient to begin drops as directed. Patient denies any pain or discomfort. Cataract evaluation The 64 year old patient presents for a cataract evaluation ou. Patient is a Type II diabetic x 1 year. Patient doesn't check BS. Patient states she failed her vision test at the [facility] and is restricted to daytime only. Patient like to ride her motorcycle and is unable to. Patient likes to read and has a hard time reading small print. Patient has a hard time seeing road signs and watching TV. Patient got new glasses about 2 weeks ago. Functional Status Date Functional Assessmen t No Information Instructions Date Instruction Additional Infor mikki Impression/Plan Impression/Plan Impression/Plan Impression/Plan Impression/Plan Assessments Type Assessment Date assessment Post op visit Patient Care Teams Name Effective Dates (start - stop) Status Members No Information
--- OUTSIDE RECORDS SUMMARY | 2024-09-05 11:50 | XMS_ITS | Referral Summary ---
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 Name Role Phone Alisianadeem Damir Jose Daniel Primary Care Provider [phone] Bryan Simeon MD Unavailable Jerry Leos NP Unavailable [phone] Beryl Mendoza PT Unavailable Unavailable Encounters Date Type Department Care Team Description 08/28/2024 8:00 AM CDT Office Visit [facility] Orthopedics and Sports Medicine [address] [facility] [address] [place] [id number] Wil De Dios PA 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, initial encounter (Primary Dx); History of meniscectomy of left knee; Pes anserinus bursitis of right knee; Primary osteoarthritis of left knee 08/19/2024 2:30 PM CDT Office Visit [facility] - [facility] [address] [facility] [address] [place] [id number] Susan Amado DO Closed fracture of nasal bone, initial encounter (Primary Dx); Abrasion of face, initial encounter 08/13/2024 4:03 PM CDT - 08/13/2024 7:28 PM CDT Emergency [facility] Emergency Department [address] [place] [address] Fall, initial encounter (Primary Dx) Discharge Disposition: Discharge to home or self care 08/12/2024 12:47 AM CDT - 08/12/2024 5:06 AM CDT Emergency [facility] Emergency Department [address] [place] [address] Jaylan Haider MD Dizziness (Primary Dx) Discharge Disposition: Discharge to home or self care 08/10/2024 4:23 PM CDT - 08/10/2024 5:45 PM CDT Emergency [facility] Emergency Department [address] [place] [address] Acute pain of left knee (Primary Dx) Discharge Disposition: Discharge to home or self care 06/07/2024 7:53 AM CDT - 06/07/2024 11:59 PM CDT Hospital Encounter [facility] [address] [place] [address] Occlusion and stenosis of bilateral carotid arteries Discharge Disposition: Discharge to home or self care from Last 3 Months Allergies Active Allergy Reactions Criticality Noted Date Comments Adhesive Rash Medium 05/17/2024 Atorvastatin Muscle pain Medium 08/20/2018 Bee Pollen Swelling Medium Erythromycin Other (See comments),Vomiting Low 12/02/2013 Reaction: vomiting, , , Reaction: nausea sick, Pravastatin Other (See comments),Muscle pain Medium 01/05/2022 [...] 1 tablet (50 mg total) by mouth 970 Active cyclobenzaprine (FLEXERIL) 10 mg tablet 1 TABLET 3 TIMES A DAY NEEDED 023 Active ALPRAZolam (XANAX) 0.5 mg tablet TAKE 1 TABLET BY MOUTH THREE TIMES A DAY NEEDED FOR ANXIETY 023 Active aspirin 81 mg enteric coated tabletIndications :prevention of thrombosis Take 1 tablet (81 mg total) by mouth 2 (two) times a day for 14 days 28 tablet 023 Active senna-docusate (PERICOLACE) 8.6-50 mg 1-2 times daily as needed for constipation 60 tablet 1 023 Active traMADoL (ULTRAM) 50 mg tablet TAKE 2 TABLETS BY MOUTH 3 TIMES A DAY NEEDED 023 Active HYDROcodone-aceta minophen (NORCO) 10-325 mg per tablet Take 1 tablet by mouth 3 (three) times a day as needed 024 Active benzocaine-mentho L (CHLORASEPTIC) 6-10 mg lozenge Take 1 lozenge by mouth every 4 (four) hours as needed for sore throat 36 [address] (PROTONIX) 40 mg EC tablet Take 1 tablet (40 mg total) by mouth daily 024 Active ondansetron ODT (ZOFRAN-ODT) 8 mg disintegrating tablet Take 1 tablet (8 mg total) by mouth every 8 (eight) hours as needed for nausea or vomiting 30 tablet 025 Active ketorolac (TORADOL) 10 mg tablet Take 1 tablet (10 mg total) by mouth every 6 (six) hours as needed for pain 20 tablet 025 Active traZODone (DESYREL) 150 mg tablet Take 1 tablet (150 mg total) by mouth nightly 2024 Discontinued(T herapy completed) losartan (COZAAR) 25 mg tablet Take 1 tablet (25 mg total) by mouth daily 2024 Discontinued(T herapy completed) apixaban (ELIQUIS) 5 mg tablet Take 2 tablets (10 mg total) by mouth 2 (two) times a day for 6 days 24 tablet 025 2024 Discontinued methylPREDNISolon e (MEDROL DOSEPACK) 4 mg Dosepack Take as directed on package 1 packet 025 2024 naproxen (NAPROSYN) 500 mg tablet Take 1 tablet (500 mg total) by mouth 2 (two) times a day with meals 30 tablet 025 2024 Discontinued(A lternate therapy) methocarbamoL (ROBAXIN) 500 mg tablet Take 1 tablet (500 mg total) by mouth 2 (two) times a day 20 tablet 025 2024 Discontinued(T herapy completed) Hospital, Clinic, or Other Facility Administered Medication Ordered Dose Route Frequency Start Date End Date Status lidocaine (XYLOCAINE) 20 mg/mL (2 %) injection 1 mLIndications:Admini stration of Local Anesthesia 1 mL OTHER One-Time Injection 08/28/2024 5 Ended lidocaine (XYLOCAINE) 20 mg/mL (2 %) injection 3 mLIndications:Admini stration of Local Anesthesia 3 mL One-Time Injection 08/28/2024 5 Ended methylPREDNISolone acetate (DEPO-medrol) injection 80 mgIndications:Histor y of meniscectomy of left knee,Primary osteoarthritis of left knee 80 mg intra-artic One-Time Injection 08/28/2024 5 Ended methylPREDNISolone acetate (DEPO-medrol) injection 80 mgIndications:Pes anserinus bursitis of right knee 80 mg intra-artic One-Time Injection 08/28/2024 5 Ended Active Problems Problem Noted Date Diagnosed Date Closed fracture of nasal bones 08/19/2024 Assessment & Plan (08/19/2024 4:01 PM CDT): Nondisplaced fracture, no surgery needed Avoid nose blowing for one more week Aquaphor ointment to the right cheek abrasion twice daily for two weeks, avoid sun exposure for the next two weeks Personal interpretation of CT Facial bones, nondisplaced nasal bone fracture, right sided nasal cavity edema Abrasion of face 08/19/2024 Assessment & Plan (08/19/2024 3:58 PM CDT): Nondisplaced fracture, no surgery needed Avoid nose blowing for one more week Aquaphor ointment to the right cheek abrasion twice daily for two weeks, avoid sun exposure for the next two weeks Pneumonia of both lungs due to infectious [...] is overdue for follow up with her area coordinator, Dr. Lala, in [place]. She will follow up soon. 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 Other possibilities for pain [...] drink = 0.6 oz pur e alcohol) [facility] Utilities Answer Date Recorded In the past 12 months has th e electric, gas, oil, or water [employer] threatened to shut off services in your [...] often do you attend chur ch or yazidism services? Never 10/09/2023 Do you belong to [...] any time in the past 12 m [facility], were you homeless or living in a prison (including now)? No 10/09/2023 Personal Safety Answer Date Recorded Have you ever been in or are you currently in a harmful physical or emotional relationship or is someone making you feel afraid or unsafe? 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 Gender Identity Not on file Sexual Orientation Not on file Last Filed Vital Signs Vital Sign Reading Time Taken Comments Blood Pressure 173/88 08/13/2024 7:06 PM CDT Pulse 52 08/13/2024 7:06 PM CDT Temperature 36.7 C (98.1 F) 08/13/2024 4:09 PM CDT Respiratory Rate 16 08/13/2024 4:09 PM CDT Oxygen Saturation 97% 08/13/2024 7:06 PM CDT Inhaled Oxygen Concentration - - Weight 69.9 kg (154 lb) 08/28/2024 8:04 AM CDT Height 157.5 cm (5' 2) 08/28/2024 8:04 AM CDT Body Mass Index 28.17 08/28/2024 8:04 AM CDT Plan of Treatment Not on file Medical Devices Implanted Type Area Molding Cutter Device Identifier Shelf Expiration Date Model / Serial / Lot [employer] Marker Tissue Bowtie Shape Titanium Collagen Mammomark 10ga [id number] - [id number] - [id number] Implanted:Qty : 1 on 01/31/2024 by Kerry Bhat MD at [facility] Breast Left: Breast V[employer] [id number] 05/01/2025 [id number] / [id number] / [id number] D Description:Stereotactic lef t breast biopsy 11-12 o'clock area. Cores x6 Microcalcs in cassettes 1 and 6. Procedures Procedure Name Priority Date/Time Associated Diagnosis Comments CT ARTHROCENTESIS ASPIR&/INJ MAJOR JT/BURSA W/O US Routine 08/28/2024 8:00 AM CDT Pes anserinus bursitis of right knee CT ARTHROCENTESIS ASPIR&/INJ MAJOR JT/BURSA W/O US Routine 08/28/2024 8:00 AM CDT History of meniscectomy of left knee Primary osteoarthritis of left knee CT CERVICAL SPINE WO CONTRAST ED 08/13/2024 5:[address] FACIAL BONES WO CONTRAST ED 08/13/2024 5:[address] HEAD WO CONTRAST ED 08/13/2024 5 [address] HEAD WO CONTRAST ED 08/12/2024 2 :59 AM CDT ECG 12-LEAD STAT 08/12/2024 12:15 AM CDT EGFR STAT 08/12/2024 12:12 AM CDT DIFFERENTIAL AUTO STAT 08/12/2024 12:12 AM CDT COMPREHENSIVE METABOLIC PANEL STAT 08/12/2024 12:12 AM CDT CBC WITH AUTO DIFFERENTIAL STAT 08/12/2024 12:12 AM CDT POCT GLUCOSE DEVICE Routine 08/12/2024 12:09 AM CDT XR KNEE LEFT 3 VIEWS ED 08/10/2024 4:57 PM CDT EGFR STAT 08/10/2024 4:41 PM CDT DIFFERENTIAL AUTO STAT 08/10/2024 4:4 1 PM CDT D-DIMER, QUANTITATIVE STAT 08/10/2024 4:41 PM CDT CRP (ACUTE PHASE) STAT 08/10/2024 4:4 1 PM CDT COMPREHENSIVE METABOLIC PANEL STAT 08/10/2024 4:41 PM CDT CBC WITH AUTO DIFFERENTIAL STAT 08/10/2024 4:41 PM CDT US CAROTIDS DUPLEX BILATERAL Schedule Routine, Read Routine (OP Routine) 06/07/2024 9:07 AM CDT Occlusion and stenosis of bilateral carotid arteries DEXA AXIAL SKELETON BONE DENSITY 1 OR MORE SITES Schedule Routine, Read Routine (OP Routine) 03/27/2024 8:27 AM 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 Age-related osteoporosis without current pathological fracture DIAGNOSTIC MAMMOGRAM BILATERAL W PETER Schedule Routine, Read Routine (OP Routine) 01/05/2024 10:23 AM 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 Other abnormal and inconclusive findings on diagnostic imaging of breast COLONOSCOPY 10/27/2022 8:16 AM CDT from Last 3 Months or Most Recently Relevant to Health Maintenance Results * CT ARTHROCENTESIS ASPIR&/INJ MAJOR JT/BURSA W/O US (08/28/2024 8:00 AM CDT) Narrative Wil De Dios PA - 08/28/2024 8:00 AM CDT Wil De Dios PA 08/28/2024 8:52 AM Large Joint (Hip, Knee, Shoulder) Injection: [...] complications us Wil [facility] Final Result * CT ARTHROCENTESIS ASPIR&/INJ MAJOR JT/BURSA W/O US (08/28/2024 8:00 AM CDT) Narrative Wil De Dios PA - 08/28/2024 8:00 AM CDT Wil De Dios PA 08/28/2024 8:52 AM Large Joint (Hip, Knee, Shoulder) Injection: [...] complications us Wil GRADY IN CLINIC/BEDSIDE ORDE RABLES Final Result * CT Cervical Spine WO Contrast (08/13/2024 5:51 PM CDT) Anatomical Region Laterality Modality Spine N/A Computed Tomogra phy 08/13/2024 6:05 PM CDT Narrative 08/13/2024 6:06 PM CDT EXAM DESCRIPTION: CT CERVICAL SPINE WO CONTRAST REASON FOR STUDY: Neck trauma (Age >= 65y) Fall today and hit face on rock TECHNIQUE: Axial images through the cervical spine with sagittal and coronal reformatted images. Automated exposure control was used as a dose optimization technique for this examination. COMPARISON: None FINDINGS: There is mild osteopenia. There is no definite evidence of acute fracture or subluxation involving the cervical spine. There is mild reversal of the normal cervical lordotic curvature, which may be related to muscle spasms. There is minimal anterolisthesis of C2 on C3, C3 on C4, and C4 on C5. There is a mild dextroscoliotic curvature of the cervical spine centered at C4-C5. There are multilevel degenerative changes cervical spine with mild disc space narrowing, mild endplate osteophytosis, and uncovertebral arthropathy. There are degenerative changes atlantoaxial interval with joint space narrowing, spurring, and mild sclerosis. There are degenerative changes of the craniocervical interval with joint space narrowing, mild sclerosis, and minimal spurring. The visualized paravertebral soft tissues are grossly unremarkable. There is mild biapical pleural thickening and scarring involving the visualized lung apices. IMPRESSION: 1. Mild osteopenia with multilevel cervical spondylosis without definite evidence of acute fracture or subluxation. THIS IS AN ELECTRONICALLY VERIFIED FINAL REPORT 08/13/2024 6:06 PM - Electronically signed by Shanon Rhodes D.O. PS: PS Report ID: [id number] Reading Location: [id number] Procedure Note Shanon Rhodes, DO - 08/13/2024 EXAM DESCRIPTION: CT CERVICAL SPINE WO CONTRAST REASON FOR STUDY: Neck trauma (Age >= 65y) Fall today and hit face on rock TECHNIQUE: Axial images through the cervical spine with sagittal andcoronal reformatted images. Automated exposure control was used as a doseoptimization technique for this examination. COMPARISON: None FINDINGS: There is mild osteopenia. There is no definite evidence of acutefracture or subluxation involving the cervical spine. There is mild reversal of the normal cervical lordotic curvature, which may be related to muscle spasms. There is minimal anterolisthesis of C2 on C3, C3 on C4, and C4 on C5.There is a mild dextroscoliotic curvature of the cervical spine centered atC4-C5. There are multilevel degenerative changes cervical spine with mild discspace narrowing, mild endplate osteophytosis, and uncovertebral arthropathy.There are degenerative changes atlantoaxial interval with joint space narrowing, spurring, and mild sclerosis. There are degenerative changes of the craniocervical interval with joint space narrowing, mild sclerosis, and minimal spurring. The visualized paravertebral soft tissues are grossly unremarkable. There is mild biapical pleural thickening and scarring involving the visualized lung apices. IMPRESSION: 1. Mild osteopenia with multilevel cervical spondylosis without definite evidence of acute fracture or subluxation. THIS IS AN ELECTRONICALLY VERIFIED FINAL REPORT 08/13/2024 6:06 PM - Electronically signed by Shanon Rhodes D.O. PS: PS Report ID: [id number] Reading Location: [place] [id number] Anitra GRADY [facility] CT PROCEDURES Final Result * CT Facial Bones WO Contrast (08/13/2024 5:51 PM CDT) Anatomical Region Laterality Modality Head and Neck N/A Computed Tomogra phy 08/13/2024 6:06 PM CDT Narrative 08/13/2024 6:13 PM CDT EXAM DESCRIPTION: CT FACIAL BONES WO CONTRAST REASON FOR STUDY: Facial trauma, blunt Fall today and hit face on rock TECHNIQUE: Noncontrast computed tomography images through the paranasal sinuses. Reconstructed MPR images reviewed. All images stored on PACS. Automated exposure control was used as a dose optimization technique for this examination. COMPARISON: 08/12/2024 FINDINGS: BONES: There is mild osteopenia. There is subtle mild cortical irregularity involving the bilateral nasal bones, which are concerning for minimally displaced minimally impacted bilateral nasal bone fractures. There is minimal leftward deviation of the nasal septum with the areas of cortical irregularity and lucency involving the nasal septum, particularly on the coronal sequence, which may represent a minimally displaced mildly-comminuted nasal septal fracture SOFT TISSUES: There is mild paranasal soft tissue swelling. There is no definite unenhanced CT evidence of a focal fluid collection or mass. SINUSES: There is minimal mucosal thickening of the bilateral frontal sinuses. There is mild mucosal thickening of the bilateral ethmoid air cells. There is minimal mucosal thickening of the bilateral maxillary sinuses. There is mucosal thickening of the bilateral infundibula and maxillary ostia with narrowing of the bilateral ostiomeatal complexes. NASAL CAVITY: The nasal septum is minimally deviated to the left. ORBITS: No significant abnormalities visualized. TMJ: The bilateral temporomandibular joints are grossly symmetrical and unremarkable. MASTOIDS: The bilateral mastoid air cells are grossly clear. BRAIN: Please see same-day CT head report. OTHER: No other significant finding. IMPRESSION: 1. Mild osteopenia with subtle mild cortical irregularity involving the bilateral nasal bones, which are concerning for minimally displaced minimally impacted bilateral nasal bone fractures. 2. Minimal leftward nasal septal deviation with areas of cortical irregularity and lucency involving the nasal septum, particularly in the coronal sequence, which may represent a minimally displaced mildly-comminuted nasal septal fracture. 3. Mild paranasal soft tissue swelling, which is likely posttraumatic. 4. Minimal to mild paranasal sinus disease as described above. THIS IS AN ELECTRONICALLY VERIFIED FINAL REPORT 08/13/2024 6:13 PM - Electronically signed by Shanon Rhodes D.O. PS: PS Report ID: [id number] Reading Location: [id number] Procedure Note Shanon Rhodes DO - 08/13/2024 EXAM DESCRIPTION: CT FACIAL BONES WO CONTRAST REASON FOR STUDY: Facial trauma, blunt Fall today and hit face on rock TECHNIQUE: Noncontrast computed tomography images through the paranasal sinuses. Reconstructed MPR images reviewed. All images stored on PACS. Automated exposure control was used as a dose optimization technique forthis examination. COMPARISON: 08/12/2024 FINDINGS: BONES: There is mild osteopenia. There is subtle mild corticalirregularity involving the bilateral nasal bones, which are concerning for minimally displaced minimally impacted bilateral nasal bone fractures. There isminimal leftward deviation of the nasal septum with the areas of corticalirregularity and lucency involving the nasal septum, particularly on the coronalsequence, which may represent a minimally displaced mildly-comminuted nasal septal fracture SOFT TISSUES: There is mild paranasal soft tissue swelling. There is no definite unenhanced CT evidence of a focal fluid collection or mass. SINUSES: There is minimal mucosal thickening of the bilateral frontal sinuses. There is mild mucosal thickening of the bilateral ethmoid aircells. There is minimal mucosal thickening of the bilateral maxillary sinuses. There is mucosal thickening of the bilateral infundibula and maxillaryostia with narrowing of the bilateral ostiomeatal complexes. NASAL CAVITY: The nasal septum is minimally deviated to the left. ORBITS: No significant abnormalities visualized. TMJ: The bilateral temporomandibular joints are grossly symmetrical and unremarkable. MASTOIDS: The bilateral mastoid air cells are grossly clear. BRAIN: Please see same-day CT head report. OTHER: No other significant finding. IMPRESSION: 1. Mild osteopenia with subtle mild cortical irregularity involving the bilateral nasal bones, which are concerning for minimally displacedminimally impacted bilateral nasal bone fractures. 2. Minimal leftward nasal septal deviation with areas of cortical irregularity and lucency involving the nasal septum, particularly in the coronal sequence, which may represent a minimally displacedmildly-comminuted nasal septal fracture. 3. Mild paranasal soft tissue swelling, which is likely posttraumatic. 4. Minimal to mild paranasal sinus disease as described above. THIS IS AN ELECTRONICALLY VERIFIED FINAL REPORT 08/13/2024 6:13 PM - Electronically signed by Shanon Rhodes D.O. PS: PS Report ID: [id number] Reading Location: [id number] [address] CT PROCEDURES Final Result * CT Head WO Contrast (08/13/2024 5:51 PM CDT) Anatomical Region Laterality Modality Head and Neck N/A Computed Tomogra phy 08/13/2024 6:04 PM CDT Narrative 08/13/2024 6:05 PM CDT EXAM DESCRIPTION: CT HEAD WO CONTRAST REASON FOR STUDY: Head trauma, minor (Age >= 65y) Fall today and hit face on rock TECHNIQUE: Axial images acquired through the brain without intravenous contrast. Images stored on PACS. Automated exposure control was used as a dose optimization technique for this examination. COMPARISON: 08/12/2024 FINDINGS: BRAIN: There is no definite evidence of acute intracranial hemorrhage. There is no definite evidence of an extra-axial fluid collection. There is no significant midline shift or focal mass effect. The ventricles are stable in size and position. There is mild cortical atrophy with periventricular white matter hypoattenuation, which is likely secondary to chronic microvascular ischemic disease. CALVARIUM: No fracture. SINUSES/MASTOIDS: Please see same day CT facial bone report. ORBITS: No significant abnormality. OTHER: No other significant abnormality. IMPRESSION: 1. No definite evidence of acute intracranial hemorrhage. 2. Mild cortical atrophy with periventricular white matter hypoattenuation, which is likely secondary to chronic microvascular ischemic disease. THIS IS AN ELECTRONICALLY VERIFIED FINAL REPORT 08/13/2024 6:05 PM - Electronically signed by Shanon Rhodes D.O. PS: PS Report ID: [id number] Reading Location: [id number] Procedure Note Shanon Rhodes, DO - 08/13/2024 EXAM DESCRIPTION: CT HEAD WO CONTRAST REASON FOR STUDY: Head trauma, minor (Age >= 65y) Fall today and hit face on rock TECHNIQUE: Axial images acquired through the brain without intravenous contrast. Images stored on PACS. Automated exposure control was used asa dose optimization technique for this examination. COMPARISON: 08/12/2024 FINDINGS: BRAIN: There is no definite evidence of acute intracranial hemorrhage.There is no definite evidence of an extra-axial fluid collection. There is no significant midline shift or focal mass effect. The ventricles are stablein size and position. There is mild cortical atrophy with periventricularwhite matter hypoattenuation, which is likely secondary to chronic microvascular ischemic disease. CALVARIUM: No fracture. SINUSES/MASTOIDS: Please see same day CT facial bone report. ORBITS: No significant abnormality. OTHER: No other significant abnormality. IMPRESSION: 1. No definite evidence of acute intracranial hemorrhage. 2. Mild cortical atrophy with periventricular white matterhypoattenuation, which is likely secondary to chronic microvascular ischemic disease. THIS IS AN ELECTRONICALLY VERIFIED FINAL REPORT 08/13/2024 6:05 PM - Electronically signed by Shanon Rhodes D.O. PS: PS Report ID: [id number] Reading Location: [id number] Anitra GRADY IMA[address] CT PROCEDURES Final Result * CT Head WO Contrast (08/12/2024 2:59 AM CDT) Anatomical Region Laterality Modality Head and Neck N/A Computed Tomogra phy 08/12/2024 3:07 AM CDT Narrative 08/12/2024 3:09 AM CDT EXAM DESCRIPTION: CT HEAD WO CONTRAST REASON FOR STUDY: Headache, new onset (Age >= 51y) Patient recently seen in ER for potential DVT and started on Eliqus patient states I think the eliqus is messing with me because I feel dizzy. Patient states that dizziness started at 6pm on 08/11 TECHNIQUE: Axial images acquired through the brain without intravenous contrast. Images stored on PACS. Automated exposure control was used as a dose optimization technique for this examination. COMPARISON: 04/09/2021 FINDINGS: BRAIN: No mass, hemorrhage, or recent infarct. Normal white matter. Volume within normal limits for age. VASCULAR: No dense vessel or obvious aneurysm. EXTRA-AXIAL SPACES: No mass or fluid collection. ORBITS/GLOBES: Unremarkable. SOFT TISSUES: Unremarkable. BONES/SINUSES: No fracture or lesion. Paranasal sinuses and other skullbase airspaces are clear. IMPRESSION: No acute abnormality identified. THIS IS AN ELECTRONICALLY VERIFIED FINAL REPORT 08/12/2024 3:09 AM - Electronically signed by Jaylan Agrawal M.D. AR: SHANI Report ID: [id number] Reading Location: [id number] Procedure Note Jaylan Agrawal MD - 08/12/2024 EXAM DESCRIPTION: CT HEAD WO CONTRAST REASON FOR STUDY: Headache, new onset (Age >= 51y) Patient recently seen in ER for potential DVT and started on Eliquspatient states I think the eliqus is messing with me because I feel dizzy.Patient states that dizziness started at 6pm on 08/11 TECHNIQUE: Axial images acquired through the brain without intravenous contrast. Images stored on PACS. Automated exposure control was used asa dose optimization technique for this examination. COMPARISON: 04/09/2021 FINDINGS: BRAIN: No mass, hemorrhage, or recent infarct. Normal white matter. Volume within normal limits for age. VASCULAR: No dense vessel or obvious aneurysm. EXTRA-AXIAL SPACES: No mass or fluid collection. ORBITS/GLOBES: Unremarkable. SOFT TISSUES: Unremarkable. BONES/SINUSES: No fracture or lesion. Paranasal sinuses and otherskullbase airspaces are clear. IMPRESSION: No acute abnormality identified. THIS IS AN ELECTRONICALLY VERIFIED FINAL REPORT 08/12/2024 3:09 AM - Electronically signed by Jaylan Agrawal M.D. AR: SHANI Report ID: [id number] Reading Location: [id number] us Jaylan Haider MD IMG CT PROCEDURES F inal Result * ECG 12 lead (08/12/2024 12:15 AM CDT) 08/12/2024 12:1 5 AM CDT Narrative [facility] - 08/12/2024 8:17 AM CDT Vent Rate: 75 bpm RR Interval: [address] Interval: 137 msec QRS Duration: 81 msec QT Interval: 368 msec QTC Interval: 397 msec P-R-T [place]: 61 - 31 - 60 degrees IMPRESSION: SINUS RHYTHM NORMAL ECG No change compared to prior EKG Electronically Signed By: Garry Lynn MD [facility] us Jaylan Haider MD ECG ORDERABLES Fin al Result [facility] * eGFR (08/12/2024 12:12 AM CDT) eGFR >90 >=60 mL/min/1. 73 [...] interpretive data was last reviewed 2020. Blood 08/12/2024 12:1 2 AM CDT 08/12/2024 12:24 AM CDT Jaylan Haider MD LAB BLOOD ORDERABLE S Final Result [facility] ([place]) 1 [facility] [place] [address] * (ABNORMAL) Differential, auto (08/12/2024 12:12 AM CDT) Neutrophil abs 8.11(H) 1.50 - 6.50 K/cumm Imm gran abs 0.09 0.00 - 0.10 K/cumm [facility] Lymphocyte abs 2.02 0.80 - 3.30 K/cumm [facility] Monocyte abs 0.86(H) 0.20 - 0.80 K/cumm [facility] Eosinophil abs 0.02 0.00 - 0.50 K/cumm [facility] Basophil abs 0.04 0.00 - 0.10 K/cumm [facility] Neutrophil pct 72.8 % [facility]) Comment: Interpretive Data Percent cell count reference ranges are not reported, since discordance with absolute values may lead to misinterpretation of CBC data. Current Interpretive Data was last revised on 2017. Imm gran pct 0.8 % [facility] Comment: Interpretive Data Percent cell count reference ranges are not reported, since discordance with absolute values may lead to misinterpretation of CBC data. Current Interpretive Data was last revised on 2017. Lymphocyte pct 18.1 % [facility] Comment: Interpretive Data Percent cell count reference ranges are not reported, since discordance with absolute values may lead to misinterpretation of CBC data. Current Interpretive Data was last revised on 2017. Monocyte pct 7.7 % [facility] Comment: Interpretive Data Percent cell count reference ranges are not reported, since discordance with absolute values may lead to misinterpretation of CBC data. Current Interpretive Data was last revised on 2017. Eosinophil pct 0.2 % [facility] Comment: Interpretive [...] Data was last revised on 2017. Blood 08/12/2024 12:1 2 AM CDT 08/12/2024 12:24 AM CDT us Jaylan Haider MD LAB BLOOD ORDERABLE S Final Result [facility] ([place] 1 [facility] Department [place] [address] * (ABNORMAL) CBC with auto differential (08/12/2024 12:12 AM CDT) WBC 11.14(H) 3.80 - 9.90 K/cumm Hgb 11.7(L) 11.9 - 15.5 g/dL [facility] Hct 37.1 35.6 - 45.5 % [facility] Plt 293 150 - 400 K/cumm [facility]) MPV 10.6 9.1 - 12.3 fL [facility] RBC 3.75(L) 3.90 - 5.20 M/cumm [facility] MCV 98.9(H) 81.3 - 96.4 fL [facility] MCH 31.2 27.1 - 33.3 pg [facility] MCHC 31.5(L) 32.3 - 35.7 g/dL [facility] RDW CV 13.2 11.1 - 14.9 % [facility] RDW SD 48.2(H) 35.7 - 48.1 fL [facility] NRBC abs 0.00 0.00 - 0.01 K/cumm [facility]) Blood 08/12/2024 12:1 2 AM CDT 08/12/2024 12:24 AM CDT us Jaylan Haider MD LAB BLOOD ORDERABLE S Final Result [facility] 1 [facility] Department [place] [address] * (ABNORMAL) Comprehensive metabolic panel (08/12/2024 12:12 AM CDT) Pathologist [facility] Sodium 139 135 - 145 mmol/L Potassium, pl 4.1 3.3 - 4.9 mmol/L [facility] Chloride 103 97 - 110 mmol/L [facility] CO2 25 22 - 32 mmol/L [facility] Anion gap 11 2 - 15 mmol/L [facility] BUN 15 6 - 25 mg/dL [facility] Creatinine 0.48(L) 0.60 - 1.10 mg/dL [facility] Glucose 134 70 - 199 mg/dL [facility] [...] interpretive data was last revised 2022. Calcium 8.7 8.5 - 10.3 mg/dL [facility] Bilirubin, total <0.2 0.1 - 1.2 mg/dL [facility] Protein, pl 6.5 6.5 - 8.5 g/dL [facility] Albumin 4.0 3.5 - 5.0 g/dL [facility] Alk phos 55 40 - 130 Units/L [facility] ALT 21 7 - 45 Units/L [facility] AST 18 10 - 45 Units/L [facility] Blood 08/12/2024 12:1 2 AM CDT 08/12/2024 12:24 AM CDT us Jaylan Haider MD LAB BLOOD ORDERABLE S Final Result [facility] 1 [facility] Department [place] [address] * POCT glucose (08/12/2024 12:09 AM CDT) Glucose, POC 135 70 - 199 mg/dL Blood 08/12/2024 12:0 9 AM CDT 08/12/2024 12:09 AM CDT us Notinfile Unknown LAB POCT ORDERABLES - DEVICE F inal Result [facility] [place]) 1 [facility] Department [place] [address] * XR Knee Left 3 Views (08/10/2024 4:57 PM CDT) Anatomical Region Laterality Modality Lower Extremities, Knee Left Computed Radiography 08/10/2024 5:26 PM CDT Narrative 08/10/2024 5:27 PM CDT EXAM DESCRIPTION: XR KNEE LEFT 3 VIEWS REASON FOR STUDY: atraumatic pain and swelling NKI. All Over Left Knee Pain Pt states concern for Blood Clot, with No Hx of Blood Clots. Pain for a few days. Hx of Left knee arthroscopy, with meniscectomy (medial) including any meniscal shavings - 01/17/2023. TECHNIQUE: 3 radiographic view(s) of the left knee . COMPARISON: 11/29/2023 FINDINGS: BONES/JOINTS: There is no acute fracture, malalignment or osseous abnormality. Degenerative changes are noted with medial joint space narrowing and patellofemoral joint space narrowing. SOFT TISSUES: Within normal limits. IMPRESSION: Degenerative changes are noted. No acute process is seen. THIS IS AN ELECTRONICALLY VERIFIED FINAL REPORT 08/10/2024 5:27 PM - Electronically signed by Kennedy Gaytan M.D. KH: GREGORY Report ID: [id number] Reading Location: [id number] Procedure Note Kennedy Gaytan MD - 08/10/2024 EXAM DESCRIPTION: XR KNEE LEFT 3 VIEWS REASON FOR STUDY: atraumatic pain and swelling NKI. All Over Left Knee Pain Pt states concern for Blood Clot, with NoHx of Blood Clots. Pain for a few days. Hx of Left knee arthroscopy, with meniscectomy (medial) including any meniscal shavings - 01/17/2023. TECHNIQUE: 3 radiographic view(s) of the left knee . COMPARISON: 11/29/2023 FINDINGS: BONES/JOINTS: There is no acute fracture, malalignment or osseousabnormality. Degenerative changes are noted with medial joint space narrowing and patellofemoral joint space narrowing. SOFT TISSUES: Within normal limits. IMPRESSION: Degenerative changes are noted. No acute process is seen. THIS IS AN ELECTRONICALLY VERIFIED FINAL REPORT 08/10/2024 5:27 PM - Electronically signed by Kennedy Gaytan M.D. KH: GREGORY Report ID: [id number] Reading Location: [place] [address] Anitra GRADY IMG XR PROCEDURES Final Result * eGFR (08/10/2024 4:41 PM CDT) eGFR >90 >=60 mL/min/1. 73 m2 [...] interpretive data was last reviewed 2020. Blood 08/10/2024 4:41 PM CDT 08/10/2024 4:43 PM CDT Anitra GRADY LAB BLOOD ORDERABLES Final Resu lt [facility] [place] 1 [facility] Department [place] [address] * Differential, auto (08/10/2024 4:41 PM CDT) Neutrophil abs 6.19 1.50 - 6.50 K/cumm Imm gran abs 0.04 0.00 - 0.10 K/cumm [facility] Lymphocyte abs 2.33 0.80 - 3.30 K/cumm [facility]) Monocyte abs 0.69 0.20 - 0.80 K/cumm [facility]) Eosinophil abs 0.23 0.00 - 0.50 K/cumm [facility]) Basophil abs 0.06 0.00 - 0.10 K/cumm [facility]) Neutrophil pct 65.0 % [facility]) Comment: Interpretive Data Percent cell count reference ranges are not reported, since discordance with absolute values may lead to misinterpretation of CBC data. Current Interpretive Data was last revised on 2017. Imm gran pct 0.4 % [facility] Comment: Interpretive Data Percent cell count reference ranges are not reported, since discordance with absolute values may lead to misinterpretation of CBC data. Current Interpretive Data was last revised on 2017. Lymphocyte pct 24.4 % [facility] Comment: Interpretive Data Percent cell count reference ranges are not reported, since discordance with absolute values may lead to misinterpretation of CBC data. Current Interpretive Data was last revised on 2017. Monocyte pct 7.2 % [facility] Comment: Interpretive Data Percent cell count reference ranges are not reported, since discordance with absolute values may lead to misinterpretation of CBC data. Current Interpretive Data was last revised on 2017. Eosinophil pct 2.4 % [facility] Comment: Interpretive Data Percent cell count reference ranges are not reported, since discordance with absolute values may lead to misinterpretation of CBC data. Current Interpretive Data was last revised on 2017. Basophil pct 0.6 % [facility] Comment: Interpretive Data Percent cell count reference ranges are not reported, since discordance with absolute values may lead to misinterpretation of CBC data. Current Interpretive Data was last revised on 2017. Blood 08/10/2024 4:41 PM CDT 08/10/2024 4:43 PM CDT Anitra GRADY LAB BLOOD ORDERABLES Final Resu lt [facility] 1 [facility] Department [place] [address] * (ABNORMAL) CBC with auto differential (08/10/2024 4:41 PM CDT) WBC 9.54 3.80 - 9.90 K/cumm Hgb 12.2 11.9 - 15.5 g/dL [facility] Hct 38.4 35.6 - 45.5 % [facility] Plt 290 150 - 400 K/cumm [facility]) MPV 10.1 9.1 - 12.3 fL [facility]) RBC 3.84(L) 3.90 - 5.20 M/cumm [facility]) MCV 100.0(H) 81.3 - 96.4 fL [facility]) MCH 31.8 27.1 - 33.3 pg [facility]) MCHC 31.8(L) 32.3 - 35.7 g/dL [facility]) RDW CV 13.5 11.1 - 14.9 % [facility]) RDW SD 49.9(H) 35.7 - 48.1 fL [facility]) NRBC abs 0.00 0.00 - 0.01 K/cumm [facility]) Blood 08/10/2024 4:41 PM CDT 08/10/2024 4:43 PM CDT Anitra GRADY LAB BLOOD ORDERABLES Final Resu lt [facility] 1 [facility] [place] [address] * (ABNORMAL) D-dimer, quantitative (08/10/2024 4:41 PM CDT) D-Dimer 985(H) <=499 ng/mL FEU [facility] ([place]) Comment: Interpretive data FDA approved the D-dimer, in conjunction with a low or moderate pretest probability score, to exclude venous thromboembolic events (VTE) (PE and DVT) in outpatients when the D-dimer result is < 500 ng/ml FEU. Evidence supports using an age-adjusted D-dimer cut-off for outpatients older than 50 (age x 10) to improve specificity without sacrificing sensitivity. Example: age 68, VTE cut-off 680 ng/ml FEU. References; Schoutleón HT et al. Brit Med J. 2013;346:f2492. Michelle et al. Annals Int Med. 2015;163:701-11. Current interpretive data was last revised on 2019. Blood 08/10/2024 4:41 PM CDT 08/10/2024 4:43 PM CDT Anitra GRADY LAB BLOOD ORDERABLES Final Resu lt Performing Organization Address City/[facility]/ZIP Co de Phone Number [facility] ([place] 1 [facility] [place] [address] * CRP (acute phase) (08/10/2024 4:41 PM CDT) Pathologist [facility] CRP <3.0 <=10.0 mg/L Blood 08/10/2024 4:41 PM CDT 08/10/2024 4:43 PM CDT Anitra Junie AL LAB BLOOD ORDERABLES Final Resu lt [facility] ([place]) 1 [facility] [place] [address] * Comprehensive metabolic panel (08/10/2024 4:41 PM CDT) Sodium 138 135 - 145 mmol/L Potassium, pl 4.3 3.3 - 4.9 mmol/L [facility] Chloride 102 97 - 110 mmol/L [facility]) CO2 25 22 - 32 mmol/L [facility]) Anion gap 11 2 - 15 mmol/L [facility]) BUN 12 6 - 25 mg/dL [facility]) Creatinine 0.61 0.60 - 1.10 mg/dL [facility]) Glucose 133 70 - 199 mg/dL [facility] [...] interpretive data was last revised 2022. Calcium 9.5 8.5 - 10.3 mg/dL [facility]) Bilirubin, total 0.2 0.1 - 1.2 mg/dL [facility]) Protein, pl 6.6 6.5 - 8.5 g/dL [facility]) Albumin 3.7 3.5 - 5.0 g/dL [facility]) Alk phos 64 40 - 130 Units/L [facility]) ALT 24 7 - 45 Units/L [facility]) AST 24 10 - 45 Units/L [facility]) Blood 08/10/2024 4:41 PM CDT 08/10/2024 4:43 PM CDT us Anitra GRADY LAB BLOOD ORDERABLES Final Resu lt [facility] 1 [facility] Department [place] [address] * US Carotids Duplex Bilateral (06/07/2024 9:07 AM CDT) Anatomical Region Laterality Modality Vascular Bilateral Ultrasound 06/13/2024 9:48 AM CDT Narrative 06/13/2024 9:50 AM CDT EXAM DESCRIPTION: US CAROTIDS DUPLEX BILATERAL REASON FOR STUDY: Follow-up carotid stenosis TECHNIQUE: Lacy scale, color Doppler and spectral Doppler imaging were performed. Velocity criteria are extrapolated from diameter as defined by the Society of Radiologists in Ultrasound Consensus Conference. All velocity measurements are in cm/sec. COMPARISON: 04/19/2023 FINDINGS: Right: Mild intimal thickening and plaque are seen. Distal CCA Peak Systolic Velocity: 65 Distal CCA End Diastolic Velocity: 19 Peak ICA Systolic Velocity: 74 (previously 128) ICA End Diastolic Velocity: 16 Peak ICA/CCA Systolic Ratio: 1.13 (previously 1.51) Right Vertebral Artery: Antegrade direction of flow. Left: Mild intimal thickening and plaque are seen. Distal CCA Peak Systolic Velocity: 79 Distal CCA End Diastolic Velocity: 20 Peak ICA Systolic Velocity: 64 (previously 77) ICA End Diastolic Velocity: 25 Peak ICA/CCA Systolic Ratio: 0.82 (previously 1.06) Left Vertebral Artery: Antegrade direction of flow. IMPRESSION: Velocities correspond to a less than 50 percent diameter stenosis of the right ICA. Velocities correspond to a less than 50 percent diameter stenosis of the left ICA. Antegrade direction of flow of the bilateral vertebral arteries. REFERENCE: Consensus Panel Lacy-Scale and Doppler US Criteria for Diagnosis of ICA Stenosis. No stenosis: ICA PSV <125*, 0 percent plaque, ICA/CCA PSV Ratio <2.0, ICA EDV <40*. <50 percent stenosis: ICA PSV <125*, <50 percent plaque, ICA/CCA PSV Ratio <2.0, ICA EDV <40*. 50-69 percent stenosis: ICA PSV 125-230*, >=50 percent plaque, ICA/CCA PSV Ratio 2.0-4.0, ICA EDV 40-100*. >=70 percent but less than near occlusion >230, >=50 percent plaque, ICA/CAA PSV Ratio >4.0, ICA EDV >100*. *cm/sec Plaque estimate (diameter reduction) with lacy-scale and color Doppler US. RSNA 2002 THIS IS AN ELECTRONICALLY VERIFIED FINAL REPORT 06/13/2024 9:50 AM - Electronically signed by Mike Harrell.D. AG: LOLI Report ID: [id number] Reading Location: [id number] Procedure Note Mike Almonte MD - 06/13/2024 EXAM DESCRIPTION: US CAROTIDS DUPLEX BILATERAL REASON FOR STUDY: Follow-up carotid stenosis TECHNIQUE: Lacy scale, color Doppler and spectral Doppler imaging were performed. Velocity criteria are extrapolated from diameter as defined bythe Society of Radiologists in Ultrasound Consensus Conference. All velocity measurements are in cm/sec. COMPARISON: 04/19/2023 FINDINGS: Right: Mild intimal thickening and plaque are seen. Distal CCA Peak Systolic Velocity: 65 Distal CCA End Diastolic Velocity: 19 Peak ICA Systolic Velocity: 74 (previously 128) ICA End Diastolic Velocity: 16 Peak ICA/CCA Systolic Ratio: 1.13 (previously 1.51) Right Vertebral Artery: Antegrade direction of flow. Left: Mild intimal thickening and plaque are seen. Distal CCA Peak Systolic Velocity: 79 Distal CCA End Diastolic Velocity: 20 Peak ICA Systolic Velocity: 64 (previously 77) ICA End Diastolic Velocity: 25 Peak ICA/CCA Systolic Ratio: 0.82 (previously 1.06) Left Vertebral Artery: Antegrade direction of flow. IMPRESSION: Velocities correspond to a less than 50 percent diameter stenosis ofthe right ICA. Velocities correspond to a less than 50 percent diameter stenosis ofthe left ICA. Antegrade direction of flow of the bilateral vertebral arteries. REFERENCE: Consensus Panel Lacy-Scale and Doppler US Criteria forDiagnosis of ICA Stenosis. No stenosis: ICA PSV <125*, 0 percent plaque, ICA/CCA PSV Ratio <2.0, ICAEDV <40*. <50 percent stenosis: ICA PSV <125*, <50 percent plaque, ICA/CCA PSV Ratio <2.0, ICA EDV <40*. 50-69 percent stenosis: ICA PSV 125-230*, >=50 percent plaque, ICA/CCA PSV Ratio 2.0-4.0, ICA EDV 40-100*. >=70 percent but less than near occlusion >230, >=50 percent plaque,ICA/CAA PSV Ratio >4.0, ICA EDV >100*. *cm/sec Plaque estimate (diameter reduction) with lacy-scale and color DopplerUS. RSNA 2002 THIS IS AN ELECTRONICALLY VERIFIED FINAL REPORT 06/13/2024 9:50 AM - Electronically signed by Mike Almonte M.D. AG: LOLI Report ID: [id number] Reading Location: [place] [address] us Damir Rinaldi DO IMG US PROCEDURES Final Re sult * Dexa Axial Skeleton Bone Density 1 or 2 Site (03/27/2024 8:27 AM 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) Anatomical Region Laterality Modality Body N/A Other 03/27/2024 4:56 PM 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 Narrative 03/27/2024 4:57 PM 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 EXAM DESCRIPTION: DEXA AXIAL SKELETON BONE DENSITY 1 OR MORE SITES REASON FOR STUDY: 63 y/o year old F with given history of: age-related osteoporosis Postmenopausal. Molding Cutter/Model: LOAG SL (S/N [id number]) Facility LSC value of 0.022 for the [...] Arcadio Goel M.D. MF: TAM Report ID: [id number] Reading Location: [id number] Procedure Note Arcadio Goel MD - 03/27/2024 EXAM DESCRIPTION: DEXA AXIAL SKELETON BONE DENSITY 1 OR MORE SITES REASON FOR STUDY: 63 y/o year old F with given history of:age-related osteoporosis Postmenopausal. Molding Cutter/Model: LOAG SL (S/N [id number]) Facility LSC value of 0.022 for the [...] Arcadio Goel M.D. MF: TAM Report ID: [id number] Reading Location: [id number] us Damir Rinaldi DO IMG DXA PROCEDURES Final R esult * (ABNORMAL) Diagnostic Mammogram Bilateral W Peter (01/05/2024 10:23 AM 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) Anatomical Region Laterality Modality Breast Bilateral Mammography 01/05/2024 5:13 PM 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 Impressions 01/05/2024 5:13 PM 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 1. Multiple bilateral tiny circumscribed nodules are stable and considered a benign finding. 2. Stereotactic/tomographic guided biopsy is now recommended for the calcifications in the left breast. OVERALL FINAL ASSESSMENT: BI-RADS 4b-moderate suspicion for malignancy Electronically signed by: Kerry Bhat M.D. Narrative 01/05/2024 5:13 PM 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 EXAMINATION: BILATERAL DIGITAL DIAGNOSTIC MAMMOGRAM AND [...] Ronquillo MD - 10/27/2022 8:16 AM CDT [facility] Patient Name: Roma Page Procedure Date: 10/27/2022 8:16 AM Date of : 1960 Admit Type: Outpatient Age: 62 Gender: Female Attending MD: Karen Ronquillo M.D. Room: [facility] ENDOSCOPY ROOM 2 Note Status: [...] by the physician, the anesthesiologist and the surgical scrub technician in the endoscopy suite. MentalStatus Examination: [...] scope was passed under direct vision. TheColonoscope [id number] was introduced through the anus and advanced [...] perforation orabscess without bleeding CPT copyright 2020 [employer]. All rights reserved. The codes documented in this report are preliminary and upon manager social responsibility reviewmay be revised to meet current compliance requirements. Recognized by the [employer] [employer] for promoting quality in endoscopy Karen Ronquillo MD ENDOSCOPY PROCEDURES Final Resul t from Last 3 Months or Most Recently Relevant to Health Maintenance Insurance MEDICARE [facility] Member Subscriber Plan / Payer (Ef fective 2021-Present) Name:Sarah Pagegael Cherry Relation to Subscriber:Self Name:Sarah Pagegael Cherry Payer ID:[id number] Group ID:Not on file Type:[employer] Address: [facility] [address] [place] [address] MEDICARE COMMERCIAL GENERIC [facility] [employer] [employer] EMPLOYEE HEALTH PLANS Address: [address] [place] [address] [employer] MEDICARE [employer] Advance Directives For more information, please contact: [phone] * Full Code (Latest Code Status on [...] Agents on File Name Relationship Healthcare Agent [facility] p Communication Ava Mcswyne Daughter [employer] Car e Agent Care Teams Laundromat Manager Relationship Specialty Start Date End Date Damir Rinaldi DO PCP - General Family Medicine 05/08/19 Bryan Simeon MD Consulting Physician Cardiology 01/10/23 Jerry Leos NP [address] [place] [address] DR ZHU [address] [place] [id number] Nurse Practitioner Orthopedic Surgery 01/17/23 Beryl Mendoza, CINDI Physical Therapist Physical Therapy 06/16/23
--- OUTSIDE RECORDS SUMMARY | 2024-09-05 11:50 | XMS_ITS | Clinical Summary ---
Author Organization [facility] Medical Office Building B Address [address] [place] [address] Care Team Providers Care Group Dynamics Instructor Name Role Phone Alisianadeem Damir Jose Daniel Primary Care Provider [phone] Bryan Simeon MD Unavailable [phone] Jerry Leos NP Unavailable [phone] Beryl Mendoza PT Unavailable Unavailable Allergies Active [...] is overdue for follow up with her print designer, Dr. Lala, in [place]. She will follow up soon. Patient has pain medication at home from her journeyman painter should pain return. 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, initial encounter (Primary Dx); History of meniscectomy of left knee; Pes anserinus bursitis of right knee; Primary osteoarthritis of left knee 08/19/2024 2:30 PM CDT Office Visit [facility] [address] [facility] [address] [place] [address] Susan Amado DO Closed fracture of nasal bone, initial encounter (Primary Dx); Abrasion of face, initial encounter 08/13/2024 4:03 PM CDT - 08/13/2024 7:28 PM CDT Emergency [facility] Emergency Department [address] [place] [address] Fall, initial encounter (Primary Dx) Discharge Disposition: Discharge to home or self care 08/12/2024 12:47 AM CDT - 08/12/2024 5:06 AM CDT Emergency [facility] Emergency Department [address] [place] [address] Jaylan Haider MD Dizziness (Primary Dx) Discharge Disposition: Discharge to home or self care 08/10/2024 4:23 PM CDT - 08/10/2024 5:45 PM CDT Emergency [facility] Emergency Department [address] [place] [address] Acute pain of left knee (Primary Dx) Discharge Disposition: Discharge to home or self care 06/07/2024 7:53 AM CDT - 06/07/2024 11:59 PM CDT Hospital Encounter [facility] [address] [place] [address] Occlusion and stenosis of bilateral carotid arteries Discharge Disposition: Discharge to home or self care from Last 3 Months Immunizations Immunization Administration [...] drink = 0.6 oz pur e alcohol) [facility] Utilities Answer Date Recorded In [...] often do you attend chur ch or bahai services? Never 10/09/2023 Do you belong to any clubs o r organizations such as protestant groups, unions, fraternal or athletic groups, or [...] any time in the past 12 m [facility], were you homeless or living in a jail (including now)? No 10/09/2023 Personal Safety Answer Date Recorded Have you ever been in or are you currently in a harmful physical or emotional relationship or is someone making you feel afraid or unsafe? 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 Gender Identity Not on file Sexual Orientation Not on file Obstetrics History Para Term AB IAB SAB Ectopic Multiple Livin g Live Births 1 02 [birth year] Date Outcome GA Total Labor Labor/2nd/3rd Weight [...] 08/28/2024 8:04 AM CDT Plan of Treatment Health Maintenance Due Date Last Done Comments Depression Screening 1960 Hepatitis C Screening 1960 Hepatitis B Screening 04/19/1977 Pneumococcal vaccine 65+ (1 of 2 - PCV) 04/19/1978 DTaP/Tdap/Td Vaccine (1 - Tdap) 02/21/2009 0 Zoster Vaccine (1 of 2) 04/19/2009 Well Visit 65+ 04/19/2024 Fall Risk Assessment 10/09/2024 10/10/2023, 12/27/19 23 Influenza Vaccine (#1) 2024 2, 12/26/2018, 12/05/2017, Additional history exists Breast Cancer Screening-Mammogram 01/04/2025 01/05/2024, 04/18/2023, 01/21/2022 Osteoporosis Screening-Bone Density Scan 03/27/2026 03/27/2024, 01/21/2022 Colon Cancer Screening-Colonoscopy 10/27/2032 10/27/2022 Colon Cancer Screening-CT Colonography Discontinued 10/27/2022 Colon Cancer Screening-DNA Stool Discontinued 10/28/19 Colon Cancer Screening-FIT Discontinued 10/27/2022 Colon Cancer Screening-Sigmoidoscopy Discontinued 10/27/2022 Medical Devices Implanted Type Area Rn Intensive Care Unit Device Identifier Shelf Expiration Date Model / Serial / Lot [employer] Marker Tissue Bowtie Shape Titanium Collagen Mammomark 10ga [id number] - [id number] - [id number] Implanted:Qty : 1 on 01/31/2024 by Kerry Bhat MD at [facility] Breast Left: Breast [employer] [id number] 05/01/2025 [id number] / [id number] / [id number] D Description:Stereotactic lef t breast biopsy 11-12 o'clock area. Cores x6 Microcalcs in cassettes 1 and 6. Procedures Procedure Name Priority Date/Time Associated Diagnosis Comments [place] ARTHROCENTESIS ASPIR&/INJ MAJOR JT/BURSA W/O US Routine 08/28/2024 8:00 AM CDT Pes anserinus bursitis of right knee [place] ARTHROCENTESIS ASPIR&/INJ MAJOR JT/BURSA W/O US Routine [...] Read Routine (OP Routine) 03/27/2024 8:27 AM DOUBLE NEEDLE OPERATOR Age-related osteoporosis without current pathological fracture DIAGNOSTIC MAMMOGRAM BILATERAL W PETER Schedule Routine, Read Routine (OP Routine) 01/05/2024 10:23 AM DOUBLE NEEDLE OPERATOR Other abnormal and inconclusive findings on diagnostic imaging of breast COLONOSCOPY 10/27/2022 8:16 AM CDT from Last 3 Months or Most Recently Relevant to Health Maintenance Results * [place] ARTHROCENTESIS ASPIR&/INJ MAJOR JT/BURSA W/O US (08/28/2024 8:00 AM CDT) Wil Urena PA - 08/28/2024 8:00 AM CDT Wil [...] IN CLINIC/BEDSIDE LINDA OLIVA Final Result * [place] ARTHROCENTESIS ASPIR&/INJ MAJOR JT/BURSA W/O US (08/28/2024 8:00 AM CDT) Wil Urena PA - 08/28/2024 8:00 AM CDT Wil [...] IN CLINIC/BEDSIDE LINDA OLIVA Final Result * CT Cervical Spine WO [...] Shanon Rhodes D.O. PS: PS Report ID: [id number] Reading Location: [id number] Procedure Note Shanon Rhodes, DO - 08/13/2024 [...] Shanon Rhodes D.O. PS: PS Report ID: [id number] Reading Location: [id number] Anitra D[address]ON CT PROCEDURES Final Result * CT Facial [...] Shanon Rhodes D.O. PS: PS Report ID: [id number] Reading Location: [place] [address] Procedure Note Shanon Rhodes, DO - 08/13/2024 EXAM DESCRIPTION: CT FACIAL [...] Shanon Rhodes D.O. PS: PS Report ID: [id number] Reading Location: [id number] Anitra GRADY IMG CT PROCEDURES Final Result * CT Head [...] Shanon Rhodes D.O. PS: PS Report ID: [id number] Reading Location: [id number] Procedure Note Shanon Rhodes DO - 08/13/2024 EXAM DESCRIPTION: CT HEAD [...] Shanon Rhodes D.O. PS: PS Report ID: [id number] Reading Location: [id number] Anitra GRADY [facility] CT PROCEDURES Final Result * CT Head [...] Jaylan Agrawal M.D. AR: SHANI Report ID: [id number] Reading Location: [place] [address] Procedure Note NghiaJaylan MD - 08/12/2024 EXAM DESCRIPTION: CT HEAD [...] Jaylan Agrawal M.D. AR: SHANI Report ID: [id number] Reading Location: [id number] Jaylan Haider MD IMG CT PROCEDURES F inal Result * ECG 12 lead (08/12/2024 12:15 AM CDT) 08/12/2024 12:1 5 AM CDT Narrative [facility] - 08/12/2024 8:17 AM CDT Vent Rate: 75 bpm RR Interval: 797 msec WY Interval: 137 msec QRS Duration: 81 msec QT Interval: 368 msec QTC Interval: 397 msec P-R-T [place]: 61 - 31 - 60 degrees IMPRESSION: SINUS RHYTHM NORMAL ECG No change compared to prior EKG Electronically Signed By: Garry Lynn MD [facility] Jaylan Haider MD ECG ORDERABLES Fin al Result [facility] * eGFR (08/12/2024 12:12 AM [...] BLOOD ORDERABLE S Final Result [facility] ([place]) 1 [facility] Department of Laboratories [place], [place] [id number] * (ABNORMAL) Differential, auto (08/12/2024 12:12 AM CDT) Neutrophil abs 8.11(H) 1.50 - 6.50 K/cumm Imm gran abs 0.09 0.00 - 0.10 K/cumm [facility] ([place]) Lymphocyte abs 2.02 0.80 - 3.30 K/cumm [facility] ([place]) Monocyte abs 0.86(H) 0.20 - 0.80 K/cumm [facility] ([place]) Eosinophil abs 0.02 0.00 - 0.50 K/cumm [facility] ([place]) Basophil abs 0.04 0.00 - 0.10 K/cumm [facility] ([place]) Neutrophil pct 72.8 % [facility] ([place]) Comment: Interpretive Data Percent cell count reference ranges are not reported, since discordance with absolute values may lead to misinterpretation of CBC data. Current Interpretive Data was last revised on 2017. Imm gran pct 0.8 % [facility] ([place]) Comment: Interpretive Data Percent cell count reference ranges are not reported, since discordance with absolute values may lead to misinterpretation of CBC data. Current Interpretive Data was last revised on 2017. Lymphocyte pct 18.1 % [facility] ([place]) Comment: Interpretive Data Percent cell count reference ranges are not reported, since discordance with absolute values may lead to misinterpretation of CBC data. Current Interpretive Data was last revised on 2017. Monocyte pct 7.7 % [facility] ([place]) Comment: Interpretive Data Percent cell count reference ranges are not reported, since discordance with absolute values may lead to misinterpretation of CBC data. Current Interpretive Data was last revised on 2017. Eosinophil pct 0.2 % [facility] ([place]) Comment: Interpretive Data Percent cell count reference [...] S Final Result [facility] ([place]) 1 [facility] Department [place] [address] * (ABNORMAL) CBC with auto differential (08/12/2024 [...] - 0.01 K/cumm [facility] ([place]) Blood 08/12/2024 12:1 2 AM CDT 08/12/2024 12:24 AM CDT us Jaylan Haider MD LAB BLOOD ORDERABLE S Final Result [facility] ([place]) [address] [facility] Department [place] [address] * (ABNORMAL) Comprehensive metabolic panel (08/12/2024 12:12 AM CDT) Sodium 139 135 - 145 mmol/L Potassium, pl 4.1 3.3 - 4.9 mmol/L [facility] Chloride 103 97 - 110 mmol/L [facility] CO2 25 22 - 32 mmol/L [facility] Anion gap 11 2 - 15 mmol/L [facility] BUN 15 6 - 25 mg/dL [facility] Creatinine 0.48(L) 0.60 - 1.10 [...] BLOOD ORDERABLE S Final Result [facility] [place]) 1 [facility] [place] [address] * POCT glucose (08/12/2024 12:09 AM CDT) Glucose, POC 135 70 - 199 mg/dL Blood 08/12/2024 12:0 9 AM CDT 08/12/2024 12:09 AM CDT us Notinfile Unknown LAB POCT ORDERABLES - DEVICE F inal Result Performing Organization Address City/[facility] Co de Phone Number [facility] ([place]) 1 [facility] [place] [address] * XR Knee Left 3 Views (08/10/2024 [...] 5:27 PM - Electronically signed by Kennedy JENKINS: GREGORY Report ID: [id number] Reading Location: [place] [address] Procedure Note Kennedy Gaytan MD - 08/10/2024 [...] Kennedy Gaytan M.D. KH: GREGORY Report ID: [id number] Reading Location: [place] [address] Anitra GRADY [facility] XR PROCEDURES Final Result * eGFR (08/10/2024 [...] BLOOD ORDERABLES Final Resu lt [facility] ([place]) 1 [facility] Department [place] [address] * Differential, auto (08/10/2024 4:41 PM CDT) [...] GRADY LAB BLOOD ORDERABLES Final Resu lt [facility] ([place]) 1 [facility] Department [place] [address] * (ABNORMAL) CBC with auto differential (08/10/2024 [...] RDW CV 13.5 11.1 - 14.9 % [facility] ([place]) RDW SD 49.9(H) 35.7 - 48.1 fL [facility] ([place]) NRBC abs 0.00 0.00 - 0.01 K/cumm [facility] ([place]) Blood 08/10/2024 4:41 PM CDT 08/10/2024 4:43 PM CDT Anitra GRADY LAB BLOOD ORDERABLES Final Resu lt Performing Organization Address City/[facility]/ZIP Co de Phone Number [facility] ([place]) 1 [facility] [place] [address] * (ABNORMAL) D-dimer, quantitative (08/10/2024 4:41 PM [...] 68, VTE cut-off 680 ng/ml FEU. References; Schouten HT et al. Brit Med J. 2013;346:f2492. Michelle et al. Annals Int Med. 2015;163:701-11. Current interpretive data was last revised on 2019. Blood 08/10/2024 4:41 PM CDT 08/10/2024 4:43 PM CDT Anitra GRADY LAB BLOOD ORDERABLES Final Resu lt [facility] ([place]) 1 [facility] [place] [address] * CRP (acute phase) (08/10/2024 4:41 PM CDT) CRP <3.0 <=10.0 mg/L Blood 08/10/2024 4:41 PM CDT 08/10/2024 4:43 PM CDT us Anitra GRADY LAB BLOOD ORDERABLES Final Resu lt [facility] ([place]) [address] [facility] Department [place] [address] * Comprehensive metabolic panel (08/10/2024 4:41 PM [...] Final Resu lt [facility] ([place]) [address] [facility] Department [place] [address] * US Carotids Duplex Bilateral (06/07/2024 9:07 [...] Mike Almonte M.D. AG: LOLI Report ID: [id number] Reading Location: [id number] Procedure Note Mike Almonte MD - 06/13/2024 [...] Mike Almonte M.D. AG: LOLI Report ID: [id number] Reading Location: [id number] us Damir Rinaldi DO IMG US PROCEDURES Final Re sult * Dexa Axial Skeleton Bone Density 1 or 2 Site (03/27/2024 8:27 AM DOUBLE NEEDLE OPERATOR) Anatomical Region Laterality Modality Body N/A Other 03/27/2024 4:56 PM DOUBLE NEEDLE OPERATOR Narrative 03/27/2024 4:57 PM DOUBLE NEEDLE OPERATOR EXAM DESCRIPTION: DEXA AXIAL SKELETON BONE DENSITY 1 OR MORE SITES REASON FOR STUDY: 63 y/o year old F with given history of: age-related osteoporosis Postmenopausal. Rn Intensive Care Unit/Model: [employer] (S/N 76913) Facility LSC value of 0.022 for the [...] Arcadio Goel M.D. MF: TAM Report ID: [id number] Reading Location: [id number] Procedure Note Arcadio Goel MD - 03/27/2024 EXAM DESCRIPTION: DEXA AXIAL SKELETON BONE DENSITY 1 OR MORE SITES REASON FOR STUDY: 63 y/o year old F with given history of:age-related osteoporosis Postmenopausal. Rn Intensive Care Unit/Model: [employer] [facility] (S/N 65725) Facility LSC value of 0.022 for the [...] Arcadio Goel M.D. MF: TAM Report ID: [id number] Reading Location: [place] [address] Damir Rinaldi DO IMG DXA PROCEDURES Final R esult * (ABNORMAL) Diagnostic Mammogram Bilateral W Peter (01/05/2024 10:23 AM DOUBLE NEEDLE OPERATOR) Anatomical Region Laterality Modality Breast Bilateral Mammography 01/05/2024 5:13 PM DOUBLE NEEDLE OPERATOR Impressions 01/05/2024 5:13 PM DOUBLE NEEDLE OPERATOR 1. Multiple bilateral tiny circumscribed nodules are stable and considered a benign finding. 2. Stereotactic/tomographic guided biopsy is now recommended for the calcifications in the left breast. OVERALL FINAL ASSESSMENT: BI-RADS 4b-moderate suspicion for malignancy Electronically signed by: Kerry Baht M.D. Narrative 01/05/2024 5:13 PM DOUBLE NEEDLE OPERATOR EXAMINATION: BILATERAL DIGITAL DIAGNOSTIC MAMMOGRAM AND DIGITAL [...] DO G MAMMO PROCEDURES Final Result * COLONOSCOPY (10/27/2022 8:16 AM CDT) Anatomical Region Laterality Modality Other Narrative Procedure Note Karen Ronquillo MD - 10/27/2022 8:[address] [facility] Patient Name: Roma Page Procedure Date: 10/27/2022 8:16 AM Date of : 1960 Admit Type: Outpatient Age: 62 Gender: Female Attending MD: Karen Ronquillo M.D. Room: [facility] ENDOSCOPY ROOM 2 Note Status: Finalized Patient [...] by the physician, the anesthesiologist and the internetworking technician in the endoscopy suite. MentalStatus Examination: [...] scope was passed under direct vision. TheColonoscope [id number] was introduced through the anus and advanced [...] perforation orabscess without bleeding CPT copyright 2020 [employer]. All rights reserved. The codes documented in this report are preliminary and upon composite bond worker reviewmay be revised to meet current compliance requirements. Recognized by the [employer] for promoting quality in endoscopy Karen Ronquillo MD ENDOSCOPY PROCEDURES Final Resul t from Last 3 Months or Most Recently Relevant to Health Maintenance Insurance MEDICARE [facility] MEDICARE COMMERCIAL GENERIC [facility] EMPLOYEE HEALTH PLANS Address: [address] [place] [address] PHYSICIANS [facility] [place] MEDICARE PHYSICIANS [facility] INS [place] Advance Directives For more information, please contact: [phone] * Full Code (Latest Code Status on [...] Agents on File Name Relationship Healthcare Agent [facility] benjamín Communication Ava [place] Daughter [employer] Car e Agent Care Teams Group Dynamics Instructor Relationship Specialty Start Date End Date Damir Rinaldi DO PCP - General Family Medicine 05/08/19 Bryan Simeon MD Consulting Physician Cardiology 01/10/23 Jerry Leos NP [address] [place] [address] [address] ZHU [address] [place] [id number] Nurse Practitioner Orthopedic Surgery 01/17/23 Beryl Mendoza, PT Physical Therapist Physical Therapy 06/16/23
--- OUTSIDE RECORDS SUMMARY | 2024-09-05 11:50 | XMS_ITS ---
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 30 tablet 2014 Historic [id number] Xanax 0.5 mg tablet SIG: Xanax 0.5 mg tablet, 30 days, Dispense #15 Tablet, 0 RefillsDirecti ons: Take one tablet by mouth as needed. 15 tablet 2014 Historic [id number] pravast atin 80 mg tablet SIG: pravastatin 80 mg tablet, 30 days, Dispense #30 Tablet, 2 RefillsDirecti ons: Take one tablet by mouth daily. 30 tablet 2014 Historic [id number] Xanax 0.5 mg tablet SIG: Xanax 0.5 mg tablet, 30 days, Dispense #15 Tablet, 0 RefillsDirecti ons: Take one tablet by mouth up to three times daily as needed 15 tablet 2014 Historic [id number] Ambien 5 mg tablet SIG: Ambien 5 mg tablet, 30 days, Dispense #30 Tablet, 0 RefillsDirecti ons: Take 1 oral tablet at bedtime 30 tablet 2014 Historic [id number] Protoni x 20 mg tablet, delayed release (DR/EC) SIG: Protonix 20 mg tablet,delayed release (DR/EC), 30 days, Dispense #30 Tablet, 0 RefillsDirecti ons: Take 1 oral tablet once a day 30 tablet, delayed release (DR/EC) 2014 Historic [id number] Celexa 40 mg tablet SIG: Celexa 40 mg tablet, 30 days, Dispense #30 Tablet, 0 RefillsDirecti ons: Take 1 oral tablet once a day 30 tablet 2014 Historic [id number] acyclov ir 400 mg tablet SIG: acyclovir 400 mg tablet, 30 days, Dispense #30 Tablet, 0 RefillsDirecti ons: Take 1 oral tablet once a day 30 tablet 2014 Historic [id number] losarta n-hydro chlorot hiazide 50-12.5 mg tablet SIG: losartan-hydro chlorothiazide 50-12.5 mg tablet, 30 days, Dispense #30 Tablet, 0 RefillsDirecti ons: Take 1 oral tablet once a day 30 tablet 2014 Historic [id number] hydroco done-ac etamino phen 7.5-325 mg tablet SIG: hydrocodone-ac etaminophen 7.5-325 mg tablet, 30 days, Dispense #60 Tablet, 0 RefillsDirecti ons: Take 1 oral tablet by mouth every 8hrs as needed 60 tablet 2014 Historic [id number] tramado l 50 mg tablet SIG: tramadol 50 mg tablet, 30 days, Dispense #60 Tablet, 0 RefillsDirecti ons: Take 1 oral tablet twice a day 60 tablet 2014 Historic [id number] acyclov ir 400 mg tablet SIG: acyclovir 400 mg tablet, 30 days, Dispense #30 Tablet, 2 RefillsDirecti ons: Take 1 oral tablet once a day 30 tablet 2014 Historic [id number] Celexa 40 mg tablet SIG: Celexa 40 mg tablet, 30 days, Dispense #30 Tablet, 2 RefillsDirecti ons: Take 1 oral tablet once a day 30 tablet 2014 Historic [id number] Protoni x 20 mg tablet, delayed release (DR/EC) SIG: Protonix 20 mg tablet,delayed release (DR/EC), 30 days, Dispense #30 Tablet, 2 RefillsDirecti ons: Take 1 oral tablet once a day 30 tablet, delayed release (DR/EC) 2014 Historic [id number] Ambien 5 mg tablet SIG: Ambien 5 mg tablet, 30 days, Dispense #30 Tablet, 2 RefillsDirecti ons: Take 1 oral tablet at bedtime 30 tablet 2014 Historic [id number] Ambien 5 mg tablet SIG: Ambien 5 mg tablet, 30 days, Dispense #30 Tablet, 2 RefillsDirecti ons: Take 1 oral tablet at bedtime 30 tablet 2014 Historic [id number] Xanax 0.5 mg tablet SIG: Xanax 0.5 mg tablet, 30 days, Dispense #15 Tablet, 0 RefillsDirecti ons: Take one tablet by mouth up to three times daily as needed 15 tablet 2014 Historic [id number] Ambien 10 mg tablet SIG: Ambien 10 mg tablet, 30 days, Dispense #30 Tablet, 2 RefillsDirecti ons: Take 1 oral tablet at bedtime 30 tablet 2014 Historic [id number] Ambien 10 mg tablet SIG: Ambien 10 mg tablet, 30 days, Dispense #30 Tablet, 2 RefillsDirecti ons: Take 1 oral tablet at bedtime 30 tablet 2015 Historic [id number] Ultram 50 mg tablet SIG: Ultram 50 mg oral tablet, 30 days, Dispense #120 Tablet, 0 RefillsDirecti ons: take 1 tablet by oral route every 6 hours as needed 120 tablet 2021 Historic [id number] trazodo ne 150 mg tablet SIG: trazodone 150 mg oral tablet, 30 days, Dispense #90 Tablet, 0 RefillsDirecti ons: Take 150 mg by mouth nightly. 2 tablets at bedtime as needed 90 tablet 2021 Historic [id number] Ranexa 1,000 mg tablet extende d release 12 hr SIG: Ranexa 1,000 mg oral tablet extended release 12 hr, 30 days, Dispense #60 Tablet, 0 RefillsDirecti ons: Take 1,000 mg by mouth 2 times daily 60 tablet extende d release 12 hr 2021 Historic [id number] paroxet ine HCl 20 mg tablet SIG: paroxetine HCl 20 mg oral tablet, 30 days, Dispense #60 Tablet, 0 RefillsDirecti ons: Take 20 mg by mouth daily 60 tablet 2021 Historic [id number] losarta n 100 mg tablet SIG: losartan 100 mg oral tablet, 30 days, Dispense #30 Tablet, 0 RefillsDirecti ons: Take 1 oral tablet once a day 30 tablet 2021 Historic [id number] hydroco done-ac etamino phen 10-325 mg tablet SIG: hydrocodone-ac etaminophen 10-325 mg oral tablet, 30 days, Dispense #120 Tablet, 0 RefillsDirecti ons: Take 1 Tablet by mouth every 6 hours as needed. 120 tablet 2021 Current [id number] gabapen tin 600 mg tablet SIG: gabapentin 600 mg oral tablet, 30 days, Dispense #90 Tablet, 0 RefillsDirecti ons: Take 1 Tablet by mouth 3 times daily. 90 tablet 2021 Historic [id number] epineph rine 0.3 mg/0.3 mL auto-in jector SIG: epinephrine 0.3 mg/0.3 mL injection auto-injector, 1 days, Dispense #1 Each, 0 RefillsDirecti ons: inject 0.3 milliliter by intramuscular route once as needed for anaphylaxis 1 auto-in jector 2021 Historic [id number] ezetimi be 10 mg tablet SIG: ezetimibe 10 mg oral tablet, 30 days, Dispense #30 Tablet, 0 RefillsDirecti ons: Take 1 oral tablet once a day 30 tablet 2021 Current [id number] butalbi carisa-asp irin-ca ffeine 50-325- 40 mg capsule SIG: butalbital-asp irin-caffeine 50-325-40 mg oral capsule, 30 days, Dispense #90 Capsule, 0 RefillsDirecti ons: Take 1 capsule by mouth every 4 (four) hours as needed for headaches 90 capsule 2021 Historic [id number] aripipr azole 10 mg tablet SIG: aripiprazole 10 mg oral tablet, 30 days, Dispense #30 Tablet, 0 RefillsDirecti ons: Take 1 oral tablet once a day 30 tablet 2021 Historic [id number] alprazo miles 0.5 mg tablet SIG: alprazolam 0.5 mg oral tablet, 30 days, Dispense #90 Tablet, 0 RefillsDirecti ons: Take one tablet by mouth up to three times daily as needed 90 tablet 2021 Historic [id number] Celebre x 200 mg capsule SIG: Celebrex 200 mg oral capsule, 30 days, Dispense #60 Capsule, 0 RefillsDirecti ons: Take 1 oral capsule twice a day 60 capsule 2021 Current [id number] famotid ine 40 mg tablet SIG: famotidine 40 mg oral tablet, 30 days, Dispense #30 Tablet, 5 RefillsDirecti ons: Take 1 oral tablet once a day 30 tablet 2021 Historic [id number] Vascepa 1 gram capsule SIG: Vascepa 1 gram oral capsule, 90 days, Dispense #360 Capsule, 2 RefillsDirecti ons: Take 2 capsules by mouth twice daily with food 360 capsule 2021 Historic [id number] Repatha SureCli ck 140 mg/mL pen injecto r SIG: Repatha SureClick 140 mg/mL subcutaneous pen injector, 14 days, Dispense #1 Milliliter, 0 RefillsDirecti ons: Take 1 subcutaneous milliliter ever 2 weeks 1 pen injecto r 2021 Historic [id number] hydroch lorothi azide 25 mg tablet SIG: hydrochlorothi azide 25 mg oral tablet, 90 days, Dispense #90 Tablet, 0 RefillsDirecti ons: Take 1 oral tablet once a day 90 tablet 2021 Historic [id number] Toprol XL 50 mg tablet extende d release 24 hr SIG: Toprol XL 50 mg oral tablet extended release 24 hr, 90 days, Dispense #90 Tablet, 0 RefillsDirecti ons: Take 1 oral tablet once a day 90 tablet extende d release 24 hr 2021 Historic [id number] nitrogl ycerin 0.4 mg tablet, subling ual SIG: nitroglycerin 0.4 mg sublingual tablet, sublingual, 0 days, Dispense #30 Tablet, 0 RefillsDirecti ons: Put 1 tablet under tongue as needed for chest pain. may repeat every 5 minutes if still having chest pain (max dose 3 tablets) 30 tablet, subling ual 2021 Historic [id number] aripipr azole 10 mg tablet SIG: aripiprazole 10 mg oral tablet, 30 days, Dispense #60 Tablet, 0 RefillsDirecti ons: Take 1 tablet in the morning and 1 tablet in the evening 60 tablet 2021 Historic [id number] paroxet ine HCl 20 mg tablet SIG: paroxetine HCl 20 mg oral tablet, 30 days, Dispense #75 Tablet, 0 RefillsDirecti ons: Take 1 tablet in the morning. Take 1.5 tablets in the evening 75 tablet 2021 Historic [id number] benzona deleon 200 mg capsule SIG: benzonatate 200 mg oral capsule, 30 days, Dispense #30 Capsule, 0 RefillsDirecti ons: Take 1 oral capsule at bedtime as needed for cough 30 capsule 2021 Historic [id number] Repatha SureCli ck 140 mg/mL pen injecto r SIG: Repatha SureClick 140 mg/mL subcutaneous pen injector, 28 days, Dispense #2 Milliliter, 0 RefillsDirecti ons: Take 1 subcutaneous milliliter every 2 weeks 2 pen injecto r 2021 Historic [id number] risedro hebert 150 mg tablet SIG: risedronate 150 mg oral tablet, 90 days, Dispense #3 Tablet, 0 RefillsDirecti ons: Take one oral tablet once per month 3 tablet 2021 Historic M81.0 - AGE-RELATED OSTEOPOROSIS WITHOUT CURRENT PATHOLOGICAL FRACTURE [id number] alendro hebert 70 mg tablet SIG: alendronate, Dispense #12, 1 Refills, Directions: Take one oral tablet weekly 12 tablet 2021 Historic [id number] Repatha SureCli ck 140 mg/mL pen injecto r SIG: Repatha SureClick, Dispense #2, 1 Refills, Directions: INJECT 1 ML SUBCUTANEOUSLY EVERY 2 WEEKS 2 pen injecto r 2022 Historic [id number] famotid ine 40 mg tablet SIG: famotidine, Dispense #90, 0 Refills, Directions: TAKE 1 TABLET BY MOUTH EVERY DAY 90 tablet 2022 Historic [id number] ALENDRO HEBERT SODIUM 70 MG TAB 70 mg tablet SIG: ALENDRONATE SODIUM 70 MG TAB, Dispense #12, 1 Refills, Directions: TAKE ONE TABLET BY MOUTH ONCE WEEKLY 12 tablet 2022 Historic [id number] amlodip ine 5 mg tablet SIG: amlodipine 5 mg oral tablet, 90 days, Dispense #90 Tablet, 0 RefillsDirecti ons: Take 1 oral tablet once a day 90 tablet 2022 Current [id number] cyclobe nzaprin e 10 mg tablet SIG: cyclobenzaprin e 10 mg oral tablet, 90 days, Dispense #180 Tablet, 0 RefillsDirecti ons: Take 1 oral tablet twice a day 180 tablet 2022 Historic [id number] Praluen t Pen 75 mg/mL pen injecto r SIG: Praluent Pen 75 mg/mL subcutaneous pen injector, 28 days, Dispense #2 Milliliter, 0 RefillsDirecti ons: Inject 75mg once every 2 weeks 2 pen injecto r 2022 Historic [id number] FAMOTID INE 40 MG TABLET 40 mg tablet SIG: FAMOTIDINE 40 MG TABLET, Dispense #90, 0 Refills, Directions: TAKE 1 TABLET BY MOUTH EVERY DAY 90 tablet 2022 Historic [id number] FAMOTID INE 40 MG TABLET 40 mg tablet SIG: FAMOTIDINE 40 MG TABLET, Dispense #90, 0 Refills, Directions: TAKE 1 TABLET BY MOUTH EVERY DAY 90 tablet 2022 Historic [id number] gabapen tin 600 mg tablet SIG: gabapentin 600 mg oral tablet, 30 days, Dispense #90 Tablet, 0 RefillsDirecti ons: Take 1 Tablet by mouth 3 times daily. 90 tablet 2022 Historic [id number] fluocin olone acetoni de oil 0.01 % drops SIG: fluocinolone acetonide oil 0.01 % otic (ear) drops, 10 days, Dispense #20 Milliliter, 0 RefillsDirecti ons: 5 gtts in affected ear twice daily as needed for external auditory canal discomfort 20 drops 2022 Historic [id number] PAROXET INE HCL 20 MG TABLET 20 mg tablet SIG: PAROXETINE HCL 20 MG TABLET, Dispense #90, 1 Refills, Directions: TAKE 1 TABLET BY MOUTH EVERY DAY 90 tablet 2022 Historic [id number] FAMOTID INE 40 MG TABLET 40 mg tablet SIG: FAMOTIDINE 40 MG TABLET, Dispense #90, 0 Refills, Directions: TAKE 1 TABLET BY MOUTH EVERY DAY 90 tablet 2023 Historic [id number] Nexlize t 180-10 mg tablet SIG: Nexlizet 180-10 mg oral tablet, 30 days, Dispense #30 Tablet, 0 Refills, Directions: Take 1 oral tablet once a day 30 tablet 2023 Historic [id number] Nexlize t 180-10 mg tablet SIG: Nexlizet 180-10 mg oral tablet, 30 days, Dispense #30 Tablet, 2 Refills, Directions: Take 1 oral tablet once a day 30 tablet 2023 Historic [id number] Nexlize t 180-10 mg tablet SIG: Nexlizet 180-10 mg oral tablet, 30 days, Dispense #30 Tablet, 2 Refills, Directions: Take 1 oral tablet once a day 30 tablet 2023 Historic [id number] alprazo miles 0.5 mg tablet SIG: alprazolam 0.5 mg oral tablet, 30 days, Dispense #90 Tablet, 0 Refills, Directions: Take one tablet by mouth up to three times daily as needed 90 tablet 2023 Historic [id number] paroxet ine HCl 20 mg tablet SIG: paroxetine HCl 20 mg oral tablet, 30 days, Dispense #75 Tablet, 0 Refills, Directions: Take 1 tablet in the morning. Take 1.5 tablets in the evening 75 tablet 2023 Historic [id number] gabapen tin 600 mg tablet SIG: gabapentin 600 mg oral tablet, 30 days, Dispense #90 Tablet, 0 Refills, Directions: Take 1 Tablet by mouth 3 times daily. 90 tablet 2023 Historic [id number] GABAPEN TIN 600 MG TABLET 600 mg tablet SIG: GABAPENTIN 600 MG TABLET, Dispense #90, 0 Refills, Directions: take 1 tablet by mouth three times a day 90 tablet 2023 Historic [id number] FAMOTID INE 40 MG TABLET 40 mg tablet SIG: FAMOTIDINE 40 MG TABLET, Dispense #90, 0 Refills, Directions: TAKE 1 TABLET BY MOUTH EVERY DAY 90 tablet 2023 Historic [id number] FAMOTID INE 40 MG TABLET 40 mg tablet SIG: FAMOTIDINE 40 MG TABLET, Dispense #90, 0 Refills, Directions: take 1 tablet by mouth every day 90 tablet 2023 Historic [id number] trazodo ne 150 mg tablet SIG: trazodone 150 mg oral tablet, 30 days, Dispense #30 Tablet, 0 Refills, Directions: Take 150 mg by mouth nightly. 2 tablets at bedtime as needed 30 tablet 2023 Historic [id number] metform in 500 mg tablet extende d release 24 hr SIG: metformin 500 mg oral tablet extended release 24 hr, 90 days, Dispense #90 Tablet, 0 Refills, Directions: TAKE 1 ORAL TABLET 3 TIMES A DAY 90 tablet extende d release 24 hr 2023 Historic [id number] Vitamin D2 1,250 mcg (50,000 unit) capsule SIG: Vitamin D2 1,250 mcg (50,000 unit) oral capsule, 90 days, Dispense #4 Capsule, 12 Refills, Directions: Take 1 tablet weekly 4 capsule 2023 [facility] 198551 trazodo ne 150 mg tablet SIG: trazodone 150 mg oral tablet, 30 days, Dispense #30 Tablet, 1 Refills, Directions: Take 150 mg by mouth nightly. 30 tablet 2023 Historic [id number] trazodo ne 150 mg tablet SIG: trazodone 150 mg oral tablet, 30 days, Dispense #30 Tablet, 1 Refills, Directions: Take 150 mg by mouth nightly. 30 tablet 2023 Historic [id number] alprazo miles 0.5 mg tablet SIG: alprazolam 0.5 mg oral tablet, 30 days, Dispense #90 Tablet, 0 Refills, Directions: Take one tablet by mouth up to three times daily as needed 90 tablet 2023 Historic [id number] alprazo miles 0.5 mg tablet SIG: alprazolam 0.5 mg oral tablet, 30 days, Dispense #85 Tablet, 0 Refills, Directions: Take one tablet by mouth up to three times daily as needed for severe anxiety or panic attack 85 tablet 2023 Historic [id number] metform in 500 mg tablet extende d release 24 hr SIG: metformin 500 mg oral tablet extended release 24 hr, 90 days, Dispense #270 Tablet, 0 Refills, Directions: TAKE 1 ORAL TABLET 3 TIMES A DAY 270 tablet extende d release 24 hr 2023 Historic [id number] albuter ol sulfate 90 mcg/act uation HFA aerosol inhaler SIG: albuterol sulfate 90 mcg/actuation inhalation HFA aerosol inhaler, 3 days, Dispense #6.7 Gram, 0 Refills, Directions: two puffs every 4 hours as needed for cough, wheezing, or shortness of breath 6.7 HFA aerosol inhaler 2023 Historic [id number] alprazo miles 0.5 mg tablet SIG: alprazolam 0.5 mg oral tablet, 30 days, Dispense #80 Tablet, 0 Refills, Directions: Take one tablet by mouth up to three times daily as needed for severe anxiety or panic attack 80 tablet 2023 Historic [id number] prometh azine-D M 6.25-15 mg/5 mL syrup SIG: promethazine-D M 6.25-15 mg/5 mL oral syrup, 29 days, Dispense #116 Milliliter, 0 Refills, Directions: Take 5 oral milliliter every 6 hours as needed for cough. 116 syrup 2023 Historic [id number] alprazo miles 0.5 mg tablet SIG: alprazolam 0.5 mg oral tablet, 30 days, Dispense #80 Tablet, 0 Refills, Directions: Take one tablet by mouth up to three times daily as needed for severe anxiety or panic attack 80 tablet 2023 Historic [id number] famotid ine 40 mg tablet SIG: famotidine 40 mg oral tablet, 90 days, Dispense #90 Tablet, 0 Refills, Directions: TAKE 1 TABLET BY MOUTH EVERY DAY 90 tablet 2023 Historic [id number] FAMOTID INE 40 MG TABLET 40 mg tablet SIG: FAMOTIDINE 40 MG TABLET, Dispense #90, 0 Refills, Directions: take 1 tablet by mouth every day 90 tablet 2023 Historic [id number] ondanse wing 4 mg tablet, disinte grating SIG: ondansetron 4 mg oral tablet,disinte grating, 7 days, Dispense #20 Tablet, 0 Refills, Directions: Take 1 tablet by mouth every 8 hours as needed for nausea 20 tablet, disinte grating 2023 Historic [id number] ondanse wing 4 mg tablet, disinte grating SIG: ondansetron 4 mg oral tablet,disinte grating, 7 days, Dispense #20 Tablet, 0 Refills, Directions: Take 1 tablet by mouth every 8 hours as needed for nausea 20 tablet, disinte grating 2023 Historic [id number] alprazo miles 0.5 mg tablet SIG: alprazolam 0.5 mg oral tablet, 30 days, Dispense #75 Tablet, 0 Refills, Directions: Take one tablet by mouth up to three times daily as needed for severe anxiety or panic attack 75 tablet 2023 Historic [id number] metform in 500 mg tablet extende d release 24 hr SIG: metformin 500 mg oral tablet extended release 24 hr, 90 days, Dispense #270 Tablet, 0 Refills, Directions: TAKE 1 ORAL TABLET 3 TIMES A DAY 270 tablet extende d release 24 hr 2023 Historic [id number] METFORM IN HCL ER 500 MG TABLET 500 mg tablet extende d release 24 hr SIG: METFORMIN HCL ER 500 MG TABLET, Dispense #270, 0 Refills, Directions: take 1 tablet by mouth three times a day 270 tablet extende d release 24 hr 2023 Historic [id number] alprazo miles 0.5 mg tablet SIG: alprazolam 0.5 mg oral tablet, 30 days, Dispense #70 Tablet, 0 Refills, Directions: Take one tablet by mouth up to three times daily as needed for severe anxiety or panic attack 70 tablet 2023 Historic [id number] famotid ine 40 mg tablet SIG: famotidine 40 mg oral tablet, 90 days, Dispense #90 Tablet, 0 Refills, Directions: TAKE 1 TABLET BY MOUTH EVERY DAY 90 tablet 2023 Historic [id number] FAMOTID INE 40 MG TABLET 40 mg tablet SIG: FAMOTIDINE 40 MG TABLET, Dispense #90, 0 Refills, Directions: take 1 tablet by mouth every day 90 tablet 2023 Historic [id number] alprazo miles 0.5 mg tablet SIG: alprazolam 0.5 mg oral tablet, 30 days, Dispense #65 Tablet, 0 Refills, Directions: Take one tablet by mouth up to three times daily as needed for severe anxiety or panic attack 65 tablet 2023 Historic [id number] pantopr azole 40 mg tablet, delayed release (DR/EC) SIG: pantoprazole 40 mg oral tablet,delayed release (DR/EC), 30 days, Dispense #30 Tablet, 1 Refills, Directions: Take 1 oral tablet once a day 30 tablet, delayed release (DR/EC) 2023 Historic [id number] metform in 500 mg tablet extende d release 24 hr SIG: metformin 500 mg oral tablet extended release 24 hr, 90 days, Dispense #270 Tablet, 0 Refills, Directions: TAKE 1 ORAL TABLET 3 TIMES A DAY 270 tablet extende d release 24 hr 2023 Historic [id number] metform in 500 mg tablet extende d release 24 hr SIG: metformin 500 mg oral tablet extended release 24 hr, 90 days, Dispense #270 Tablet, 0 Refills, Directions: TAKE 1 ORAL TABLET 3 TIMES A DAY 270 tablet extende d release 24 hr 2023 Historic [id number] pantopr azole 40 mg tablet, delayed release (DR/EC) SIG: pantoprazole 40 mg oral tablet,delayed release (DR/EC), 30 days, Dispense #30 Tablet, 1 Refills, Directions: Take 1 oral tablet once a day 30 tablet, delayed release (DR/EC) 2023 Historic [id number] Pantopr azole Sodium 40 MG Oral Tablet Delayed Release 40 mg tablet, delayed release (DR/EC) SIG: Pantoprazole Sodium 40 MG Oral Tablet Delayed Release, Dispense #30, 0 Refills, Directions: Take 1 tablet by mouth once daily 30 tablet, delayed release (DR/EC) 2023 Historic [id number] alprazo miles 0.5 mg tablet SIG: alprazolam 0.5 mg oral tablet, 30 days, Dispense #60 Tablet, 0 Refills, Directions: Take one tablet by mouth up to three times daily as needed for severe anxiety or panic attack 60 tablet 2024 Historic [id number] alprazo miles 0.5 mg tablet SIG: alprazolam 0.5 mg oral tablet, 30 days, Dispense #55 Tablet, 0 Refills, Directions: Take one tablet by mouth up to three times daily as needed for severe anxiety or panic attack 55 tablet 2024 Historic [id number] pantopr azole 20 mg tablet, delayed release (DR/EC) SIG: pantoprazole 20 mg oral tablet,delayed release (DR/EC), 90 days, Dispense #90 Tablet, 1 Refills, Directions: Take 1 oral tablet once a day 90 tablet, delayed release (DR/EC) 2024 Historic [id number] Nexlize t 180-10 mg tablet SIG: Nexlizet 180-10 mg oral tablet, 30 days, Dispense #30 Tablet, 0 Refills, Directions: Take 1 oral tablet once a day 30 tablet 2024 Historic [id number] metform in 500 mg tablet extende d release 24 hr SIG: metformin 500 mg oral tablet extended release 24 hr, 90 days, Dispense #270 Tablet, 0 Refills, Directions: TAKE 1 ORAL TABLET 3 TIMES A DAY 270 tablet extende d release 24 hr 2024 Historic [id number] alprazo miles 0.5 mg tablet SIG: alprazolam 0.5 mg oral tablet, 30 days, Dispense #50 Tablet, 0 Refills, Directions: Take one tablet by mouth up to three times daily as needed for severe anxiety or panic attack 50 tablet 2024 Historic [id number] alprazo miles 0.5 mg tablet SIG: alprazolam 0.5 mg oral tablet, 30 days, Dispense #45 Tablet, 0 Refills, Directions: Take one tablet by mouth up to three times daily as needed for severe anxiety or panic attack 45 tablet 2024 Historic [id number] nystati n 100,000 unit/mL suspens ion SIG: nystatin 100,000 unit/mL oral suspension, 50 days, Dispense #200 Milliliter, 0 Refills, Directions: Take 5 mL orally four times daily, retain in mouth as long as possible before swallowing 200 suspens ion 2024 Historic [id number] gabapen tin 600 mg tablet SIG: gabapentin 600 mg oral tablet, 90 days, Dispense #270 Tablet, 1 Refills, Directions: Take 1 Tablet by mouth 3 times daily. 270 tablet 2024 Current [id number] cephale gabi 500 mg capsule SIG: cephalexin 500 mg oral capsule, 5 days, Dispense #10 Capsule, 0 Refills, Directions: Take 1 oral capsule 2 times a day 10 capsule 2024 Historic [id number] pantopr azole 20 mg tablet, delayed release (DR/EC) SIG: pantoprazole 20 mg oral tablet,delayed release (DR/EC), 90 days, Dispense #90 Tablet, 1 Refills, Directions: Take 1 oral tablet once a day 90 tablet, delayed release (DR/EC) 2024 Current 100225 alprazo miles 0.5 mg tablet SIG: alprazolam 0.5 mg oral tablet, 30 days, Dispense #40 Tablet, 0 Refills, Directions: Take one tablet by mouth up to three times daily as needed for severe anxiety or panic attack 40 tablet 2024 Historic [id number] metform in 500 mg tablet extende d release 24 hr SIG: metformin 500 mg oral tablet extended release 24 hr, 90 days, Dispense #270 Tablet, 0 Refills, Directions: TAKE 1 ORAL TABLET 3 TIMES A DAY 270 tablet extende d release 24 hr 2024 Current [id number] ondanse wing 4 mg tablet, disinte grating SIG: ondansetron 4 mg oral tablet,disinte grating, 7 days, Dispense #20 Tablet, 0 Refills, Directions: Take 1 tablet by mouth every 8 hours as needed for nausea 20 tablet, disinte grating 2024 Current [id number] alprazo miles 0.5 mg tablet SIG: alprazolam 0.5 mg oral tablet, 30 days, Dispense #35 Tablet, 0 Refills, Directions: Take one tablet by mouth up to three times daily as needed for severe anxiety or panic attack 35 tablet 2024 Current PROBLEMS Problem Code Problem [...] DUE TO OTHER MENTAL DISORDER Chronic 03/15/2018 [id number] (PRIMARY) HYPERTENSION ESSENTIAL (PRIMARY) HYPERTENSION Chronic 03/15/2018 I50.32-CHRONIC DIASTOLIC (CONGESTIVE) HEART FAILURE CHRONIC DIASTOLIC (CONGESTIVE) HEART FAILURE Chronic 03/15/2018 K21.7-HNIJNN-YIWXJMMEX L REFLUX DISEASE WITHOUT ESOPHAGITIS GASTRO-ESOPHAGEAL REFLUX DISEASE WITHOUT ESOPHAGITIS Chronic 03/15/2018 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 03/15/2018 R73.03-Prediabetes Prediabetes Historic 03/15/2018 M54.6-PAIN IN THORACIC SPINE PAIN IN THORACIC SPINE Chronic 03/15/2018 M17.0-Bilateral primary osteoarthritis of knee Bilateral primary osteoarthritis of knee Chronic 03/15/2018 I65.23-Occlusion and stenosis of bilateral carotid arteries Occlusion and stenosis of bilateral carotid arteries Chronic 01/05/2022 [id number] OSTEOPOROSIS WITHOUT CURRENT PATHOLOGICAL FRACTURE AGE-RELATED OSTEOPOROSIS [...] Encounter Type Provider Diagnoses Start Date Location Disc harged to None SOCIAL HISTORY Social Status Observation Never Smoker Sex: Female 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 Medicare [id number] SELF
--- OUTSIDE RECORDS SUMMARY | 2024-09-05 11:52 | XMS_ITS ---
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 30 tablet 2014 Historic [id number] Xanax 0.5 mg tablet SIG: Xanax 0.5 mg tablet, 30 days, Dispense #15 Tablet, 0 RefillsDirecti ons: Take one tablet by mouth as needed. 15 tablet 2014 Historic [id number] pravast atin 80 mg tablet SIG: pravastatin 80 mg tablet, 30 days, Dispense #30 Tablet, 2 RefillsDirecti ons: Take one tablet by mouth daily. 30 tablet 2014 Historic [id number] Xanax 0.5 mg tablet SIG: Xanax 0.5 mg tablet, 30 days, Dispense #15 Tablet, 0 RefillsDirecti ons: Take one tablet by mouth up to three times daily as needed 15 tablet 2014 Historic [id number] Ambien 5 mg tablet SIG: Ambien 5 mg tablet, 30 days, Dispense #30 Tablet, 0 RefillsDirecti ons: Take 1 oral tablet at bedtime 30 tablet 2014 Historic [id number] Protoni x 20 mg tablet, delayed release (DR/EC) SIG: Protonix 20 mg tablet,delayed release (DR/EC), 30 days, Dispense #30 Tablet, 0 RefillsDirecti ons: Take 1 oral tablet once a day 30 tablet, delayed release (DR/EC) 2014 Historic [id number] Celexa 40 mg tablet SIG: Celexa 40 mg tablet, 30 days, Dispense #30 Tablet, 0 RefillsDirecti ons: Take 1 oral tablet once a day 30 tablet 2014 Historic [id number] acyclov ir 400 mg tablet SIG: acyclovir 400 mg tablet, 30 days, Dispense #30 Tablet, 0 RefillsDirecti ons: Take 1 oral tablet once a day 30 tablet 2014 Historic [id number] losarta n-hydro chlorot hiazide 50-12.5 mg tablet SIG: losartan-hydro chlorothiazide 50-12.5 mg tablet, 30 days, Dispense #30 Tablet, 0 RefillsDirecti ons: Take 1 oral tablet once a day 30 tablet 2014 Historic [id number] hydroco done-ac etamino phen 7.5-325 mg tablet SIG: hydrocodone-ac etaminophen 7.5-325 mg tablet, 30 days, Dispense #60 Tablet, 0 RefillsDirecti ons: Take 1 oral tablet by mouth every 8hrs as needed 60 tablet 2014 Historic [id number] tramado l 50 mg tablet SIG: tramadol 50 mg tablet, 30 days, Dispense #60 Tablet, 0 RefillsDirecti ons: Take 1 oral tablet twice a day 60 tablet 2014 Historic [id number] acyclov ir 400 mg tablet SIG: acyclovir 400 mg tablet, 30 days, Dispense #30 Tablet, 2 RefillsDirecti ons: Take 1 oral tablet once a day 30 tablet 2014 Historic [id number] Celexa 40 mg tablet SIG: Celexa 40 mg tablet, 30 days, Dispense #30 Tablet, 2 RefillsDirecti ons: Take 1 oral tablet once a day 30 tablet 2014 Historic [id number] Protoni x 20 mg tablet, delayed release (DR/EC) SIG: Protonix 20 mg tablet,delayed release (DR/EC), 30 days, Dispense #30 Tablet, 2 RefillsDirecti ons: Take 1 oral tablet once a day 30 tablet, delayed release (DR/EC) 2014 Historic [id number] Ambien 5 mg tablet SIG: Ambien 5 mg tablet, 30 days, Dispense #30 Tablet, 2 RefillsDirecti ons: Take 1 oral tablet at bedtime 30 tablet 2014 Historic [id number] Ambien 5 mg tablet SIG: Ambien 5 mg tablet, 30 days, Dispense #30 Tablet, 2 RefillsDirecti ons: Take 1 oral tablet at bedtime 30 tablet 2014 Historic [id number] Xanax 0.5 mg tablet SIG: Xanax 0.5 mg tablet, 30 days, Dispense #15 Tablet, 0 RefillsDirecti ons: Take one tablet by mouth up to three times daily as needed 15 tablet 2014 Historic [id number] Ambien 10 mg tablet SIG: Ambien 10 mg tablet, 30 days, Dispense #30 Tablet, 2 RefillsDirecti ons: Take 1 oral tablet at bedtime 30 tablet 2014 Historic [id number] Ambien 10 mg tablet SIG: Ambien 10 mg tablet, 30 days, Dispense #30 Tablet, 2 RefillsDirecti ons: Take 1 oral tablet at bedtime 30 tablet 2015 Historic [id number] Ultram 50 mg tablet SIG: Ultram 50 mg oral tablet, 30 days, Dispense #120 Tablet, 0 RefillsDirecti ons: take 1 tablet by oral route every 6 hours as needed 120 tablet 2021 Historic [id number] trazodo ne 150 mg tablet SIG: trazodone 150 mg oral tablet, 30 days, Dispense #90 Tablet, 0 RefillsDirecti ons: Take 150 mg by mouth nightly. 2 tablets at bedtime as needed 90 tablet 2021 Historic [id number] Ranexa 1,000 mg tablet extende d release 12 hr SIG: Ranexa 1,000 mg oral tablet extended release 12 hr, 30 days, Dispense #60 Tablet, 0 RefillsDirecti ons: Take 1,000 mg by mouth 2 times daily 60 tablet extende d release 12 hr 2021 Historic [id number] paroxet ine HCl 20 mg tablet SIG: paroxetine HCl 20 mg oral tablet, 30 days, Dispense #60 Tablet, 0 RefillsDirecti ons: Take 20 mg by mouth daily 60 tablet 2021 Historic [id number] losarta n 100 mg tablet SIG: losartan 100 mg oral tablet, 30 days, Dispense #30 Tablet, 0 RefillsDirecti ons: Take 1 oral tablet once a day 30 tablet 2021 Historic [id number] hydroco done-ac etamino phen 10-325 mg tablet SIG: hydrocodone-ac etaminophen 10-325 mg oral tablet, 30 days, Dispense #120 Tablet, 0 RefillsDirecti ons: Take 1 Tablet by mouth every 6 hours as needed. 120 tablet 2021 Current [id number] gabapen tin 600 mg tablet SIG: gabapentin 600 mg oral tablet, 30 days, Dispense #90 Tablet, 0 RefillsDirecti ons: Take 1 Tablet by mouth 3 times daily. 90 tablet 2021 Historic [id number] epineph rine 0.3 mg/0.3 mL auto-in jector SIG: epinephrine 0.3 mg/0.3 mL injection auto-injector, 1 days, Dispense #1 Each, 0 RefillsDirecti ons: inject 0.3 milliliter by intramuscular route once as needed for anaphylaxis 1 auto-in jector 2021 Historic [id number] ezetimi be 10 mg tablet SIG: ezetimibe 10 mg oral tablet, 30 days, Dispense #30 Tablet, 0 RefillsDirecti ons: Take 1 oral tablet once a day 30 tablet 2021 Current [id number] butalbi carisa-asp irin-ca ffeine 50-325- 40 mg capsule SIG: butalbital-asp irin-caffeine 50-325-40 mg oral capsule, 30 days, Dispense #90 Capsule, 0 RefillsDirecti ons: Take 1 capsule by mouth every 4 (four) hours as needed for headaches 90 capsule 2021 Historic [id number] aripipr azole 10 mg tablet SIG: aripiprazole 10 mg oral tablet, 30 days, Dispense #30 Tablet, 0 RefillsDirecti ons: Take 1 oral tablet once a day 30 tablet 2021 Historic [id number] alprazo miles 0.5 mg tablet SIG: alprazolam 0.5 mg oral tablet, 30 days, Dispense #90 Tablet, 0 RefillsDirecti ons: Take one tablet by mouth up to three times daily as needed 90 tablet 2021 Historic [id number] Celebre x 200 mg capsule SIG: Celebrex 200 mg oral capsule, 30 days, Dispense #60 Capsule, 0 RefillsDirecti ons: Take 1 oral capsule twice a day 60 capsule 2021 Current [id number] famotid ine 40 mg tablet SIG: famotidine 40 mg oral tablet, 30 days, Dispense #30 Tablet, 5 RefillsDirecti ons: Take 1 oral tablet once a day 30 tablet 2021 Historic [id number] Vascepa 1 gram capsule SIG: Vascepa 1 gram oral capsule, 90 days, Dispense #360 Capsule, 2 RefillsDirecti ons: Take 2 capsules by mouth twice daily with food 360 capsule 2021 Historic [id number] Repatha SureCli ck 140 mg/mL pen injecto r SIG: Repatha SureClick 140 mg/mL subcutaneous pen injector, 14 days, Dispense #1 Milliliter, 0 RefillsDirecti ons: Take 1 subcutaneous milliliter ever 2 weeks 1 pen injecto r 2021 Historic [id number] hydroch lorothi azide 25 mg tablet SIG: hydrochlorothi azide 25 mg oral tablet, 90 days, Dispense #90 Tablet, 0 RefillsDirecti ons: Take 1 oral tablet once a day 90 tablet 2021 Historic [id number] Toprol XL 50 mg tablet extende d release 24 hr SIG: Toprol XL 50 mg oral tablet extended release 24 hr, 90 days, Dispense #90 Tablet, 0 RefillsDirecti ons: Take 1 oral tablet once a day 90 tablet extende d release 24 hr 2021 Historic [id number] nitrogl ycerin 0.4 mg tablet, subling ual SIG: nitroglycerin 0.4 mg sublingual tablet, sublingual, 0 days, Dispense #30 Tablet, 0 RefillsDirecti ons: Put 1 tablet under tongue as needed for chest pain. may repeat every 5 minutes if still having chest pain (max dose 3 tablets) 30 tablet, subling ual 2021 Historic [id number] aripipr azole 10 mg tablet SIG: aripiprazole 10 mg oral tablet, 30 days, Dispense #60 Tablet, 0 RefillsDirecti ons: Take 1 tablet in the morning and 1 tablet in the evening 60 tablet 2021 Historic [id number] paroxet ine HCl 20 mg tablet SIG: paroxetine HCl 20 mg oral tablet, 30 days, Dispense #75 Tablet, 0 RefillsDirecti ons: Take 1 tablet in the morning. Take 1.5 tablets in the evening 75 tablet 2021 Historic [id number] benzona deleon 200 mg capsule SIG: benzonatate 200 mg oral capsule, 30 days, Dispense #30 Capsule, 0 RefillsDirecti ons: Take 1 oral capsule at bedtime as needed for cough 30 capsule 2021 Historic [id number] Repatha SureCli ck 140 mg/mL pen injecto r SIG: Repatha SureClick 140 mg/mL subcutaneous pen injector, 28 days, Dispense #2 Milliliter, 0 RefillsDirecti ons: Take 1 subcutaneous milliliter every 2 weeks 2 pen injecto r 2021 Historic [id number] risedro hebert 150 mg tablet SIG: risedronate 150 mg oral tablet, 90 days, Dispense #3 Tablet, 0 RefillsDirecti ons: Take one oral tablet once per month 3 tablet 2021 Historic M81.0 - AGE-RELATED OSTEOPOROSIS WITHOUT CURRENT PATHOLOGICAL FRACTURE [id number] alendro hebert 70 mg tablet SIG: alendronate, Dispense #12, 1 Refills, Directions: Take one oral tablet weekly 12 tablet 2021 Historic [id number] Repatha SureCli ck 140 mg/mL pen injecto r SIG: Repatha SureClick, Dispense #2, 1 Refills, Directions: INJECT 1 ML SUBCUTANEOUSLY EVERY 2 WEEKS 2 pen injecto r 2022 Historic [id number] famotid ine 40 mg tablet SIG: famotidine, Dispense #90, 0 Refills, Directions: TAKE 1 TABLET BY MOUTH EVERY DAY 90 tablet 2022 Historic [id number] ALENDRO HEBERT SODIUM 70 MG TAB 70 mg tablet SIG: ALENDRONATE SODIUM 70 MG TAB, Dispense #12, 1 Refills, Directions: TAKE ONE TABLET BY MOUTH ONCE WEEKLY 12 tablet 2022 Historic [id number] amlodip ine 5 mg tablet SIG: amlodipine 5 mg oral tablet, 90 days, Dispense #90 Tablet, 0 RefillsDirecti ons: Take 1 oral tablet once a day 90 tablet 2022 Current [id number] cyclobe nzaprin e 10 mg tablet SIG: cyclobenzaprin e 10 mg oral tablet, 90 days, Dispense #180 Tablet, 0 RefillsDirecti ons: Take 1 oral tablet twice a day 180 tablet 2022 Historic [id number] Praluen t Pen 75 mg/mL pen injecto r SIG: Praluent Pen 75 mg/mL subcutaneous pen injector, 28 days, Dispense #2 Milliliter, 0 RefillsDirecti ons: Inject 75mg once every 2 weeks 2 pen injecto r 2022 Historic [id number] FAMOTID INE 40 MG TABLET 40 mg tablet SIG: FAMOTIDINE 40 MG TABLET, Dispense #90, 0 Refills, Directions: TAKE 1 TABLET BY MOUTH EVERY DAY 90 tablet 2022 Historic [id number] FAMOTID INE 40 MG TABLET 40 mg tablet SIG: FAMOTIDINE 40 MG TABLET, Dispense #90, 0 Refills, Directions: TAKE 1 TABLET BY MOUTH EVERY DAY 90 tablet 2022 Historic [id number] gabapen tin 600 mg tablet SIG: gabapentin 600 mg oral tablet, 30 days, Dispense #90 Tablet, 0 RefillsDirecti ons: Take 1 Tablet by mouth 3 times daily. 90 tablet 2022 Historic [id number] fluocin olone acetoni de oil 0.01 % drops SIG: fluocinolone acetonide oil 0.01 % otic (ear) drops, 10 days, Dispense #20 Milliliter, 0 RefillsDirecti ons: 5 gtts in affected ear twice daily as needed for external auditory canal discomfort 20 drops 2022 Historic [id number] PAROXET INE HCL 20 MG TABLET 20 mg tablet SIG: PAROXETINE HCL 20 MG TABLET, Dispense #90, 1 Refills, Directions: TAKE 1 TABLET BY MOUTH EVERY DAY 90 tablet 2022 Historic [id number] FAMOTID INE 40 MG TABLET 40 mg tablet SIG: FAMOTIDINE 40 MG TABLET, Dispense #90, 0 Refills, Directions: TAKE 1 TABLET BY MOUTH EVERY DAY 90 tablet 2023 Historic [id number] Nexlize t 180-10 mg tablet SIG: Nexlizet 180-10 mg oral tablet, 30 days, Dispense #30 Tablet, 0 Refills, Directions: Take 1 oral tablet once a day 30 tablet 2023 Historic [id number] Nexlize t 180-10 mg tablet SIG: Nexlizet 180-10 mg oral tablet, 30 days, Dispense #30 Tablet, 2 Refills, Directions: Take 1 oral tablet once a day 30 tablet 2023 Historic [id number] Nexlize t 180-10 mg tablet SIG: Nexlizet 180-10 mg oral tablet, 30 days, Dispense #30 Tablet, 2 Refills, Directions: Take 1 oral tablet once a day 30 tablet 2023 Historic [id number] alprazo miles 0.5 mg tablet SIG: alprazolam 0.5 mg oral tablet, 30 days, Dispense #90 Tablet, 0 Refills, Directions: Take one tablet by mouth up to three times daily as needed 90 tablet 2023 Historic [id number] paroxet ine HCl 20 mg tablet SIG: paroxetine HCl 20 mg oral tablet, 30 days, Dispense #75 Tablet, 0 Refills, Directions: Take 1 tablet in the morning. Take 1.5 tablets in the evening 75 tablet 2023 Historic [id number] gabapen tin 600 mg tablet SIG: gabapentin 600 mg oral tablet, 30 days, Dispense #90 Tablet, 0 Refills, Directions: Take 1 Tablet by mouth 3 times daily. 90 tablet 2023 Historic [id number] GABAPEN TIN 600 MG TABLET 600 mg tablet SIG: GABAPENTIN 600 MG TABLET, Dispense #90, 0 Refills, Directions: take 1 tablet by mouth three times a day 90 tablet 2023 Historic [id number] FAMOTID INE 40 MG TABLET 40 mg tablet SIG: FAMOTIDINE 40 MG TABLET, Dispense #90, 0 Refills, Directions: TAKE 1 TABLET BY MOUTH EVERY DAY 90 tablet 2023 Historic [id number] FAMOTID INE 40 MG TABLET 40 mg tablet SIG: FAMOTIDINE 40 MG TABLET, Dispense #90, 0 Refills, Directions: take 1 tablet by mouth every day 90 tablet 2023 Historic [id number] trazodo ne 150 mg tablet SIG: trazodone 150 mg oral tablet, 30 days, Dispense #30 Tablet, 0 Refills, Directions: Take 150 mg by mouth nightly. 2 tablets at bedtime as needed 30 tablet 2023 Historic [id number] metform in 500 mg tablet extende d release 24 hr SIG: metformin 500 mg oral tablet extended release 24 hr, 90 days, Dispense #90 Tablet, 0 Refills, Directions: TAKE 1 ORAL TABLET 3 TIMES A DAY 90 tablet extende d release 24 hr 2023 Historic [id number] Vitamin D2 1,250 mcg (50,000 unit) capsule SIG: Vitamin D2 1,250 mcg (50,000 unit) oral capsule, 90 days, Dispense #4 Capsule, 12 Refills, Directions: Take 1 tablet weekly 4 capsule 2023 [facility] [id number] trazodo ne 150 mg tablet SIG: trazodone 150 mg oral tablet, 30 days, Dispense #30 Tablet, 1 Refills, Directions: Take 150 mg by mouth nightly. 30 tablet 2023 Historic [id number] trazodo ne 150 mg tablet SIG: trazodone 150 mg oral tablet, 30 days, Dispense #30 Tablet, 1 Refills, Directions: Take 150 mg by mouth nightly. 30 tablet 2023 Historic [id number] alprazo miles 0.5 mg tablet SIG: alprazolam 0.5 mg oral tablet, 30 days, Dispense #90 Tablet, 0 Refills, Directions: Take one tablet by mouth up to three times daily as needed 90 tablet 2023 Historic [id number] alprazo miles 0.5 mg tablet SIG: alprazolam 0.5 mg oral tablet, 30 days, Dispense #85 Tablet, 0 Refills, Directions: Take one tablet by mouth up to three times daily as needed for severe anxiety or panic attack 85 tablet 2023 Historic [id number] metform in 500 mg tablet extende d release 24 hr SIG: metformin 500 mg oral tablet extended release 24 hr, 90 days, Dispense #270 Tablet, 0 Refills, Directions: TAKE 1 ORAL TABLET 3 TIMES A DAY 270 tablet extende d release 24 hr 2023 Historic [id number] albuter ol sulfate 90 mcg/act uation HFA aerosol inhaler SIG: albuterol sulfate 90 mcg/actuation inhalation HFA aerosol inhaler, 3 days, Dispense #6.7 Gram, 0 Refills, Directions: two puffs every 4 hours as needed for cough, wheezing, or shortness of breath 6.7 HFA aerosol inhaler 2023 Historic [id number] alprazo miles 0.5 mg tablet SIG: alprazolam 0.5 mg oral tablet, 30 days, Dispense #80 Tablet, 0 Refills, Directions: Take one tablet by mouth up to three times daily as needed for severe anxiety or panic attack 80 tablet 2023 Historic [id number] prometh azine-D M 6.25-15 mg/5 mL syrup SIG: promethazine-D M 6.25-15 mg/5 mL oral syrup, 29 days, Dispense #116 Milliliter, 0 Refills, Directions: Take 5 oral milliliter every 6 hours as needed for cough. 116 syrup 2023 Historic [id number] alprazo miles 0.5 mg tablet SIG: alprazolam 0.5 mg oral tablet, 30 days, Dispense #80 Tablet, 0 Refills, Directions: Take one tablet by mouth up to three times daily as needed for severe anxiety or panic attack 80 tablet 2023 Historic [id number] famotid ine 40 mg tablet SIG: famotidine 40 mg oral tablet, 90 days, Dispense #90 Tablet, 0 Refills, Directions: TAKE 1 TABLET BY MOUTH EVERY DAY 90 tablet 2023 Historic [id number] FAMOTID INE 40 MG TABLET 40 mg tablet SIG: FAMOTIDINE 40 MG TABLET, Dispense #90, 0 Refills, Directions: take 1 tablet by mouth every day 90 tablet 2023 Historic [id number] ondanse wing 4 mg tablet, disinte grating SIG: ondansetron 4 mg oral tablet,disinte grating, 7 days, Dispense #20 Tablet, 0 Refills, Directions: Take 1 tablet by mouth every 8 hours as needed for nausea 20 tablet, disinte grating 2023 Historic [id number] ondanse wing 4 mg tablet, disinte grating SIG: ondansetron 4 mg oral tablet,disinte grating, 7 days, Dispense #20 Tablet, 0 Refills, Directions: Take 1 tablet by mouth every 8 hours as needed for nausea 20 tablet, disinte grating 2023 Historic [id number] alprazo miles 0.5 mg tablet SIG: alprazolam 0.5 mg oral tablet, 30 days, Dispense #75 Tablet, 0 Refills, Directions: Take one tablet by mouth up to three times daily as needed for severe anxiety or panic attack 75 tablet 2023 Historic [id number] metform in 500 mg tablet extende d release 24 hr SIG: metformin 500 mg oral tablet extended release 24 hr, 90 days, Dispense #270 Tablet, 0 Refills, Directions: TAKE 1 ORAL TABLET 3 TIMES A DAY 270 tablet extende d release 24 hr 2023 Historic [id number] METFORM IN HCL ER 500 MG TABLET 500 mg tablet extende d release 24 hr SIG: METFORMIN HCL ER 500 MG TABLET, Dispense #270, 0 Refills, Directions: take 1 tablet by mouth three times a day 270 tablet extende d release 24 hr 2023 Historic [id number] alprazo miles 0.5 mg tablet SIG: alprazolam 0.5 mg oral tablet, 30 days, Dispense #70 Tablet, 0 Refills, Directions: Take one tablet by mouth up to three times daily as needed for severe anxiety or panic attack 70 tablet 2023 Historic [id number] famotid ine 40 mg tablet SIG: famotidine 40 mg oral tablet, 90 days, Dispense #90 Tablet, 0 Refills, Directions: TAKE 1 TABLET BY MOUTH EVERY DAY 90 tablet 2023 Historic [id number] FAMOTID INE 40 MG TABLET 40 mg tablet SIG: FAMOTIDINE 40 MG TABLET, Dispense #90, 0 Refills, Directions: take 1 tablet by mouth every day 90 tablet 2023 Historic [id number] alprazo miles 0.5 mg tablet SIG: alprazolam 0.5 mg oral tablet, 30 days, Dispense #65 Tablet, 0 Refills, Directions: Take one tablet by mouth up to three times daily as needed for severe anxiety or panic attack 65 tablet 2023 Historic [id number] pantopr azole 40 mg tablet, delayed release (DR/EC) SIG: pantoprazole 40 mg oral tablet,delayed release (DR/EC), 30 days, Dispense #30 Tablet, 1 Refills, Directions: Take 1 oral tablet once a day 30 tablet, delayed release (DR/EC) 2023 Historic [id number] metform in 500 mg tablet extende d release 24 hr SIG: metformin 500 mg oral tablet extended release 24 hr, 90 days, Dispense #270 Tablet, 0 Refills, Directions: TAKE 1 ORAL TABLET 3 TIMES A DAY 270 tablet extende d release 24 hr 2023 Historic [id number] metform in 500 mg tablet extende d release 24 hr SIG: metformin 500 mg oral tablet extended release 24 hr, 90 days, Dispense #270 Tablet, 0 Refills, Directions: TAKE 1 ORAL TABLET 3 TIMES A DAY 270 tablet extende d release 24 hr 2023 Historic [id number] pantopr azole 40 mg tablet, delayed release (DR/EC) SIG: pantoprazole 40 mg oral tablet,delayed release (DR/EC), 30 days, Dispense #30 Tablet, 1 Refills, Directions: Take 1 oral tablet once a day 30 tablet, delayed release (DR/EC) 2023 Historic [id number] Pantopr azole Sodium 40 MG Oral Tablet Delayed Release 40 mg tablet, delayed release (DR/EC) SIG: Pantoprazole Sodium 40 MG Oral Tablet Delayed Release, Dispense #30, 0 Refills, Directions: Take 1 tablet by mouth once daily 30 tablet, delayed release (DR/EC) 2023 Historic [id number] alprazo miles 0.5 mg tablet SIG: alprazolam 0.5 mg oral tablet, 30 days, Dispense #60 Tablet, 0 Refills, Directions: Take one tablet by mouth up to three times daily as needed for severe anxiety or panic attack 60 tablet 2024 Historic [id number] alprazo miles 0.5 mg tablet SIG: alprazolam 0.5 mg oral tablet, 30 days, Dispense #55 Tablet, 0 Refills, Directions: Take one tablet by mouth up to three times daily as needed for severe anxiety or panic attack 55 tablet 2024 Historic [id number] pantopr azole 20 mg tablet, delayed release (DR/EC) SIG: pantoprazole 20 mg oral tablet,delayed release (DR/EC), 90 days, Dispense #90 Tablet, 1 Refills, Directions: Take 1 oral tablet once a day 90 tablet, delayed release (DR/EC) 2024 Historic [id number] Nexlize t 180-10 mg tablet SIG: Nexlizet 180-10 mg oral tablet, 30 days, Dispense #30 Tablet, 0 Refills, Directions: Take 1 oral tablet once a day 30 tablet 2024 Historic [id number] metform in 500 mg tablet extende d release 24 hr SIG: metformin 500 mg oral tablet extended release 24 hr, 90 days, Dispense #270 Tablet, 0 Refills, Directions: TAKE 1 ORAL TABLET 3 TIMES A DAY 270 tablet extende d release 24 hr 2024 Historic [id number] alprazo imles 0.5 mg tablet SIG: alprazolam 0.5 mg oral tablet, 30 days, Dispense #50 Tablet, 0 Refills, Directions: Take one tablet by mouth up to three times daily as needed for severe anxiety or panic attack 50 tablet 2024 Historic [id number] alprazo miles 0.5 mg tablet SIG: alprazolam 0.5 mg oral tablet, 30 days, Dispense #45 Tablet, 0 Refills, Directions: Take one tablet by mouth up to three times daily as needed for severe anxiety or panic attack 45 tablet 2024 Historic [id number] nystati n 100,000 unit/mL suspens ion SIG: nystatin 100,000 unit/mL oral suspension, 50 days, Dispense #200 Milliliter, 0 Refills, Directions: Take 5 mL orally four times daily, retain in mouth as long as possible before swallowing 200 suspens ion 2024 Historic [id number] gabapen tin 600 mg tablet SIG: gabapentin 600 mg oral tablet, 90 days, Dispense #270 Tablet, 1 Refills, Directions: Take 1 Tablet by mouth 3 times daily. 270 tablet 2024 Current [id number] cephale gabi 500 mg capsule SIG: cephalexin 500 mg oral capsule, 5 days, Dispense #10 Capsule, 0 Refills, Directions: Take 1 oral capsule 2 times a day 10 capsule 2024 Historic [id number] pantopr azole 20 mg tablet, delayed release (DR/EC) SIG: pantoprazole 20 mg oral tablet,delayed release (DR/EC), 90 days, Dispense #90 Tablet, 1 Refills, Directions: Take 1 oral tablet once a day 90 tablet, delayed release (DR/EC) 2024 Current [id number] alprazo miles 0.5 mg tablet SIG: alprazolam 0.5 mg oral tablet, 30 days, Dispense #40 Tablet, 0 Refills, Directions: Take one tablet by mouth up to three times daily as needed for severe anxiety or panic attack 40 tablet 2024 Historic [id number] metform in 500 mg tablet extende d release 24 hr SIG: metformin 500 mg oral tablet extended release 24 hr, 90 days, Dispense #270 Tablet, 0 Refills, Directions: TAKE 1 ORAL TABLET 3 TIMES A DAY 270 tablet extende d release 24 hr 2024 Current [id number] ondanse wing 4 mg tablet, disinte grating SIG: ondansetron 4 mg oral tablet,disinte grating, 7 days, Dispense #20 Tablet, 0 Refills, Directions: Take 1 tablet by mouth every 8 hours as needed for nausea 20 tablet, disinte grating 2024 Current [id number] alprazo miles 0.5 mg tablet SIG: alprazolam [...] DUE TO OTHER MENTAL DISORDER Chronic 03/15/2018 [id number] (PRIMARY) HYPERTENSION ESSENTIAL (PRIMARY) HYPERTENSION Chronic 03/15/2018 I50.32-CHRONIC DIASTOLIC (CONGESTIVE) HEART FAILURE CHRONIC DIASTOLIC (CONGESTIVE) HEART FAILURE Chronic 03/15/2018 K21.0-VAEZHL-ZPZKOCTNE L REFLUX DISEASE WITHOUT ESOPHAGITIS GASTRO-ESOPHAGEAL REFLUX DISEASE WITHOUT ESOPHAGITIS Chronic 03/15/2018 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 03/15/2018 R73.03-Prediabetes Prediabetes Historic 03/15/2018 M54.6-PAIN IN THORACIC SPINE PAIN IN THORACIC SPINE Chronic 03/15/2018 M17.0-Bilateral primary osteoarthritis of knee Bilateral primary osteoarthritis of knee Chronic 03/15/2018 I65.23-Occlusion and stenosis of bilateral carotid arteries Occlusion and stenosis of bilateral carotid arteries Chronic 01/05/2022 M81.3-AED-LTDXCUK OSTEOPOROSIS WITHOUT CURRENT PATHOLOGICAL FRACTURE AGE-RELATED OSTEOPOROSIS [...] Never Smoker Sex: Female 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 [employer] Medicare [id number] SELF
[2024-09-05 11:54] VITALS: BP 151/79; PULSE 108; RESP 20; TEMP 36.7; O2SAT 100
--- NOTE | 2024-09-05 12:16 | ED.GENADULT ---
HPI - General Adult General Chief complaint: Chest Pain Stated complaint: Poss Broken ribs fell 3 weeks ago Time Seen by Provider: 09/05/24 12:08 Source: patient and RN notes reviewed Mode of arrival: ambulatory Limitations: no limitations History of Present Illness HPI narrative: Patient presents today complaining of right lower anterior rib pain under the right breast. She fell 3 weeks ago onto her right side breaking her nose him bruising herself up. She was subsequently seen in a local ER where head CT/facial bone CT was done and she was diagnosed with a broken nose. Her ribs were not evaluated at that time. She continues to have pain in the ribs that increases with deep breath. Currently rates her pain 5/10 and has taken [place] for her pain. She takes 1 [place] a day for her syrinx, which does with her rib pain. She tried some ibuprofen this morning with some improvement as well. Denies shortness of breath. Related Data Home Medications ?Medication ?Instructions ?Recorded ?Confirmed ?Last Taken ?Type alprazolam 0.5 mg tablet (Xanax) 0.5 mg PO TID PRN Anxiety 06/04/20 04/03/24 Unknown History qjcjulbyka-vrfpszo-squirglu 50 1 cap PO BID PRN Pain 01/15/22 10/01/23 Unknown History mg-325 mg-40 mg capsule hydrochlorothiazide 25 mg tablet 25 mg PO DAILY 01/15/22 10/01/23 Unknown History icosapent ethyl 1 gram capsule 1 g PO DAILY 01/15/22 10/01/23 Unknown History (Vascepa) metoprolol succinate 50 mg 50 mg PO DAILY 01/15/22 10/01/23 Unknown History tablet,extended release 24 hr nitroglycerin 0.4 mg sublingual 0.4 mg sublingual DAILY PRN Chest 01/15/22 10/01/23 Unknown History tablet Pain alendronate 70 mg tablet 70 mg PO DAILY 08/05/22 10/01/23 Unknown History amlodipine 5 mg tablet 5 mg PO DAILY 08/05/22 04/03/24 Unknown History metformin 500 mg tablet,extended 500 mg PO TID 08/06/23 10/01/23 Unknown History release 24 hr paroxetine HCl 20 mg tablet 20 mg PO DAILY 08/06/23 10/01/23 Unknown History ketorolac 0.5 % eye drops drp 05/16/24 Unknown History pantoprazole 20 mg tablet,delayed mg PO 05/16/24 Unknown History release polymyxin B sulfate 10,000 05/16/24 Unknown History unit-trimethoprim 1 mg/mL eye drops prednisolone acetate 1 % eye drp 05/16/24 Unknown History drops,suspension famotidine 40 mg tablet mg 09/05/24 Unknown History gabapentin 600 mg tablet mg 09/05/24 Unknown History methocarbamol 500 mg tablet mg 09/05/24 Unknown History ondansetron 4 mg disintegrating mg 09/05/24 Unknown History tablet Allergies Allergy/AdvReac Type Severity Reaction Status Date / Time bee venom protein (honey bee) Allergy Severe Anaphylaxis Verified 09/05/24 11:55 erythromycin base Allergy Unknown Hives Verified 09/05/24 11:55 PMFSH Past Medical History Medical History Diabetes Diarrhea Syrinx of spinal cord Diastolic dysfunction Hypertension Depression Low back pain Surgical History Surgical History H/O: hysterectomy History of right knee joint replacement Hx of appendectomy S/P tonsillectomy H/O total knee replacement (~12/25/19) Family History Family History Mother Family history non-contributory Social History Social History Social History: never smoker Smoking status: Never smoker Alcohol intake: current Substance use: never Living arrangements: with family Gender identity (if verbalized by the patient): Female Sexual Orientation (if Verbalized by the Patient): Straight or Heterosexual Spiritual care concerns: No Comments At time of signature, I have reviewed and agree with nursing past medical, surgical, social and family history unless otherwise noted. Please see nursing chart for further information. There is no relevant family history pertinent to the presenting complaint Exam Narrative: GENERAL: Well-appearing, well-nourished, and in no acute distress. HEAD: Normocephalic, atraumatic. EYES: EOMI. No redness or drainage. Conjunctivae normal. ENT: Mucous membranes pink and moist. Nares clear. No rhinorrhea. Nose appears normal NECK: Normal AROM. CHEST: No respiratory distress. Clear to auscultation. Point tenderness below the right breast without crepitus, step-off, or other deformity. No ecchymosis or erythema noted. HEART: Regular rate and rhythm. No murmur appreciated. EXTREMITIES: Normal range of motion. No edema. SKIN: Warm, dry, no rash. Capillary refill normal. Normal skin turgor. NEURO: No focal deficits. Alert and oriented x3. Gait steady. PSYCH: Normal affect. No signs of depression or anxiety. Course Course Level of Care: Express Care Visit Vital Signs Vital signs: Vital Signs Temperature 98.0 F 09/05/24 11:54 Pulse Rate 108 H 09/05/24 11:54 Respiratory Rate 09/05/24 11:54 Blood Pressure 151/79 H 09/05/24 11:54 Pulse Oximetry 100 09/05/24 11:54 Oxygen Delivery Room Air 09/05/24 11:54 Temperature 98.0 F 09/05/24 11:54 Pulse Rate 108 H 09/05/24 11:54 Respiratory Rate 09/05/24 11:54 Blood Pressure 151/79 H 09/05/24 11:54 Pulse Oximetry 100 09/05/24 11:54 Oxygen Delivery Room Air 09/05/24 11:54 Reviewed Medical Decision Making MDM Narrative Medical decision making narrative: 64-year-old female patient presents with right anterior lower rib pain after falling 3 weeks ago. Denies shortness of breath. She has been taking [place] at home, which has helped improve symptoms. X-ray suggests 10th and 11th rib fractures. Recommend continuing [place] home if needed with PCP follow-up in 2-3 weeks if symptoms are not improving. Patient is already on Fosamax and calcium supplements for her osteoporosis. ED precautions given if she develops shortness of breath or fever. Patient agrees with plan. Differential Diagnosis Differential Diagnosis: Rib fracture, contusion Vital Signs Vital Signs: Vital Signs Temperature 98.0 F 09/05/24 11:54 Pulse Rate 108 H 09/05/24 11:54 Respiratory Rate 09/05/24 11:54 Blood Pressure 151/79 H 09/05/24 11:54 Pulse Oximetry 100 09/05/24 11:54 Oxygen Delivery Room Air 09/05/24 11:54 Temperature 98.0 F 09/05/24 11:54 Pulse Rate 108 H 09/05/24 11:54 Respiratory Rate 20 09/05/24 11:54 Blood Pressure 151/79 H 09/05/24 11:54 Pulse Oximetry 100 09/05/24 11:54 Oxygen Delivery Room Air 09/05/24 11:54 Imaging Data Radiologist's impression: ITS Impressions Ribs X-Ray 09/05/24 12:43 IMPRESSION: Highly suggestive fracture of the right 10th and 11th ribs. Clinical correlation and follow-up advised Critical Care Time Critical Care Time Critical Care Time: No Discharge Plan Discharge Clinical Impression: Fracture, ribs Qualifiers: Encounter type: initial encounter Fracture type: closed Laterality: right Qualified Code(s): S22.41XA - Multiple fractures of ribs, right side, initial encounter for closed fracture Patient Disposition: Home Condition: Stable Instructions: Rib Fracture (ED) Additional Instructions: Your x-ray shows fractures of the right 10th and 11th ribs. Continue your home pain medication if needed. Follow-up with your PCP in 3 weeks if symptoms have not improved. As discussed, if you develop worsening symptoms such as shortness of breath or fever greater than 100.3, please go to the ER immediately for further evaluation. Your blood pressure was elevated above 120/80 today at Urgent Care. This puts you above the threshold for follow up. Please schedule a followup visit with your personal physician as soon as possible, for further evaluation and treatment. Even blood pressure exceeding 120/80 may indicate pre-hypertension. Patient Language: Irish Prescriptions: No Action amlodipine 5 mg tablet 5 mg PO DAILY alendronate 70 mg tablet 70 mg PO DAILY paroxetine HCl 20 mg tablet 20 mg PO DAILY metformin 500 mg tablet extended release 24 hr 500 mg PO TID metoprolol succinate 50 mg tablet extended release 24 hr 50 mg PO DAILY nridtmmuxh-plsyiwx-twhyvkqr 50-325-40 mg capsule 1 cap PO BID PRN (Reason: Pain) icosapent ethyl [Vascepa] 1 gram capsule 1 g PO DAILY nitroglycerin 0.4 mg tablet, sublingual 0.4 mg sublingual DAILY PRN (Reason: Chest Pain) hydrochlorothiazide 25 mg tablet 25 mg PO DAILY pantoprazole 20 mg tablet,delayed release (DR/EC) PO ketorolac 0.5 % drops prednisolone acetate 1 % drops,suspension polymyxin B sulf-trimethoprim 10,000 unit- 1 mg/mL drops methocarbamol 500 mg tablet gabapentin 600 mg tablet famotidine 40 mg tablet ondansetron 4 mg tablet,disintegrating alprazolam [Xanax] 0.5 mg tablet 0.5 mg PO TID PRN (Reason: Anxiety) tramadol 50 mg tablet 50 mg PO Q8H PRN (Reason: pain (scale score 7-10)) Qty: 50 0RF hydrocodone-acetaminophen 10-325 mg tablet 1 tablet PO Q8H PRN (Reason: pain (scale score 7-10)) Qty: 90 0RF Rx Instructions: To last 30 days, due 12/12/2020 Follow-up/Referrals: Gentry,Damir Ching DO [Primary Care Provider] - Time of Disposition: 13:02
== END 2024-09-05 13:07 | disposition home or self-care (01) ==
PROVIDERS: Emergency Provider Nurse Practitioner; PCP Family Medicine
DX: S22.41XA Multiple fractures of ribs, right side, initial encounter for closed fracture (principal); E11.9 Type 2 diabetes mellitus without complications; I10 Essential (primary) hypertension; Z79.899 Other long term (current) drug therapy; W19.XXXA Unspecified fall, initial encounter
CPT/HCPCS: 71100; 99213; G0463

== ENCOUNTER 2024-10-05 11:50 | Emergency (ER) | payer MEDICARE, OTHER, SELFPAY ==
--- OUTSIDE RECORDS SUMMARY | 2024-10-05 11:53 | XMS_ITS | Clinical Summary ---
Author Organization [facility] Address [address] [address] Phone Care Team Providers Care Senior Clinical Research Scientist Name Role Phone Damir Rinaldi DO Primary Care Provider [phone] Micah Rand MD Unavailable [phone] Allergies Active Allergy Reactions Criticality Noted Date [...] 10 mg by mouth daily. Active butalbital-aspir zv-thasqkhn-gjsw ine (FIORINAL WITH CODEINE) 43-127-64-30 MG Capsule Take 1 Capsule by mouth [...] to complete this topic Insurance MEDICARE [employer] Care Teams Senior Clinical Research Scientist Relationship Specialty Start Date End Date Damir Rinaldi DO [address] [place] [address] PCP - General Family Medicine 02/10/15 Micah Rand MD [address] [place] [id number] Consulting Physician Neurology 10/11/21
--- OUTSIDE RECORDS SUMMARY | 2024-10-05 11:53 | XMS_ITS | Continuity of Care Document ---
Author Organization [employer] [facility] [place] Address [address] [place] [address] Phone Care Team Providers Care K9 Handler Name Role Phone Ankur SETH Kim Unavailable [...] Photography W/ Report Corneal Topography Office/outpatient Visit, [facility] Advance Directives Directive Yes / No Effective Date File Name No Information Encounters Encounter Description Practice Location Reason(s) For Visit Diagnoses Date Provider Providers Copied on [facility]counter [facility], [address], [place], [place], [address], tel:[phone] SEC [place] LEIGH Professional 2 Week CE/IOL PO (chief complaint) Post op visit 5 Ankur OD Kim. [facility] [employer], [address], [place], [place], [address], [place]. tel:[phone] Referring Provider: Matt Kinsey, [facility] [address], [place], [address] . tel:[phone] [facility], [facility] [employer] [address], [place], [place], [address], [place] tel:[phone] SEC [place] Professional 1 Day CE/IOL PO (chief complaint) Post op visit 5 Ankur OD Kim. [facility] [employer] [address], [address], [place], [place], [address], [place]. tel:[phone] Referring Provider: Matt Kinsey, [facility] [address], [place], [address] . tel:[phone] [facility], [facility] [employer], [place], [place], [address], tel:[phone] [facility] [place] No Information 5 Sachin Gutierrez. [facility] [address], [address], [place], [place], [address], . tel:[phone] Referring Provider: Matt Kinsey, [facility] [address], [place], [address] . tel:[phone] [employer] [facility], [facility] [address], [place], [place], [address], tel:[phone] [place] No Information May-3 0 5 Sachin Matt. [facility] [address], [address], [place], [place], [address], [place]. tel:[phone] Referring Provider: Matt Kinsey, [facility] [address], [place], [address] . tel:[phone] [facility], [facility] [employer] [address], [place], [place], [address], tel:[phone] SEC [place] LEIGH Professional 2 Week CE/IOL PO (chief complaint) Post op visit 5 Ankur OD Kim. [facility] [address], [address], [place], [place], [address], [place]. tel:[phone] Referring Provider: Matt Kinsey, [facility] [address], [place], [address] . tel:[phone] [employer] [facility], [facility] [address], [place], [place], [address], [place] tel:[phone] SEC [place] LEIGH Professional Post-Op (chief complaint) Postoperative visit May-0 5 Elvis OD Olivia. [facility] [employer] [address], [address], [place], [place], [address], [place]. tel:[phone] Referring Provider: Matt Kinsey, [facility] [address], [place], [address] . tel:[phone] [facility], [facility] [address], [place], [place], [address], [place] tel:[phone] [facility] [place] No Information Apr-0 - 5 Sachin Gutierrez. [facility] [address] [employer], [address], [place], [place], [address], [place]. tel:[phone] Referring Provider: Matt Kinsey, [facility] [address] [employer] [facility] [address], [place], [address] . tel:[phone] [facility], [address] [place] [address] [address], [place], [place], [address], [place] tel:[phone] [place] No Information Apr0 2 5 Sachin Gutierrez. [facility] [employer] [employer], [address], [place], [place], [address], [place]. tel:[phone] Referring Provider: Matt Kinsey, [facility] [address] [employer] [address], [place], [address] . tel:[phone] Office/outpa tient Visit, [facility], [address] [place] [address] [address], [place], [place], [address], [place] tel:[phone] SEC [place] Professional Cataract evaluation (chief complaint) Combined forms of age-related cataract, bilateralPred iabetes Apr-1 5 Sachin Gutierrez. [facility] [employer] [employer], [address], [place], [place], [address], [place]. tel:[phone] Referring Provider: Matt Kinsey, [facility] [address], [place], [address] . tel:[phone] [facility], [facility] [address], [place], [place], [address], [place] tel:[phone] SEC [place] Professional No Information Mar-0 3- 5 Sachin Gutierrez. [facility] [employer] [employer], [address], [place], [place], [address], [place]. tel:[phone] Family History Family Member Type Diagnosis Age At Onset Problem Family history of Glaucoma Payers Payer name Insurance type Covered constitution party ID Authorannie tikristi(s) No Information Social History [...] she failed her vision test at the [facility] and is restricted to daytime only. Patient [...]
--- OUTSIDE RECORDS SUMMARY | 2024-10-05 11:54 | XMS_ITS | Clinical Summary ---
Author Organization [facility] [address] Address [address] [place] [address] Care Team Providers Care Dairy And Food Laboratory Assistant Name Role Phone Zulykristi Damir Vargasony Primary Care Provider [phone] Bryan Simeon MD Unavailable [phone] Jerry Leos NP Unavailable [phone] Beryl Mendoza PT Unavailable Unavailable Allergies Active [...] a day as needed 09/29/19 24 Active benzocaine-menthoL (CHLORASEPTIC) 6-10 mg lozenge Take 1 lozenge by mouth every 4 (four) hours as needed for sore throat 36 tablet 10/10/[address] (PROTONIX) 40 mg EC tablet Take 1 tablet (40 mg total) by mouth daily 02/19/20 24 Active ondansetron ODT (ZOFRAN-ODT) 8 mg disintegrating tablet Take 1 tablet (8 mg total) by mouth every 8 (eight) hours as needed for nausea or vomiting 30 tablet 05/18/19 25 Active ketorolac (TORADOL) 10 mg tablet Take 1 tablet (10 mg total) by mouth every 6 (six) hours as needed for pain 20 tablet 08/11/19 25 Active Active Problems Problem Noted Date Diagnosed [...] is overdue for follow up with her comber fixer, Dr. Lala, in [place]. She will follow up soon. Patient has pain medication at home from her paint prep technician should pain return. 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, initial encounter (Primary Dx); History of meniscectomy of left knee; Pes anserinus bursitis of right knee; Primary osteoarthritis of left knee 08/19/2024 2:30 PM CDT Office Visit [facility] ENT Specialists - [facility] [address] [facility] [address] [place] [address] Susan Amado DO Closed fracture of nasal bone, initial encounter (Primary Dx); Abrasion of face, initial encounter 08/13/2024 4:03 PM CDT - 08/13/2024 7:28 PM CDT Emergency [facility] Emergency Department [address] [place] [address] Fall, initial encounter (Primary Dx) Discharge Disposition: Discharge to home or self care 08/12/2024 12:47 AM CDT - 08/12/2024 5:06 AM CDT Emergency [facility] Emergency Department [address] [place] [address] Jaylan Haider MD Dizziness (Primary Dx) Discharge Disposition: Discharge to home or self care 08/10/2024 4:23 PM CDT - 08/10/2024 5:45 PM CDT Emergency [facility] Emergency Department [address] [place] [address] Acute pain of left knee (Primary Dx) [...] drink = 0.6 oz pur e alcohol) [facility] Utilities Answer Date Recorded In the past 12 months has e electric, gas, oil, or water company threatened to shut off services in your home? No 10/09/2023 Social Connection and Isolation Panel Answer Date Recorded In a typical week, how many times do you talk on the phone with family, friends, or neighbors? Three times a week 10/09/2023 How often do you get togethe r with friends or relatives? Once a week 10/09/2023 How often do you attend chur ch or baptism services? Never 10/09/2023 Do you belong to any clubs o r organizations such as voodoo groups, unions, fraternal or athletic groups, or [...] any time in the past 12 m [facility], were you homeless or living in a halfway (including now)? No 10/09/2023 Personal Safety Answer Date Recorded Have you ever been in or are you currently in a harmful physical or emotional relationship or is someone making you feel afraid or unsafe? Denies 08/13/2024 Comments No Sex and Gender Information Value Date Recorded Sex Assigned at Not on file Legal Sex Female 1:44 AM MUSIC LIBRARIAN Gender Identity Not on file Sexual Orientation [...] Discontinued 10/27/2022 Medical Devices Implanted Type Area Senior Quality Assurance Engineer Device Identifier Shelf Expiration Date Model / Serial / Lot [employer] Marker Tissue Bowtie Shape Titanium Collagen Mammomark 10ga [id number] - [id number] - [id number] Implanted:Qty : 1 on 01/31/2024 by Kerry Bhat MD at [facility] Breast Left: Breast [employer] [id number] 05/01/2025 [id number] / [id number] / [id number] D Description:Stereotactic lef t breast biopsy 11-12 o'clock area. Cores x6 Microcalcs in cassettes 1 and 6. Procedures Procedure Name Priority Date/Time Associated Diagnosis Comments MT ARTHROCENTESIS ASPIR&/INJ MAJOR JT/BURSA W/O US Routine 08/28/2024 8:00 AM CDT Pes anserinus bursitis of right knee MT [...] AUTO DIFFERENTIAL STAT 08/10/2024 4:41 PM CDT DEXA AXIAL SKELETON BONE DENSITY 1 OR MORE SITES Schedule Routine, Read Routine (OP Routine) 03/27/2024 8:27 AM MUSIC LIBRARIAN Age-related osteoporosis without current pathological fracture DIAGNOSTIC MAMMOGRAM BILATERAL W PETER Schedule Routine, Read Routine (OP Routine) 01/05/2024 10:23 AM MUSIC LIBRARIAN Other abnormal and inconclusive findings on diagnostic imaging of breast COLONOSCOPY 10/27/2022 8:16 AM CDT from Last 3 Months or Most Recently Relevant to Health Maintenance Results * MT ARTHROCENTESIS ASPIR&/INJ MAJOR JT/BURSA W/O US (08/28/2024 [...] MT ARTHROCENTESIS ASPIR&/INJ MAJOR JT/BURSA W/O US (08/28/2024 [...] Shanon Rhodes D.O. PS: PS Report ID: [id number] Reading Location: [id number] Procedure Note Shanon Rhodes DO - 08/13/2024 EXAM DESCRIPTION: CT CERVICAL [...] Shanon Rhodes D.O. PS: PS Report ID: [id number] Reading Location: [id number] Anitra DIXON CT PROCEDURES Final Result * [...] Shanon Rhodes D.O. PS: PS Report ID: [id number] Reading Location: [id number] Procedure Note Meagan Shanon Pozo DO - 08/13/2024 EXAM DESCRIPTION: CT FACIAL [...] Shanon Rhodes D.O. PS: PS Report ID: [id number] Reading Location: [id number] Anitra Zaman MIGUEL A IMAriel CT PROCEDURES Final Result * CT [...] Shanon Rhodes D.O. PS: PS Report ID: [id number] Reading Location: [id number] Procedure Note Shanon Rhodes DO - 08/13/2024 [...] Shanon Rhodes D.O. PS: PS Report ID: [id number] Reading Location: [id number] Anitra GRADY [facility] CT PROCEDURES Final Result * CT Head [...] Jaylan Agrawal M.D. AR: SHANI Report ID: [id number] Reading Location: [id number] Procedure Note Jaylan Agrawal MD - 08/12/2024 [...] Jaylan Agrawal M.D. AR: SHANI Report ID: [id number] Reading Location: [id number] us Jaylan Haider MD IMG CT PROCEDURES F inal Result * ECG 12 lead (08/12/2024 12:15 AM CDT) 08/12/2024 12:1 5 AM CDT Narrative [facility] - 08/12/2024 8:17 AM CDT Vent Rate: 75 bpm RR Interval: 797 msec MT Interval: 137 msec QRS Duration: 81 msec QT Interval: 368 msec QTC Interval: 397 msec P-R-T [place]: 61 - 31 - 60 degrees IMPRESSION: SINUS RHYTHM NORMAL ECG No change compared to prior EKG Electronically Signed By: Garry Lynn MD [facility] us Jaylan Haider MD ECG ORDERABLES Fin al Result [facility] * eGFR (08/12/2024 12:12 AM CDT) [...] BLOOD ORDERABLE S Final Result [facility] ([place]) [address] [facility] Department [place] [address] * (ABNORMAL) Differential, auto (08/12/2024 12:12 AM [...] MD LAB BLOOD ORDERABLE S Final Result [facility] ([place]) [address] [facility] [place] [address] * (ABNORMAL) CBC with auto differential (08/12/2024 12:12 AM CDT) Pathologist [facility] WBC 11.14(H) 3.80 - 9.90 K/cumm Hgb [...] S Final Result [facility] ([place]) 1 [facility] [place] [address] * (ABNORMAL) Comprehensive metabolic panel (08/12/2024 12:12 [...] MD LAB BLOOD ORDERABLE S Final Result [facility] ([place]) [address] [facility] [place] [address] * POCT glucose (08/12/2024 12:09 AM CDT) Glucose, POC 135 70 - 199 mg/dL Blood 08/12/2024 12:0 9 AM CDT 08/12/2024 12:09 AM CDT us Notinfile Unknown LAB POCT ORDERABLES - DEVICE F inal Result [facility] ([place]) [address] [facility] [place] [address] * XR Knee Left 3 Views (08/10/2024 [...] Kennedy Gaytan M.D. KH: GREGORY Report ID: [id number] Reading Location: [id number] Procedure Note Kennedy Gaytan MD - 08/10/2024 [...] Kennedy Gaytan M.D. KH: GREGORY Report ID: [id number] Reading Location: [place] [address] Anitra GRADY IMG XR PROCEDURES Final Result [...] GRADY LAB BLOOD ORDERABLES Final Resu lt [facility] ([place]) [address] [facility] Department [place] [address] * Differential, auto (08/10/2024 4:41 PM CDT) [...] GRADY LAB BLOOD ORDERABLES Final Resu lt [facility] ([place]) [address] [facility] [place] [address] * (ABNORMAL) CBC with auto differential (08/10/2024 [...] 4:41 PM CDT 08/10/2024 4:43 PM CDT [facility] LAB BLOOD ORDERABLES Final Resu lt Performing Organization Address City/[facility]/ZIP Co de Phone Number [facility] MorenoSOCRATES) [address] [facility] [place] [address] * (ABNORMAL) D-dimer, quantitative (08/10/2024 4:41 PM [...] PM CDT 08/10/2024 4:43 PM CDT Anitra Zaman PA LAB BLOOD ORDERABLES Final Resu lt [facility] ([place]) [address] [facility] [place] [address] * CRP (acute phase) (08/10/2024 4:41 PM CDT) CRP <3.0 <=10.0 mg/L Blood 08/10/2024 4:41 PM CDT 08/10/2024 4:43 PM CDT us Anitra GRADY LAB BLOOD ORDERABLES Final Resu lt [facility] ([place]) [address] [facility] Department [place] [address] * Comprehensive metabolic panel (08/10/2024 4:41 PM [...] BLOOD ORDERABLES Final Resu lt [facility] ([place]) [address] [facility] [place] [address] * Dexa Axial Skeleton Bone Density 1 or 2 Site (03/27/2024 8:27 AM MUSIC LIBRARIAN) Anatomical Region Laterality Modality Body N/A Other 03/27/2024 4:56 PM MUSIC LIBRARIAN Narrative 03/27/2024 4:57 PM MUSIC LIBRARIAN EXAM DESCRIPTION: DEXA AXIAL SKELETON BONE DENSITY 1 OR MORE SITES REASON FOR STUDY: 63 y/o year old F with given history of: age-related osteoporosis Postmenopausal. Senior Quality Assurance Engineer/Model: Gif[employer] SL (S/N [id number]) Facility LSC value of 0.022 for the [...] Arcadio Goel M.D. MF: TAM Report ID: [id number] Reading Location: [place] [address] Procedure Note Arcadio Goel MD - 03/27/2024 EXAM DESCRIPTION: DEXA AXIAL SKELETON BONE DENSITY 1 OR MORE SITES REASON FOR STUDY: 63 y/o year old F with given history of:age-related osteoporosis Postmenopausal. Senior Quality Assurance Engineer/Model: Giftah SL (S/N [id number]) Facility LSC value of 0.022 for the [...] see below follow up recommendations. [facility] causes of low bone mineral density may [...] Arcadio Goel M.D. MF: TAM Report ID: [id number] Reading Location: [id number] us Damir Rinaldi DO IMG DXA PROCEDURES Final R esult * (ABNORMAL) Diagnostic Mammogram Bilateral W Peter (01/05/2024 10:23 AM MUSIC LIBRARIAN) Anatomical Region Laterality Modality Breast Bilateral Mammography 01/05/2024 5:13 PM MUSIC LIBRARIAN Impressions 01/05/2024 5:13 PM MUSIC LIBRARIAN 1. Multiple bilateral tiny circumscribed nodules are stable and considered a benign finding. 2. Stereotactic/tomographic guided biopsy is now recommended for the calcifications in the left breast. OVERALL FINAL ASSESSMENT: BI-RADS 4b-moderate suspicion for malignancy Electronically signed by: Kerry Bhat M.D. Narrative 01/05/2024 5:13 PM MUSIC LIBRARIAN EXAMINATION: BILATERAL DIGITAL DIAGNOSTIC MAMMOGRAM AND DIGITAL [...] Ronquillo MD - 10/27/2022 8:16 AM CDT [facility] Patient Name: Roma Page Procedure Date: 10/27/2022 8:16 AM Date of : 1960 Admit Type: Outpatient Age: 62 Gender: Female Attending MD: Karen Ronquillo M.D. Room: [facility] ENDOSCOPY ROOM 2 Note Status: Finalized Patient [...] by the physician, the anesthesiologist and the laundry technician in the endoscopy suite. MentalStatus Examination: [...] scope was passed under direct vision. TheColonoscope [id number] was introduced through the anus and advanced [...] perforation orabscess without bleeding CPT copyright 2020 [employer]. All rights reserved. The codes documented in this report are preliminary and upon entry level manager reviewmay be revised to meet current compliance requirements. Recognized by the [employer] for promoting quality in endoscopy Karen Ronquillo MD ENDOSCOPY PROCEDURES Final Resul t from Last 3 Months or Most Recently Relevant to Health Maintenance Insurance MEDICARE [facility] INS [place] Member Subscriber Plan / Payer (Ef fective 2021-) Name:Roma Page Dilip Relation to Subscriber:Self Name:Roma Page Payer ID:[id number] Group ID:Not on file Type:[employer] Address: [facility] [address] [place] [address] MEDICARE COMMERCIAL [employer]IC [facility] EMPL[employer]EE HEALTH PLANS Address: [address] [place] [address] PHYSICIANS [employer] MEDICARE PHYSICIANS [employer] Advance Directives For more information, please contact: [phone] * Full Code (Latest Code Status on [...] Alternate Health Car e Agent Care Teams Dairy And Food Laboratory Assistant Relationship Specialty Start Date End Date Damir Rinaldi DO PCP - General Family Medicine 05/08/19 Bryan Simeon MD Consulting Physician Cardiology 01/10/23 Jerry Leos NP [address] [place] [address] DR ZHU [address] [place] [address] Nurse Practitioner Orthopedic Surgery 01/17/23 Beryl Mendoza PT Physical Therapist Physical Therapy 06/16/23
--- OUTSIDE RECORDS SUMMARY | 2024-10-05 11:54 | XMS_ITS | Continuity of Care Document ---
Author Organization [email or web address] [facility] Address [address] [place] [address] Phone Care Team Providers Care Grain Loader Name Role Phone Ankur SETH Kim Unavailable [...] Photography W/ Report Corneal Topography Office/outpatient Visit, [facility] Advance Directives Directive Yes / No Effective Date File Name No Information Encounters Encounter Description Practice Location Reason(s) For Visit Diagnoses Date Provider Providers Copied on Encounter [facility], [address], [place], [place], [id number], tel:[phone] SEC Ryan LEIGH Professional 2 Week CE/IOL PO (chief complaint) Post op visit 5 Ankur OD Kim. [facility] [address], [address], [place], [place], [address], [place]. tel:[phone] Referring Provider: Matt Kinsey, [facility] [address], [place], [address] . tel:[phone] [facility], [facility] [employer] [address], [place], [place], [address], [place] tel:[phone] SEC Ryan [place] Professional 1 Day CE/IOL PO (chief complaint) Post op visit 5 Ankur OD Kim. [facility] [address], [address], [place], [place], [address], [place]. tel:[phone] Referring Provider: Matt Kinsey, [facility] [address], [place], [address] . tel:[phone] [facility], [facility] [employer] [address], [place], [place], [address], tel:[phone] [facility] [place] No Information 5 Sachin Gutierrez. [facility] [address], [address], [place], [place], [address], . tel:[phone] Referring Provider: Matt Kinsey, [facility] [address], [place], [address] . tel:[phone] [email or web address], [facility] [address], [place], [place], [address], tel:[phone] SEC [place] No Information May-3 0 5 Sachin Matt. [facility] [address], [address], [place], [place], [address], [place]. tel:[phone] Referring Provider: Matt Kinsey, [facility] [address], [place], [address] . tel:[phone] [facility], [facility] [employer] [address], [place], [place], [address], tel:[phone] SEC Ryan LEIGH Professional 2 Week CE/IOL PO (chief complaint) Post op visit 5 Ankur OD Kim. [facility] [address], [address], [place], [place], [address], [place]. tel:[phone] Referring Provider: Matt Kinsey, [facility] [address], [place], [address] . tel:[phone] [email or web address], [facility] [address], [place], [place], [address], [place] tel:[phone] SEC Ryan LEIGH Professional Post-Op (chief complaint) Postoperative visit May-0 5 Elvis OD Olivia. [facility] [employer] [address], [address], [place], [place], [address], [place]. tel:[phone] Referring Provider: Matt Kinsey, [facility] [address], [place], [address] . tel:[phone] [facility] [employer] [facility], [facility] [address], [place], [place], [address], [place] tel:[phone] [facility] [place] No Information Apr-0 - 5 Sachin Gutierrez. [facility] [place] [employer] [address], [address], [place], [place], [address], [place]. tel:[phone] Referring Provider: Matt Kinsey, [facility] [address] [facility] [address], [place], [address] . tel:[phone] [facility], [address] [place] [address] [address], [place], [place], [address], [place] tel:[phone] [place] No Information Apr0 2 5 Sachin Gutierrez. [facility] [place] [address], [address], [place], [place], [address], [place]. tel:[phone] Referring Provider: Matt Kinsey, [facility] [address], [place], [address] . tel:[phone] Office/outpa tient Visit, [facility], [address] [place] [address] [address], [place], [place], [address], [place] tel:[phone] SEC [place] Professional Cataract evaluation (chief complaint) Combined forms of age-related cataract, bilateralPred iabetes Apr-1 5 Sachin Gutierrez. [facility] [address], [address], [place], [place], [address], [place]. tel:[phone] Referring Provider: Matt Kinsey, [facility] [address], [place], [address] . tel:[phone] [facility], [facility] [place] [address], [place], [place], [address], [place] tel:[phone] SEC Ryan [place] Professional No Information Mar-0 3- 5 Sachin Gutierrez. [facility] [address] [employer] [address], [address], [place], [place], [address], [place]. tel:[phone] Family History Family Member Type Diagnosis Age [...] she failed her vision test at the [facility] and is restricted to daytime only. [...]
--- OUTSIDE RECORDS SUMMARY | 2024-10-05 11:54 | XMS_ITS ---
Author Name HALLIE TAVARES Address [address] [place] [address] Phone [facility] Address [address] [place] [address] Phone Care Team Providers Care Uniform Room Attendant Name Role Phone DO HALLIE TAVARES Unavailable ALLERGIES, ADVERSE REACTIONS AND ALERTS Allergy Name Allergy Date Allergy Status Allergy Severity Allergy Reaction Erythromycin Base, [RxNorm: 4053] 01/05/2022 Current Moderate Hives, Nausea Pravastatin, [RxNorm: 39581] 01/05/2022 Current Moderate Myalgia MEDICATIONS RxNorm Brand Name Prescription Ordered Value Order Unit Start Date Date Status Fill Status Indications [id number] Ambien 5 mg tablet SIG: Ambien 5 mg tablet, 30 days, Dispense #30 Tablet, 0 RefillsDirecti ons: Take one tablet my mouth daily. 30 tablet 2014 Historic [id number] Xanax 0.5 mg tablet SIG: Xanax 0.5 mg tablet, 30 days, Dispense #15 Tablet, 0 RefillsDirecti ons: Take one tablet by mouth as needed. 15 tablet 2014 Historic [id number] pravast atin 80 mg tablet SIG: pravastatin 80 mg tablet, 30 days, Dispense #30 Tablet, 2 RefillsDirecti ons: Take one tablet by mouth daily. 30 tablet 2014 Historic [id number] Xanax 0.5 mg tablet SIG: Xanax 0.5 mg tablet, 30 days, Dispense #15 Tablet, 0 RefillsDirecti ons: Take one tablet by mouth up to three times daily as needed 15 tablet 2014 Historic [id number] Ambien 5 mg tablet SIG: Ambien 5 mg tablet, 30 days, Dispense #30 Tablet, 0 RefillsDirecti ons: Take 1 oral tablet at bedtime 30 tablet 2014 Historic [id number] Protoni x 20 mg tablet, delayed release (DR/EC) SIG: Protonix 20 mg tablet,delayed release (DR/EC), 30 days, Dispense #30 Tablet, 0 RefillsDirecti ons: Take 1 oral tablet once a day 30 tablet, delayed release (DR/EC) 2014 Historic [id number] Celexa 40 mg tablet SIG: Celexa 40 mg tablet, 30 days, Dispense #30 Tablet, 0 RefillsDirecti ons: Take 1 oral tablet once a day 30 tablet 2014 Historic [id number] acyclov ir 400 mg tablet SIG: acyclovir 400 mg tablet, 30 days, Dispense #30 Tablet, 0 RefillsDirecti ons: Take 1 oral tablet once a day 30 tablet 2014 Historic [id number] losarta n-hydro chlorot hiazide 50-12.5 mg tablet SIG: losartan-hydro chlorothiazide 50-12.5 mg tablet, 30 days, Dispense #30 Tablet, 0 RefillsDirecti ons: Take 1 oral tablet once a day 30 tablet 2014 Historic [id number] hydroco done-ac etamino phen 7.5-325 mg tablet SIG: hydrocodone-ac etaminophen 7.5-325 mg tablet, 30 days, Dispense #60 Tablet, 0 RefillsDirecti ons: Take 1 oral tablet by mouth every 8hrs as needed 60 tablet 2014 Historic [id number] tramado l 50 mg tablet SIG: tramadol 50 mg tablet, 30 days, Dispense #60 Tablet, 0 RefillsDirecti ons: Take 1 oral tablet twice a day 60 tablet 2014 Historic [id number] acyclov ir 400 mg tablet SIG: acyclovir 400 mg tablet, 30 days, Dispense #30 Tablet, 2 RefillsDirecti ons: Take 1 oral tablet once a day 30 tablet 2014 Historic [id number] Celexa 40 mg tablet SIG: Celexa 40 mg tablet, 30 days, Dispense #30 Tablet, 2 RefillsDirecti ons: Take 1 oral tablet once a day 30 tablet 2014 Historic [id number] Protoni x 20 mg tablet, delayed release (DR/EC) SIG: Protonix 20 mg tablet,delayed release (DR/EC), 30 days, Dispense #30 Tablet, 2 RefillsDirecti ons: Take 1 oral tablet once a day 30 tablet, delayed release (DR/EC) 2014 Historic [id number] Ambien 5 mg tablet SIG: Ambien 5 mg tablet, 30 days, Dispense #30 Tablet, 2 RefillsDirecti ons: Take 1 oral tablet at bedtime 30 tablet 2014 Historic [id number] Ambien 5 mg tablet SIG: Ambien 5 mg tablet, 30 days, Dispense #30 Tablet, 2 RefillsDirecti ons: Take 1 oral tablet at bedtime 30 tablet 2014 Historic [id number] Xanax 0.5 mg tablet SIG: Xanax 0.5 mg tablet, 30 days, Dispense #15 Tablet, 0 RefillsDirecti ons: Take one tablet by mouth up to three times daily as needed 15 tablet 2014 Historic [id number] Ambien 10 mg tablet SIG: Ambien 10 mg tablet, 30 days, Dispense #30 Tablet, 2 RefillsDirecti ons: Take 1 oral tablet at bedtime 30 tablet 2014 Historic [id number] Ambien 10 mg tablet SIG: Ambien 10 mg tablet, 30 days, Dispense #30 Tablet, 2 RefillsDirecti ons: Take 1 oral tablet at bedtime 30 tablet 2015 Historic [id number] Ultram 50 mg tablet SIG: Ultram 50 mg oral tablet, 30 days, Dispense #120 Tablet, 0 RefillsDirecti ons: take 1 tablet by oral route every 6 hours as needed 120 tablet 2021 Historic [id number] trazodo ne 150 mg tablet SIG: trazodone 150 mg oral tablet, 30 days, Dispense #90 Tablet, 0 RefillsDirecti ons: Take 150 mg by mouth nightly. 2 tablets at bedtime as needed 90 tablet 2021 Historic [id number] Ranexa 1,000 mg tablet extende d release 12 hr SIG: Ranexa 1,000 mg oral tablet extended release 12 hr, 30 days, Dispense #60 Tablet, 0 RefillsDirecti ons: Take 1,000 mg by mouth 2 times daily 60 tablet extende d release 12 hr 2021 Historic [id number] paroxet ine HCl 20 mg tablet SIG: paroxetine HCl 20 mg oral tablet, 30 days, Dispense #60 Tablet, 0 RefillsDirecti ons: Take 20 mg by mouth daily 60 tablet 2021 Historic [id number] losarta n 100 mg tablet SIG: losartan 100 mg oral tablet, 30 days, Dispense #30 Tablet, 0 RefillsDirecti ons: Take 1 oral tablet once a day 30 tablet 2021 Historic [id number] hydroco done-ac etamino phen 10-325 mg tablet SIG: hydrocodone-ac etaminophen 10-325 mg oral tablet, 30 days, Dispense #120 Tablet, 0 RefillsDirecti ons: Take 1 Tablet by mouth every 6 hours as needed. 120 tablet 2021 Current [id number] gabapen tin 600 mg tablet SIG: gabapentin 600 mg oral tablet, 30 days, Dispense #90 Tablet, 0 RefillsDirecti ons: Take 1 Tablet by mouth 3 times daily. 90 tablet 2021 Historic [id number] epineph rine 0.3 mg/0.3 mL auto-in jector SIG: epinephrine 0.3 mg/0.3 mL injection auto-injector, 1 days, Dispense #1 Each, 0 RefillsDirecti ons: inject 0.3 milliliter by intramuscular route once as needed for anaphylaxis 1 auto-in jector 2021 Historic [id number] ezetimi be 10 mg tablet SIG: ezetimibe 10 mg oral tablet, 30 days, Dispense #30 Tablet, 0 RefillsDirecti ons: Take 1 oral tablet once a day 30 tablet 2021 Historic [id number] butalbi carisa-asp irin-ca ffeine 50-325- 40 mg capsule SIG: butalbital-asp irin-caffeine 50-325-40 mg oral capsule, 30 days, Dispense #90 Capsule, 0 RefillsDirecti ons: Take 1 capsule by mouth every 4 (four) hours as needed for headaches 90 capsule 2021 Historic [id number] aripipr azole 10 mg tablet SIG: aripiprazole 10 mg oral tablet, 30 days, Dispense #30 Tablet, 0 RefillsDirecti ons: Take 1 oral tablet once a day 30 tablet 2021 Historic [id number] alprazo miles 0.5 mg tablet SIG: alprazolam 0.5 mg oral tablet, 30 days, Dispense #90 Tablet, 0 RefillsDirecti ons: Take one tablet by mouth up to three times daily as needed 90 tablet 2021 Historic [id number] Celebre x 200 mg capsule SIG: Celebrex 200 mg oral capsule, 30 days, Dispense #60 Capsule, 0 RefillsDirecti ons: Take 1 oral capsule twice a day 60 capsule 2021 Current [id number] famotid ine 40 mg tablet SIG: famotidine 40 mg oral tablet, 30 days, Dispense #30 Tablet, 5 RefillsDirecti ons: Take 1 oral tablet once a day 30 tablet 2021 Historic [id number] Vascepa 1 gram capsule SIG: Vascepa 1 gram oral capsule, 90 days, Dispense #360 Capsule, 2 RefillsDirecti ons: Take 2 capsules by mouth twice daily with food 360 capsule 2021 Historic [id number] Repatha SureCli ck 140 mg/mL pen injecto r SIG: Repatha SureClick 140 mg/mL subcutaneous pen injector, 14 days, Dispense #1 Milliliter, 0 RefillsDirecti ons: Take 1 subcutaneous milliliter ever 2 weeks 1 pen injecto r 2021 Historic [id number] hydroch lorothi azide 25 mg tablet SIG: hydrochlorothi azide 25 mg oral tablet, 90 days, Dispense #90 Tablet, 0 RefillsDirecti ons: Take 1 oral tablet once a day 90 tablet 2021 Historic [id number] Toprol XL 50 mg tablet extende d release 24 hr SIG: Toprol XL 50 mg oral tablet extended release 24 hr, 90 days, Dispense #90 Tablet, 0 RefillsDirecti ons: Take 1 oral tablet once a day 90 tablet extende d release 24 hr 2021 Historic [id number] nitrogl ycerin 0.4 mg tablet, subling ual SIG: nitroglycerin 0.4 mg sublingual tablet, sublingual, 0 days, Dispense #30 Tablet, 0 RefillsDirecti ons: Put 1 tablet under tongue as needed for chest pain. may repeat every 5 minutes if still having chest pain (max dose 3 tablets) 30 tablet, subling ual 2021 Historic [id number] aripipr azole 10 mg tablet SIG: aripiprazole 10 mg oral tablet, 30 days, Dispense #60 Tablet, 0 RefillsDirecti ons: Take 1 tablet in the morning and 1 tablet in the evening 60 tablet 2021 Historic [id number] paroxet ine HCl 20 mg tablet SIG: paroxetine HCl 20 mg oral tablet, 30 days, Dispense #75 Tablet, 0 RefillsDirecti ons: Take 1 tablet in the morning. Take 1.5 tablets in the evening 75 tablet 2021 Historic [id number] benzona deleon 200 mg capsule SIG: benzonatate 200 mg oral capsule, 30 days, Dispense #30 Capsule, 0 RefillsDirecti ons: Take 1 oral capsule at bedtime as needed for cough 30 capsule 2021 Historic [id number] Repatha SureCli ck 140 mg/mL pen injecto r SIG: Repatha SureClick 140 mg/mL subcutaneous pen injector, 28 days, Dispense #2 Milliliter, 0 RefillsDirecti ons: Take 1 subcutaneous milliliter every 2 weeks 2 pen injecto r 2021 Historic [id number] risedro hebert 150 mg tablet SIG: risedronate 150 mg oral tablet, 90 days, Dispense #3 Tablet, 0 RefillsDirecti ons: Take one oral tablet once per month 3 tablet 2021 Historic M81.0 - AGE-RELATED OSTEOPOROSIS WITHOUT CURRENT PATHOLOGICAL FRACTURE [id number] alendro hebert 70 mg tablet SIG: alendronate, Dispense #12, 1 Refills, Directions: Take one oral tablet weekly 12 tablet 2021 Historic [id number] Repatha SureCli ck 140 mg/mL pen injecto r SIG: Repatha SureClick, Dispense #2, 1 Refills, Directions: INJECT 1 ML SUBCUTANEOUSLY EVERY 2 WEEKS 2 pen injecto r 2022 Historic [id number] famotid ine 40 mg tablet SIG: famotidine, Dispense #90, 0 Refills, Directions: TAKE 1 TABLET BY MOUTH EVERY DAY 90 tablet 04/28/ 2023 Historic [id number] ALENDRO HEBERT SODIUM 70 MG TAB 70 mg tablet SIG: ALENDRONATE SODIUM 70 MG TAB, Dispense #12, 1 Refills, Directions: TAKE ONE TABLET BY MOUTH ONCE WEEKLY 12 tablet 2022 Historic [id number] amlodip ine 5 mg tablet SIG: amlodipine 5 mg oral tablet, 90 days, Dispense #90 Tablet, 0 RefillsDirecti ons: Take 1 oral tablet once a day 90 tablet 2022 Current [id number] cyclobe nzaprin e 10 mg tablet SIG: cyclobenzaprin e 10 mg oral tablet, 90 days, Dispense #180 Tablet, 0 RefillsDirecti ons: Take 1 oral tablet twice a day 180 tablet 2022 Historic [id number] Praluen t Pen 75 mg/mL pen injecto r SIG: Praluent Pen 75 mg/mL subcutaneous pen injector, 28 days, Dispense #2 Milliliter, 0 RefillsDirecti ons: Inject 75mg once every 2 weeks 2 pen injecto r 2022 Historic [id number] FAMOTID INE 40 MG TABLET 40 mg tablet SIG: FAMOTIDINE 40 MG TABLET, Dispense #90, 0 Refills, Directions: TAKE 1 TABLET BY MOUTH EVERY DAY 90 tablet 2022 Historic [id number] FAMOTID INE 40 MG TABLET 40 mg tablet SIG: FAMOTIDINE 40 MG TABLET, Dispense #90, 0 Refills, Directions: TAKE 1 TABLET BY MOUTH EVERY DAY 90 tablet 2022 Historic [id number] gabapen tin 600 mg tablet SIG: gabapentin 600 mg oral tablet, 30 days, Dispense #90 Tablet, 0 RefillsDirecti ons: Take 1 Tablet by mouth 3 times daily. 90 tablet 2022 Historic [id number] fluocin olone acetoni de oil 0.01 % drops SIG: fluocinolone acetonide oil 0.01 % otic (ear) drops, 10 days, Dispense #20 Milliliter, 0 RefillsDirecti ons: 5 gtts in affected ear twice daily as needed for external auditory canal discomfort 20 drops 2022 Historic [id number] PAROXET INE HCL 20 MG TABLET 20 mg tablet SIG: PAROXETINE HCL 20 MG TABLET, Dispense #90, 1 Refills, Directions: TAKE 1 TABLET BY MOUTH EVERY DAY 90 tablet 2022 Historic [id number] FAMOTID INE 40 MG TABLET 40 mg tablet SIG: FAMOTIDINE 40 MG TABLET, Dispense #90, 0 Refills, Directions: TAKE 1 TABLET BY MOUTH EVERY DAY 90 tablet 2023 Historic [id number] Nexlize t 180-10 mg tablet SIG: Nexlizet 180-10 mg oral tablet, 30 days, Dispense #30 Tablet, 0 Refills, Directions: Take 1 oral tablet once a day 30 tablet 2023 Historic [id number] Nexlize t 180-10 mg tablet SIG: Nexlizet 180-10 mg oral tablet, 30 days, Dispense #30 Tablet, 2 Refills, Directions: Take 1 oral tablet once a day 30 tablet 2023 Historic [id number] Nexlize t 180-10 mg tablet SIG: Nexlizet 180-10 mg oral tablet, 30 days, Dispense #30 Tablet, 2 Refills, Directions: Take 1 oral tablet once a day 30 tablet 2023 Historic [id number] alprazo miles 0.5 mg tablet SIG: alprazolam 0.5 mg oral tablet, 30 days, Dispense #90 Tablet, 0 Refills, Directions: Take one tablet by mouth up to three times daily as needed 90 tablet 2023 Historic [id number] paroxet ine HCl 20 mg tablet SIG: paroxetine HCl 20 mg oral tablet, 30 days, Dispense #75 Tablet, 0 Refills, Directions: Take 1 tablet in the morning. Take 1.5 tablets in the evening 75 tablet 2023 Historic [id number] gabapen tin 600 mg tablet SIG: gabapentin 600 mg oral tablet, 30 days, Dispense #90 Tablet, 0 Refills, Directions: Take 1 Tablet by mouth 3 times daily. 90 tablet 2023 Historic [id number] GABAPEN TIN 600 MG TABLET 600 mg tablet SIG: GABAPENTIN 600 MG TABLET, Dispense #90, 0 Refills, Directions: take 1 tablet by mouth three times a day 90 tablet 2023 Historic [id number] FAMOTID INE 40 MG TABLET 40 mg tablet SIG: FAMOTIDINE 40 MG TABLET, Dispense #90, 0 Refills, Directions: TAKE 1 TABLET BY MOUTH EVERY DAY 90 tablet 2023 Historic [id number] FAMOTID INE 40 MG TABLET 40 mg tablet SIG: FAMOTIDINE 40 MG TABLET, Dispense #90, 0 Refills, Directions: take 1 tablet by mouth every day 90 tablet 2023 Historic [id number] trazodo ne 150 mg tablet SIG: trazodone 150 mg oral tablet, 30 days, Dispense #30 Tablet, 0 Refills, Directions: Take 150 mg by mouth nightly. 2 tablets at bedtime as needed 30 tablet 2023 Historic [id number] metform in 500 mg tablet extende d release 24 hr SIG: metformin 500 mg oral tablet extended release 24 hr, 90 days, Dispense #90 Tablet, 0 Refills, Directions: TAKE 1 ORAL TABLET 3 TIMES A DAY 90 tablet extende d release 24 hr 2023 Historic [id number] Vitamin D2 1,250 mcg (50,000 unit) capsule SIG: Vitamin D2 1,250 mcg (50,000 unit) oral capsule, 90 days, Dispense #4 Capsule, 12 Refills, Directions: Take 1 tablet weekly 4 capsule 2023 [facility] [id number] trazodo ne 150 mg tablet SIG: trazodone 150 mg oral tablet, 30 days, Dispense #30 Tablet, 1 Refills, Directions: Take 150 mg by mouth nightly. 30 tablet 2023 Historic [id number] trazodo ne 150 mg tablet SIG: trazodone 150 mg oral tablet, 30 days, Dispense #30 Tablet, 1 Refills, Directions: Take 150 mg by mouth nightly. 30 tablet 2023 Historic [id number] alprazo miles 0.5 mg tablet SIG: alprazolam 0.5 mg oral tablet, 30 days, Dispense #90 Tablet, 0 Refills, Directions: Take one tablet by mouth up to three times daily as needed 90 tablet 2023 Historic [id number] alprazo miles 0.5 mg tablet SIG: alprazolam 0.5 mg oral tablet, 30 days, Dispense #85 Tablet, 0 Refills, Directions: Take one tablet by mouth up to three times daily as needed for severe anxiety or panic attack 85 tablet 2023 Historic [id number] metform in 500 mg tablet extende d release 24 hr SIG: metformin 500 mg oral tablet extended release 24 hr, 90 days, Dispense #270 Tablet, 0 Refills, Directions: TAKE 1 ORAL TABLET 3 TIMES A DAY 270 tablet extende d release 24 hr 2023 Historic [id number] albuter ol sulfate 90 mcg/act uation HFA aerosol inhaler SIG: albuterol sulfate 90 mcg/actuation inhalation HFA aerosol inhaler, 3 days, Dispense #6.7 Gram, 0 Refills, Directions: two puffs every 4 hours as needed for cough, wheezing, or shortness of breath 6.7 HFA aerosol inhaler 2023 Historic [id number] alprazo miles 0.5 mg tablet SIG: alprazolam 0.5 mg oral tablet, 30 days, Dispense #80 Tablet, 0 Refills, Directions: Take one tablet by mouth up to three times daily as needed for severe anxiety or panic attack 80 tablet 2023 Historic [id number] prometh azine-D M 6.25-15 mg/5 mL syrup SIG: promethazine-D M 6.25-15 mg/5 mL oral syrup, 29 days, Dispense #116 Milliliter, 0 Refills, Directions: Take 5 oral milliliter every 6 hours as needed for cough. 116 syrup 2023 Historic [id number] alprazo miles 0.5 mg tablet SIG: alprazolam 0.5 mg oral tablet, 30 days, Dispense #80 Tablet, 0 Refills, Directions: Take one tablet by mouth up to three times daily as needed for severe anxiety or panic attack 80 tablet 2023 Historic [id number] famotid ine 40 mg tablet SIG: famotidine 40 mg oral tablet, 90 days, Dispense #90 Tablet, 0 Refills, Directions: TAKE 1 TABLET BY MOUTH EVERY DAY 90 tablet 2023 Historic [id number] FAMOTID INE 40 MG TABLET 40 mg tablet SIG: FAMOTIDINE 40 MG TABLET, Dispense #90, 0 Refills, Directions: take 1 tablet by mouth every day 90 tablet 2023 Historic [id number] ondanse wing 4 mg tablet, disinte grating SIG: ondansetron 4 mg oral tablet,disinte grating, 7 days, Dispense #20 Tablet, 0 Refills, Directions: Take 1 tablet by mouth every 8 hours as needed for nausea 20 tablet, disinte grating 2023 Historic [id number] ondanse wing 4 mg tablet, disinte grating SIG: ondansetron 4 mg oral tablet,disinte grating, 7 days, Dispense #20 Tablet, 0 Refills, Directions: Take 1 tablet by mouth every 8 hours as needed for nausea 20 tablet, disinte grating 2023 Historic [id number] alprazo miles 0.5 mg tablet SIG: alprazolam 0.5 mg oral tablet, 30 days, Dispense #75 Tablet, 0 Refills, Directions: Take one tablet by mouth up to three times daily as needed for severe anxiety or panic attack 75 tablet 2023 Historic [id number] metform in 500 mg tablet extende d release 24 hr SIG: metformin 500 mg oral tablet extended release 24 hr, 90 days, Dispense #270 Tablet, 0 Refills, Directions: TAKE 1 ORAL TABLET 3 TIMES A DAY 270 tablet extende d release 24 hr 2023 Historic [id number] METFORM IN HCL ER 500 MG TABLET 500 mg tablet extende d release 24 hr SIG: METFORMIN HCL ER 500 MG TABLET, Dispense #270, 0 Refills, Directions: take 1 tablet by mouth three times a day 270 tablet extende d release 24 hr 2023 Historic [id number] alprazo miles 0.5 mg tablet SIG: alprazolam 0.5 mg oral tablet, 30 days, Dispense #70 Tablet, 0 Refills, Directions: Take one tablet by mouth up to three times daily as needed for severe anxiety or panic attack 70 tablet 2023 Historic [id number] famotid ine 40 mg tablet SIG: famotidine 40 mg oral tablet, 90 days, Dispense #90 Tablet, 0 Refills, Directions: TAKE 1 TABLET BY MOUTH EVERY DAY 90 tablet 2023 Historic [id number] FAMOTID INE 40 MG TABLET 40 mg tablet SIG: FAMOTIDINE 40 MG TABLET, Dispense #90, 0 Refills, Directions: take 1 tablet by mouth every day 90 tablet 2023 Historic [id number] alprazo miles 0.5 mg tablet SIG: alprazolam 0.5 mg oral tablet, 30 days, Dispense #65 Tablet, 0 Refills, Directions: Take one tablet by mouth up to three times daily as needed for severe anxiety or panic attack 65 tablet 2023 Historic [id number] pantopr azole 40 mg tablet, delayed release (DR/EC) SIG: pantoprazole 40 mg oral tablet,delayed release (DR/EC), 30 days, Dispense #30 Tablet, 1 Refills, Directions: Take 1 oral tablet once a day 30 tablet, delayed release (DR/EC) 2023 Historic [id number] metform in 500 mg tablet extende d release 24 hr SIG: metformin 500 mg oral tablet extended release 24 hr, 90 days, Dispense #270 Tablet, 0 Refills, Directions: TAKE 1 ORAL TABLET 3 TIMES A DAY 270 tablet extende d release 24 hr 2023 Historic [id number] metform in 500 mg tablet extende d release 24 hr SIG: metformin 500 mg oral tablet extended release 24 hr, 90 days, Dispense #270 Tablet, 0 Refills, Directions: TAKE 1 ORAL TABLET 3 TIMES A DAY 270 tablet extende d release 24 hr 2023 Historic [id number] pantopr azole 40 mg tablet, delayed release (DR/EC) SIG: pantoprazole 40 mg oral tablet,delayed release (DR/EC), 30 days, Dispense #30 Tablet, 1 Refills, Directions: Take 1 oral tablet once a day 30 tablet, delayed release (DR/EC) 2023 Historic [id number] Pantopr azole Sodium 40 MG Oral Tablet Delayed Release 40 mg tablet, delayed release (DR/EC) SIG: Pantoprazole Sodium 40 MG Oral Tablet Delayed Release, Dispense #30, 0 Refills, Directions: Take 1 tablet by mouth once daily 30 tablet, delayed release (DR/EC) 2023 Historic [id number] alprazo miles 0.5 mg tablet SIG: alprazolam 0.5 mg oral tablet, 30 days, Dispense #60 Tablet, 0 Refills, Directions: Take one tablet by mouth up to three times daily as needed for severe anxiety or panic attack 60 tablet 2024 Historic [id number] alprazo miles 0.5 mg tablet SIG: alprazolam 0.5 mg oral tablet, 30 days, Dispense #55 Tablet, 0 Refills, Directions: Take one tablet by mouth up to three times daily as needed for severe anxiety or panic attack 55 tablet 2024 Historic [id number] pantopr azole 20 mg tablet, delayed release (DR/EC) SIG: pantoprazole 20 mg oral tablet,delayed release (DR/EC), 90 days, Dispense #90 Tablet, 1 Refills, Directions: Take 1 oral tablet once a day 90 tablet, delayed release (DR/EC) 2024 Historic [id number] Nexlize t 180-10 mg tablet SIG: Nexlizet 180-10 mg oral tablet, 30 days, Dispense #30 Tablet, 0 Refills, Directions: Take 1 oral tablet once a day 30 tablet 2024 Historic [id number] metform in 500 mg tablet extende d release 24 hr SIG: metformin 500 mg oral tablet extended release 24 hr, 90 days, Dispense #270 Tablet, 0 Refills, Directions: TAKE 1 ORAL TABLET 3 TIMES A DAY 270 tablet extende d release 24 hr 2024 Historic [id number] alprazo miles 0.5 mg tablet SIG: alprazolam 0.5 mg oral tablet, 30 days, Dispense #50 Tablet, 0 Refills, Directions: Take one tablet by mouth up to three times daily as needed for severe anxiety or panic attack 50 tablet 2024 Historic [id number] alprazo miles 0.5 mg tablet SIG: alprazolam 0.5 mg oral tablet, 30 days, Dispense #45 Tablet, 0 Refills, Directions: Take one tablet by mouth up to three times daily as needed for severe anxiety or panic attack 45 tablet 2024 Historic [id number] nystati n 100,000 unit/mL suspens ion SIG: nystatin 100,000 unit/mL oral suspension, 50 days, Dispense #200 Milliliter, 0 Refills, Directions: Take 5 mL orally four times daily, retain in mouth as long as possible before swallowing 200 suspens ion 2024 Historic [id number] gabapen tin 600 mg tablet SIG: gabapentin 600 mg oral tablet, 90 days, Dispense #270 Tablet, 1 Refills, Directions: Take 1 Tablet by mouth 3 times daily. 270 tablet 2024 Current [id number] cephale gabi 500 mg capsule SIG: cephalexin 500 mg oral capsule, 5 days, Dispense #10 Capsule, 0 Refills, Directions: Take 1 oral capsule 2 times a day 10 capsule 2024 Historic [id number] pantopr azole 20 mg tablet, delayed release (DR/EC) SIG: pantoprazole 20 mg oral tablet,delayed release (DR/EC), 90 days, Dispense #90 Tablet, 1 Refills, Directions: Take 1 oral tablet once a day 90 tablet, delayed release (DR/EC) 2024 Current [id number] alprazo miles 0.5 mg tablet SIG: alprazolam 0.5 mg oral tablet, 30 days, Dispense #40 Tablet, 0 Refills, Directions: Take one tablet by mouth up to three times daily as needed for severe anxiety or panic attack 40 tablet 2024 Historic [id number] metform in 500 mg tablet extende d release 24 hr SIG: metformin 500 mg oral tablet extended release 24 hr, 90 days, Dispense #270 Tablet, 0 Refills, Directions: TAKE 1 ORAL TABLET 3 TIMES A DAY 270 tablet extende d release 24 hr 2024 Current [id number] ondanse wing 4 mg tablet, disinte grating SIG: ondansetron 4 mg oral tablet,disinte grating, 7 days, Dispense #20 Tablet, 0 Refills, Directions: Take 1 tablet by mouth every 8 hours as needed for nausea 20 tablet, disinte grating 2024 Current [id number] alprazo miles 0.5 mg tablet SIG: alprazolam 0.5 mg oral tablet, 30 days, Dispense #35 Tablet, 0 Refills, Directions: Take one tablet by mouth up to three times daily as needed for severe anxiety or panic attack 35 tablet 2024 Historic [id number] alprazo miles 0.5 mg tablet SIG: alprazolam 0.5 mg oral tablet, 30 days, Dispense #30 Tablet, 0 Refills, Directions: Take one tablet by mouth up to three times daily as needed for severe anxiety or panic attack 30 tablet 2024 Historic [id number] alprazo miles 0.5 mg tablet SIG: alprazolam 0.5 mg oral tablet, 30 days, Dispense #30 Tablet, 0 Refills, Directions: TAKE 1 TABLET BY MOUTH UP TO THREE TIMES DAILY NEEDED FOR SEVERE ANXIETY OR PANIC ATTACKS 30 tablet 2024 Current PROBLEMS Problem Code Problem [...] DUE TO OTHER MENTAL DISORDER Chronic 03/15/2018 [id number] (PRIMARY) HYPERTENSION ESSENTIAL (PRIMARY) HYPERTENSION Chronic 03/15/2018 I50.32-CHRONIC DIASTOLIC (CONGESTIVE) HEART FAILURE CHRONIC DIASTOLIC (CONGESTIVE) HEART FAILURE Chronic 03/15/2018 K21.7-UDMCHX-THGKISJQB L REFLUX DISEASE WITHOUT ESOPHAGITIS GASTRO-ESOPHAGEAL REFLUX DISEASE WITHOUT ESOPHAGITIS Chronic 03/15/2018 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 03/15/2018 R73.03-Prediabetes Prediabetes Historic 03/15/2018 M54.6-PAIN IN THORACIC SPINE PAIN IN THORACIC SPINE Chronic 03/15/2018 M17.0-Bilateral primary osteoarthritis of knee Bilateral primary osteoarthritis of knee Chronic 03/15/2018 I65.23-Occlusion and stenosis of bilateral carotid arteries Occlusion and stenosis of bilateral carotid arteries Chronic 01/05/2022 M81.7-NRG-JWGDTBX OSTEOPOROSIS WITHOUT CURRENT PATHOLOGICAL FRACTURE AGE-RELATED OSTEOPOROSIS [...] Never Smoker Sex: Female CARE TEAM INFORMATION 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 Medicare [id number]
--- OUTSIDE RECORDS SUMMARY | 2024-10-05 11:54 | XMS_ITS ---
Author Name HALLIE TAVARES Address [address] [place] [address] Phone 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 30 tablet 2014 Historic [id number] Xanax 0.5 mg tablet SIG: Xanax 0.5 mg tablet, 30 days, Dispense #15 Tablet, 0 RefillsDirecti ons: Take one tablet by mouth as needed. 15 tablet 2014 Historic [id number] pravast atin 80 mg tablet SIG: pravastatin 80 mg tablet, 30 days, Dispense #30 Tablet, 2 RefillsDirecti ons: Take one tablet by mouth daily. 30 tablet 2014 Historic [id number] Xanax 0.5 mg tablet SIG: Xanax 0.5 mg tablet, 30 days, Dispense #15 Tablet, 0 RefillsDirecti ons: Take one tablet by mouth up to three times daily as needed 15 tablet 2014 Historic [id number] Ambien 5 mg tablet SIG: Ambien 5 mg tablet, 30 days, Dispense #30 Tablet, 0 RefillsDirecti ons: Take 1 oral tablet at bedtime 30 tablet 2014 Historic [id number] Protoni x 20 mg tablet, delayed release (DR/EC) SIG: Protonix 20 mg tablet,delayed release (DR/EC), 30 days, Dispense #30 Tablet, 0 RefillsDirecti ons: Take 1 oral tablet once a day 30 tablet, delayed release (DR/EC) 2014 Historic [id number] Celexa 40 mg tablet SIG: Celexa 40 mg tablet, 30 days, Dispense #30 Tablet, 0 RefillsDirecti ons: Take 1 oral tablet once a day 30 tablet 2014 Historic [id number] acyclov ir 400 mg tablet SIG: acyclovir 400 mg tablet, 30 days, Dispense #30 Tablet, 0 RefillsDirecti ons: Take 1 oral tablet once a day 30 tablet 2014 Historic [id number] losarta n-hydro chlorot hiazide 50-12.5 mg tablet SIG: losartan-hydro chlorothiazide 50-12.5 mg tablet, 30 days, Dispense #30 Tablet, 0 RefillsDirecti ons: Take 1 oral tablet once a day 30 tablet 2014 Historic [id number] hydroco done-ac etamino phen 7.5-325 mg tablet SIG: hydrocodone-ac etaminophen 7.5-325 mg tablet, 30 days, Dispense #60 Tablet, 0 RefillsDirecti ons: Take 1 oral tablet by mouth every 8hrs as needed 60 tablet 2014 Historic [id number] tramado l 50 mg tablet SIG: tramadol 50 mg tablet, 30 days, Dispense #60 Tablet, 0 RefillsDirecti ons: Take 1 oral tablet twice a day 60 tablet 2014 Historic [id number] acyclov ir 400 mg tablet SIG: acyclovir 400 mg tablet, 30 days, Dispense #30 Tablet, 2 RefillsDirecti ons: Take 1 oral tablet once a day 30 tablet 2014 Historic [id number] Celexa 40 mg tablet SIG: Celexa 40 mg tablet, 30 days, Dispense #30 Tablet, 2 RefillsDirecti ons: Take 1 oral tablet once a day 30 tablet 2014 Historic [id number] Protoni x 20 mg tablet, delayed release (DR/EC) SIG: Protonix 20 mg tablet,delayed release (DR/EC), 30 days, Dispense #30 Tablet, 2 RefillsDirecti ons: Take 1 oral tablet once a day 30 tablet, delayed release (DR/EC) 2014 Historic [id number] Ambien 5 mg tablet SIG: Ambien 5 mg tablet, 30 days, Dispense #30 Tablet, 2 RefillsDirecti ons: Take 1 oral tablet at bedtime 30 tablet 2014 Historic [id number] Ambien 5 mg tablet SIG: Ambien 5 mg tablet, 30 days, Dispense #30 Tablet, 2 RefillsDirecti ons: Take 1 oral tablet at bedtime 30 tablet 2014 Historic [id number] Xanax 0.5 mg tablet SIG: Xanax 0.5 mg tablet, 30 days, Dispense #15 Tablet, 0 RefillsDirecti ons: Take one tablet by mouth up to three times daily as needed 15 tablet 2014 Historic [id number] Ambien 10 mg tablet SIG: Ambien 10 mg tablet, 30 days, Dispense #30 Tablet, 2 RefillsDirecti ons: Take 1 oral tablet at bedtime 30 tablet 2014 Historic [id number] Ambien 10 mg tablet SIG: Ambien 10 mg tablet, 30 days, Dispense #30 Tablet, 2 RefillsDirecti ons: Take 1 oral tablet at bedtime 30 tablet 2015 Historic [id number] Ultram 50 mg tablet SIG: Ultram 50 mg oral tablet, 30 days, Dispense #120 Tablet, 0 RefillsDirecti ons: take 1 tablet by oral route every 6 hours as needed 120 tablet 2021 Historic [id number] trazodo ne 150 mg tablet SIG: trazodone 150 mg oral tablet, 30 days, Dispense #90 Tablet, 0 RefillsDirecti ons: Take 150 mg by mouth nightly. 2 tablets at bedtime as needed 90 tablet 2021 Historic [id number] Ranexa 1,000 mg tablet extende d release 12 hr SIG: Ranexa 1,000 mg oral tablet extended release 12 hr, 30 days, Dispense #60 Tablet, 0 RefillsDirecti ons: Take 1,000 mg by mouth 2 times daily 60 tablet extende d release 12 hr 2021 Historic [id number] paroxet ine HCl 20 mg tablet SIG: paroxetine HCl 20 mg oral tablet, 30 days, Dispense #60 Tablet, 0 RefillsDirecti ons: Take 20 mg by mouth daily 60 tablet 2021 Historic [id number] losarta n 100 mg tablet SIG: losartan 100 mg oral tablet, 30 days, Dispense #30 Tablet, 0 RefillsDirecti ons: Take 1 oral tablet once a day 30 tablet 2021 Historic [id number] hydroco done-ac etamino phen 10-325 mg tablet SIG: hydrocodone-ac etaminophen 10-325 mg oral tablet, 30 days, Dispense #120 Tablet, 0 RefillsDirecti ons: Take 1 Tablet by mouth every 6 hours as needed. 120 tablet 2021 Current [id number] gabapen tin 600 mg tablet SIG: gabapentin 600 mg oral tablet, 30 days, Dispense #90 Tablet, 0 RefillsDirecti ons: Take 1 Tablet by mouth 3 times daily. 90 tablet 2021 Historic [id number] epineph rine 0.3 mg/0.3 mL auto-in jector SIG: epinephrine 0.3 mg/0.3 mL injection auto-injector, 1 days, Dispense #1 Each, 0 RefillsDirecti ons: inject 0.3 milliliter by intramuscular route once as needed for anaphylaxis 1 auto-in jector 2021 Historic [id number] ezetimi be 10 mg tablet SIG: ezetimibe 10 mg oral tablet, 30 days, Dispense #30 Tablet, 0 RefillsDirecti ons: Take 1 oral tablet once a day 30 tablet 2021 Historic [id number] butalbi carisa-asp irin-ca ffeine 50-325- 40 mg capsule SIG: butalbital-asp irin-caffeine 50-325-40 mg oral capsule, 30 days, Dispense #90 Capsule, 0 RefillsDirecti ons: Take 1 capsule by mouth every 4 (four) hours as needed for headaches 90 capsule 2021 Historic [id number] aripipr azole 10 mg tablet SIG: aripiprazole 10 mg oral tablet, 30 days, Dispense #30 Tablet, 0 RefillsDirecti ons: Take 1 oral tablet once a day 30 tablet 2021 Historic [id number] alprazo miles 0.5 mg tablet SIG: alprazolam 0.5 mg oral tablet, 30 days, Dispense #90 Tablet, 0 RefillsDirecti ons: Take one tablet by mouth up to three times daily as needed 90 tablet 2021 Historic [id number] Celebre x 200 mg capsule SIG: Celebrex 200 mg oral capsule, 30 days, Dispense #60 Capsule, 0 RefillsDirecti ons: Take 1 oral capsule twice a day 60 capsule 2021 Current [id number] famotid ine 40 mg tablet SIG: famotidine 40 mg oral tablet, 30 days, Dispense #30 Tablet, 5 RefillsDirecti ons: Take 1 oral tablet once a day 30 tablet 2021 Historic [id number] Vascepa 1 gram capsule SIG: Vascepa 1 gram oral capsule, 90 days, Dispense #360 Capsule, 2 RefillsDirecti ons: Take 2 capsules by mouth twice daily with food 360 capsule 2021 Historic [id number] Repatha SureCli ck 140 mg/mL pen injecto r SIG: Repatha SureClick 140 mg/mL subcutaneous pen injector, 14 days, Dispense #1 Milliliter, 0 RefillsDirecti ons: Take 1 subcutaneous milliliter ever 2 weeks 1 pen injecto r 2021 Historic [id number] hydroch lorothi azide 25 mg tablet SIG: hydrochlorothi azide 25 mg oral tablet, 90 days, Dispense #90 Tablet, 0 RefillsDirecti ons: Take 1 oral tablet once a day 90 tablet 2021 Historic [id number] Toprol XL 50 mg tablet extende d release 24 hr SIG: Toprol XL 50 mg oral tablet extended release 24 hr, 90 days, Dispense #90 Tablet, 0 RefillsDirecti ons: Take 1 oral tablet once a day 90 tablet extende d release 24 hr 2021 Historic [id number] nitrogl ycerin 0.4 mg tablet, subling ual SIG: nitroglycerin 0.4 mg sublingual tablet, sublingual, 0 days, Dispense #30 Tablet, 0 RefillsDirecti ons: Put 1 tablet under tongue as needed for chest pain. may repeat every 5 minutes if still having chest pain (max dose 3 tablets) 30 tablet, subling ual 2021 Historic [id number] aripipr azole 10 mg tablet SIG: aripiprazole 10 mg oral tablet, 30 days, Dispense #60 Tablet, 0 RefillsDirecti ons: Take 1 tablet in the morning and 1 tablet in the evening 60 tablet 2021 Historic [id number] paroxet ine HCl 20 mg tablet SIG: paroxetine HCl 20 mg oral tablet, 30 days, Dispense #75 Tablet, 0 RefillsDirecti ons: Take 1 tablet in the morning. Take 1.5 tablets in the evening 75 tablet 2021 Historic [id number] benzona deleon 200 mg capsule SIG: benzonatate 200 mg oral capsule, 30 days, Dispense #30 Capsule, 0 RefillsDirecti ons: Take 1 oral capsule at bedtime as needed for cough 30 capsule 2021 Historic [id number] Repatha SureCli ck 140 mg/mL pen injecto r SIG: Repatha SureClick 140 mg/mL subcutaneous pen injector, 28 days, Dispense #2 Milliliter, 0 RefillsDirecti ons: Take 1 subcutaneous milliliter every 2 weeks 2 pen injecto r 2021 Historic [id number] risedro hebert 150 mg tablet SIG: risedronate 150 mg oral tablet, 90 days, Dispense #3 Tablet, 0 RefillsDirecti ons: Take one oral tablet once per month 3 tablet 2021 Historic M81.0 - AGE-RELATED OSTEOPOROSIS WITHOUT CURRENT PATHOLOGICAL FRACTURE [id number] alendro hebert 70 mg tablet SIG: alendronate, Dispense #12, 1 Refills, Directions: Take one oral tablet weekly 12 tablet 2021 Historic [id number] Repatha SureCli ck 140 mg/mL pen injecto r SIG: Repatha SureClick, Dispense #2, 1 Refills, Directions: INJECT 1 ML SUBCUTANEOUSLY EVERY 2 WEEKS 2 pen injecto r 2022 Historic [id number] famotid ine 40 mg tablet SIG: famotidine, Dispense #90, 0 Refills, Directions: TAKE 1 TABLET BY MOUTH EVERY DAY 90 tablet 04/28/ 2023 Historic [id number] ALENDRO HEBERT SODIUM 70 MG TAB 70 mg tablet SIG: ALENDRONATE SODIUM 70 MG TAB, Dispense #12, 1 Refills, Directions: TAKE ONE TABLET BY MOUTH ONCE WEEKLY 12 tablet 2022 Historic [id number] amlodip ine 5 mg tablet SIG: amlodipine 5 mg oral tablet, 90 days, Dispense #90 Tablet, 0 RefillsDirecti ons: Take 1 oral tablet once a day 90 tablet 2022 Current [id number] cyclobe nzaprin e 10 mg tablet SIG: cyclobenzaprin e 10 mg oral tablet, 90 days, Dispense #180 Tablet, 0 RefillsDirecti ons: Take 1 oral tablet twice a day 180 tablet 2022 Historic [id number] Praluen t Pen 75 mg/mL pen injecto r SIG: Praluent Pen 75 mg/mL subcutaneous pen injector, 28 days, Dispense #2 Milliliter, 0 RefillsDirecti ons: Inject 75mg once every 2 weeks 2 pen injecto r 2022 Historic [id number] FAMOTID INE 40 MG TABLET 40 mg tablet SIG: FAMOTIDINE 40 MG TABLET, Dispense #90, 0 Refills, Directions: TAKE 1 TABLET BY MOUTH EVERY DAY 90 tablet 2022 Historic [id number] FAMOTID INE 40 MG TABLET 40 mg tablet SIG: FAMOTIDINE 40 MG TABLET, Dispense #90, 0 Refills, Directions: TAKE 1 TABLET BY MOUTH EVERY DAY 90 tablet 2022 Historic [id number] gabapen tin 600 mg tablet SIG: gabapentin 600 mg oral tablet, 30 days, Dispense #90 Tablet, 0 RefillsDirecti ons: Take 1 Tablet by mouth 3 times daily. 90 tablet 2022 Historic [id number] fluocin olone acetoni de oil 0.01 % drops SIG: fluocinolone acetonide oil 0.01 % otic (ear) drops, 10 days, Dispense #20 Milliliter, 0 RefillsDirecti ons: 5 gtts in affected ear twice daily as needed for external auditory canal discomfort 20 drops 2022 Historic [id number] PAROXET INE HCL 20 MG TABLET 20 mg tablet SIG: PAROXETINE HCL 20 MG TABLET, Dispense #90, 1 Refills, Directions: TAKE 1 TABLET BY MOUTH EVERY DAY 90 tablet 2022 Historic [id number] FAMOTID INE 40 MG TABLET 40 mg tablet SIG: FAMOTIDINE 40 MG TABLET, Dispense #90, 0 Refills, Directions: TAKE 1 TABLET BY MOUTH EVERY DAY 90 tablet 2023 Historic [id number] Nexlize t 180-10 mg tablet SIG: Nexlizet 180-10 mg oral tablet, 30 days, Dispense #30 Tablet, 0 Refills, Directions: Take 1 oral tablet once a day 30 tablet 2023 Historic [id number] Nexlize t 180-10 mg tablet SIG: Nexlizet 180-10 mg oral tablet, 30 days, Dispense #30 Tablet, 2 Refills, Directions: Take 1 oral tablet once a day 30 tablet 2023 Historic [id number] Nexlize t 180-10 mg tablet SIG: Nexlizet 180-10 mg oral tablet, 30 days, Dispense #30 Tablet, 2 Refills, Directions: Take 1 oral tablet once a day 30 tablet 2023 Historic [id number] alprazo miles 0.5 mg tablet SIG: alprazolam 0.5 mg oral tablet, 30 days, Dispense #90 Tablet, 0 Refills, Directions: Take one tablet by mouth up to three times daily as needed 90 tablet 2023 Historic [id number] paroxet ine HCl 20 mg tablet SIG: paroxetine HCl 20 mg oral tablet, 30 days, Dispense #75 Tablet, 0 Refills, Directions: Take 1 tablet in the morning. Take 1.5 tablets in the evening 75 tablet 2023 Historic [id number] gabapen tin 600 mg tablet SIG: gabapentin 600 mg oral tablet, 30 days, Dispense #90 Tablet, 0 Refills, Directions: Take 1 Tablet by mouth 3 times daily. 90 tablet 2023 Historic [id number] GABAPEN TIN 600 MG TABLET 600 mg tablet SIG: GABAPENTIN 600 MG TABLET, Dispense #90, 0 Refills, Directions: take 1 tablet by mouth three times a day 90 tablet 2023 Historic [id number] FAMOTID INE 40 MG TABLET 40 mg tablet SIG: FAMOTIDINE 40 MG TABLET, Dispense #90, 0 Refills, Directions: TAKE 1 TABLET BY MOUTH EVERY DAY 90 tablet 2023 Historic [id number] FAMOTID INE 40 MG TABLET 40 mg tablet SIG: FAMOTIDINE 40 MG TABLET, Dispense #90, 0 Refills, Directions: take 1 tablet by mouth every day 90 tablet 2023 Historic [id number] trazodo ne 150 mg tablet SIG: trazodone 150 mg oral tablet, 30 days, Dispense #30 Tablet, 0 Refills, Directions: Take 150 mg by mouth nightly. 2 tablets at bedtime as needed 30 tablet 2023 Historic [id number] metform in 500 mg tablet extende d release 24 hr SIG: metformin 500 mg oral tablet extended release 24 hr, 90 days, Dispense #90 Tablet, 0 Refills, Directions: TAKE 1 ORAL TABLET 3 TIMES A DAY 90 tablet extende d release 24 hr 2023 Historic [id number] Vitamin D2 1,250 mcg (50,000 unit) capsule SIG: Vitamin D2 1,250 mcg (50,000 unit) oral capsule, 90 days, Dispense #4 Capsule, 12 Refills, Directions: Take 1 tablet weekly 4 capsule 2023 [facility] [id number] trazodo ne 150 mg tablet SIG: trazodone 150 mg oral tablet, 30 days, Dispense #30 Tablet, 1 Refills, Directions: Take 150 mg by mouth nightly. 30 tablet 2023 Historic [id number] trazodo ne 150 mg tablet SIG: trazodone 150 mg oral tablet, 30 days, Dispense #30 Tablet, 1 Refills, Directions: Take 150 mg by mouth nightly. 30 tablet 2023 Historic [id number] alprazo miles 0.5 mg tablet SIG: alprazolam 0.5 mg oral tablet, 30 days, Dispense #90 Tablet, 0 Refills, Directions: Take one tablet by mouth up to three times daily as needed 90 tablet 2023 Historic [id number] alprazo miles 0.5 mg tablet SIG: alprazolam 0.5 mg oral tablet, 30 days, Dispense #85 Tablet, 0 Refills, Directions: Take one tablet by mouth up to three times daily as needed for severe anxiety or panic attack 85 tablet 2023 Historic [id number] metform in 500 mg tablet extende d release 24 hr SIG: metformin 500 mg oral tablet extended release 24 hr, 90 days, Dispense #270 Tablet, 0 Refills, Directions: TAKE 1 ORAL TABLET 3 TIMES A DAY 270 tablet extende d release 24 hr 2023 Historic [id number] albuter ol sulfate 90 mcg/act uation HFA aerosol inhaler SIG: albuterol sulfate 90 mcg/actuation inhalation HFA aerosol inhaler, 3 days, Dispense #6.7 Gram, 0 Refills, Directions: two puffs every 4 hours as needed for cough, wheezing, or shortness of breath 6.7 HFA aerosol inhaler 2023 Historic [id number] alprazo miles 0.5 mg tablet SIG: alprazolam 0.5 mg oral tablet, 30 days, Dispense #80 Tablet, 0 Refills, Directions: Take one tablet by mouth up to three times daily as needed for severe anxiety or panic attack 80 tablet 2023 Historic [id number] prometh azine-D M 6.25-15 mg/5 mL syrup SIG: promethazine-D M 6.25-15 mg/5 mL oral syrup, 29 days, Dispense #116 Milliliter, 0 Refills, Directions: Take 5 oral milliliter every 6 hours as needed for cough. 116 syrup 2023 Historic [id number] alprazo miles 0.5 mg tablet SIG: alprazolam 0.5 mg oral tablet, 30 days, Dispense #80 Tablet, 0 Refills, Directions: Take one tablet by mouth up to three times daily as needed for severe anxiety or panic attack 80 tablet 2023 Historic [id number] famotid ine 40 mg tablet SIG: famotidine 40 mg oral tablet, 90 days, Dispense #90 Tablet, 0 Refills, Directions: TAKE 1 TABLET BY MOUTH EVERY DAY 90 tablet 2023 Historic [id number] FAMOTID INE 40 MG TABLET 40 mg tablet SIG: FAMOTIDINE 40 MG TABLET, Dispense #90, 0 Refills, Directions: take 1 tablet by mouth every day 90 tablet 2023 Historic [id number] ondanse wing 4 mg tablet, disinte grating SIG: ondansetron 4 mg oral tablet,disinte grating, 7 days, Dispense #20 Tablet, 0 Refills, Directions: Take 1 tablet by mouth every 8 hours as needed for nausea 20 tablet, disinte grating 2023 Historic [id number] ondanse wing 4 mg tablet, disinte grating SIG: ondansetron 4 mg oral tablet,disinte grating, 7 days, Dispense #20 Tablet, 0 Refills, Directions: Take 1 tablet by mouth every 8 hours as needed for nausea 20 tablet, disinte grating 2023 Historic [id number] alprazo miles 0.5 mg tablet SIG: alprazolam 0.5 mg oral tablet, 30 days, Dispense #75 Tablet, 0 Refills, Directions: Take one tablet by mouth up to three times daily as needed for severe anxiety or panic attack 75 tablet 2023 Historic [id number] metform in 500 mg tablet extende d release 24 hr SIG: metformin 500 mg oral tablet extended release 24 hr, 90 days, Dispense #270 Tablet, 0 Refills, Directions: TAKE 1 ORAL TABLET 3 TIMES A DAY 270 tablet extende d release 24 hr 2023 Historic [id number] METFORM IN HCL ER 500 MG TABLET 500 mg tablet extende d release 24 hr SIG: METFORMIN HCL ER 500 MG TABLET, Dispense #270, 0 Refills, Directions: take 1 tablet by mouth three times a day 270 tablet extende d release 24 hr 2023 Historic [id number] alprazo miles 0.5 mg tablet SIG: alprazolam 0.5 mg oral tablet, 30 days, Dispense #70 Tablet, 0 Refills, Directions: Take one tablet by mouth up to three times daily as needed for severe anxiety or panic attack 70 tablet 2023 Historic [id number] famotid ine 40 mg tablet SIG: famotidine 40 mg oral tablet, 90 days, Dispense #90 Tablet, 0 Refills, Directions: TAKE 1 TABLET BY MOUTH EVERY DAY 90 tablet 2023 Historic [id number] FAMOTID INE 40 MG TABLET 40 mg tablet SIG: FAMOTIDINE 40 MG TABLET, Dispense #90, 0 Refills, Directions: take 1 tablet by mouth every day 90 tablet 2023 Historic [id number] alprazo miles 0.5 mg tablet SIG: alprazolam 0.5 mg oral tablet, 30 days, Dispense #65 Tablet, 0 Refills, Directions: Take one tablet by mouth up to three times daily as needed for severe anxiety or panic attack 65 tablet 2023 Historic [id number] pantopr azole 40 mg tablet, delayed release (DR/EC) SIG: pantoprazole 40 mg oral tablet,delayed release (DR/EC), 30 days, Dispense #30 Tablet, 1 Refills, Directions: Take 1 oral tablet once a day 30 tablet, delayed release (DR/EC) 2023 Historic [id number] metform in 500 mg tablet extende d release 24 hr SIG: metformin 500 mg oral tablet extended release 24 hr, 90 days, Dispense #270 Tablet, 0 Refills, Directions: TAKE 1 ORAL TABLET 3 TIMES A DAY 270 tablet extende d release 24 hr 2023 Historic [id number] metform in 500 mg tablet extende d release 24 hr SIG: metformin 500 mg oral tablet extended release 24 hr, 90 days, Dispense #270 Tablet, 0 Refills, Directions: TAKE 1 ORAL TABLET 3 TIMES A DAY 270 tablet extende d release 24 hr 2023 Historic [id number] pantopr azole 40 mg tablet, delayed release (DR/EC) SIG: pantoprazole 40 mg oral tablet,delayed release (DR/EC), 30 days, Dispense #30 Tablet, 1 Refills, Directions: Take 1 oral tablet once a day 30 tablet, delayed release (DR/EC) 2023 Historic [id number] Pantopr azole Sodium 40 MG Oral Tablet Delayed Release 40 mg tablet, delayed release (DR/EC) SIG: Pantoprazole Sodium 40 MG Oral Tablet Delayed Release, Dispense #30, 0 Refills, Directions: Take 1 tablet by mouth once daily 30 tablet, delayed release (DR/EC) 2023 Historic [id number] alprazo miles 0.5 mg tablet SIG: alprazolam 0.5 mg oral tablet, 30 days, Dispense #60 Tablet, 0 Refills, Directions: Take one tablet by mouth up to three times daily as needed for severe anxiety or panic attack 60 tablet 2024 Historic [id number] alprazo miles 0.5 mg tablet SIG: alprazolam 0.5 mg oral tablet, 30 days, Dispense #55 Tablet, 0 Refills, Directions: Take one tablet by mouth up to three times daily as needed for severe anxiety or panic attack 55 tablet 2024 Historic [id number] pantopr azole 20 mg tablet, delayed release (DR/EC) SIG: pantoprazole 20 mg oral tablet,delayed release (DR/EC), 90 days, Dispense #90 Tablet, 1 Refills, Directions: Take 1 oral tablet once a day 90 tablet, delayed release (DR/EC) 2024 Historic [id number] Nexlize t 180-10 mg tablet SIG: Nexlizet 180-10 mg oral tablet, 30 days, Dispense #30 Tablet, 0 Refills, Directions: Take 1 oral tablet once a day 30 tablet 2024 Historic [id number] metform in 500 mg tablet extende d release 24 hr SIG: metformin 500 mg oral tablet extended release 24 hr, 90 days, Dispense #270 Tablet, 0 Refills, Directions: TAKE 1 ORAL TABLET 3 TIMES A DAY 270 tablet extende d release 24 hr 2024 Historic [id number] alprazo miles 0.5 mg tablet SIG: alprazolam 0.5 mg oral tablet, 30 days, Dispense #50 Tablet, 0 Refills, Directions: Take one tablet by mouth up to three times daily as needed for severe anxiety or panic attack 50 tablet 2024 Historic [id number] alprazo miles 0.5 mg tablet SIG: alprazolam 0.5 mg oral tablet, 30 days, Dispense #45 Tablet, 0 Refills, Directions: Take one tablet by mouth up to three times daily as needed for severe anxiety or panic attack 45 tablet 2024 Historic [id number] nystati n 100,000 unit/mL suspens ion SIG: nystatin 100,000 unit/mL oral suspension, 50 days, Dispense #200 Milliliter, 0 Refills, Directions: Take 5 mL orally four times daily, retain in mouth as long as possible before swallowing 200 suspens ion 2024 Historic [id number] gabapen tin 600 mg tablet SIG: gabapentin 600 mg oral tablet, 90 days, Dispense #270 Tablet, 1 Refills, Directions: Take 1 Tablet by mouth 3 times daily. 270 tablet 2024 Current [id number] cephale gabi 500 mg capsule SIG: cephalexin 500 mg oral capsule, 5 days, Dispense #10 Capsule, 0 Refills, Directions: Take 1 oral capsule 2 times a day 10 capsule 2024 Historic [id number] pantopr azole 20 mg tablet, delayed release (DR/EC) SIG: pantoprazole 20 mg oral tablet,delayed release (DR/EC), 90 days, Dispense #90 Tablet, 1 Refills, Directions: Take 1 oral tablet once a day 90 tablet, delayed release (DR/EC) 2024 Current [id number] alprazo miles 0.5 mg tablet SIG: alprazolam 0.5 mg oral tablet, 30 days, Dispense #40 Tablet, 0 Refills, Directions: Take one tablet by mouth up to three times daily as needed for severe anxiety or panic attack 40 tablet 2024 Historic [id number] metform in 500 mg tablet extende d release 24 hr SIG: metformin 500 mg oral tablet extended release 24 hr, 90 days, Dispense #270 Tablet, 0 Refills, Directions: TAKE 1 ORAL TABLET 3 TIMES A DAY 270 tablet extende d release 24 hr 2024 Current [id number] ondanse wing 4 mg tablet, disinte grating SIG: ondansetron 4 mg oral tablet,disinte grating, 7 days, Dispense #20 Tablet, 0 Refills, Directions: Take 1 tablet by mouth every 8 hours as needed for nausea 20 tablet, disinte grating 2024 Current [id number] alprazo miles 0.5 mg tablet SIG: alprazolam 0.5 mg oral tablet, 30 days, Dispense #35 Tablet, 0 Refills, Directions: Take one tablet by mouth up to three times daily as needed for severe anxiety or panic attack 35 tablet 2024 Historic [id number] alprazo miles 0.5 mg tablet SIG: alprazolam 0.5 mg oral tablet, 30 days, Dispense #30 Tablet, 0 Refills, Directions: Take one tablet by mouth up to three times daily as needed for severe anxiety or panic attack 30 tablet 2024 Historic [id number] alprazo miles 0.5 mg tablet SIG: alprazolam [...] DUE TO OTHER MENTAL DISORDER Chronic 03/15/2018 [id number] (PRIMARY) HYPERTENSION ESSENTIAL (PRIMARY) HYPERTENSION Chronic 03/15/2018 I50.32-CHRONIC DIASTOLIC (CONGESTIVE) HEART FAILURE CHRONIC DIASTOLIC (CONGESTIVE) HEART FAILURE Chronic 03/15/2018 K21.3-ZGTODB-ADUAGGOBS L REFLUX DISEASE WITHOUT ESOPHAGITIS GASTRO-ESOPHAGEAL REFLUX DISEASE WITHOUT ESOPHAGITIS Chronic 03/15/2018 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 03/15/2018 R73.03-Prediabetes Prediabetes Historic 03/15/2018 M54.6-PAIN IN THORACIC SPINE PAIN IN THORACIC SPINE Chronic 03/15/2018 M17.0-Bilateral primary osteoarthritis of knee Bilateral primary osteoarthritis of knee Chronic 03/15/2018 I65.23-Occlusion and stenosis of bilateral carotid arteries Occlusion and stenosis of bilateral carotid arteries Chronic 01/05/2022 M81.1-QAV-XUEMHTK OSTEOPOROSIS WITHOUT CURRENT PATHOLOGICAL FRACTURE AGE-RELATED OSTEOPOROSIS [...] Never Smoker Sex: Female CARE TEAM INFORMATION [employer] Provider ID Role Location Phone HALLIE TAVARES [id number] PHYSICIAN [address] [place] [address] INSURANCE PROVIDERS Payer Name Policy type / Coverage type Covered libertarian ID Policy [employer] Unavailable / Unknown [id number] S [facility] [employer] Medicare [id number] SELF
[2024-10-05 12:01] VITALS: BP 120/75; PULSE 86; RESP 16; TEMP 36.1; O2SAT 99
--- NOTE | 2024-10-05 12:06 | ED.FEMALEGU ---
HPI - Female Genitourinary General Chief complaint: Urogenital-Female Stated complaint: Urinary Problem Time Seen by Provider: 10/05/24 11:51 Source: patient Mode of arrival: ambulatory Limitations: no limitations History of Present Illness HPI Narrative: 64-year-old female presents to [facility] with complaints of urinary frequency, burning and urgency, fatigue and body aches for the past 3 days. Patient reports that she has been taking [id number]-[id number] azo with little relief. Patient reports that she has not been able tolerate Macrobid in the past. Patient reports history of UTIs. Patient denies vaginal discharge, vaginal itching, back pain, abdominal pain, nausea vomiting, diarrhea fevers MD elicited complaint: dysuria and UTI Onset (ago): day(s) (3) Vaginal discharge: none Vaginal bleeding: none Urinary symptoms: Dysuria, Urgency and Frequency Related Data Home Medications ?Medication ?Instructions ?Recorded ?Confirmed ?Last Taken ?Type alprazolam 0.5 mg tablet (Xanax) 0.5 mg PO TID PRN Anxiety 06/04/20 04/03/24 Unknown History lqfzjxyxts-ixeajdi-nenrbfcz 50 1 cap PO BID PRN Pain 01/15/22 10/01/23 Unknown History mg-325 mg-40 mg capsule hydrochlorothiazide 25 mg tablet 25 mg PO DAILY 01/15/22 10/01/23 Unknown History icosapent ethyl 1 gram capsule 1 g PO DAILY 01/15/22 10/01/23 Unknown History (Vascepa) metoprolol succinate 50 mg 50 mg PO DAILY 01/15/22 10/01/23 Unknown History tablet,extended release 24 hr nitroglycerin 0.4 mg sublingual 0.4 mg sublingual DAILY PRN Chest 01/15/22 10/01/23 Unknown History tablet Pain alendronate 70 mg tablet 70 mg PO DAILY 08/05/22 10/01/23 Unknown History amlodipine 5 mg tablet 5 mg PO DAILY 08/05/22 04/03/24 Unknown History metformin 500 mg tablet,extended 500 mg PO TID 08/06/23 10/01/23 Unknown History release 24 hr paroxetine HCl 20 mg tablet 20 mg PO DAILY 08/06/23 10/01/23 Unknown History ketorolac 0.5 % eye drops drp 05/16/24 Unknown History pantoprazole 20 mg tablet,delayed mg PO 05/16/24 Unknown History release polymyxin B sulfate 10,000 05/16/24 Unknown History unit-trimethoprim 1 mg/mL eye drops prednisolone acetate 1 % eye drp 05/16/24 Unknown History drops,suspension famotidine 40 mg tablet mg 09/05/24 Unknown History gabapentin 600 mg tablet mg 09/05/24 Unknown History methocarbamol 500 mg tablet mg 09/05/24 Unknown History ondansetron 4 mg disintegrating mg 09/05/24 Unknown History tablet Allergies Allergy/AdvReac Type Severity Reaction Status Date / Time bee venom protein (honey bee) Allergy Severe Anaphylaxis Verified 10/05/24 11:54 erythromycin base Allergy Unknown Hives Verified 10/05/24 11:54 Review of Systems Constitutional: Constitutional: Denies chills and Denies fatigue ENT: Denies vertigo, Denies dizziness and Denies sore throat Cardiovascular: Cardiovascular: Denies chest pain Respiratory: Respiratory: Denies cough, Denies dyspnea and Denies wheezing Gastrointestinal: Gastrointestinal: Denies diarrhea, Denies nausea and Denies vomiting Genitourinary: Genitourinary: Denies abnormal vaginal bleeding, Denies hematuria, Reports nocturia, Denies genital lesions, Reports dysuria, Denies pelvic pain, Denies flank pain and Denies urinary incontinence Musculoskeletal: Musculoskeletal: Denies arthralgias and Denies joint swelling Neurologic: Denies syncope and Denies headache(s) [facility], [facility] Past Medical History Medical History Diabetes Diarrhea Syrinx of spinal cord Diastolic dysfunction Hypertension Depression Low back pain Surgical History Surgical History H/O: hysterectomy History of right knee joint replacement Hx of appendectomy S/P tonsillectomy H/O total knee replacement (~12/25/19) Family History Family History Mother Family history non-contributory Social History Social History Social History: never smoker Smoking status: Never smoker Alcohol intake: current Substance use: never Living arrangements: with family Gender identity (if verbalized by the patient): Female Sexual Orientation (if Verbalized by the Patient): Straight or Heterosexual Spiritual care concerns: No Exam Const: General: healthy appearing and no acute distress Nutritional Appearance: well nourished Orientation/consciousness: patient oriented x3 Limitations: no limitations Eyes: Conjunctivae: conjunctivae normal Neck: Neck: normal visual inspection Resp: Effort & Inspection: normal respiratory effort and not labored Auscultation: clear to auscultation bilaterally, no crackles, no rales, no rhonchi and no wheezes Cardio: Rate: regular rate Rhythm: regular rhythm Heart sounds: no murmurs GI: Inspection: non-distended GI Palp: Yes Soft to palpation, No Tenderness to palpation present (GI), No Guarding due to palpation present (GI), No Rigid due to palpation and No Rebound tenderness present : General: Yes bladder normal to palpation and Yes no CVA tenderness Back/Spine/Pelvis: Back: no CVA tenderness Skin: General skin exam: normal color Rashes: no rashes Neuro: General: patient oriented x3 and moves all extremities Speech: normal speech Extrem: General: normal to inspection Psych: Appearance: grossly normal and well kempt Affect: normal affect Attitude: cooperative Course Course Level of Care: Express Care Visit Vital Signs Vital signs: Vital Signs Temperature 36.1 C L 10/05/24 12:01 Pulse Rate 86 10/05/24 12:01 Respiratory Rate 16 10/05/24 12:01 Blood Pressure 120/75 10/05/24 12:01 Pulse Oximetry 99 10/05/24 12:01 Oxygen Delivery Room Air 10/05/24 12:01 Temperature 36.1 C L 10/05/24 12:01 Pulse Rate 86 10/05/24 12:01 Respiratory Rate 16 10/05/24 12:01 Blood Pressure 120/75 10/05/24 12:01 Pulse Oximetry 99 10/05/24 12:01 Oxygen Delivery Room Air 10/05/24 12:01 MDM - Female Genitourinary MDM Narrative Medical decision making narrative: Unable to obtain urinalysis due to patient taking azo. Urine culture obtained and sent to lab. Will start patient on antibiotic due to symptoms and history of UTIs. Educated patient proceed to the emergency room if symptoms worsen Differential Diagnosis Differential diagnosis: Likely urinary tract infection, bacterial vaginosis and cervicitis Critical Care Time Critical Care Time Critical Care Time: No Discharge Plan Discharge Clinical Impression: Urinary tract infection Qualifiers: Urinary tract infection type: site unspecified Hematuria presence: without hematuria Qualified Code(s): N39.0 - Urinary tract infection, site not specified Patient Disposition: Home Condition: Stable Instructions: Antibiotic Form, Urinary Tract Infection in Women (ED) Additional Instructions: Increase fluids especially water Avoid caffeine and carbonated beverages Take the entire course of antibiotic as directed We will send a urine culture off to the lab. If the culture identifies an organism that the prescribed antibiotic will not treat, you will receive a phone call from an urgent care staff member and an appropriate antibiotic will be prescribed. If the urine culture fails to identify an organism, you should follow up with your primary care doctor who can then refer you to a urologist for further testing. Tylenol/ibuprofen for pain or fever Follow-up with your primary care provider if further problems or concerns Patient Language: [place] Prescriptions: New ciprofloxacin HCl [Cipro] 500 mg tablet 500 mg PO Q24H 7 Days Qty: 7 0RF No Action amlodipine 5 mg tablet 5 mg PO DAILY alendronate 70 mg tablet 70 mg PO DAILY paroxetine HCl 20 mg tablet 20 mg PO DAILY metformin 500 mg tablet extended release 24 hr 500 mg PO TID metoprolol succinate 50 mg tablet extended release 24 hr 50 mg PO DAILY zejcpxtppj-zywavjw-gfdtiyny 50-325-40 mg capsule 1 cap PO BID PRN (Reason: Pain) icosapent ethyl [Vascepa] 1 gram capsule 1 g PO DAILY nitroglycerin 0.4 mg tablet, sublingual 0.4 mg sublingual DAILY PRN (Reason: Chest Pain) hydrochlorothiazide 25 mg tablet 25 mg PO DAILY pantoprazole 20 mg tablet,delayed release (DR/EC) PO ketorolac 0.5 % drops prednisolone acetate 1 % drops,suspension polymyxin B sulf-trimethoprim 10,000 unit- 1 mg/mL drops methocarbamol 500 mg tablet gabapentin 600 mg tablet famotidine 40 mg tablet ondansetron 4 mg tablet,disintegrating alprazolam [Xanax] 0.5 mg tablet 0.5 mg PO TID PRN (Reason: Anxiety) tramadol 50 mg tablet 50 mg PO Q8H PRN (Reason: pain (scale score 7-10)) Qty: 50 0RF hydrocodone-acetaminophen 10-325 mg tablet 1 tablet PO Q8H PRN (Reason: pain (scale score 7-10)) Qty: 90 0RF Rx Instructions: To last 30 days, due 12/12/2020 Follow-up/Referrals: Gentry,Damir Ching DO [Primary Care Provider] - Time of Disposition: 12:11
== END 2024-10-05 12:26 | disposition home or self-care (01) ==
PROVIDERS: Emergency Provider Nurse Practitioner Family; PCP Family Medicine
DX: N39.0 Urinary tract infection, site not specified (principal); E11.9 Type 2 diabetes mellitus without complications; Z79.84 Long term (current) use of oral hypoglycemic drugs; I10 Essential (primary) hypertension; F32.A Depression, unspecified; Z96.651 Presence of right artificial knee joint
CPT/HCPCS: 87086; 99213; G0463

== ENCOUNTER 2025-02-04 08:48 | Emergency (ER) | payer MEDICARE, OTHER, SELFPAY ==
[2025-02-04 08:59] VITALS: BP 120/71; PULSE 69; RESP 18; TEMP 37; O2SAT 100
--- OUTSIDE RECORDS SUMMARY | 2025-02-04 09:27 | XMS_ITS | Clinical Summary ---
Author Organization [facility] Medical Office Building B Address [address] [place] [address] Care Team Providers Care Fish Cake Maker Name Role Phone Gentry Damir Vargasony Primary Care Provider [phone] Bryan Simeon MD Unavailable [phone] Jerry Leos NP Unavailable [phone] Beryl Mendoza PT Unavailable Unavailable Allergies Active Allergy Reactions Criticality Noted Date Comments Adhesive Rash Medium 05/17/2024 Atorvastatin Muscle pain Medium 08/20/2018 Bee Pollen Swelling Medium Bee Venom Protein (Honey Bee) Anaphylaxis High 04/12/2021 Erythromycin Other (See comments),Vomiting Low 12/02/2013 Reaction: [...] Active Problems Problem Noted Date Diagnosed Date Primary osteoarthritis of left knee 12/16/2024 Closed fracture of nasal bones 08/19/2024 Assessment [...] is overdue for follow up with her incising machine operator, Dr. Lala, in [place]. She will follow up soon. Patient has pain medication at home from her appliance painter and refinisher should pain return. Other possibilities for pain [...] Encounters Date Type Department Care Team Description 01/29/2025 12:34 PM ROD FILLER - 01/29/2025 11:59 PM ROD FILLER Hospital Encounter [facility] [address] [place] [address] Encounter for screening mammogram for malignant neoplasm of breast Discharge Disposition: Discharge to home or self care 01/29/2025 12:30 PM ROD FILLER Lab [address] [address] Pre-operative exam; Primary osteoarthritis of left knee 12/16/2024 10:15 AM CDT Office Visit [facility] Medical [facility] Medicine [address] [place] [address] [address] [address] Mike Rodarte MD Primary osteoarthritis of left knee (Primary Dx); Left knee pain, unspecified chronicity 12/16/2024 7:43 AM CDT - 12/16/2024 11:59 PM CDT Hospital Encounter [facility] Medicine [address] [place] [address] [address] [address] Discharge Disposition: Discharge to home or self care 12/16/2024 7:43 AM CDT - 12/16/2024 11:59 PM CDT Hospital Encounter [facility] [address] [place] [address] [address] Discharge Disposition: Discharge to home or self care 12/16/2024 Telephone [facility] Orthopedics and Sports Medicine [address] [facility] [address], [place] [address] Mike Rodarte MD Surgery Clearance- LTKA from Last 3 Months Immunizations Immunization Administration [...] drink = 0.6 oz pur e alcohol) [facility] Utilities Answer Date Recorded In [...] often do you attend chur ch or hinduism services? Never 10/09/2023 Do you belong to [...] any time in the past 12 [facility], were you homeless or living in a fci (including now)? No 10/09/2023 Personal Safety Answer Date Recorded Have you ever been in or are you currently in a harmful physical or emotional relationship or is someone making you feel afraid or unsafe? Denies 08/13/2024 Comments No Sex and Gender Information Value Date Recorded Sex Assigned at Not on file Legal Sex Female 1:44 AM ROD FILLER Gender Identity Not on file Sexual Orientation Not on file Obstetrics History Para Term AB IAB SAB Ectopic Multiple Livin g Live Births 1 1 1 Date Outcome GA Total Labor Labor/2nd/3rd Weight Sex Type Anes PTL Niharika A1 A5 Name Clin Term Last Filed Vital Signs Vital Sign Reading Time Taken Comments Blood Pressure 117/73 12/16/2024 10:52 AM CDT Pulse 72 12/16/2024 10:52 AM CDT Temperature 36.7 C (98.1 F) 08/13/2024 4:09 PM CDT Respiratory Rate 16 08/13/2024 4:09 PM CDT Oxygen Saturation 97% 08/13/2024 7:06 PM CDT Inhaled Oxygen Concentration - - Weight 71.7 kg (158 lb) 01/29/2025 12:47 PM ROD FILLER Height 157.5 cm (5' 2) 12/16/2024 10:52 AM CDT Body Mass Index 28.9 12/16/2024 10:52 AM CDT Plan of Treatment Health Maintenance [...] 12/05/2017, Additional history exists Breast Cancer Screening-Mammogram 01/29/2026 01/29/2025, 01/05/2024, 04/18/2023, Additional history exists Osteoporosis Screening-Bone Density Scan 03/27/2026 03/27/2024, 01/21/2022 Colon Cancer Screening-Colonoscopy 10/27/2032 10/27/2022 Colon Cancer Screening-CT Colonography Discontinued 10/27/2022 Colon Cancer Screening-DNA Stool Discontinued 10/28/19 Colon Cancer Screening-FIT Discontinued 10/27/2022 Colon Cancer Screening-Sigmoidoscopy Discontinued 10/27/2022 Medical Devices Implanted Type Area Wood Pattern Maker Device Identifier Shelf Expiration Date Model / Serial / Lot [employer] Marker Tissue Bowtie Shape Titanium Collagen Mammomark 10ga [id number] - [id number] - [id number] Implanted:Qty : 1 on 01/31/2024 by Kerry Bhat MD at [facility] Breast Left: Breast [employer] [id number] 05/01/2025 [id number] / [id number] / [id number] D Description:Stereotactic lef t breast biopsy 11-12 o'clock area. Cores x6 Microcalcs in cassettes 1 and 6. Procedures Procedure Name Priority Date/Time Associated Diagnosis Comments SCREENING MAMMOGRAM BILATERAL W PETER Schedule Routine, Read Routine (OP Routine) 01/29/2025 12:53 PM ROD FILLER Encounter for screening mammogram for malignant neoplasm of breast EGFR Routine 01/29/2025 12:34 PM ROD FILLER Pre-operative exam Primary osteoarthritis of left knee DIFFERENTIAL AUTO Routine 01/29/2025 12:34 PM ROD FILLER Pre-operative exam Primary osteoarthritis of left knee CBC WITH AUTO DIFFERENTIAL Routine 01/29/2025 12:34 PM ROD FILLER Pre-operative exam Primary osteoarthritis of left knee COMPREHENSIVE METABOLIC PANEL Routine 01/29/2025 12:34 PM ROD FILLER Pre-operative exam Primary osteoarthritis of left knee HEMOGLOBIN A1C Routine 01/29/2025 12:34 PM ROD FILLER Pre-operative exam Primary osteoarthritis of left knee URINALYSIS AND REFLEX TO MICROSCOPIC AND CULTURE Routine 01/29/2025 12:34 PM ROD FILLER Pre-operative exam Primary osteoarthritis of left knee XR PELVIS 1 OR 2 VIEWS Schedule Routine, Read Routine (OP Routine) 12/16/2024 10:18 AM CDT Left knee pain, unspecified chronicity XR KNEE LEFT 4 OR MORE VIEWS Schedule Routine, Read Routine (OP Routine) 12/16/2024 10:18 AM CDT Left knee pain, unspecified chronicity DEXA AXIAL SKELETON BONE DENSITY 1 OR MORE SITES Schedule Routine, Read Routine (OP Routine) 03/27/2024 8:27 AM ROD FILLER Age-related osteoporosis without current pathological fracture COLONOSCOPY 10/27/2022 8:16 AM CDT from Last 3 Months or Most Recently Relevant to Health Maintenance Results * Screening Mammogram Bilateral W Peter (01/29/2025 12:53 PM ROD FILLER) Anatomical Region Laterality Modality Breast Bilateral Mammography Impressions 01/29/2025 1:17 PM ROD FILLER Bilateral No evidence of malignancy in either breast. OVERALL BI-RADS FINAL ASSESSMENT: 1 - Negative RECOMMENDATION: Recommend bilateral annual screening mammography. Narrative 01/29/2025 1:17 PM ROD FILLER EXAMINATION: Screening Mammogram Bilateral W Peter: 01/29/2025 COMPARISON: Relevant prior studies available at the time of interpretation were reviewed, including the most recent mammogram on: 01/05/2024. TECHNIQUE: Mammography was performed with 2D and 3D digital breast tomosynthesis (DBT) images. CAD was utilized. BREAST PARENCHYMAL COMPOSITION: There are scattered areas of fibroglandular density. FINDINGS: Bilateral There is no suspicious mass, calcification, or architectural distortion in either breast. There is a biopsy marker clip in the left breast. us Damir Rinaldi DO IMG MAMMO PROCEDURES Final Result * eGFR (01/29/2025 12:34 PM ROD FILLER) eGFR >90 >=60 mL/min/1. 73 m2 Comment: [...] interpretive data was last reviewed 2020. Blood 01/29/2025 12:3 4 PM ROD FILLER 01/29/2025 12:51 PM ROD FILLER Mike Rodarte MD LAB BLOOD ORDERABLES Final R esult [facility]) [address] [facility] Department [place] [address] * Differential, auto (01/29/2025 12:34 PM ROD FILLER) Neutrophil abs 4.21 1.50 - 6.50 K/cumm Imm gran abs 0.02 0.00 - 0.10 K/cumm [facility] Lymphocyte abs 1.56 0.80 - 3.30 K/cumm [facility] ([place]) Monocyte abs 0.43 0.20 - 0.80 K/cumm [facility]) Eosinophil abs 0.09 0.00 - 0.50 K/cumm [facility] ([place]) Basophil abs 0.04 0.00 - 0.10 K/cumm [facility] ([place]) Neutrophil pct 66.3 % [facility]) Comment: Interpretive Data Percent cell count reference ranges are not reported, since discordance with absolute values may lead to misinterpretation of CBC data. Current Interpretive Data was last revised on 2017. Imm gran pct 0.3 % [facility] ([place]) Comment: Interpretive Data Percent cell count reference ranges are not reported, since discordance with absolute values may lead to misinterpretation of CBC data. Current Interpretive Data was last revised on 2017. Lymphocyte pct 24.6 % [facility]) Comment: Interpretive Data Percent cell count reference ranges are not reported, since discordance with absolute values may lead to misinterpretation of CBC data. Current Interpretive Data was last revised on 2017. Monocyte pct 6.8 % [facility]) Comment: Interpretive Data Percent cell count reference ranges are not reported, since discordance with absolute values may lead to misinterpretation of CBC data. Current Interpretive Data was last revised on 2017. Eosinophil pct 1.4 % [facility]) Comment: Interpretive [...] Data was last revised on 2017. Blood 01/29/2025 12:3 4 PM ROD FILLER 01/29/2025 12:51 PM ROD FILLER us Mike Rodarte MD LAB BLOOD ORDERABLES Final R esult [facility]) [address] [facility] [place] [address] * (ABNORMAL) Urinalysis reflex to microscopic and culture Urine (01/29/2025 12:34 PM ROD FILLER) Color, ur Yellow Yellow Clarity, ur Clear Clear [facility]) Specific gravity, ur 1.025 1.003 - 1.030 [facility]) pH, urine 5.5 [facility]) Comment: Interpretive Data U rine pH is affected by diet, medications, systemic acid-base disturbances, and renal tubular function. pH may affect urinary stone formation. For example, urine pH below 6.0 may help reduce the tendency for calcium phosphate stones and pH greater than 6.0 may reduce the tendency for uric acid stone formation. Source: [facility] [employer] Current Interpretive Data was last revised on 2017 Protein, ur ql Negative Negative [facility]) Glucose, ur ql Trace(A) Negative [facility]) Ketones, ur Negative Negative [facility]) Bilirubin, ur Negative Negative [facility]) Blood, ur Negative Negative [facility]) Urobilinogen, ur <2.0 <2.0 mg/dL [facility]) Nitrite, ur Negative Negative [facility]) Leukocyte esterase, ur Negative Negative [facility]) UA reflex comment Reflex conditions for microscopic UA and culture not met. [facility]) Urine 01/29/2025 12:3 4 PM ROD FILLER 01/29/2025 12:51 PM ROD FILLER us Mike Rodarte MD LAB MICROBIOLOGY - GENERAL O RDERABLES Final Result [facility] [address] [facility] Department [place] [address] * (ABNORMAL) CBC with auto differential (01/29/2025 12:34 PM ROD FILLER) WBC 6.35 3.80 - 9.90 K/cumm Hgb 12.5 11.9 - 15.5 g/dL [facility]) Hct 40.7 35.6 - 45.5 % [facility]) Plt 292 150 - 400 K/cumm [facility] ([place]) MPV 10.2 9.1 - 12.3 fL [facility]) RBC 4.01 3.90 - 5.20 M/cumm [facility]) MCV 101.5(H) 81.3 - 96.4 fL [facility]) MCH 31.2 27.1 - 33.3 pg [facility]) MCHC 30.7(L) 32.3 - 35.7 g/dL [facility]) RDW CV 12.9 11.1 - 14.9 % [facility]) RDW SD 48.8(H) 35.7 - 48.1 fL [facility]) NRBC abs 0.00 0.00 - 0.01 K/cumm [facility]) Blood 01/29/2025 12:3 4 PM ROD FILLER 01/29/2025 12:51 PM ROD FILLER us Mike Rodarte MD LAB BLOOD ORDERABLES Final R esult Performing Organization Address City/[facility] [address] [facility] Co de Phone Number [facility]) [address] [facility] Department [place] [address] * (ABNORMAL) Hemoglobin A1c (01/29/2025 12:34 PM ROD FILLER) Hgb A1C 5.7(H) 4.0 - 5.6 % Estimated Average Glucose 117 mg/dL [facility]) Comment: The ADA recommends reporting an estimated Average Glucose (eAG) with all Hemoglobin A1c results using the equation derived from a study of 507 normal and diabetic adults. Minority populations were underrepresented and children were not included. (Diabetes Care 31:1013-6490, 2008). The eAG is not equivalent to a fasting glucose. Blood 01/29/2025 12:3 4 PM ROD FILLER 01/29/2025 12:51 PM ROD FILLER Mike Rodarte MD LAB BLOOD ORDERABLES Final R esult [facility]) [address] [facility] Department [place] [address] * (ABNORMAL) Comprehensive metabolic panel (01/29/2025 12:34 PM ROD FILLER) Sodium 142 135 - 145 mmol/L Potassium, pl 3.7 3.3 - 4.9 mmol/L [facility] Chloride 104 97 - 110 mmol/L [facility]) CO2 31 22 - 32 mmol/L [facility]) Anion gap 7 2 - 15 mmol/L [facility]) BUN 11 6 - 25 mg/dL [facility]) Creatinine 0.58(L) 0.60 - 1.10 mg/dL [facility]) Glucose 120 70 - 199 mg/dL [facility]) [...] interpretive data was last revised 2022. Calcium 9.3 8.5 - 10.3 mg/dL [facility]) Bilirubin, total 0.2 0.1 - 1.2 mg/dL [facility]) Protein, pl 6.5 6.5 - 8.5 g/dL [facility]) Albumin 3.9 3.5 - 5.0 g/dL [facility]) Alk phos 79 40 - 130 Units/L [facility]) ALT 21 7 - 45 Units/L [facility]) AST 25 10 - 45 Units/L [facility]) Blood 01/29/2025 12:3 4 PM ROD FILLER 01/29/2025 12:51 PM ROD FILLER Mike Rodarte MD LAB BLOOD ORDERABLES Final R esult [facility] [address] [facility] Department [place] [address] * XR Pelvis 1 or 2 Views (12/16/2024 10:18 AM CDT) Anatomical Region Laterality Modality Body, Pelvis N/A Digital Radiogra phy Narrative 12/16/2024 11:12 AM CDT AP pelvis shows mild degenerative changes bilateral hips no fracture subluxation or dislocation Mike Rodarte MD IMG XR PROCEDURES Final Resu lt * XR Knee Left 4 or More Views (12/16/2024 10:18 AM CDT) Anatomical Region Laterality Modality Lower Extremities, Knee Left Digital Radiography Narrative 12/16/2024 11:12 AM CDT Four views left knee show kl grade 3 osteoarthrosis varus deformity [id number] changes medially no fracture subluxation dislocation Mike Rodarte MD IMG XR PROCEDURES Final Resu lt * Dexa Axial Skeleton Bone Density 1 or 2 Site (03/27/2024 8:27 AM ROD FILLER) Anatomical Region Laterality Modality Body N/A Other 03/27/2024 4:56 PM ROD FILLER Narrative 03/27/2024 4:57 PM ROD FILLER EXAM DESCRIPTION: DEXA AXIAL SKELETON BONE DENSITY 1 OR MORE SITES REASON FOR STUDY: 63 y/o year old F with given history of: age-related osteoporosis Postmenopausal. Wood Pattern Maker/Model: [employer] SL (S/N [id number]) Facility LSC value of 0.022 for the [...] Arcadio Goel M.D. MF: TAM Report ID: [id number] Reading Location: [address] Note Arcadio Goel MD - 03/27/2024 EXAM DESCRIPTION: DEXA AXIAL SKELETON BONE DENSITY 1 OR MORE SITES REASON FOR STUDY: 63 y/o year old F with given history of:age-related osteoporosis Postmenopausal. 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 MF: TAM Report ID: [id number] Reading Location: [place] [address] Damir Rinaldi DO IMG DXA PROCEDURES Final R esult * COLONOSCOPY (10/27/2022 8:16 AM CDT) Anatomical Region Laterality Modality Other Narrative Procedure Note Karen Ronquillo MD - 10/27/2022 8:16 AM CDT [facility] Patient Name: Roma Page Procedure Date: 10/27/2022 8:16 AM Date of : 1960 Admit Type: Outpatient Age: 62 Gender: Female Attending MD: Karen Ronquillo M.D. Room[facility] 2 Note Status: Finalized [...] by the physician, the anesthesiologist and the blending technician in the endoscopy suite. MentalStatus Examination: [...] scope was passed under direct vision. TheColonoscope [id number] was introduced through the anus and advanced [...] perforation orabscess without bleeding CPT copyright 2020 [employer]. All rights reserved. The codes documented in this report are preliminary and upon crushing machine operator reviewmay be revised to meet current compliance requirements. Recognized by the [employer] for promoting quality in endoscopy Karen Ronquillo MD ENDOSCOPY PROCEDURES Final Resul t from Last 3 Months or Most Recently Relevant to Health Maintenance Insurance MEDICARE Member Subscriber Plan / Payer (Ef fective 2021-Present) Name:Roma Page Member ID:[id number] Relation to Subscriber:Self Name:Roma Page Subscriber ID:[id number] Payer ID:[id number] Group ID:Not on file Type:MEDICARE TRADITIONAL Address: [address] [address] [place] [address] [employer] MEDICARE COMMERCIAL GENERIC [facility] EMPL[employer]EE HEALTH PLANS Address: [address] [place] [address] [employer] MEDICARE [employer] Advance Directives For more information, please contact: [phone] * Full Code (Latest Code Status on [...] Relationship Healthcare Agent Relationshi p Communication Ava [place] Daughter First Alternate Health Car e Agent Care Teams Fish Cake Maker Relationship Specialty Start Date End Date Damir Rinaldi DO PCP - General Family Medicine 05/08/19 Bryan Simeon MD Consulting Physician Cardiology 01/10/23 Jerry Leos NP [address] [place] [address] [address] [facility] [address] [place] [address] Nurse Practitioner Orthopedic Surgery 01/17/23 Beryl Mendoza, PT Physical Therapist Physical Therapy 06/16/23
--- OUTSIDE RECORDS SUMMARY | 2025-02-04 09:27 | XMS_ITS | Clinical Summary ---
Author Organization [facility] Address [address] [address] Phone Care Team Providers Care Teacher Public Health Name Role Phone Damir Rinaldi DO Primary Care Provider [phone] Micah Rand MD Unavailable [phone] Allergies Active Allergy Reactions Criticality Noted Date [...] 10 mg by mouth daily. Active butalbital-aspir em-cxdvefzr-wcht ine (FIORINAL WITH CODEINE) 20-790-00-30 MG Capsule Take 1 Capsule by mouth [...] years) (1 of 1 - PCV) 04/19/2009 Medicare Initial AWV [id number] 08/20/2018 Influenza Immunization (#1) 10/21/202411/20, 11/16/2020, 11/20/2019, Additional history exists SARS-COV-2 Immunization ( season) 2024 01/22/2021, 06/12/2020, 05/15/2020 Respiratory Syncytial Virus (RSV) Immunization (Adult) (1 - 1-dose 75+ series) 04/19/2034 DTaP/Tdap/Td Immunization Discontinued 02/20/2009 Zoster Immunization Completed 10/29/2020, Hepatitis B Immunization Aged Out No longer eligible based on patient's age to complete this topic Human Papillomavirus (HPV) Immunization (No Doses Required) Completed Meningococcal Immunization (ACWY) Aged Out No longer eligible based on patient's age to complete this topic Rotavirus Immunization Aged Out No lo nger eligible based on patient's age to complete this topic Insurance MEDICARE PHYSICI[employer] Care Teams Teacher Public Health Relationship Specialty Start Date End Date Damir Rinaldi DO [address] [place] [address] PCP - General Family Medicine 02/10/15 Micah Rand MD [address] [place] [address] Consulting Physician Neurology 10/11/21
--- OUTSIDE RECORDS SUMMARY | 2025-02-04 09:28 | XMS_ITS ---
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 30 tablet 2014 Historic [id number] Xanax 0.5 mg tablet SIG: Xanax 0.5 mg tablet, 30 days, Dispense #15 Tablet, 0 RefillsDirecti ons: Take one tablet by mouth as needed. 15 tablet 2014 Historic [id number] pravast atin 80 mg tablet SIG: pravastatin 80 mg tablet, 30 days, Dispense #30 Tablet, 2 RefillsDirecti ons: Take one tablet by mouth daily. 30 tablet 2014 Historic [id number] Xanax 0.5 mg tablet SIG: Xanax 0.5 mg tablet, 30 days, Dispense #15 Tablet, 0 RefillsDirecti ons: Take one tablet by mouth up to three times daily as needed 15 tablet 2014 Historic [id number] Ambien 5 mg tablet SIG: Ambien 5 mg tablet, 30 days, Dispense #30 Tablet, 0 RefillsDirecti ons: Take 1 oral tablet at bedtime 30 tablet 2014 Historic [id number] Protoni x 20 mg tablet, delayed release (DR/EC) SIG: Protonix 20 mg tablet,delayed release (DR/EC), 30 days, Dispense #30 Tablet, 0 RefillsDirecti ons: Take 1 oral tablet once a day 30 tablet, delayed release (DR/EC) 2014 Historic [id number] Celexa 40 mg tablet SIG: Celexa 40 mg tablet, 30 days, Dispense #30 Tablet, 0 RefillsDirecti ons: Take 1 oral tablet once a day 30 tablet 2014 Historic [id number] acyclov ir 400 mg tablet SIG: acyclovir 400 mg tablet, 30 days, Dispense #30 Tablet, 0 RefillsDirecti ons: Take 1 oral tablet once a day 30 tablet 2014 Historic [id number] losarta n-hydro chlorot hiazide 50-12.5 mg tablet SIG: losartan-hydro chlorothiazide 50-12.5 mg tablet, 30 days, Dispense #30 Tablet, 0 RefillsDirecti ons: Take 1 oral tablet once a day 30 tablet 2014 Historic [id number] hydroco done-ac etamino phen 7.5-325 mg tablet SIG: hydrocodone-ac etaminophen 7.5-325 mg tablet, 30 days, Dispense #60 Tablet, 0 RefillsDirecti ons: Take 1 oral tablet by mouth every 8hrs as needed 60 tablet 2014 Historic [id number] tramado l 50 mg tablet SIG: tramadol 50 mg tablet, 30 days, Dispense #60 Tablet, 0 RefillsDirecti ons: Take 1 oral tablet twice a day 60 tablet 2014 Historic [id number] acyclov ir 400 mg tablet SIG: acyclovir 400 mg tablet, 30 days, Dispense #30 Tablet, 2 RefillsDirecti ons: Take 1 oral tablet once a day 30 tablet 2014 Historic [id number] Celexa 40 mg tablet SIG: Celexa 40 mg tablet, 30 days, Dispense #30 Tablet, 2 RefillsDirecti ons: Take 1 oral tablet once a day 30 tablet 2014 Historic [id number] Protoni x 20 mg tablet, delayed release (DR/EC) SIG: Protonix 20 mg tablet,delayed release (DR/EC), 30 days, Dispense #30 Tablet, 2 RefillsDirecti ons: Take 1 oral tablet once a day 30 tablet, delayed release (DR/EC) 2014 Historic [id number] Ambien 5 mg tablet SIG: Ambien 5 mg tablet, 30 days, Dispense #30 Tablet, 2 RefillsDirecti ons: Take 1 oral tablet at bedtime 30 tablet 2014 Historic [id number] Ambien 5 mg tablet SIG: Ambien 5 mg tablet, 30 days, Dispense #30 Tablet, 2 RefillsDirecti ons: Take 1 oral tablet at bedtime 30 tablet 2014 Historic [id number] Xanax 0.5 mg tablet SIG: Xanax 0.5 mg tablet, 30 days, Dispense #15 Tablet, 0 RefillsDirecti ons: Take one tablet by mouth up to three times daily as needed 15 tablet 2014 Historic [id number] Ambien 10 mg tablet SIG: Ambien 10 mg tablet, 30 days, Dispense #30 Tablet, 2 RefillsDirecti ons: Take 1 oral tablet at bedtime 30 tablet 2014 Historic [id number] Ambien 10 mg tablet SIG: Ambien 10 mg tablet, 30 days, Dispense #30 Tablet, 2 RefillsDirecti ons: Take 1 oral tablet at bedtime 30 tablet 2015 Historic [id number] Ultram 50 mg tablet SIG: Ultram 50 mg oral tablet, 30 days, Dispense #120 Tablet, 0 RefillsDirecti ons: take 1 tablet by oral route every 6 hours as needed 120 tablet 2021 Historic [id number] trazodo ne 150 mg tablet SIG: trazodone 150 mg oral tablet, 30 days, Dispense #90 Tablet, 0 RefillsDirecti ons: Take 150 mg by mouth nightly. 2 tablets at bedtime as needed 90 tablet 2021 Historic [id number] Ranexa 1,000 mg tablet extende d release 12 hr SIG: Ranexa 1,000 mg oral tablet extended release 12 hr, 30 days, Dispense #60 Tablet, 0 RefillsDirecti ons: Take 1,000 mg by mouth 2 times daily 60 tablet extende d release 12 hr 2021 Historic [id number] paroxet ine HCl 20 mg tablet SIG: paroxetine HCl 20 mg oral tablet, 30 days, Dispense #60 Tablet, 0 RefillsDirecti ons: Take 20 mg by mouth daily 60 tablet 2021 Historic [id number] losarta n 100 mg tablet SIG: losartan 100 mg oral tablet, 30 days, Dispense #30 Tablet, 0 RefillsDirecti ons: Take 1 oral tablet once a day 30 tablet 2021 Historic [id number] hydroco done-ac etamino phen 10-325 mg tablet SIG: hydrocodone-ac etaminophen 10-325 mg oral tablet, 30 days, Dispense #120 Tablet, 0 RefillsDirecti ons: Take 1 Tablet by mouth every 6 hours as needed. 120 tablet 2021 Current [id number] gabapen tin 600 mg tablet SIG: gabapentin 600 mg oral tablet, 30 days, Dispense #90 Tablet, 0 RefillsDirecti ons: Take 1 Tablet by mouth 3 times daily. 90 tablet 2021 Historic [id number] epineph rine 0.3 mg/0.3 mL auto-in jector SIG: epinephrine 0.3 mg/0.3 mL injection auto-injector, 1 days, Dispense #1 Each, 0 RefillsDirecti ons: inject 0.3 milliliter by intramuscular route once as needed for anaphylaxis 1 auto-in jector 2021 Historic [id number] ezetimi be 10 mg tablet SIG: ezetimibe 10 mg oral tablet, 30 days, Dispense #30 Tablet, 0 RefillsDirecti ons: Take 1 oral tablet once a day 30 tablet 2021 Historic [id number] butalbi carisa-asp irin-ca ffeine 50-325- 40 mg capsule SIG: butalbital-asp irin-caffeine 50-325-40 mg oral capsule, 30 days, Dispense #90 Capsule, 0 RefillsDirecti ons: Take 1 capsule by mouth every 4 (four) hours as needed for headaches 90 capsule 2021 Historic [id number] aripipr azole 10 mg tablet SIG: aripiprazole 10 mg oral tablet, 30 days, Dispense #30 Tablet, 0 RefillsDirecti ons: Take 1 oral tablet once a day 30 tablet 2021 Historic [id number] alprazo miles 0.5 mg tablet SIG: alprazolam 0.5 mg oral tablet, 30 days, Dispense #90 Tablet, 0 RefillsDirecti ons: Take one tablet by mouth up to three times daily as needed 90 tablet 2021 Historic [id number] Celebre x 200 mg capsule SIG: Celebrex 200 mg oral capsule, 30 days, Dispense #60 Capsule, 0 RefillsDirecti ons: Take 1 oral capsule twice a day 60 capsule 2021 Current [id number] famotid ine 40 mg tablet SIG: famotidine 40 mg oral tablet, 30 days, Dispense #30 Tablet, 5 RefillsDirecti ons: Take 1 oral tablet once a day 30 tablet 2021 Historic [id number] Vascepa 1 gram capsule SIG: Vascepa 1 gram oral capsule, 90 days, Dispense #360 Capsule, 2 RefillsDirecti ons: Take 2 capsules by mouth twice daily with food 360 capsule 2021 Historic [id number] Repatha SureCli ck 140 mg/mL pen injecto r SIG: Repatha SureClick 140 mg/mL subcutaneous pen injector, 14 days, Dispense #1 Milliliter, 0 RefillsDirecti ons: Take 1 subcutaneous milliliter ever 2 weeks 1 pen injecto r 2021 Historic [id number] hydroch lorothi azide 25 mg tablet SIG: hydrochlorothi azide 25 mg oral tablet, 90 days, Dispense #90 Tablet, 0 RefillsDirecti ons: Take 1 oral tablet once a day 90 tablet 2021 Historic [id number] Toprol XL 50 mg tablet extende d release 24 hr SIG: Toprol XL 50 mg oral tablet extended release 24 hr, 90 days, Dispense #90 Tablet, 0 RefillsDirecti ons: Take 1 oral tablet once a day 90 tablet extende d release 24 hr 2021 Historic [id number] nitrogl ycerin 0.4 mg tablet, subling ual SIG: nitroglycerin 0.4 mg sublingual tablet, sublingual, 0 days, Dispense #30 Tablet, 0 RefillsDirecti ons: Put 1 tablet under tongue as needed for chest pain. may repeat every 5 minutes if still having chest pain (max dose 3 tablets) 30 tablet, subling ual 2021 Historic [id number] aripipr azole 10 mg tablet SIG: aripiprazole 10 mg oral tablet, 30 days, Dispense #60 Tablet, 0 RefillsDirecti ons: Take 1 tablet in the morning and 1 tablet in the evening 60 tablet 2021 Historic [id number] paroxet ine HCl 20 mg tablet SIG: paroxetine HCl 20 mg oral tablet, 30 days, Dispense #75 Tablet, 0 RefillsDirecti ons: Take 1 tablet in the morning. Take 1.5 tablets in the evening 75 tablet 2021 Historic [id number] benzona deleon 200 mg capsule SIG: benzonatate 200 mg oral capsule, 30 days, Dispense #30 Capsule, 0 RefillsDirecti ons: Take 1 oral capsule at bedtime as needed for cough 30 capsule 2021 Historic [id number] Repatha SureCli ck 140 mg/mL pen injecto r SIG: Repatha SureClick 140 mg/mL subcutaneous pen injector, 28 days, Dispense #2 Milliliter, 0 RefillsDirecti ons: Take 1 subcutaneous milliliter every 2 weeks 2 pen injecto r 2021 Historic [id number] risedro hebert 150 mg tablet SIG: risedronate 150 mg oral tablet, 90 days, Dispense #3 Tablet, 0 RefillsDirecti ons: Take one oral tablet once per month 3 tablet 2021 Historic M81.0 - AGE-RELATED OSTEOPOROSIS WITHOUT CURRENT PATHOLOGICAL FRACTURE [id number] alendro hebert 70 mg tablet SIG: alendronate, Dispense #12, 1 Refills, Directions: Take one oral tablet weekly 12 tablet 2021 Historic [id number] Repatha SureCli ck 140 mg/mL pen injecto r SIG: Repatha SureClick, Dispense #2, 1 Refills, Directions: INJECT 1 ML SUBCUTANEOUSLY EVERY 2 WEEKS 2 pen injecto r 2022 Historic [id number] famotid ine 40 mg tablet SIG: famotidine, Dispense #90, 0 Refills, Directions: TAKE 1 TABLET BY MOUTH EVERY DAY 90 tablet 04/28/ 2023 Historic [id number] ALENDRO HEBERT SODIUM 70 MG TAB 70 mg tablet SIG: ALENDRONATE SODIUM 70 MG TAB, Dispense #12, 1 Refills, Directions: TAKE ONE TABLET BY MOUTH ONCE WEEKLY 12 tablet 2022 Historic [id number] amlodip ine 5 mg tablet SIG: amlodipine 5 mg oral tablet, 90 days, Dispense #90 Tablet, 0 RefillsDirecti ons: Take 1 oral tablet once a day 90 tablet 2022 Current [id number] cyclobe nzaprin e 10 mg tablet SIG: cyclobenzaprin e 10 mg oral tablet, 90 days, Dispense #180 Tablet, 0 RefillsDirecti ons: Take 1 oral tablet twice a day 180 tablet 2022 Historic [id number] Praluen t Pen 75 mg/mL pen injecto r SIG: Praluent Pen 75 mg/mL subcutaneous pen injector, 28 days, Dispense #2 Milliliter, 0 RefillsDirecti ons: Inject 75mg once every 2 weeks 2 pen injecto r 2022 Historic [id number] FAMOTID INE 40 MG TABLET 40 mg tablet SIG: FAMOTIDINE 40 MG TABLET, Dispense #90, 0 Refills, Directions: TAKE 1 TABLET BY MOUTH EVERY DAY 90 tablet 2022 Historic [id number] FAMOTID INE 40 MG TABLET 40 mg tablet SIG: FAMOTIDINE 40 MG TABLET, Dispense #90, 0 Refills, Directions: TAKE 1 TABLET BY MOUTH EVERY DAY 90 tablet 2022 Historic [id number] gabapen tin 600 mg tablet SIG: gabapentin 600 mg oral tablet, 30 days, Dispense #90 Tablet, 0 RefillsDirecti ons: Take 1 Tablet by mouth 3 times daily. 90 tablet 2022 Historic [id number] fluocin olone acetoni de oil 0.01 % drops SIG: fluocinolone acetonide oil 0.01 % otic (ear) drops, 10 days, Dispense #20 Milliliter, 0 RefillsDirecti ons: 5 gtts in affected ear twice daily as needed for external auditory canal discomfort 20 drops 2022 Historic [id number] PAROXET INE HCL 20 MG TABLET 20 mg tablet SIG: PAROXETINE HCL 20 MG TABLET, Dispense #90, 1 Refills, Directions: TAKE 1 TABLET BY MOUTH EVERY DAY 90 tablet 2022 Historic [id number] FAMOTID INE 40 MG TABLET 40 mg tablet SIG: FAMOTIDINE 40 MG TABLET, Dispense #90, 0 Refills, Directions: TAKE 1 TABLET BY MOUTH EVERY DAY 90 tablet 2023 Historic [id number] Nexlize t 180-10 mg tablet SIG: Nexlizet 180-10 mg oral tablet, 30 days, Dispense #30 Tablet, 0 Refills, Directions: Take 1 oral tablet once a day 30 tablet 2023 Historic [id number] Nexlize t 180-10 mg tablet SIG: Nexlizet 180-10 mg oral tablet, 30 days, Dispense #30 Tablet, 2 Refills, Directions: Take 1 oral tablet once a day 30 tablet 2023 Historic [id number] Nexlize t 180-10 mg tablet SIG: Nexlizet 180-10 mg oral tablet, 30 days, Dispense #30 Tablet, 2 Refills, Directions: Take 1 oral tablet once a day 30 tablet 2023 Historic [id number] alprazo miles 0.5 mg tablet SIG: alprazolam 0.5 mg oral tablet, 30 days, Dispense #90 Tablet, 0 Refills, Directions: Take one tablet by mouth up to three times daily as needed 90 tablet 2023 Historic [id number] paroxet ine HCl 20 mg tablet SIG: paroxetine HCl 20 mg oral tablet, 30 days, Dispense #75 Tablet, 0 Refills, Directions: Take 1 tablet in the morning. Take 1.5 tablets in the evening 75 tablet 2023 Historic [id number] gabapen tin 600 mg tablet SIG: gabapentin 600 mg oral tablet, 30 days, Dispense #90 Tablet, 0 Refills, Directions: Take 1 Tablet by mouth 3 times daily. 90 tablet 2023 Historic [id number] GABAPEN TIN 600 MG TABLET 600 mg tablet SIG: GABAPENTIN 600 MG TABLET, Dispense #90, 0 Refills, Directions: take 1 tablet by mouth three times a day 90 tablet 2023 Historic [id number] FAMOTID INE 40 MG TABLET 40 mg tablet SIG: FAMOTIDINE 40 MG TABLET, Dispense #90, 0 Refills, Directions: TAKE 1 TABLET BY MOUTH EVERY DAY 90 tablet 2023 Historic [id number] FAMOTID INE 40 MG TABLET 40 mg tablet SIG: FAMOTIDINE 40 MG TABLET, Dispense #90, 0 Refills, Directions: take 1 tablet by mouth every day 90 tablet 2023 Historic [id number] trazodo ne 150 mg tablet SIG: trazodone 150 mg oral tablet, 30 days, Dispense #30 Tablet, 0 Refills, Directions: Take 150 mg by mouth nightly. 2 tablets at bedtime as needed 30 tablet 2023 Historic [id number] metform in 500 mg tablet extende d release 24 hr SIG: metformin 500 mg oral tablet extended release 24 hr, 90 days, Dispense #90 Tablet, 0 Refills, Directions: TAKE 1 ORAL TABLET 3 TIMES A DAY 90 tablet extende d release 24 hr 2023 Historic [id number] Vitamin D2 1,250 mcg (50,000 unit) capsule SIG: Vitamin D2 1,250 mcg (50,000 unit) oral capsule, 90 days, Dispense #4 Capsule, 12 Refills, Directions: Take 1 tablet weekly 4 capsule 2023 [facility] [id number] trazodo ne 150 mg tablet SIG: trazodone 150 mg oral tablet, 30 days, Dispense #30 Tablet, 1 Refills, Directions: Take 150 mg by mouth nightly. 30 tablet 2023 Historic [id number] trazodo ne 150 mg tablet SIG: trazodone 150 mg oral tablet, 30 days, Dispense #30 Tablet, 1 Refills, Directions: Take 150 mg by mouth nightly. 30 tablet 2023 Historic [id number] alprazo miles 0.5 mg tablet SIG: alprazolam 0.5 mg oral tablet, 30 days, Dispense #90 Tablet, 0 Refills, Directions: Take one tablet by mouth up to three times daily as needed 90 tablet 2023 Historic [id number] alprazo miles 0.5 mg tablet SIG: alprazolam 0.5 mg oral tablet, 30 days, Dispense #85 Tablet, 0 Refills, Directions: Take one tablet by mouth up to three times daily as needed for severe anxiety or panic attack 85 tablet 2023 Historic [id number] metform in 500 mg tablet extende d release 24 hr SIG: metformin 500 mg oral tablet extended release 24 hr, 90 days, Dispense #270 Tablet, 0 Refills, Directions: TAKE 1 ORAL TABLET 3 TIMES A DAY 270 tablet extende d release 24 hr 2023 Historic [id number] albuter ol sulfate 90 mcg/act uation HFA aerosol inhaler SIG: albuterol sulfate 90 mcg/actuation inhalation HFA aerosol inhaler, 3 days, Dispense #6.7 Gram, 0 Refills, Directions: two puffs every 4 hours as needed for cough, wheezing, or shortness of breath 6.7 HFA aerosol inhaler 2023 Historic [id number] alprazo miles 0.5 mg tablet SIG: alprazolam 0.5 mg oral tablet, 30 days, Dispense #80 Tablet, 0 Refills, Directions: Take one tablet by mouth up to three times daily as needed for severe anxiety or panic attack 80 tablet 2023 Historic [id number] prometh azine-D M 6.25-15 mg/5 mL syrup SIG: promethazine-D M 6.25-15 mg/5 mL oral syrup, 29 days, Dispense #116 Milliliter, 0 Refills, Directions: Take 5 oral milliliter every 6 hours as needed for cough. 116 syrup 2023 Historic [id number] alprazo miles 0.5 mg tablet SIG: alprazolam 0.5 mg oral tablet, 30 days, Dispense #80 Tablet, 0 Refills, Directions: Take one tablet by mouth up to three times daily as needed for severe anxiety or panic attack 80 tablet 2023 Historic [id number] famotid ine 40 mg tablet SIG: famotidine 40 mg oral tablet, 90 days, Dispense #90 Tablet, 0 Refills, Directions: TAKE 1 TABLET BY MOUTH EVERY DAY 90 tablet 2023 Historic [id number] FAMOTID INE 40 MG TABLET 40 mg tablet SIG: FAMOTIDINE 40 MG TABLET, Dispense #90, 0 Refills, Directions: take 1 tablet by mouth every day 90 tablet 2023 Historic [id number] ondanse wing 4 mg tablet, disinte grating SIG: ondansetron 4 mg oral tablet,disinte grating, 7 days, Dispense #20 Tablet, 0 Refills, Directions: Take 1 tablet by mouth every 8 hours as needed for nausea 20 tablet, disinte grating 2023 Historic [id number] ondanse wing 4 mg tablet, disinte grating SIG: ondansetron 4 mg oral tablet,disinte grating, 7 days, Dispense #20 Tablet, 0 Refills, Directions: Take 1 tablet by mouth every 8 hours as needed for nausea 20 tablet, disinte grating 2023 Historic [id number] alprazo miles 0.5 mg tablet SIG: alprazolam 0.5 mg oral tablet, 30 days, Dispense #75 Tablet, 0 Refills, Directions: Take one tablet by mouth up to three times daily as needed for severe anxiety or panic attack 75 tablet 2023 Historic [id number] metform in 500 mg tablet extende d release 24 hr SIG: metformin 500 mg oral tablet extended release 24 hr, 90 days, Dispense #270 Tablet, 0 Refills, Directions: TAKE 1 ORAL TABLET 3 TIMES A DAY 270 tablet extende d release 24 hr 2023 Historic [id number] METFORM IN HCL ER 500 MG TABLET 500 mg tablet extende d release 24 hr SIG: METFORMIN HCL ER 500 MG TABLET, Dispense #270, 0 Refills, Directions: take 1 tablet by mouth three times a day 270 tablet extende d release 24 hr 2023 Historic [id number] alprazo miles 0.5 mg tablet SIG: alprazolam 0.5 mg oral tablet, 30 days, Dispense #70 Tablet, 0 Refills, Directions: Take one tablet by mouth up to three times daily as needed for severe anxiety or panic attack 70 tablet 2023 Historic [id number] famotid ine 40 mg tablet SIG: famotidine 40 mg oral tablet, 90 days, Dispense #90 Tablet, 0 Refills, Directions: TAKE 1 TABLET BY MOUTH EVERY DAY 90 tablet 2023 Historic [id number] FAMOTID INE 40 MG TABLET 40 mg tablet SIG: FAMOTIDINE 40 MG TABLET, Dispense #90, 0 Refills, Directions: take 1 tablet by mouth every day 90 tablet 2023 Historic [id number] alprazo miles 0.5 mg tablet SIG: alprazolam 0.5 mg oral tablet, 30 days, Dispense #65 Tablet, 0 Refills, Directions: Take one tablet by mouth up to three times daily as needed for severe anxiety or panic attack 65 tablet 2023 Historic [id number] pantopr azole 40 mg tablet, delayed release (DR/EC) SIG: pantoprazole 40 mg oral tablet,delayed release (DR/EC), 30 days, Dispense #30 Tablet, 1 Refills, Directions: Take 1 oral tablet once a day 30 tablet, delayed release (DR/EC) 2023 Historic [id number] metform in 500 mg tablet extende d release 24 hr SIG: metformin 500 mg oral tablet extended release 24 hr, 90 days, Dispense #270 Tablet, 0 Refills, Directions: TAKE 1 ORAL TABLET 3 TIMES A DAY 270 tablet extende d release 24 hr 2023 Historic [id number] metform in 500 mg tablet extende d release 24 hr SIG: metformin 500 mg oral tablet extended release 24 hr, 90 days, Dispense #270 Tablet, 0 Refills, Directions: TAKE 1 ORAL TABLET 3 TIMES A DAY 270 tablet extende d release 24 hr 2023 Historic [id number] pantopr azole 40 mg tablet, delayed release (DR/EC) SIG: pantoprazole 40 mg oral tablet,delayed release (DR/EC), 30 days, Dispense #30 Tablet, 1 Refills, Directions: Take 1 oral tablet once a day 30 tablet, delayed release (DR/EC) 2023 Historic [id number] Pantopr azole Sodium 40 MG Oral Tablet Delayed Release 40 mg tablet, delayed release (DR/EC) SIG: Pantoprazole Sodium 40 MG Oral Tablet Delayed Release, Dispense #30, 0 Refills, Directions: Take 1 tablet by mouth once daily 30 tablet, delayed release (DR/EC) 2023 Historic [id number] alprazo miles 0.5 mg tablet SIG: alprazolam 0.5 mg oral tablet, 30 days, Dispense #60 Tablet, 0 Refills, Directions: Take one tablet by mouth up to three times daily as needed for severe anxiety or panic attack 60 tablet 2024 Historic [id number] alprazo miles 0.5 mg tablet SIG: alprazolam 0.5 mg oral tablet, 30 days, Dispense #55 Tablet, 0 Refills, Directions: Take one tablet by mouth up to three times daily as needed for severe anxiety or panic attack 55 tablet 2024 Historic [id number] pantopr azole 20 mg tablet, delayed release (DR/EC) SIG: pantoprazole 20 mg oral tablet,delayed release (DR/EC), 90 days, Dispense #90 Tablet, 1 Refills, Directions: Take 1 oral tablet once a day 90 tablet, delayed release (DR/EC) 2024 Historic [id number] Nexlize t 180-10 mg tablet SIG: Nexlizet 180-10 mg oral tablet, 30 days, Dispense #30 Tablet, 0 Refills, Directions: Take 1 oral tablet once a day 30 tablet 2024 Historic [id number] metform in 500 mg tablet extende d release 24 hr SIG: metformin 500 mg oral tablet extended release 24 hr, 90 days, Dispense #270 Tablet, 0 Refills, Directions: TAKE 1 ORAL TABLET 3 TIMES A DAY 270 tablet extende d release 24 hr 2024 Historic [id number] alprazo miles 0.5 mg tablet SIG: alprazolam 0.5 mg oral tablet, 30 days, Dispense #50 Tablet, 0 Refills, Directions: Take one tablet by mouth up to three times daily as needed for severe anxiety or panic attack 50 tablet 2024 Historic [id number] alprazo miles 0.5 mg tablet SIG: alprazolam 0.5 mg oral tablet, 30 days, Dispense #45 Tablet, 0 Refills, Directions: Take one tablet by mouth up to three times daily as needed for severe anxiety or panic attack 45 tablet 2024 Historic [id number] nystati n 100,000 unit/mL suspens ion SIG: nystatin 100,000 unit/mL oral suspension, 50 days, Dispense #200 Milliliter, 0 Refills, Directions: Take 5 mL orally four times daily, retain in mouth as long as possible before swallowing 200 suspens ion 2024 Historic [id number] gabapen tin 600 mg tablet SIG: gabapentin 600 mg oral tablet, 90 days, Dispense #270 Tablet, 1 Refills, Directions: Take 1 Tablet by mouth 3 times daily. 270 tablet 2024 Current [id number] cephale gabi 500 mg capsule SIG: cephalexin 500 mg oral capsule, 5 days, Dispense #10 Capsule, 0 Refills, Directions: Take 1 oral capsule 2 times a day 10 capsule 2024 Historic [id number] pantopr azole 20 mg tablet, delayed release (DR/EC) SIG: pantoprazole 20 mg oral tablet,delayed release (DR/EC), 90 days, Dispense #90 Tablet, 1 Refills, Directions: Take 1 oral tablet once a day 90 tablet, delayed release (DR/EC) 2024 Current [id number] alprazo miles 0.5 mg tablet SIG: alprazolam 0.5 mg oral tablet, 30 days, Dispense #40 Tablet, 0 Refills, Directions: Take one tablet by mouth up to three times daily as needed for severe anxiety or panic attack 40 tablet 2024 Historic [id number] metform in 500 mg tablet extende d release 24 hr SIG: metformin 500 mg oral tablet extended release 24 hr, 90 days, Dispense #270 Tablet, 0 Refills, Directions: TAKE 1 ORAL TABLET 3 TIMES A DAY 270 tablet extende d release 24 hr 2024 Current [id number] ondanse wing 4 mg tablet, disinte grating SIG: ondansetron 4 mg oral tablet,disinte grating, 7 days, Dispense #20 Tablet, 0 Refills, Directions: Take 1 tablet by mouth every 8 hours as needed for nausea 20 tablet, disinte grating 2024 Current [id number] alprazo miles 0.5 mg tablet SIG: alprazolam 0.5 mg oral tablet, 30 days, Dispense #35 Tablet, 0 Refills, Directions: Take one tablet by mouth up to three times daily as needed for severe anxiety or panic attack 35 tablet 2024 Historic [id number] alprazo miles 0.5 mg tablet SIG: alprazolam 0.5 mg oral tablet, 30 days, Dispense #30 Tablet, 0 Refills, Directions: Take one tablet by mouth up to three times daily as needed for severe anxiety or panic attack 30 tablet 2024 Historic [id number] alprazo miles 0.5 mg tablet SIG: alprazolam 0.5 mg oral tablet, 30 days, Dispense #30 Tablet, 0 Refills, Directions: TAKE 1 TABLET BY MOUTH UP TO THREE TIMES DAILY NEEDED FOR SEVERE ANXIETY OR PANIC ATTACKS 30 tablet 2024 Historic PROBLEMS Problem Code Problem Description Problem Status [...] DUE TO OTHER MENTAL DISORDER Chronic 03/15/2018 [id number] (PRIMARY) HYPERTENSION ESSENTIAL (PRIMARY) HYPERTENSION Chronic 03/15/2018 I50.32-CHRONIC DIASTOLIC (CONGESTIVE) HEART FAILURE CHRONIC DIASTOLIC (CONGESTIVE) HEART FAILURE Chronic 03/15/2018 K21.5-MAAYVA-BEYAKEXNL L REFLUX DISEASE WITHOUT ESOPHAGITIS GASTRO-ESOPHAGEAL REFLUX DISEASE WITHOUT ESOPHAGITIS Chronic 03/15/2018 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 03/15/2018 R73.03-Prediabetes Prediabetes Historic 03/15/2018 M54.6-PAIN IN THORACIC SPINE PAIN IN THORACIC SPINE Chronic 03/15/2018 M17.0-Bilateral primary osteoarthritis of knee Bilateral primary osteoarthritis of knee Chronic 03/15/2018 I65.23-Occlusion and stenosis of bilateral carotid arteries Occlusion and stenosis of bilateral carotid arteries Chronic 01/05/2022 M81.4-TIJ-FMHQBMY OSTEOPOROSIS WITHOUT CURRENT PATHOLOGICAL FRACTURE AGE-RELATED OSTEOPOROSIS [...] Never Smoker Sex: Female CARE TEAM INFORMATION Hand Paster Provider ID Role Location Phone HALLIE TAVARES [phone] PHYSICIAN [facility] [place] [address] INSURANCE PROVIDERS Payer Name Policy type / Coverage type Covered alliance party ID Policy [employer] Unavailable / Unknown [id number] [facility] [employer] Medicare [id number] SELF
--- NOTE | 2025-02-04 09:33 | ED_ITS ---
HPI - Female Genitourinary General Chief complaint: Urogenital-Female Stated complaint: Urinary Problem Time Seen by Provider: 02/04/25 09:30 Source: patient, RN notes reviewed and old records reviewed Mode of arrival: ambulatory Limitations: no limitations History of Present Illness HPI Narrative: 64 year old female who presents to [facility] with complaints of 3 day history of burning with urination with urgency and frequency and some nocturia. Patient reports no visible blood in urine and denies any increase pain to back or any flank pain. Patient has not taken any OTC medications for her symptoms. denies any nausea vomiting or diarrhea or any fevers, chills or sweats. MD elicited complaint: UTI (symptoms) Pertinent past history: diabetes and other (previous UTI) Onset (ago): day(s) (3) Location of symptoms: urethra Severity: moderate Severity scale (1-10): 4 Quality of pain: burning and aching Vaginal discharge: none Vaginal bleeding: none Urinary symptoms: Dysuria, Urgency and Frequency Related Data Home Medications ?Medication ?Instructions ?Recorded ?Confirmed ?Last Taken ?Type alprazolam 0.5 mg tablet (Xanax) 0.5 mg PO TID PRN Anx iety 06/04/20 04/03/24 Unknown History metoprolol succinate 50 mg 50 mg PO DAILY 01/15/2201/13 Unknown History tablet,extended release 24 hr amlodipine 5 mg tablet 5 mg PO DAILY 08/05/2204/03 Unknown History metformin 500 mg tablet,extended 500 mg PO TID 4 10/01/23 Unknown History release 24 hr paroxetine HCl 20 mg tablet 20 mg PO DAILY 08/06/23 Unknown History pantoprazole 20 mg tablet,delayed mg PO 05/16/24 Unkn own History release gabapentin 600 mg tablet mg 09/05/24 Unknown History ondansetron 4 mg disintegrating mg 09/05/24 Unknown H istory tablet Allergies Allergy/AdvReac Type Severity Reaction Status Date / Time bee venom protein (honey bee) Allergy Severe Anaphylaxis Verified 02/04/25 09:04 erythromycin base Allergy Unknown Hives Verified 02/04/25 09:04 sulfamethoxazole (From Allergy Unknown Vomiting Verified 02/04/25 09:04 Bactrim) trimethoprim (From Bactrim) Allergy Unknown Vomiting Verified 02/04/25 09:04 Review of Systems Review of Systems: CONSTITUTIONAL: Denies fever, chills, or sweats. CARDIOVASCULAR: Denies chest pain, palpitations, or edema. RESPIRATORY: Denies cough or dyspnea. GASTROINTESTINAL: Denies abdominal pain, nausea, vomiting, or diarrhea. GENITOURINARY: Reports dysuria, frequency, urgency and increased nocturia. Denies flank pain or hematuria. SKIN: Denies rash or itching. MUSCULOSKELETAL: Denies any increase in back pain or myalgia. Denies CVA tenderness NEUROLOGIC: Denies headache All systems reviewed & are unremarkable except as noted in HPI and below PMFSH Past Medical History Medical History Urinary tract infection Diabetes Diarrhea Syrinx of spinal cord Diastolic dysfunction Hypertension Depression Low back pain Surgical History Surgical History H/O: hysterectomy History of right knee joint replacement Hx of appendectomy S/P tonsillectomy H/O total knee replacement (~12/25/19) Family History Family History Mother Family history non-contributory Social History Social History Social History: never smoker Smoking status: Never smoker Alcohol intake: current Substance use: never Living arrangements: with family Gender identity (if verbalized by the patient): Female Sexual Orientation (if Verbalized by the Patient): Straight or Heterosexual Spiritual care concerns: No Comments At time of signature, agree with nursing past medical, surgical, social and family history. There is no relevant family history pertinent to the presenting complaint Exam Narrative: GENERAL: Well-appearing, well-nourished, and in no acute distress. HEAD: Normocephalic, atraumatic. NECK: Supple.no lymphadenopathy CHEST: Clear to auscultation. No respiratory distress. SAO2 100% on room air HEART: Regular rate and rhythm. No murmur heard. Normal peripheral pulses. ABDOMEN: Soft, nontender, nondistended, normal active bowel sounds. No CVA tenderness reports dysuria, frequency and urgency and increased nocturia EXTREMITIES: Normal range of motion. No edema. SKIN: Warm, dry, no rash. NEURO: No focal deficits. Alert and oriented x3. Course Course Level of Care: Express Care Visit Vital Signs Vital signs: Vital Signs Temperature 37.0 C 02/04/25 08:59 Pulse Rate 69 02/04/25 08:59 Respiratory Rate 18 02/04/25 08:59 Blood Pressure 120/71 02/04/25 08:59 Pulse Oximetry 100 02/04/25 08:59 Oxygen Delivery Room Air 02/04/25 08:59 Temperature 37.0 C 02/04/25 08:59 Pulse Rate 69 02/04/25 08:59 Respiratory Rate 18 02/04/25 08:59 Blood Pressure 120/71 02/04/25 08:59 Pulse Oximetry 100 02/04/25 08:59 Oxygen Delivery Room Air 02/04/25 08:59 reviewed [facility] Narrative Medical decision making narrative: 64 year old female who presents to express care with complaints of dysuria, urgency and frequency for 3 days. Patient is nontoxic afebrile with no nausea or vomiting. Anticipatrory guidance and reasons to seek care in ED reviewed with patient with understanding voiced. Differential Diagnosis Differential Diagnosis: Differential diagnostic considerations for female urogenital? issues include urinary tract infection, bacterial vaginosis, cervicitis, ovarian cyst, vaginitis, STI exposure, ovarian torsion, ectopic , cyst of Bartholin?s gland, cystitis, dysmenorrhea.?? Lab Data [facility] Lab Attestation statement: I personally reviewed the patient's lab results. Lab results narrative: urine dip glucose negative bilirubin negative, ketone negative specific gravity greater than or equal to 1.030, blood 3+, pH 6.0, protein 2+, urobilinogen 0.2 nitrite negative leukocyte trace urine yellow and cloudy Critical Care Time Critical Care Time Critical Care Time: No Discharge Plan Discharge Clinical Impression: Urinary tract infection Qualifiers: Urinary tract infection type: site unspecified Hematuria presence: with hematuria Qualified Code(s): N39.0 - Urinary tract infection, site not specified Patient Disposition: Home Condition: Stable Instructions: Antibiotic Form, Urinary Tract Infection in Women (ED) Additional Instructions: Increase fluids especially cranberry juice and water Avoid caffeine and carbonated beverages Antibiotic as directed Tylenol/ibuprofen for pain or fever Follow-up with her primary care provider if further problems or concerns Recheck if you have fever over 101, nausea and vomiting. If your symptoms persist, change or worsen significantly before you can contact your personal physician then please, without delay, go to the emergency dep artment for further evaluation. Follow-up with PCP in 7-10 days or sooner if needed Patient Language: Chinese Prescriptions: New ciprofloxacin HCl 500 mg tablet 500 mg PO Q12H Qty: 7 0RF No Action amlodipine 5 mg tablet 5 mg PO DAILY paroxetine HCl 20 mg tablet 20 mg PO DAILY metformin 500 mg tablet extended release 24 hr 500 mg PO TID metoprolol succinate 50 mg tablet extended release 24 hr 50 mg PO DAILY pantoprazole 20 mg tablet,delayed release (DR/EC) PO gabapentin 600 mg tablet ondansetron 4 mg tablet,disintegrating alprazolam [Xanax] 0.5 mg tablet 0.5 mg PO TID PRN (Reason: Anxiety) tramadol 50 mg tablet 50 mg PO Q8H PRN (Reason: pain (scale score 7-10)) Qty: 50 0RF hydrocodone-acetaminophen 10-325 mg tablet 1 tablet PO Q8H PRN (Reason: pain (scale score 7-10)) Qty: 90 0RF Rx Instructions: To last 30 days, due 12/12/2020 Follow-up/Referrals: Gentry,Damir Ching DO [Primary Care Provider, Unknown] Time of Disposition: 09:38 Quality Kristal Coma Scale Eyes: Open Verbal: Oriented and Alert Motor: Follows Commands [place] Coma Total Score: 15
--- OUTSIDE RECORDS SUMMARY | 2025-02-04 09:37 | XMS_ITS ---
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 30 tablet 2014 Historic [id number] Xanax 0.5 mg tablet SIG: Xanax 0.5 mg tablet, 30 days, Dispense #15 Tablet, 0 RefillsDirecti ons: Take one tablet by mouth as needed. 15 tablet 2014 Historic [id number] pravast atin 80 mg tablet SIG: pravastatin 80 mg tablet, 30 days, Dispense #30 Tablet, 2 RefillsDirecti ons: Take one tablet by mouth daily. 30 tablet 2014 Historic [id number] Xanax 0.5 mg tablet SIG: Xanax 0.5 mg tablet, 30 days, Dispense #15 Tablet, 0 RefillsDirecti ons: Take one tablet by mouth up to three times daily as needed 15 tablet 2014 Historic [id number] Ambien 5 mg tablet SIG: Ambien 5 mg tablet, 30 days, Dispense #30 Tablet, 0 RefillsDirecti ons: Take 1 oral tablet at bedtime 30 tablet 2014 Historic [id number] Protoni x 20 mg tablet, delayed release (DR/EC) SIG: Protonix 20 mg tablet,delayed release (DR/EC), 30 days, Dispense #30 Tablet, 0 RefillsDirecti ons: Take 1 oral tablet once a day 30 tablet, delayed release (DR/EC) 2014 Historic [id number] Celexa 40 mg tablet SIG: Celexa 40 mg tablet, 30 days, Dispense #30 Tablet, 0 RefillsDirecti ons: Take 1 oral tablet once a day 30 tablet 2014 Historic [id number] acyclov ir 400 mg tablet SIG: acyclovir 400 mg tablet, 30 days, Dispense #30 Tablet, 0 RefillsDirecti ons: Take 1 oral tablet once a day 30 tablet 2014 Historic [id number] losarta n-hydro chlorot hiazide 50-12.5 mg tablet SIG: losartan-hydro chlorothiazide 50-12.5 mg tablet, 30 days, Dispense #30 Tablet, 0 RefillsDirecti ons: Take 1 oral tablet once a day 30 tablet 2014 Historic [id number] hydroco done-ac etamino phen 7.5-325 mg tablet SIG: hydrocodone-ac etaminophen 7.5-325 mg tablet, 30 days, Dispense #60 Tablet, 0 RefillsDirecti ons: Take 1 oral tablet by mouth every 8hrs as needed 60 tablet 2014 Historic [id number] tramado l 50 mg tablet SIG: tramadol 50 mg tablet, 30 days, Dispense #60 Tablet, 0 RefillsDirecti ons: Take 1 oral tablet twice a day 60 tablet 2014 Historic [id number] acyclov ir 400 mg tablet SIG: acyclovir 400 mg tablet, 30 days, Dispense #30 Tablet, 2 RefillsDirecti ons: Take 1 oral tablet once a day 30 tablet 2014 Historic [id number] Celexa 40 mg tablet SIG: Celexa 40 mg tablet, 30 days, Dispense #30 Tablet, 2 RefillsDirecti ons: Take 1 oral tablet once a day 30 tablet 2014 Historic [id number] Protoni x 20 mg tablet, delayed release (DR/EC) SIG: Protonix 20 mg tablet,delayed release (DR/EC), 30 days, Dispense #30 Tablet, 2 RefillsDirecti ons: Take 1 oral tablet once a day 30 tablet, delayed release (DR/EC) 2014 Historic [id number] Ambien 5 mg tablet SIG: Ambien 5 mg tablet, 30 days, Dispense #30 Tablet, 2 RefillsDirecti ons: Take 1 oral tablet at bedtime 30 tablet 2014 Historic [id number] Ambien 5 mg tablet SIG: Ambien 5 mg tablet, 30 days, Dispense #30 Tablet, 2 RefillsDirecti ons: Take 1 oral tablet at bedtime 30 tablet 2014 Historic [id number] Xanax 0.5 mg tablet SIG: Xanax 0.5 mg tablet, 30 days, Dispense #15 Tablet, 0 RefillsDirecti ons: Take one tablet by mouth up to three times daily as needed 15 tablet 2014 Historic [id number] Ambien 10 mg tablet SIG: Ambien 10 mg tablet, 30 days, Dispense #30 Tablet, 2 RefillsDirecti ons: Take 1 oral tablet at bedtime 30 tablet 2014 Historic [id number] Ambien 10 mg tablet SIG: Ambien 10 mg tablet, 30 days, Dispense #30 Tablet, 2 RefillsDirecti ons: Take 1 oral tablet at bedtime 30 tablet 2015 Historic [id number] Ultram 50 mg tablet SIG: Ultram 50 mg oral tablet, 30 days, Dispense #120 Tablet, 0 RefillsDirecti ons: take 1 tablet by oral route every 6 hours as needed 120 tablet 2021 Historic [id number] trazodo ne 150 mg tablet SIG: trazodone 150 mg oral tablet, 30 days, Dispense #90 Tablet, 0 RefillsDirecti ons: Take 150 mg by mouth nightly. 2 tablets at bedtime as needed 90 tablet 2021 Historic [id number] Ranexa 1,000 mg tablet extende d release 12 hr SIG: Ranexa 1,000 mg oral tablet extended release 12 hr, 30 days, Dispense #60 Tablet, 0 RefillsDirecti ons: Take 1,000 mg by mouth 2 times daily 60 tablet extende d release 12 hr 2021 Historic [id number] paroxet ine HCl 20 mg tablet SIG: paroxetine HCl 20 mg oral tablet, 30 days, Dispense #60 Tablet, 0 RefillsDirecti ons: Take 20 mg by mouth daily 60 tablet 2021 Historic [id number] losarta n 100 mg tablet SIG: losartan 100 mg oral tablet, 30 days, Dispense #30 Tablet, 0 RefillsDirecti ons: Take 1 oral tablet once a day 30 tablet 2021 Historic [id number] hydroco done-ac etamino phen 10-325 mg tablet SIG: hydrocodone-ac etaminophen 10-325 mg oral tablet, 30 days, Dispense #120 Tablet, 0 RefillsDirecti ons: Take 1 Tablet by mouth every 6 hours as needed. 120 tablet 2021 Current [id number] gabapen tin 600 mg tablet SIG: gabapentin 600 mg oral tablet, 30 days, Dispense #90 Tablet, 0 RefillsDirecti ons: Take 1 Tablet by mouth 3 times daily. 90 tablet 2021 Historic [id number] epineph rine 0.3 mg/0.3 mL auto-in jector SIG: epinephrine 0.3 mg/0.3 mL injection auto-injector, 1 days, Dispense #1 Each, 0 RefillsDirecti ons: inject 0.3 milliliter by intramuscular route once as needed for anaphylaxis 1 auto-in jector 2021 Historic [id number] ezetimi be 10 mg tablet SIG: ezetimibe 10 mg oral tablet, 30 days, Dispense #30 Tablet, 0 RefillsDirecti ons: Take 1 oral tablet once a day 30 tablet 2021 Historic [id number] butalbi carisa-asp irin-ca ffeine 50-325- 40 mg capsule SIG: butalbital-asp irin-caffeine 50-325-40 mg oral capsule, 30 days, Dispense #90 Capsule, 0 RefillsDirecti ons: Take 1 capsule by mouth every 4 (four) hours as needed for headaches 90 capsule 2021 Historic [id number] aripipr azole 10 mg tablet SIG: aripiprazole 10 mg oral tablet, 30 days, Dispense #30 Tablet, 0 RefillsDirecti ons: Take 1 oral tablet once a day 30 tablet 2021 Historic [id number] alprazo miles 0.5 mg tablet SIG: alprazolam 0.5 mg oral tablet, 30 days, Dispense #90 Tablet, 0 RefillsDirecti ons: Take one tablet by mouth up to three times daily as needed 90 tablet 2021 Historic [id number] Celebre x 200 mg capsule SIG: Celebrex 200 mg oral capsule, 30 days, Dispense #60 Capsule, 0 RefillsDirecti ons: Take 1 oral capsule twice a day 60 capsule 2021 Current [id number] famotid ine 40 mg tablet SIG: famotidine 40 mg oral tablet, 30 days, Dispense #30 Tablet, 5 RefillsDirecti ons: Take 1 oral tablet once a day 30 tablet 2021 Historic [id number] Vascepa 1 gram capsule SIG: Vascepa 1 gram oral capsule, 90 days, Dispense #360 Capsule, 2 RefillsDirecti ons: Take 2 capsules by mouth twice daily with food 360 capsule 2021 Historic [id number] Repatha SureCli ck 140 mg/mL pen injecto r SIG: Repatha SureClick 140 mg/mL subcutaneous pen injector, 14 days, Dispense #1 Milliliter, 0 RefillsDirecti ons: Take 1 subcutaneous milliliter ever 2 weeks 1 pen injecto r 2021 Historic [id number] hydroch lorothi azide 25 mg tablet SIG: hydrochlorothi azide 25 mg oral tablet, 90 days, Dispense #90 Tablet, 0 RefillsDirecti ons: Take 1 oral tablet once a day 90 tablet 2021 Historic [id number] Toprol XL 50 mg tablet extende d release 24 hr SIG: Toprol XL 50 mg oral tablet extended release 24 hr, 90 days, Dispense #90 Tablet, 0 RefillsDirecti ons: Take 1 oral tablet once a day 90 tablet extende d release 24 hr 2021 Historic [id number] nitrogl ycerin 0.4 mg tablet, subling ual SIG: nitroglycerin 0.4 mg sublingual tablet, sublingual, 0 days, Dispense #30 Tablet, 0 RefillsDirecti ons: Put 1 tablet under tongue as needed for chest pain. may repeat every 5 minutes if still having chest pain (max dose 3 tablets) 30 tablet, subling ual 2021 Historic [id number] aripipr azole 10 mg tablet SIG: aripiprazole 10 mg oral tablet, 30 days, Dispense #60 Tablet, 0 RefillsDirecti ons: Take 1 tablet in the morning and 1 tablet in the evening 60 tablet 2021 Historic [id number] paroxet ine HCl 20 mg tablet SIG: paroxetine HCl 20 mg oral tablet, 30 days, Dispense #75 Tablet, 0 RefillsDirecti ons: Take 1 tablet in the morning. Take 1.5 tablets in the evening 75 tablet 2021 Historic [id number] benzona deleon 200 mg capsule SIG: benzonatate 200 mg oral capsule, 30 days, Dispense #30 Capsule, 0 RefillsDirecti ons: Take 1 oral capsule at bedtime as needed for cough 30 capsule 2021 Historic [id number] Repatha SureCli ck 140 mg/mL pen injecto r SIG: Repatha SureClick 140 mg/mL subcutaneous pen injector, 28 days, Dispense #2 Milliliter, 0 RefillsDirecti ons: Take 1 subcutaneous milliliter every 2 weeks 2 pen injecto r 2021 Historic [id number] risedro hebert 150 mg tablet SIG: risedronate 150 mg oral tablet, 90 days, Dispense #3 Tablet, 0 RefillsDirecti ons: Take one oral tablet once per month 3 tablet 2021 Historic M81.0 - AGE-RELATED OSTEOPOROSIS WITHOUT CURRENT PATHOLOGICAL FRACTURE [id number] alendro hebert 70 mg tablet SIG: alendronate, Dispense #12, 1 Refills, Directions: Take one oral tablet weekly 12 tablet 2021 Historic [id number] Repatha SureCli ck 140 mg/mL pen injecto r SIG: Repatha SureClick, Dispense #2, 1 Refills, Directions: INJECT 1 ML SUBCUTANEOUSLY EVERY 2 WEEKS 2 pen injecto r 2022 Historic [id number] famotid ine 40 mg tablet SIG: famotidine, Dispense #90, 0 Refills, Directions: TAKE 1 TABLET BY MOUTH EVERY DAY 90 tablet 04/28/ 2023 Historic [id number] ALENDRO HEBERT SODIUM 70 MG TAB 70 mg tablet SIG: ALENDRONATE SODIUM 70 MG TAB, Dispense #12, 1 Refills, Directions: TAKE ONE TABLET BY MOUTH ONCE WEEKLY 12 tablet 2022 Historic [id number] amlodip ine 5 mg tablet SIG: amlodipine 5 mg oral tablet, 90 days, Dispense #90 Tablet, 0 RefillsDirecti ons: Take 1 oral tablet once a day 90 tablet 2022 Current [id number] cyclobe nzaprin e 10 mg tablet SIG: cyclobenzaprin e 10 mg oral tablet, 90 days, Dispense #180 Tablet, 0 RefillsDirecti ons: Take 1 oral tablet twice a day 180 tablet 2022 Historic [id number] Praluen t Pen 75 mg/mL pen injecto r SIG: Praluent Pen 75 mg/mL subcutaneous pen injector, 28 days, Dispense #2 Milliliter, 0 RefillsDirecti ons: Inject 75mg once every 2 weeks 2 pen injecto r 2022 Historic [id number] FAMOTID INE 40 MG TABLET 40 mg tablet SIG: FAMOTIDINE 40 MG TABLET, Dispense #90, 0 Refills, Directions: TAKE 1 TABLET BY MOUTH EVERY DAY 90 tablet 2022 Historic [id number] FAMOTID INE 40 MG TABLET 40 mg tablet SIG: FAMOTIDINE 40 MG TABLET, Dispense #90, 0 Refills, Directions: TAKE 1 TABLET BY MOUTH EVERY DAY 90 tablet 2022 Historic [id number] gabapen tin 600 mg tablet SIG: gabapentin 600 mg oral tablet, 30 days, Dispense #90 Tablet, 0 RefillsDirecti ons: Take 1 Tablet by mouth 3 times daily. 90 tablet 2022 Historic [id number] fluocin olone acetoni de oil 0.01 % drops SIG: fluocinolone acetonide oil 0.01 % otic (ear) drops, 10 days, Dispense #20 Milliliter, 0 RefillsDirecti ons: 5 gtts in affected ear twice daily as needed for external auditory canal discomfort 20 drops 2022 Historic [id number] PAROXET INE HCL 20 MG TABLET 20 mg tablet SIG: PAROXETINE HCL 20 MG TABLET, Dispense #90, 1 Refills, Directions: TAKE 1 TABLET BY MOUTH EVERY DAY 90 tablet 2022 Historic [id number] FAMOTID INE 40 MG TABLET 40 mg tablet SIG: FAMOTIDINE 40 MG TABLET, Dispense #90, 0 Refills, Directions: TAKE 1 TABLET BY MOUTH EVERY DAY 90 tablet 2023 Historic [id number] Nexlize t 180-10 mg tablet SIG: Nexlizet 180-10 mg oral tablet, 30 days, Dispense #30 Tablet, 0 Refills, Directions: Take 1 oral tablet once a day 30 tablet 2023 Historic [id number] Nexlize t 180-10 mg tablet SIG: Nexlizet 180-10 mg oral tablet, 30 days, Dispense #30 Tablet, 2 Refills, Directions: Take 1 oral tablet once a day 30 tablet 2023 Historic [id number] Nexlize t 180-10 mg tablet SIG: Nexlizet 180-10 mg oral tablet, 30 days, Dispense #30 Tablet, 2 Refills, Directions: Take 1 oral tablet once a day 30 tablet 2023 Historic [id number] alprazo miles 0.5 mg tablet SIG: alprazolam 0.5 mg oral tablet, 30 days, Dispense #90 Tablet, 0 Refills, Directions: Take one tablet by mouth up to three times daily as needed 90 tablet 2023 Historic [id number] paroxet ine HCl 20 mg tablet SIG: paroxetine HCl 20 mg oral tablet, 30 days, Dispense #75 Tablet, 0 Refills, Directions: Take 1 tablet in the morning. Take 1.5 tablets in the evening 75 tablet 2023 Historic [id number] gabapen tin 600 mg tablet SIG: gabapentin 600 mg oral tablet, 30 days, Dispense #90 Tablet, 0 Refills, Directions: Take 1 Tablet by mouth 3 times daily. 90 tablet 2023 Historic [id number] GABAPEN TIN 600 MG TABLET 600 mg tablet SIG: GABAPENTIN 600 MG TABLET, Dispense #90, 0 Refills, Directions: take 1 tablet by mouth three times a day 90 tablet 2023 Historic [id number] FAMOTID INE 40 MG TABLET 40 mg tablet SIG: FAMOTIDINE 40 MG TABLET, Dispense #90, 0 Refills, Directions: TAKE 1 TABLET BY MOUTH EVERY DAY 90 tablet 2023 Historic [id number] FAMOTID INE 40 MG TABLET 40 mg tablet SIG: FAMOTIDINE 40 MG TABLET, Dispense #90, 0 Refills, Directions: take 1 tablet by mouth every day 90 tablet 2023 Historic [id number] trazodo ne 150 mg tablet SIG: trazodone 150 mg oral tablet, 30 days, Dispense #30 Tablet, 0 Refills, Directions: Take 150 mg by mouth nightly. 2 tablets at bedtime as needed 30 tablet 2023 Historic [id number] metform in 500 mg tablet extende d release 24 hr SIG: metformin 500 mg oral tablet extended release 24 hr, 90 days, Dispense #90 Tablet, 0 Refills, Directions: TAKE 1 ORAL TABLET 3 TIMES A DAY 90 tablet extende d release 24 hr 2023 Historic [id number] Vitamin D2 1,250 mcg (50,000 unit) capsule SIG: Vitamin D2 1,250 mcg (50,000 unit) oral capsule, 90 days, Dispense #4 Capsule, 12 Refills, Directions: Take 1 tablet weekly 4 capsule 2023 [facility] [id number] trazodo ne 150 mg tablet SIG: trazodone 150 mg oral tablet, 30 days, Dispense #30 Tablet, 1 Refills, Directions: Take 150 mg by mouth nightly. 30 tablet 2023 Historic [id number] trazodo ne 150 mg tablet SIG: trazodone 150 mg oral tablet, 30 days, Dispense #30 Tablet, 1 Refills, Directions: Take 150 mg by mouth nightly. 30 tablet 2023 Historic [id number] alprazo miles 0.5 mg tablet SIG: alprazolam 0.5 mg oral tablet, 30 days, Dispense #90 Tablet, 0 Refills, Directions: Take one tablet by mouth up to three times daily as needed 90 tablet 2023 Historic [id number] alprazo miles 0.5 mg tablet SIG: alprazolam 0.5 mg oral tablet, 30 days, Dispense #85 Tablet, 0 Refills, Directions: Take one tablet by mouth up to three times daily as needed for severe anxiety or panic attack 85 tablet 2023 Historic [id number] metform in 500 mg tablet extende d release 24 hr SIG: metformin 500 mg oral tablet extended release 24 hr, 90 days, Dispense #270 Tablet, 0 Refills, Directions: TAKE 1 ORAL TABLET 3 TIMES A DAY 270 tablet extende d release 24 hr 2023 Historic [id number] albuter ol sulfate 90 mcg/act uation HFA aerosol inhaler SIG: albuterol sulfate 90 mcg/actuation inhalation HFA aerosol inhaler, 3 days, Dispense #6.7 Gram, 0 Refills, Directions: two puffs every 4 hours as needed for cough, wheezing, or shortness of breath 6.7 HFA aerosol inhaler 2023 Historic [id number] alprazo miles 0.5 mg tablet SIG: alprazolam 0.5 mg oral tablet, 30 days, Dispense #80 Tablet, 0 Refills, Directions: Take one tablet by mouth up to three times daily as needed for severe anxiety or panic attack 80 tablet 2023 Historic [id number] prometh azine-D M 6.25-15 mg/5 mL syrup SIG: promethazine-D M 6.25-15 mg/5 mL oral syrup, 29 days, Dispense #116 Milliliter, 0 Refills, Directions: Take 5 oral milliliter every 6 hours as needed for cough. 116 syrup 2023 Historic [id number] alprazo miles 0.5 mg tablet SIG: alprazolam 0.5 mg oral tablet, 30 days, Dispense #80 Tablet, 0 Refills, Directions: Take one tablet by mouth up to three times daily as needed for severe anxiety or panic attack 80 tablet 2023 Historic [id number] famotid ine 40 mg tablet SIG: famotidine 40 mg oral tablet, 90 days, Dispense #90 Tablet, 0 Refills, Directions: TAKE 1 TABLET BY MOUTH EVERY DAY 90 tablet 2023 Historic [id number] FAMOTID INE 40 MG TABLET 40 mg tablet SIG: FAMOTIDINE 40 MG TABLET, Dispense #90, 0 Refills, Directions: take 1 tablet by mouth every day 90 tablet 2023 Historic [id number] ondanse wing 4 mg tablet, disinte grating SIG: ondansetron 4 mg oral tablet,disinte grating, 7 days, Dispense #20 Tablet, 0 Refills, Directions: Take 1 tablet by mouth every 8 hours as needed for nausea 20 tablet, disinte grating 2023 Historic [id number] ondanse wing 4 mg tablet, disinte grating SIG: ondansetron 4 mg oral tablet,disinte grating, 7 days, Dispense #20 Tablet, 0 Refills, Directions: Take 1 tablet by mouth every 8 hours as needed for nausea 20 tablet, disinte grating 2023 Historic [id number] alprazo miles 0.5 mg tablet SIG: alprazolam 0.5 mg oral tablet, 30 days, Dispense #75 Tablet, 0 Refills, Directions: Take one tablet by mouth up to three times daily as needed for severe anxiety or panic attack 75 tablet 2023 Historic [id number] metform in 500 mg tablet extende d release 24 hr SIG: metformin 500 mg oral tablet extended release 24 hr, 90 days, Dispense #270 Tablet, 0 Refills, Directions: TAKE 1 ORAL TABLET 3 TIMES A DAY 270 tablet extende d release 24 hr 2023 Historic [id number] METFORM IN HCL ER 500 MG TABLET 500 mg tablet extende d release 24 hr SIG: METFORMIN HCL ER 500 MG TABLET, Dispense #270, 0 Refills, Directions: take 1 tablet by mouth three times a day 270 tablet extende d release 24 hr 2023 Historic [id number] alprazo miles 0.5 mg tablet SIG: alprazolam 0.5 mg oral tablet, 30 days, Dispense #70 Tablet, 0 Refills, Directions: Take one tablet by mouth up to three times daily as needed for severe anxiety or panic attack 70 tablet 2023 Historic [id number] famotid ine 40 mg tablet SIG: famotidine 40 mg oral tablet, 90 days, Dispense #90 Tablet, 0 Refills, Directions: TAKE 1 TABLET BY MOUTH EVERY DAY 90 tablet 2023 Historic [id number] FAMOTID INE 40 MG TABLET 40 mg tablet SIG: FAMOTIDINE 40 MG TABLET, Dispense #90, 0 Refills, Directions: take 1 tablet by mouth every day 90 tablet 2023 Historic [id number] alprazo miles 0.5 mg tablet SIG: alprazolam 0.5 mg oral tablet, 30 days, Dispense #65 Tablet, 0 Refills, Directions: Take one tablet by mouth up to three times daily as needed for severe anxiety or panic attack 65 tablet 2023 Historic [id number] pantopr azole 40 mg tablet, delayed release (DR/EC) SIG: pantoprazole 40 mg oral tablet,delayed release (DR/EC), 30 days, Dispense #30 Tablet, 1 Refills, Directions: Take 1 oral tablet once a day 30 tablet, delayed release (DR/EC) 2023 Historic [id number] metform in 500 mg tablet extende d release 24 hr SIG: metformin 500 mg oral tablet extended release 24 hr, 90 days, Dispense #270 Tablet, 0 Refills, Directions: TAKE 1 ORAL TABLET 3 TIMES A DAY 270 tablet extende d release 24 hr 2023 Historic [id number] metform in 500 mg tablet extende d release 24 hr SIG: metformin 500 mg oral tablet extended release 24 hr, 90 days, Dispense #270 Tablet, 0 Refills, Directions: TAKE 1 ORAL TABLET 3 TIMES A DAY 270 tablet extende d release 24 hr 2023 Historic [id number] pantopr azole 40 mg tablet, delayed release (DR/EC) SIG: pantoprazole 40 mg oral tablet,delayed release (DR/EC), 30 days, Dispense #30 Tablet, 1 Refills, Directions: Take 1 oral tablet once a day 30 tablet, delayed release (DR/EC) 2023 Historic [id number] Pantopr azole Sodium 40 MG Oral Tablet Delayed Release 40 mg tablet, delayed release (DR/EC) SIG: Pantoprazole Sodium 40 MG Oral Tablet Delayed Release, Dispense #30, 0 Refills, Directions: Take 1 tablet by mouth once daily 30 tablet, delayed release (DR/EC) 2023 Historic [id number] alprazo miles 0.5 mg tablet SIG: alprazolam 0.5 mg oral tablet, 30 days, Dispense #60 Tablet, 0 Refills, Directions: Take one tablet by mouth up to three times daily as needed for severe anxiety or panic attack 60 tablet 2024 Historic [id number] alprazo miles 0.5 mg tablet SIG: alprazolam 0.5 mg oral tablet, 30 days, Dispense #55 Tablet, 0 Refills, Directions: Take one tablet by mouth up to three times daily as needed for severe anxiety or panic attack 55 tablet 2024 Historic [id number] pantopr azole 20 mg tablet, delayed release (DR/EC) SIG: pantoprazole 20 mg oral tablet,delayed release (DR/EC), 90 days, Dispense #90 Tablet, 1 Refills, Directions: Take 1 oral tablet once a day 90 tablet, delayed release (DR/EC) 2024 Historic [id number] Nexlize t 180-10 mg tablet SIG: Nexlizet 180-10 mg oral tablet, 30 days, Dispense #30 Tablet, 0 Refills, Directions: Take 1 oral tablet once a day 30 tablet 2024 Historic [id number] metform in 500 mg tablet extende d release 24 hr SIG: metformin 500 mg oral tablet extended release 24 hr, 90 days, Dispense #270 Tablet, 0 Refills, Directions: TAKE 1 ORAL TABLET 3 TIMES A DAY 270 tablet extende d release 24 hr 2024 Historic [id number] alprazo miles 0.5 mg tablet SIG: alprazolam 0.5 mg oral tablet, 30 days, Dispense #50 Tablet, 0 Refills, Directions: Take one tablet by mouth up to three times daily as needed for severe anxiety or panic attack 50 tablet 2024 Historic [id number] alprazo miles 0.5 mg tablet SIG: alprazolam 0.5 mg oral tablet, 30 days, Dispense #45 Tablet, 0 Refills, Directions: Take one tablet by mouth up to three times daily as needed for severe anxiety or panic attack 45 tablet 2024 Historic [id number] nystati n 100,000 unit/mL suspens ion SIG: nystatin 100,000 unit/mL oral suspension, 50 days, Dispense #200 Milliliter, 0 Refills, Directions: Take 5 mL orally four times daily, retain in mouth as long as possible before swallowing 200 suspens ion 2024 Historic [id number] gabapen tin 600 mg tablet SIG: gabapentin 600 mg oral tablet, 90 days, Dispense #270 Tablet, 1 Refills, Directions: Take 1 Tablet by mouth 3 times daily. 270 tablet 2024 Current [id number] cephale gabi 500 mg capsule SIG: cephalexin 500 mg oral capsule, 5 days, Dispense #10 Capsule, 0 Refills, Directions: Take 1 oral capsule 2 times a day 10 capsule 2024 Historic [id number] pantopr azole 20 mg tablet, delayed release (DR/EC) SIG: pantoprazole 20 mg oral tablet,delayed release (DR/EC), 90 days, Dispense #90 Tablet, 1 Refills, Directions: Take 1 oral tablet once a day 90 tablet, delayed release (DR/EC) 2024 Current [id number] alprazo miles 0.5 mg tablet SIG: alprazolam 0.5 mg oral tablet, 30 days, Dispense #40 Tablet, 0 Refills, Directions: Take one tablet by mouth up to three times daily as needed for severe anxiety or panic attack 40 tablet 2024 Historic [id number] metform in 500 mg tablet extende d release 24 hr SIG: metformin 500 mg oral tablet extended release 24 hr, 90 days, Dispense #270 Tablet, 0 Refills, Directions: TAKE 1 ORAL TABLET 3 TIMES A DAY 270 tablet extende d release 24 hr 2024 Current [id number] ondanse wing 4 mg tablet, disinte grating SIG: ondansetron 4 mg oral tablet,disinte grating, 7 days, Dispense #20 Tablet, 0 Refills, Directions: Take 1 tablet by mouth every 8 hours as needed for nausea 20 tablet, disinte grating 2024 Current [id number] alprazo miles 0.5 mg tablet SIG: alprazolam 0.5 mg oral tablet, 30 days, Dispense #35 Tablet, 0 Refills, Directions: Take one tablet by mouth up to three times daily as needed for severe anxiety or panic attack 35 tablet 2024 Historic [id number] alprazo miles 0.5 mg tablet SIG: alprazolam 0.5 mg oral tablet, 30 days, Dispense #30 Tablet, 0 Refills, Directions: Take one tablet by mouth up to three times daily as needed for severe anxiety or panic attack 30 tablet 2024 Historic [id number] alprazo miles 0.5 mg tablet SIG: alprazolam [...] DUE TO OTHER MENTAL DISORDER Chronic 03/15/2018 [id number] (PRIMARY) HYPERTENSION ESSENTIAL (PRIMARY) HYPERTENSION Chronic 03/15/2018 I50.32-CHRONIC DIASTOLIC (CONGESTIVE) HEART FAILURE CHRONIC DIASTOLIC (CONGESTIVE) HEART FAILURE Chronic 03/15/2018 K21.6-RLQETP-[id number] L REFLUX DISEASE WITHOUT ESOPHAGITIS GASTRO-ESOPHAGEAL REFLUX DISEASE WITHOUT ESOPHAGITIS Chronic 03/15/2018 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 03/15/2018 R73.03-Prediabetes Prediabetes Historic 03/15/2018 M54.6-PAIN IN THORACIC SPINE PAIN IN THORACIC SPINE Chronic 03/15/2018 M17.0-Bilateral primary osteoarthritis of knee Bilateral primary osteoarthritis of knee Chronic 03/15/2018 I65.23-Occlusion and stenosis of bilateral carotid arteries Occlusion and stenosis of bilateral carotid arteries Chronic 01/05/2022 M81.0-PDH-ZDIDOEB OSTEOPOROSIS WITHOUT CURRENT PATHOLOGICAL FRACTURE AGE-RELATED OSTEOPOROSIS [...] Never Smoker Sex: Female 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 Medicare [id number]
[2025-02-04 10:01] LABS: EDUAAPPEAR Cloudy; EDUABILI Negative (Negative); EDUABLOOD 3+ (Negative); EDUACOLOR1 Yellow; EDUAGLUCOSE Negative (Negative); EDUAKETONE Negative (Negative); EDUALEUKO Trace (Negative); EDUANITRATE Negative (Negative); EDUAPH 6.0; EDUAPROTEIN 2+ (Negative); EDUASPGRAVITY 1.030; EDUAUROBILI 0.2
== END 2025-02-04 09:41 | disposition home or self-care (01) ==
PROVIDERS: Emergency Provider Registered Nurse; PCP Family Medicine
DX: N39.0 Urinary tract infection, site not specified (principal); E11.9 Type 2 diabetes mellitus without complications; Z79.84 Long term (current) use of oral hypoglycemic drugs; I10 Essential (primary) hypertension; F32.A Depression, unspecified; Z96.651 Presence of right artificial knee joint
CPT/HCPCS: 81003; 87086; 99213; G0463